=== PATIENT | male | born 1955 | race African-American/Black ===

== ENCOUNTER → 2016-06-20 | Outpatient (CLI) | payer BC ==
[2015-01-22 16:36] VITALS: BP 145/72
[~2016-06-20] MED LIST: ALLO300T PO; CYCL10TA2 PO; GABA-586 PO; GLIM1TAB2 PO; INDA2.5T PO; IOHEXOL 180 MG/ML 10 ML VIAL. ONE; METF850T2 PO; MONT10TA6 PO; RAMI2.5C PO; SITA100T PO; TRAM50TA PO; methylPREDNISolone ACETATE 40 MG/ML VIAL. ONE; methylPREDNISolone ACETATE 80 MG/ML VIAL. ONE
--- NOTE | 2016-06-21 05:12 | PAIN ---
DATE OF SERVICE: 06/20/2016 INITIAL CONSULTATION CHIEF COMPLAINT: Neck and right upper extremity pain. HISTORY OF PRESENT ILLNESS: This is a 60-year-old male who presents with history of pain in the base of the neck and right upper extremity for about 8 months or so now. The patient reports it is increasing with activity using a computer operating a mouse with his right hand. He is right handed. He has numbness and tingling and weakness, especially in the index and middle finger on the right hand, also in the thumb to some extent with pain and weakness and numbness traveling from the base of the neck and shoulder bilaterally, anterior shoulder into the clavicle, posterior into the scapula, on the superior aspect into the anterior aspect of the biceps and forearm and into hand as described. The patient reports it is worse when he tries to sleep and using his computer, is a constant aching pain radiating shooting pain in the arms as noted. The patient reports it awakens him about half the night when he is trying to sleep. The patient reports it does not affect his bowel or bladder control or ability to walk, but his ability to use his computer which is interfering with some of his work duties with comfort, but not with completion of the duties. The patient did have the MRI scan of cervical spine showing postoperative interbody fusion at C5 and C6 with a large asymmetric disk protrusion at C6-C7 greater to the right and midline associated with cord compression, central spinal and foraminal stenosis, greater on the right with a broad-based disk herniation, most probable. The patient reports his disability rating from 0 to 10, 10 being the worst, is a 3 with family and home responsibilities, recreation, social activities and sexual behavior, 2 with self care, 7 with occupation, 8 with life support activities. The patient reports he had been taking [id number] Advil, which helps to a mild extent. He has had some physical therapy several years ago, has done some of those exercises recently on his own, but has had no formal therapy at this point or any other treatments. The patient reports no loss of motor function of right upper extremity, but does fatigue more easily than the left side. PAST MEDICAL HISTORY: Significant for type 2 diabetes, bronchitis, history of hypertension, arthritis, history of kidney stones. PREVIOUS SURGERY: Includes cervical fusion, laparoscopic cholecystectomy, tonsillectomy, foot surgery, and inguinal hernia repair. CURRENT MEDICATIONS: Include Januvia, cyclobenzaprine, tramadol, glimepiride, ramipril, metformin, gabapentin, indapamide, allopurinol, and Singulair. ALLERGIES: The patient has ALLERGY TO SUDAFED. FAMILY HISTORY: Significant for cancer in the patient's father and diabetes in his sister. 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 REVIEW OF SYSTEMS: The patient's review of systems is positive for those items mentioned in history of present illness. All systems reviewed and otherwise negative. It is complete, full and well documented on the patient's chart. PHYSICAL EXAMINATION: VITAL SIGNS: Today, the patient's blood pressure is 140/95, pulse 98, respirations 18, temperature 98.0 degrees Fahrenheit, height 6 feet, weight 320 pounds. GENERAL: The patient is awake, alert, oriented, appropriate, very pleasant demeanor. HEENT: Shows normocephalic, atraumatic. Extraocular movements are intact and symmetrical. Oral cavity shows mucous membranes moist and pink. Dentition is intact. NECK: Shows anterior throat supple without palpable lymphadenopathy noted. Swallow reflex is symmetrical. CHEST: Shows normal on inspection. Breath sounds clear to auscultation bilaterally. HEART: Shows S1 and S2 clear. ABDOMEN: Soft, nontender, nondistended. Abdomen without organomegaly. No rebound or guarding demonstrated. BACK: Shows spine grossly midline. Normal appearing cervical lordotic curvature, thoracic kyphotic curvature, and lumbar lordotic curvature. No previous bruises, lesions, rashes, or scars are noted ____. Posterior cervical musculature shows some moderate tenderness with palpation in the middle and inferior aspect of the cervical paraspinous muscles, more on the right than the left, but without asymmetry, without atrophy, hypertrophy without trigger points. Muscle girth is normal on palpation and symmetrical, without asymmetry. No tenderness over the spinous processes themselves. The patient shows good rotational motion of the cervical spine, both laterally greater than 45 degrees right and left as well as full extension and full forward flexion without exacerbation of pain in either extremity. EXTREMITIES: The patient's upper extremities show deep tendon reflexes 2+ in the biceps and triceps tendons are equal. Motor exam is strong with prescription eyeglass maker strength rated at 5/5 as is biceps and triceps flexion strong and equal. Peripheral pulses are 2+ radial distribution. No peripheral edema is noted. No clubbing, no cyanosis. Upper extremities are warm and dry to touch, equal in color and appearance. Shoulder shrug is strong and intact without loss of strength and resistance bilaterally as is abduction of shoulder to 90 degrees without loss of strength on resistance bilaterally. The patient reports some minor pain in the biceps with abduction of the shoulder to 90 degrees on resistance, but without loss of strength. IMPRESSION: 1. This is a 60-year-old male with about 8-month history of increasing pain in the base of the neck radiating into upper extremity on the right as noted. 2. MRI scan as noted. 3. History of hypertension. 4. Diabetes. PLAN: Options were discussed with the patient including conservative medical management, physical therapy, interventional techniques. He would like to pursue interventional techniques. We discussed a cervical epidural steroid injection using description as well as anatomical models to describe the procedure. Risks were then discussed including, but not limited to bleeding, infection, possibility of epidural hematoma and subsequent neurologic compromise, dural puncture, headaches, spinal cord and/or nerve damage, side effects of steroid medication, exacerbation of current symptoms and poor results regarding pain control. The patient understands and wishes to proceed. The patient will return to clinic in approximately 2 weeks for followup, was counseled on return appointment, activity level and side effects to be aware of. DIAGNOSIS: Cervical radiculopathy with cervical herniated disk and post-cervical laminectomy syndrome. PROCEDURE: Cervical epidural steroid injection with fluoroscopic guidance, a translaminar approach at C6-C7 level with local anesthetic under sterile prep and drape. Medication injected is 120 mg Depo-Medrol plus 5 mL of preservative-free normal saline and 2 mL of Isovue contrast. Condition at discharge is stable. The patient tolerated procedure well, had no complications. AGGIE GARCÍA MD DR: JOSE ANTONIO/klever JOB#: [id number] / [id number] GUILLE Herrera MD
== END | disposition home or self-care (01) ==
LOC: PNCL 08:25
PROVIDERS: ATTEND Anesthesiology
DX: M50.10 Cervical disc disorder with radiculopathy, unspecified cervical region (principal); M96.1 Postlaminectomy syndrome, not elsewhere classified; E11.9 Type 2 diabetes mellitus without complications; I10 Essential (primary) hypertension; M19.90 Unspecified osteoarthritis, unspecified site; J40 Bronchitis, not specified as acute or chronic
CPT/HCPCS: 62321; J1030; J1040

== ENCOUNTER → 2016-07-19 | Outpatient (CLI) | payer BC ==
[2015-01-22 16:36] VITALS: BP 145/72
--- NOTE | 2016-07-20 09:52 | PAIN ---
DATE OF SERVICE: 07/19/2016 DIAGNOSES: Cervical radiculopathy with cervical herniated disk and cervical post-laminectomy syndrome. HISTORY OF PRESENT ILLNESS: The patient is a 60-year-old male who returns for followup status post cervical epidural steroid injection x 2. The patient reports approximately 65% improvement after last injection, which was 07/04/2016. The patient reports he did quite well, still having some pain in the right arm and hand with some numbness and tingling, but much improved. The patient reports there are still some muscle spasms, but these are decreasing as well in the upper extremities, some pain in the right shoulder, base of the neck, rating from a 4 to a 6 on a scale of 10, currently a 4. The patient reports not nearly as intense as it was. He is sleeping much better at night, increasing his daily activities and use of the right upper extremity with much greater ease and comfort. He is very pleased with his progress thus far. The patient reports no new motor or sensory deficits or other complaints. PHYSICAL EXAMINATION: VITAL SIGNS: Shows blood pressure 148/100, pulse 80, respirations 18, temperature 97.8 degrees Fahrenheit, height 6 feet, weight is 325 pounds. GENERAL: The patient is awake, alert, oriented, appropriate, very pleasant demeanor. HEENT: Shows normocephalic, atraumatic. The patient is wearing eye glasses. Extraocular movements are intact and symmetrical. Oral cavity shows mucous membranes moist and pink. Dentition is intact. NECK: Shows anterior throat supple without palpable lymphadenopathy noted. Swallow reflex is symmetrical. Well healed surgical scar is noted on inspection. Posterior cervical musculature shows some [id number] tenderness with inferior aspect of the cervical paraspinous musculature, especially on the right, but without asymmetry, without atrophy or hypertrophy. Muscles are normal in girth with palpation without any asymmetry. No trigger points, no asymmetry, and rotation and motion shows some mild tenderness with right lateral rotation and extension, but not with forward flexion, not with left lateral rotation, which is completed fully past 45 degrees right and left. CHEST: Shows normal on inspection. Breath sounds are clear to auscultation bilaterally. HEART: Shows S1 and S2 clear. No murmurs auscultated. ABDOMEN: Obese, but soft, nontender, nondistended. No palpable organomegaly is noted. No rebound or guarding demonstrated. EXTREMITIES: Upper extremity showed deep tendon reflexes 2+ in the biceps and triceps tendons. Motor exam is strong with fullerette strength rated at 5/5 as is biceps and triceps flexion. Peripheral pulses are 2+ in the radial distribution. No peripheral edema is noted. No clubbing or cyanosis. Shoulder shrug is strong and intact as is abduction of the shoulder to 90 degrees without loss of strength on resistance. PLAN: Options were discussed with the patient. The patient's old chart was reviewed as was his current medication regimen and updated. Current review of systems is updated today as well. We will proceed with the third cervical epidural steroid injection today with fluoroscopic guidance. Risks were again discussed including, but not limited to bleeding, infection, possibility of epidural hematoma, subsequent neurologic compromise, dural punctures, headaches, spinal cord and/or nerve damage, side effects of steroid medication and poor results regarding pain control. The patient understands and wished to proceed. The patient will return to clinic in approximately 2 weeks for followup, was counseled on return appointment, activity level, and side effects to be aware of. DIAGNOSES: Cervical radiculopathy with cervical herniated disk and post-cervical laminectomy syndrome. PROCEDURE: Cervical epidural steroid injection, translaminar approach at the C6-C7 level with fluoroscopic guidance under sterile prep and drape and using local anesthetic. MEDICATION INJECTED: 120 mg Depo-Medrol plus 5 mL of preservative-free normal saline and 2 mL of Isovue for contrast. CONDITION ON DISCHARGE: Stable. The patient tolerated the procedure well, had no complications. AGGIE GARCÍA MD DR: JOSE ANTONIO/klever JOB#: [id number] / [id number]
== END | disposition home or self-care (01) ==
LOC: PNCL 07:46
PROVIDERS: ATTEND Anesthesiology
DX: M50.123 Cervical disc disorder at C6-C7 level with radiculopathy (principal)
CPT/HCPCS: 62321; J1030; J1040

== ENCOUNTER 2017-07-24 14:25 | Inpatient (IN) | payer BC ==
[2017-07-24 15:44] LABS: ADD MAN DIFF? NO
[2017-07-24 15:48] LABS: BASO % 1 % (0-3); EOS # 0.2 x10^3/uL (0.0-0.7); EOS % 2 % (0-3); HEMATOCRIT 38.9 % (39.0-53.0); LYMPH # 1.2 x10^3/uL (1.0-4.8); LYMPH % 17 % (24-48); MEAN CORPUSCULAR HEMOGLOBIN 31 pg (25-35); MEAN CORPUSCULAR HGB CONC 34 g/dL (31-37); MEAN CORPUSCULAR VOLUME 91 fL (79-100); MONO # 0.7 x10^3/uL (0.0-1.1); MONO % 10 % (0-9); NEUT # 4.9 x10^3uL (1.8-7.7); NEUT % 71 % (31-73); PLATELET COUNT 289 x10^3/uL (140-400); RED BLOOD COUNT 4.25 x10^6/uL (4.30-5.70)
[2017-07-24 15:55] LABS: PROTHROMBIN TIME PATIENT 12.8 SEC (11.7-14.0)
[2017-07-24 16:00] LABS: ANION GAP 8 (6-14); BLOOD UREA NITROGEN 9 mg/dL (8-26); BUN/CREATININE RATIO 9 (6-20); CALCIUM 9.2 mg/dL (8.5-10.1); CARBON DIOXIDE 29 mmol/L (21-32); CHLORIDE 106 mmol/L (98-107); GFR 91.9; GLUCOSE 132 mg/dL (70-99); POTASSIUM 3.9 mmol/L (3.5-5.1); SODIUM 143 mmol/L (136-145)
[2017-07-24 16:07] LABS: TROPONINI 0.039 ng/mL (0.000-0.055)
[2017-07-24 16:11] LABS: NT-PRO BNP 2549 pg/mL (0-124)
[2017-07-24 16:13] LABS: ALBUMIN 3.6 g/dL (3.4-5.0); ALK PHOS 86 U/L (46-116); ALT (SGPT) 37 U/L (16-63); AST (SGOT) 27 U/L (15-37); TOTAL BILIRUBIN 0.6 mg/dL (0.2-1.0); TOTAL PROTEIN 7.1 g/dL (6.4-8.2)
[2017-07-24] MEDS: FUROSEMIDE 40 MG/4 ML VIAL. IVP ×2 (17:47)
[2017-07-24] MEDS ORDERED: DEXTROSE 50% 25 GM / 50ML DISP.SYRIN. IV ×2 (20:00)
[2017-07-24] MEDS ORDERED: traMADol 50 MG TABLET PO ×2 (20:15)
[2017-07-24] MEDS: INSULIN DETEMIR 300 UNITS/3 ML INSULN.PEN. SQ ×2 (21:00)
[2017-07-24] MEDS: GLIMEPIRIDE 2 MG TABLET. PO ×2 (21:00)
[2017-07-24] MEDS: CYCLOBENZAPRINE 10 MG TABLET. PO ×2 (21:00)
[2017-07-24 21:03] LABS: POC GLUCOSE 148 mg/dL (70-99)
[2017-07-24] MEDS: MONTELUKAST SODIUM 10 MG TABLET. PO ×2 (21:25)
[2017-07-24] MEDS: ALLOPURINOL 300 MG TABLET. PO ×2 (21:25)
[2017-07-24] MEDS: GABAPENTIN 300 MG CAPSULE. PO ×2 (21:25)
[2017-07-24] MEDS: ACETAMINOPHEN 325 MG TABLET. PO ×2 (21:25)
[2017-07-24 21:49] LABS: TROPONINI 0.027 ng/mL (0.000-0.055)
[2017-07-25 04:48] LABS: ADD MAN DIFF? NO
[2017-07-25 04:58] LABS: BASO % 1 % (0-3); EOS # 0.4 x10^3/uL (0.0-0.7); EOS % 5 % (0-3); HEMATOCRIT 38.7 % (39.0-53.0); HEMOGLOBIN 12.9 g/dL (13.0-17.5); LYMPH # 1.6 x10^3/uL (1.0-4.8); LYMPH % 22 % (24-48); MEAN CORPUSCULAR HEMOGLOBIN 31 pg (25-35); MEAN CORPUSCULAR HGB CONC 33 g/dL (31-37); MEAN CORPUSCULAR VOLUME 91 fL (79-100); MONO # 0.9 x10^3/uL (0.0-1.1); MONO % 13 % (0-9); NEUT # 4.4 x10^3uL (1.8-7.7); NEUT % 60 % (31-73); PLATELET COUNT 278 x10^3/uL (140-400); RED BLOOD COUNT 4.23 x10^6/uL (4.30-5.70); WHITE BLOOD COUNT 7.4 x10^3/uL (4.0-11.0)
[2017-07-25 05:38] LABS: TROPONINI 0.032 ng/mL (0.000-0.055)
[2017-07-25 05:38] LABS: ALBUMIN 3.5 g/dL (3.4-5.0); ALBUMIN/GLOBULIN RATIO 1.2 (1.0-1.7); ALK PHOS 81 U/L (46-116); ALT (SGPT) 32 U/L (16-63); ANION GAP 8 (6-14); AST (SGOT) 28 U/L (15-37); BLOOD UREA NITROGEN 11 mg/dL (8-26); BUN/CREATININE RATIO 10 (6-20); CARBON DIOXIDE 31 mmol/L (21-32); CHLORIDE 105 mmol/L (98-107); CREATININE 1.1 mg/dL (0.7-1.3); GFR 82.3; GLUCOSE 106 mg/dL (70-99); POTASSIUM 3.9 mmol/L (3.5-5.1); SODIUM 144 mmol/L (136-145); TOTAL BILIRUBIN 0.9 mg/dL (0.2-1.0); TOTAL PROTEIN 6.5 g/dL (6.4-8.2)
[2017-07-25] MEDS: INSULIN ASPART 300 UNITS/3 ML INSULN.PEN SQ ×6 (08:00→18:00)
[2017-07-25] MEDS ORDERED: ALBUTEROL SULFATE 2.5 MG/3 ML NEBU. NEB ×2 (08:15)
[2017-07-25 08:49] LABS: CHOLESTEROL 164 mg/dL (0-200); HDLC 43 mg/dL (40-60); LDLC 104 mg/dL (0-100); NON-HDL CHOLESTEROL 121 mg/dL (0-129); TRIGLYCERIDES 87 mg/dL (0-150); VLDLC 17 mg/dL (0-40)
[2017-07-25 08:53] LABS: CHOLESTEROL/HDL RATIO 3.8
[2017-07-25] MEDS: GABAPENTIN 300 MG CAPSULE. PO ×6 (09:00→20:48)
[2017-07-25] MEDS: GLIMEPIRIDE 2 MG TABLET. PO ×4 (09:00→20:48)
[2017-07-25 09:13] LABS: POC GLUCOSE 108 mg/dL (70-99)
[2017-07-25] MEDS: REGADENOSON 0.4 MG/5 ML DISP.SYRIN. IV ×2 (11:15)
[2017-07-25] MEDS ORDERED: REGADENOSON 0.4 MG/5 ML DISP.SYRIN. IV ×2 (11:22)
[2017-07-25] MEDS: LACTOBACILLUS RHAMNOSUS GG 1 CAPSULE. PO ×4 (12:03→20:48)
[2017-07-25] MEDS: LINAGLIPTIN 5 MG TABLET PO ×2 (12:03)
[2017-07-25] MEDS: INDAPAMIDE 2.5 MG TABLET PO ×2 (12:03)
[2017-07-25] MEDS: LISINOPRIL 5 MG TABLET. PO ×2 (12:03)
[2017-07-25] MEDS: IPRATRPIUM/ALBUTEROL 0.5/2.5MG 3 ML NEBU. NEB ×8 (12:20→18:12)
[2017-07-25 12:21] LABS: POC GLUCOSE 113 mg/dL (70-99)
[2017-07-25] MEDS: cefTRIAXone IV Push 1 GM VIAL. IVP ×2 (14:26)
[2017-07-25] MEDS: POTASSIUM CHLORIDE 20 MEQ TABLET.ER. PO ×2 (14:26)
[2017-07-25] MEDS: FUROSEMIDE 40 MG/4 ML VIAL. IVP ×2 (14:26)
[2017-07-25] MEDS: ENOXAPARIN 40 MG/0.4 ML SYRINGE. SQ ×6 (15:00→22:17)
[2017-07-25 17:35] LABS: POC GLUCOSE 163 mg/dL (70-99)
[2017-07-25] MEDS: ACETAMINOPHEN 325 MG TABLET. PO ×2 (19:32)
[2017-07-25] MEDS: CYCLOBENZAPRINE 10 MG TABLET. PO ×2 (20:48)
[2017-07-25] MEDS: MONTELUKAST SODIUM 10 MG TABLET. PO ×2 (20:48)
[2017-07-25] MEDS: ALLOPURINOL 300 MG TABLET. PO ×2 (20:48)
[2017-07-25 21:11] LABS: POC GLUCOSE 223 mg/dL (70-99)
[2017-07-25] MEDS: INSULIN DETEMIR 300 UNITS/3 ML INSULN.PEN. SQ ×2 (22:26)
[2017-07-26 06:28] LABS: ADD MAN DIFF? NO
[2017-07-26 06:53] LABS: BASO % 1 % (0-3); EOS # 0.5 x10^3/uL (0.0-0.7); EOS % 7 % (0-3); HEMATOCRIT 40.4 % (39.0-53.0); HEMOGLOBIN 13.4 g/dL (13.0-17.5); LYMPH # 1.5 x10^3/uL (1.0-4.8); LYMPH % 23 % (24-48); MEAN CORPUSCULAR HEMOGLOBIN 30 pg (25-35); MEAN CORPUSCULAR HGB CONC 33 g/dL (31-37); MEAN CORPUSCULAR VOLUME 91 fL (79-100); MONO # 0.8 x10^3/uL (0.0-1.1); MONO % 12 % (0-9); NEUT # 3.7 x10^3uL (1.8-7.7); NEUT % 57 % (31-73); PLATELET COUNT 282 x10^3/uL (140-400); RED BLOOD COUNT 4.42 x10^6/uL (4.30-5.70); RED CELL DISTRIBUTION WIDTH 15.1 % (11.5-14.5); WHITE BLOOD COUNT 6.5 x10^3/uL (4.0-11.0)
[2017-07-26 07:09] LABS: ANION GAP 7 (6-14); BLOOD UREA NITROGEN 14 mg/dL (8-26); CALCIUM 8.6 mg/dL (8.5-10.1); CARBON DIOXIDE 32 mmol/L (21-32); CHLORIDE 106 mmol/L (98-107); CREATININE 1.1 mg/dL (0.7-1.3); GFR 82.3; GLUCOSE 123 mg/dL (70-99); MAGNESIUM 2.2 mg/dL (1.8-2.4); POTASSIUM 3.4 mmol/L (3.5-5.1); SODIUM 145 mmol/L (136-145)
[2017-07-26] MEDS: IPRATRPIUM/ALBUTEROL 0.5/2.5MG 3 ML NEBU. NEB ×8 (07:53→19:59)
[2017-07-26] MEDS: INSULIN ASPART 300 UNITS/3 ML INSULN.PEN SQ ×6 (08:00→17:38)
[2017-07-26] MEDS: GLIMEPIRIDE 2 MG TABLET. PO ×4 (09:00→21:00)
[2017-07-26] MEDS: ENOXAPARIN 40 MG/0.4 ML SYRINGE. SQ ×6 (09:00→22:02)
[2017-07-26 09:12] LABS: POC GLUCOSE 147 mg/dL (70-99)
[2017-07-26] MEDS ORDERED: FLUTICASONE 50MCG/NASAL SPRAY 16GM BOTTLE. NS ×2 (09:15)
[2017-07-26] MEDS: ASPIRIN ENTERIC COATED 81 MG TABLET.DR. PO ×2 (09:18)
[2017-07-26] MEDS: cefTRIAXone IV Push 1 GM VIAL. IVP ×2 (09:23)
[2017-07-26] MEDS: OMEGA-3 FATTY ACIDS/FISH OIL 1,000 MG CAPSULE. PO ×2 (10:00)
[2017-07-26] MEDS: CHOLECALCIFEROL (VITAMIN D3) 1,000 UNIT TABLET PO ×2 (10:00)
[2017-07-26] MEDS: MULTIVITAMIN with MINERAL TABLET. PO ×2 (10:00)
[2017-07-26 12:43] LABS: POC GLUCOSE 136 mg/dL (70-99)
[2017-07-26] MEDS: GABAPENTIN 300 MG CAPSULE. PO ×6 (14:00→21:51)
[2017-07-26] MEDS: LINAGLIPTIN 5 MG TABLET PO ×2 (16:37)
[2017-07-26] MEDS: POTASSIUM CHLORIDE 20 MEQ TABLET.ER. PO ×4 (16:37→17:37)
[2017-07-26] MEDS: LISINOPRIL 5 MG TABLET. PO ×2 (16:38)
[2017-07-26] MEDS: LACTOBACILLUS RHAMNOSUS GG 1 CAPSULE. PO ×4 (16:39→21:51)
[2017-07-26] MEDS: METOPROLOL SUCC 24HR ER 25 MG TAB.ER.24H. PO ×2 (16:55)
[2017-07-26] MEDS ORDERED: POTASSIUM CHLORIDE 10 MEQ TABLET.ER. PO ×2 (17:00)
[2017-07-26 17:20] LABS: POC GLUCOSE 206 mg/dL (70-99)
[2017-07-26 21:32] LABS: POC GLUCOSE 182 mg/dL (70-99)
[2017-07-26] MEDS: ATORVASTATIN CALCIUM 20 MG TABLET PO ×2 (21:51)
[2017-07-26] MEDS: MONTELUKAST SODIUM 10 MG TABLET. PO ×2 (21:51)
[2017-07-26] MEDS: ALLOPURINOL 300 MG TABLET. PO ×2 (21:52)
[2017-07-26] MEDS: CYCLOBENZAPRINE 10 MG TABLET. PO ×2 (21:52)
[2017-07-26] MEDS: INSULIN DETEMIR 300 UNITS/3 ML INSULN.PEN. SQ ×2 (21:57)
[2017-07-27 04:52] LABS: ADD MAN DIFF? NO
[2017-07-27 05:11] LABS: BASO % 1 % (0-3); EOS # 0.6 x10^3/uL (0.0-0.7); EOS % 9 % (0-3); HEMATOCRIT 41.7 % (39.0-53.0); HEMOGLOBIN 13.7 g/dL (13.0-17.5); LYMPH # 1.6 x10^3/uL (1.0-4.8); LYMPH % 24 % (24-48); MEAN CORPUSCULAR HEMOGLOBIN 30 pg (25-35); MEAN CORPUSCULAR HGB CONC 33 g/dL (31-37); MEAN CORPUSCULAR VOLUME 91 fL (79-100); MONO # 0.8 x10^3/uL (0.0-1.1); MONO % 12 % (0-9); NEUT # 3.7 x10^3uL (1.8-7.7); NEUT % 55 % (31-73); PLATELET COUNT 285 x10^3/uL (140-400); RED BLOOD COUNT 4.58 x10^6/uL (4.30-5.70); RED CELL DISTRIBUTION WIDTH 15.4 % (11.5-14.5); WHITE BLOOD COUNT 6.7 x10^3/uL (4.0-11.0)
[2017-07-27 05:49] LABS: ANION GAP 10 (6-14); BLOOD UREA NITROGEN 15 mg/dL (8-26); CALCIUM 8.8 mg/dL (8.5-10.1); CARBON DIOXIDE 28 mmol/L (21-32); CHLORIDE 104 mmol/L (98-107); CREATININE 1.2 mg/dL (0.7-1.3); GFR 74.5; GLUCOSE 132 mg/dL (70-99); POTASSIUM 3.5 mmol/L (3.5-5.1); SODIUM 142 mmol/L (136-145)
[2017-07-27] MEDS ORDERED: LIDOCAINE 1% Multi-Dose 20 ML VIAL. ×2 (07:44)
[2017-07-27] MEDS ORDERED: IODIXANOL 320 MG/ML 100 ML VIAL. ×4 (07:44→09:52)
[2017-07-27] MEDS: INSULIN ASPART 300 UNITS/3 ML INSULN.PEN SQ ×4 (08:00→12:00)
[2017-07-27] MEDS: IPRATRPIUM/ALBUTEROL 0.5/2.5MG 3 ML NEBU. NEB ×6 (08:50→15:45)
[2017-07-27 08:57] LABS: POC GLUCOSE 142 mg/dL (70-99)
[2017-07-27] MEDS: ENOXAPARIN 40 MG/0.4 ML SYRINGE. SQ ×2 (09:00)
[2017-07-27] MEDS ORDERED: NITROGLYCERIN 200 MCG/2 ML SYRINGE FOR CATH/VASC LAB. ×2 (09:41)
[2017-07-27] MEDS ORDERED: VERAPAMIL 5 MG/2 ML VIAL. ×2 (09:41)
[2017-07-27] MEDS ORDERED: HEPARIN for IV BOLUS 10,000 UNIT/10 ML VIAL. ×2 (09:41)
[2017-07-27] MEDS ORDERED: MIDAZOLAM HCL/PF 2 MG/2 ML VIAL. ×4 (09:58→10:10)
[2017-07-27] MEDS ORDERED: fentaNYL PF VIAL 100 MCG/2 ML VIAL ×2 (09:58)
[2017-07-27] MEDS: HEPARIN for IV BOLUS 10,000 UNIT/10 ML VIAL. IART ×2 (10:15)
[2017-07-27] MEDS: VERAPAMIL 5 MG/2 ML VIAL. IART ×2 (10:15)
[2017-07-27] MEDS: NITROGLYCERIN 200 MCG/2 ML SYRINGE FOR CATH/VASC LAB. IART ×2 (10:15)
[2017-07-27] MEDS: MIDAZOLAM HCL/PF 2 MG/2 ML VIAL. IV ×2 (10:15)
[2017-07-27] MEDS: fentaNYL PF VIAL 100 MCG/2 ML VIAL IV ×2 (10:15)
[2017-07-27] MEDS: LIDOCAINE 2% 20 ML VIAL. IJ ×2 (10:15)
[2017-07-27] MEDS: IODIXANOL 320 MG/ML 100 ML VIAL. IART ×2 (10:15)
[2017-07-27] MEDS: CHOLECALCIFEROL (VITAMIN D3) 1,000 UNIT TABLET PO ×2 (10:59)
[2017-07-27] MEDS: LINAGLIPTIN 5 MG TABLET PO ×2 (10:59)
[2017-07-27] MEDS: POTASSIUM CHLORIDE 20 MEQ TABLET.ER. PO ×6 (11:00→16:23)
[2017-07-27] MEDS: MULTIVITAMIN with MINERAL TABLET. PO ×2 (11:00)
[2017-07-27] MEDS: FUROSEMIDE 40 MG TABLET. PO ×2 (11:00)
[2017-07-27] MEDS: GABAPENTIN 300 MG CAPSULE. PO ×4 (11:00→14:00)
[2017-07-27] MEDS: LISINOPRIL 5 MG TABLET. PO ×2 (11:00)
[2017-07-27] MEDS: GLIMEPIRIDE 2 MG TABLET. PO ×2 (11:01)
[2017-07-27] MEDS: OMEGA-3 FATTY ACIDS/FISH OIL 1,000 MG CAPSULE. PO ×2 (11:07)
[2017-07-27] MEDS: METOPROLOL SUCC 24HR ER 25 MG TAB.ER.24H. PO ×2 (11:08)
[2017-07-27] MEDS: ASPIRIN ENTERIC COATED 81 MG TABLET.DR. PO ×2 (11:08)
[2017-07-27] MEDS: LACTOBACILLUS RHAMNOSUS GG 1 CAPSULE. PO ×2 (11:08)
[2017-07-27] MEDS: cefTRIAXone IV Push 1 GM VIAL. IVP ×2 (11:15)
[2017-07-27 12:42] LABS: POC GLUCOSE 163 mg/dL (70-99)
[2017-07-27 17:52] LABS: POC GLUCOSE 149 mg/dL (70-99)
== END 2017-07-27 18:50 | disposition home or self-care (01) | DRG 286 ==
LOC: ER 14:25 → 2 SOUTH 16:49
PROC: 4A023N7 Measurement of Cardiac Sampling and Pressure, Left Heart, Percutaneous Approach (ICD-10-PCS; principal; 2017-07-27)
PROC: B2111ZZ Fluoroscopy of Multiple Coronary Arteries using Low Osmolar Contrast (ICD-10-PCS; 2017-07-27)
PROC: B2151ZZ Fluoroscopy of Left Heart using Low Osmolar Contrast (ICD-10-PCS; 2017-07-27)
DX: I13.0 Hypertensive heart and chronic kidney disease with heart failure and stage 1 through stage 4 chronic kidney disease, or unspecified chronic kidney disease (principal); I50.23 Acute on chronic systolic (congestive) heart failure; E11.22 Type 2 diabetes mellitus with diabetic chronic kidney disease; E11.40 Type 2 diabetes mellitus with diabetic neuropathy, unspecified; E66.01 Morbid (severe) obesity due to excess calories; I27.20 Pulmonary hypertension, unspecified; J98.11 Atelectasis; Z68.41 Body mass index [BMI] 40.0-44.9, adult; D64.9 Anemia, unspecified; I42.9 Cardiomyopathy, unspecified; E78.00 Pure hypercholesterolemia, unspecified; E78.5 Hyperlipidemia, unspecified; E87.6 Hypokalemia; G47.33 Obstructive sleep apnea (adult) (pediatric); G89.29 Other chronic pain; I16.0 Hypertensive urgency; I25.10 Atherosclerotic heart disease of native coronary artery without angina pectoris; J45.909 Unspecified asthma, uncomplicated; K21.9 Gastro-esophageal reflux disease without esophagitis; K59.00 Constipation, unspecified; M17.10 Unilateral primary osteoarthritis, unspecified knee; N18.2 Chronic kidney disease, stage 2 (mild); Z79.4 Long term (current) use of insulin; Z82.49 Family history of ischemic heart disease and other diseases of the circulatory system; Z87.442 Personal history of urinary calculi; Z83.3 Family history of diabetes mellitus; Z90.49 Acquired absence of other specified parts of digestive tract; Z88.5 Allergy status to narcotic agent
CPT/HCPCS: 36415; 71045; 71250; 78452; 80048; 80053; 80061; 82962; 83735; 83880; 84484; 85025; 85610; 93005; 93017; 93306; 93458; 94640; 94760; 96374; 96375; 96376; 99152; 99153; 99285; 99285-25; A9500; C1769; C1892; J0696; J1644; J1650; J1815; J1940; J2250; J2785; J3010; J3490; J7620

== ENCOUNTER → 2017-08-28 | Outpatient (CLI) | payer BC ==
[~2017-08-28] MED LIST changes: -ALLO300T PO; -CYCL10TA2 PO; -GABA-586 PO; -GLIM1TAB2 PO; -INDA2.5T PO; -IOHEXOL 180 MG/ML 10 ML VIAL. ONE; -METF850T2 PO; -MONT10TA6 PO; +OXYMETAZOLINE 0.05% NASAL SPRAY 30ML BOTTLE. NS; -RAMI2.5C PO; -SITA100T PO; -TRAM50TA PO; -methylPREDNISolone ACETATE 40 MG/ML VIAL. ONE; -methylPREDNISolone ACETATE 80 MG/ML VIAL. ONE
[2017-08-28] MEDS: ZOLPIDEM 5 MG TABLET. PO (21:00)
== END | disposition home or self-care (01) ==
LOC: SLPLAB 18:16
DX: G47.33 Obstructive sleep apnea (adult) (pediatric) (principal)
CPT/HCPCS: 95810

== ENCOUNTER → 2017-10-31 | Outpatient (CLI) | payer BC ==
[2017-10-31] MEDS: ZOLPIDEM 5 MG TABLET. PO (23:34)
== END | disposition home or self-care (01) ==
LOC: RT 18:41
DX: G47.33 Obstructive sleep apnea (adult) (pediatric) (principal); I13.10 Hypertensive heart and chronic kidney disease without heart failure, with stage 1 through stage 4 chronic kidney disease, or unspecified chronic kidney disease; E11.22 Type 2 diabetes mellitus with diabetic chronic kidney disease; I50.9 Heart failure, unspecified; N18.2 Chronic kidney disease, stage 2 (mild)
CPT/HCPCS: 95811

== ENCOUNTER → 2017-11-27 | Outpatient (CLI) | payer BC | END | disposition home or self-care (01) | LOC: ECHO 10:58 | DX: I08.1 Rheumatic disorders of both mitral and tricuspid valves (principal) | CPT/HCPCS: 93306 ==

== ENCOUNTER → 2017-12-31 | Outpatient (CLI) | payer BC | END | disposition home or self-care (01) | LOC: RAD 13:46 | DX: Z48.812 Encounter for surgical aftercare following surgery on the circulatory system (principal); I13.10 Hypertensive heart and chronic kidney disease without heart failure, with stage 1 through stage 4 chronic kidney disease, or unspecified chronic kidney disease; E11.22 Type 2 diabetes mellitus with diabetic chronic kidney disease; N18.2 Chronic kidney disease, stage 2 (mild); E87.6 Hypokalemia; E78.5 Hyperlipidemia, unspecified; E78.00 Pure hypercholesterolemia, unspecified; E66.9 Obesity, unspecified; J45.909 Unspecified asthma, uncomplicated; Z87.442 Personal history of urinary calculi; Z95.810 Presence of automatic (implantable) cardiac defibrillator | CPT/HCPCS: 71046 ==

== ENCOUNTER 2018-01-03 08:14 | Observation (INO) | payer BC ==
[2018-01-03 08:58] LABS: ADD MAN DIFF? NO
[2018-01-03 09:05] LABS: BASO # 0.1 x10^3/uL (0.0-0.2); BASO % 1 % (0-3); EOS # 0.6 x10^3/uL (0.0-0.7); EOS % 9 % (0-3); HEMATOCRIT 39.2 % (39.0-53.0); LYMPH # 1.8 x10^3/uL (1.0-4.8); LYMPH % 28 % (24-48); MEAN CORPUSCULAR HEMOGLOBIN 31 pg (25-35); MEAN CORPUSCULAR HGB CONC 33 g/dL (31-37); MEAN CORPUSCULAR VOLUME 94 fL (79-100); MONO # 0.6 x10^3/uL (0.0-1.1); MONO % 10 % (0-9); NEUT # 3.4 x10^3uL (1.8-7.7); NEUT % 53 % (31-73); PLATELET COUNT 275 x10^3/uL (140-400); RED BLOOD COUNT 4.17 x10^6/uL (4.30-5.70); RED CELL DISTRIBUTION WIDTH 15.3 % (11.5-14.5); WHITE BLOOD COUNT 6.4 x10^3/uL (4.0-11.0)
[2018-01-03 09:15] LABS: ANION GAP 7 (6-14); BLOOD UREA NITROGEN 11 mg/dL (8-26); CARBON DIOXIDE 29 mmol/L (21-32); CHLORIDE 107 mmol/L (98-107); CREATININE 1.2 mg/dL (0.7-1.3); GFR 74.2; GLUCOSE 95 mg/dL (70-99); POTASSIUM 4.3 mmol/L (3.5-5.1); SODIUM 143 mmol/L (136-145)
[2018-01-03] MEDS ORDERED: MIDAZOLAM HCL/PF 2 MG/2 ML VIAL. ×3 (09:18→10:37)
[2018-01-03] MEDS ORDERED: fentaNYL PF VIAL 100 MCG/2 ML VIAL ×2 (09:18→10:46)
[2018-01-03 09:19] LABS: PROTHROMBIN TIME PATIENT 12.2 SEC (11.7-14.0)
[2018-01-03] MEDS ORDERED: LIDOCAINE 2%/EPI 1:100,000 20 ML VIAL. (09:51)
[2018-01-03] MEDS: BACITRACIN 50,000 UNIT in IV NORMAL SALINE 250ML 250 ML IRR (11:13)
[2018-01-03] MEDS: ceFAZolin SODIUM 3 GM in IV DEXTROSE 5% 100ML 100 ML IV ×2 (11:15→17:44)
[2018-01-03] MEDS: LIDOCAINE 2%/EPI 1:100,000 20 ML VIAL. IJ (11:16)
[2018-01-03] MEDS: fentaNYL PF VIAL 100 MCG/2 ML VIAL IV (11:17)
[2018-01-03] MEDS: MIDAZOLAM HCL/PF 2 MG/2 ML VIAL. IV (11:17)
[2018-01-03] MEDS ORDERED: NO ANTICOAGULANT THERAPY. MC (12:45)
[2018-01-03 12:47] LABS: POC GLUCOSE 109 mg/dL (70-99)
[2018-01-03] MEDS: IODIXANOL 320 MG/ML 100 ML VIAL. IART (14:45)
[2018-01-03] MEDS: LIDOCAINE 2% 20 ML VIAL. IJ (14:45)
[2018-01-03] MEDS ORDERED: CONTRAST GIVEN. MC (15:00)
[2018-01-03] MEDS: HYDROcodone/APAP 5/325MG 1 TAB TABLET PO ×2 (16:11→21:15)
[2018-01-03] MEDS ORDERED: traMADol 50 MG TABLET PO (17:15)
[2018-01-03] MEDS: POTASSIUM CHLORIDE 20 MEQ TABLET.ER. PO (17:53)
[2018-01-03] MEDS: CYCLOBENZAPRINE 10 MG TABLET. PO (21:15)
[2018-01-03] MEDS: ALLOPURINOL 300 MG TABLET. PO (21:15)
[2018-01-03] MEDS: SIMVASTATIN 10 MG TABLET PO (21:15)
[2018-01-04] MEDS: HYDROcodone/APAP 5/325MG 1 TAB TABLET PO ×2 (02:50→08:51)
[2018-01-04 07:31] LABS: POC GLUCOSE 139 mg/dL (70-99)
[2018-01-04] MEDS: POTASSIUM CHLORIDE 20 MEQ TABLET.ER. PO (08:43)
[2018-01-04] MEDS: CETIRIZINE HCL 10 MG TABLET. PO (08:43)
[2018-01-04] MEDS: FUROSEMIDE 40 MG TABLET. PO (08:43)
[2018-01-04] MEDS: ASPIRIN ENTERIC COATED 81 MG TABLET.DR. PO (08:44)
[2018-01-04] MEDS: CHOLECALCIFEROL (VITAMIN D3) 1,000 UNIT TABLET PO (08:44)
[2018-01-04] MEDS: METOPROLOL SUCC 24HR ER 25 MG TAB.ER.24H. PO (08:44)
== END 2018-01-04 10:30 | disposition home or self-care (01) ==
LOC: CCL 08:14 → 2 NORTH 09:25
DX: T82.118A Breakdown (mechanical) of other cardiac electronic device, initial encounter (principal); I42.9 Cardiomyopathy, unspecified; E11.22 Type 2 diabetes mellitus with diabetic chronic kidney disease; E78.5 Hyperlipidemia, unspecified; I12.9 Hypertensive chronic kidney disease with stage 1 through stage 4 chronic kidney disease, or unspecified chronic kidney disease; K21.9 Gastro-esophageal reflux disease without esophagitis; N18.2 Chronic kidney disease, stage 2 (mild); Y92.89 Other specified places as the place of occurrence of the external cause; Y99.8 Other external cause status
CPT/HCPCS: 33222; 36415; 71045; 71046; 80048; 82962; 85025; 85610; 93005; 96365; 96375; 99152; 99153; C1895; G0378; G0379; J0690; J1644; J2001; J2250; J3010; J3490; J7050

== ENCOUNTER 2019-02-26 06:52 | Inpatient (IN) | payer BC ==
[~2019-02-26] VITALS: Ht 182.9 cm; Wt 143.3 kg
[~2019-02-26 06:52] MED LIST changes: +ALBU2.5V8 INH; +ALLO300T PO; +ASPI-612 PO; +ATOR20TA58 PO; +CETI10TA22 PO; +CHOL10002 PO; +CHOL10003 PO; +CYCL10TA2 PO; +DOXY100C2 PO; +FISH1CAP PO; +FLUT16SP NS; +FURO40TA4 PO; +GABA300C18 PO; +GLIM1TAB2 PO; +HYDR-2761 PO; +INDA2.5T PO; +INSU100I30 SUBCUT; +METF850T8 PO; +METO-239 PO; +MONT10TA49 PO; -OXYMETAZOLINE 0.05% NASAL SPRAY 30ML BOTTLE. NS; +POTA20TA4 PO; +PRED20TA PO; +RAMI2.5C2 PO; +SIMV10TA3 PO; +SITA100T PO; +TRAM50TA PO
[2019-02-26] MEDS ORDERED: MORPHINE SULFATE 4 MG/ML VIAL. IV ONE (07:15)
[2019-02-26] MEDS ORDERED: ORPHENADRINE CITRATE 60 MG/2 ML VIAL. IV ONE (07:15)
[2019-02-26] MEDS ORDERED: methylPREDNISolone SOD SUCC PF 125 MG/2 ML VIAL. IV ONE (07:15)
--- NOTE | 2019-02-26 07:17 | PHYS DOC ---
Past Medical History Past Medical History: Anemia, Arthritis, Bronchitis, CAD, Diabetes-Type II, High Cholesterol, Hypertension, Kidney Stone, Renal Disease Additional Past Medical Histor: Gout, hypokalemia, neuropathy Past Surgical History: Cholecystectomy, Tonsillectomy, Other Additional Past Surgical Histo: neck surgery, hernia surgery Alcohol Use: None Drug Use: None Adult General Chief Complaint Chief Complaint: BACK PAIN - NO INJURY HPI HPI Patient is a 63 year old male who presents via EMS with complaining of back spasm and pain. Patient states he has had episodes of back pain and spasm for 1 years that gradually getting worse for the last 1 month with increasing ambulation problem and needs to use cane. Patient states he has been using of low back pain for the last 2 nights and this morning was not able to get up and had a fall because of numbness and weakness of bilateral lower extremities. Patient rated his pain 8/10 with activity that resolved with rest. Patient states he has plan to have low back injection today but was not able to make it because of severe pain and unable to use. Patient denies urine and bowel incontinence, abdominal pain, chest pain, fever and chills, urinary symptom. Patient states he had the same episode of pain previously but this time is worse than his usual. Review of Systems Review of Systems Constitutional: Denies fever or chills [] Eyes: Denies change in visual acuity, redness, or eye pain [] HENT: Denies nasal congestion or sore throat [] Respiratory: Denies cough or shortness of breath [] Cardiovascular: No additional information not addressed in HPI [] GI: Denies abdominal pain, nausea, vomiting, bloody stools or diarrhea [] : Denies dysuria or hematuria [] Musculoskeletal: Reports back pain and extremity pain Integument: Denies rash or skin lesions [] Neurologic: Denies headache, focal weakness or sensory changes [] Endocrine: Denies polyuria or polydipsia [] All other systems were reviewed and found to be within normal limits, except as documented in this note. Current Medications Current Medications Current Medications Medications (Trade) Dose Ordered Sig/Tavia Start Time Stop Time Status Last Admin Dose Admin Methylprednisolone Sodium Succinate (SOLU-Medrol 125MG VIAL) 125 mg 1X ONCE 02/26/19 07:15 02/26/19 07:16 DC 02/26/19 07:55 125 MG Morphine Sulfate (Morphine Sulfate) 4 mg 1X ONCE 02/26/19 07:15 02/26/19 07:16 DC 02/26/19 07:55 4 MG Orphenadrine Citrate (Norflex) 60 mg 1X ONCE 02/26/19 07:15 02/26/19 07:16 DC 02/26/19 07:55 60 MG Allergies Allergies Allergies Coded Allergies Type Severity Reaction Last Updated Verified simvastatin Allergy Intermediate upper body weakness 02/26/19 Yes pseudoephedrine Adverse Reaction Intermediate "Gets high" 12/07/17 Yes Physical Exam Physical Exam Constitutional: Well developed, well nourished, mild distress, non-toxic appearance. [] HENT: Normocephalic, atraumatic. Eyes: PERRLA, EOMI, conjunctiva normal, no discharge. [] Neck: Normal range of motion, no tenderness, supple, no stridor. [] Cardiovascular:Heart rate regular rhythm, no murmur [] Lungs & Thorax: Bilateral breath sounds clear to auscultation [] Abdomen: Bowel sounds normal, soft, no tenderness, no masses, no pulsatile masses. [] Skin: Warm, dry, no erythema, no rash. [] Back: No midline tenderness, no CVA tenderness. [] Extremities: No tenderness, no cyanosis, no clubbing, painful range of motion, no edema. [] Neurologic: Alert and oriented X 3, subjective bilateral lower extremity paresthesia Psychologic: Affect normal, judgement normal, mood normal. [] Current Patient Data Vital Signs Vital Signs Date Time Temp Pulse Resp B/P (MAP) Pulse Ox O2 Delivery O2 Flow Rate FiO2 02/26/19 08:25 18 100 Room Air 02/26/19 07:00 97.4 80 142/72 (95) 97.4 Lab Values Laboratory Tests Test 02/26/19 07:45 White Blood Count 7.4 x10^3/uL (4.0-11.0) Red Blood Count 4.83 x10^6/uL (4.30-5.70) Hemoglobin 14.9 g/dL (13.0-17.5) Hematocrit 44.8 % (39.0-53.0) Mean Corpuscular Volume 93 fL (79-100) Mean Corpuscular Hemoglobin 31 pg (25-35) Mean Corpuscular Hemoglobin Concent 33 g/dL (31-37) Red Cell Distribution Width 14.5 % (11.5-14.5) Platelet Count 309 x10^3/uL (140-400) Neutrophils (%) (Auto) 60 % (31-73) Lymphocytes (%) (Auto) 30 % (24-48) Monocytes (%) (Auto) 7 % (0-9) Eosinophils (%) (Auto) 3 % (0-3) Basophils (%) (Auto) 1 % (0-3) Neutrophils # (Auto) 4.5 x10^3/uL (1.8-7.7) Lymphocytes # (Auto) 2.2 x10^3/uL (1.0-4.8) Monocytes # (Auto) 0.5 x10^3/uL (0.0-1.1) Eosinophils # (Auto) 0.2 x10^3/uL (0.0-0.7) Basophils # (Auto) 0.1 x10^3/uL (0.0-0.2) Sodium Level 143 mmol/L (136-145) Potassium Level 4.1 mmol/L (3.5-5.1) Chloride Level 107 mmol/L (98-107) Carbon Dioxide Level 27 mmol/L (21-32) Anion Gap 9 (6-14) Blood Urea Nitrogen 20 mg/dL (8-26) Creatinine 1.2 mg/dL (0.7-1.3) Estimated GFR (Cockcroft-Gault) 74.0 BUN/Creatinine Ratio 17 (6-20) Glucose Level 116 mg/dL (70-99) H Calcium Level 9.6 mg/dL (8.5-10.1) Total Bilirubin 0.5 mg/dL (0.2-1.0) Aspartate Amino Transferase (AST) 12 U/L (15-37) L Alanine Aminotransferase (ALT) 15 U/L (16-63) L Alkaline Phosphatase 92 U/L (46-116) Creatine Kinase 67 U/L (39-308) Total Protein 7.4 g/dL (6.4-8.2) Albumin 3.8 g/dL (3.4-5.0) Albumin/Globulin Ratio 1.1 (1.0-1.7) Laboratory Tests 02/26/19 07:45 Laboratory Tests 02/26/19 07:45 EKG EKG [] Radiology/Procedures Radiology/Procedures [][facility] [address] [place] [address] IMAGING REPORT Signed PATIENT: HERVE JOYAOUNT: [id number] : 1955 LOCATION: ER AGE: 63 SEX: M EXAM STATUS: REG ER ORD. PHYSICIAN: TRACY VICKERS MD REASON: back pain with paresthesia PROCEDURE: CT LUMBAR SPINE WO CONTRAST Study: CT lumbar spine without contrast INDICATION: Back pain with paresthesia. COMPARISON: None available. TECHNIQUE: Axial CT imaging of the lumbar spine performed without the use of intravenous contrast. FINDINGS: No acute fracture or aggressive osseous process. Spinal alignment is maintained in both the coronal and sagittal planes. Only mild disc space height loss at L4-L5. Osseous mineralization is maintained. T11-T12: Disc bulge and facet degeneration with suspected moderate central canal stenosis as well as at least moderate left greater than right neural foraminal stenosis. T12-L1: No significant degenerative change. L1-L2: No significant degenerative change. L2-L3: Facet degeneration, more pronounced on the right, without significant bony encroachment on the central canal or neural foramina. L3-L4: Mild disc bulge. Facet degeneration is suspected mild central canal stenosis. Mild encroachment on the left more so than right neural foramina. L4-L5: Disc bulge, ligamentum flavum hypertrophy and facet degeneration with suspected severe central canal stenosis though not fully evaluated by technique. Bilateral neural foraminal stenosis, at least mild. L5-S1: Mild disc bulge, ligamentum flavum prominence and facet degeneration without severe central canal stenosis. Moderate to potentially severe bilateral neural foraminal stenosis. IMPRESSION: 1. No acute fracture or aggressive osseous process. 2. Multiple levels of degenerative changes which are most notable at L4-L5 where there appears to be severe central canal stenosis. Suspected moderate central canal stenosis also partially evaluated at T11-T12. Full delineation of the degree of stenosis would be afforded with MRI or CT myelography. 3. At least moderate to potentially severe neural foraminal stenosis bilaterally at L5-S1. Additional levels with more mild to moderate encroachment on the neural foramina which would also be better assessed with MRI or CT myelography. Electronically signed by: MICHAEL STARKEY MD (02/26/2019 8:40 AM) [facility] DICTATED and SIGNED BY: MICHAEL STARKEY MD DATE: 02/26/19 0840 Course & Med Decision Making Course & Med Decision Making Pertinent Labs and Imaging studies reviewed. (See chart for details) Evaluation of patient in ER showed 63-year-old male patient with complaining of episodes of low back pain that getting worse today before his appointment for epidural injection today. Patient has subjective paresthesia painful range of motion upper extremity. Patient treated with morphine, Norflex and Solu-Medrol with improvement of his pain. CT showed severe spinal stenosis at L4-L5 without acute finding.Patient requiring admission for further evaluation and treatment. Discussed with Dr. Lopez who is in agreement with admission. Discussed findings and plan with patient and family, who acknowledge understanding and agreement. Dr. Sebastian Mckoy pain management was consulted at 0847 and plan to do epidural injection. Dragon Disclaimer Dragon Disclaimer This electronic medical record was generated, in whole or in part, using a voice recognition dictation system. Departure Departure Impression: Primary Impression: Intractable back pain Additional Impressions: Spinal stenosis at L4-L5 level Paresthesia Morbid obesity with BMI of 40.0-44.9, adult Muscle spasm Disposition: ADMITTED INPATIENT ([id number]) Admitting Physician: Guille Lopez (accepted admission at 0840) Condition: IMPROVED Referrals: GUILLE LOPEZ MD (PCP) Problem Qualifiers TRACY VICKERS MD Feb 26, 2019 07:17
[2019-02-26 08:00] LABS: BASO # 0.1 x10^3/uL (0.0-0.2); BASO % 1 % (0-3); EOS # 0.2 x10^3/uL (0.0-0.7); EOS % 3 % (0-3); HEMATOCRIT 44.8 % (39.0-53.0); HEMOGLOBIN 14.9 g/dL (13.0-17.5); LYMPH # 2.2 x10^3/uL (1.0-4.8); LYMPH % 30 % (24-48); MEAN CORPUSCULAR HEMOGLOBIN 31 pg (25-35); MEAN CORPUSCULAR HGB CONC 33 g/dL (31-37); MEAN CORPUSCULAR VOLUME 93 fL (79-100); MONO # 0.5 x10^3/uL (0.0-1.1); MONO % 7 % (0-9); NEUT # 4.5 x10^3/uL (1.8-7.7); NEUT % 60 % (31-73); PLATELET COUNT 309 x10^3/uL (140-400); RED BLOOD COUNT 4.83 x10^6/uL (4.30-5.70); RED CELL DISTRIBUTION WIDTH 14.5 % (11.5-14.5); WHITE BLOOD COUNT 7.4 x10^3/uL (4.0-11.0)
[2019-02-26 08:06] LABS: CALCIUM 9.6 mg/dL (8.5-10.1); CREATININE 1.2 mg/dL (0.7-1.3); POTASSIUM 4.1 mmol/L (3.5-5.1)
[2019-02-26 08:12] LABS: ALBUMIN 3.8 g/dL (3.4-5.0); ALBUMIN/GLOBULIN RATIO 1.1 (1.0-1.7); TOTAL BILIRUBIN 0.5 mg/dL (0.2-1.0); TOTAL PROTEIN 7.4 g/dL (6.4-8.2)
--- NOTE | 2019-02-26 08:43 | RAD ---
Study: CT lumbar spine without contrast INDICATION: Back pain with paresthesia. COMPARISON: None available. TECHNIQUE: Axial CT imaging of the lumbar spine performed without the use of intravenous contrast. FINDINGS: No acute fracture or aggressive osseous process. Spinal alignment is maintained in both the coronal and sagittal planes. Only mild disc space height loss at L4-L5. Osseous mineralization is maintained. T11-T12: Disc bulge and facet degeneration with suspected moderate central canal stenosis as well as at least moderate left greater than right neural foraminal stenosis. T12-L1: No significant degenerative change. L1-L2: No significant degenerative change. L2-L3: Facet degeneration, more pronounced on the right, without significant bony encroachment on the central canal or neural foramina. L3-L4: Mild disc bulge. Facet degeneration is suspected mild central canal stenosis. Mild encroachment on the left more so than right neural foramina. L4-L5: Disc bulge, ligamentum flavum hypertrophy and facet degeneration with suspected severe central canal stenosis though not fully evaluated by technique. Bilateral neural foraminal stenosis, at least mild. L5-S1: Mild disc bulge, ligamentum flavum prominence and facet degeneration without severe central canal stenosis. Moderate to potentially severe bilateral neural foraminal stenosis. IMPRESSION: 1. No acute fracture or aggressive osseous process. 2. Multiple levels of degenerative changes which are most notable at L4-L5 where there appears to be severe central canal stenosis. Suspected moderate central canal stenosis also partially evaluated at T11-T12. Full delineation of the degree of stenosis would be afforded with MRI or CT myelography. 3. At least moderate to potentially severe neural foraminal stenosis bilaterally at L5-S1. Additional levels with more mild to moderate encroachment on the neural foramina which would also be better assessed with MRI or CT myelography. Electronically signed by: MICHAEL STARKEY MD (02/26/2019 8:40 AM) [facility] [place]
[2019-02-26] MEDS: IV NORMAL SALINE 1000ML BAG 1,000 ML IV SCH ×2 (09:42→18:16)
[2019-02-26] MEDS ORDERED: ACETAMINOPHEN 325 MG TABLET. PO PRN (10:00)
[2019-02-26] MEDS ORDERED: oxyCODONE IR 5 MG TABLET PO PRN (10:00)
[2019-02-26] MEDS ORDERED: ALBUTEROL SULFATE 2.5 MG/3 ML NEBU. NEB PRN (10:00)
--- NOTE | 2019-02-26 10:17 | PDOC ---
Provider Note Provider Note Patient seen. History and Physical dictated. See dictation#[id number] GUILLE ALONZO MD Feb 26, 2019 10:17
[2019-02-26] MEDS: CHOLECALCIFEROL (VITAMIN D3) 1,000 UNIT TABLET PO SCH (10:30)
[2019-02-26] MEDS: LINAGLIPTIN 5 MG TABLET PO SCH (10:30)
[2019-02-26] MEDS: ASPIRIN ENTERIC COATED 81 MG TABLET.DR. PO SCH (10:30)
[2019-02-26] MEDS: GABAPENTIN 300 MG CAPSULE. PO SCH ×3 (10:30→21:14)
[2019-02-26] MEDS: METOPROLOL SUCC 24HR ER 25 MG TAB.ER.24H. PO SCH (10:30)
[2019-02-26] MEDS: FLUTICASONE 50MCG/NASAL SPRAY 16GM BOTTLE. NS SCH (10:30)
[2019-02-26] MEDS: LISINOPRIL 5 MG TABLET. PO SCH (10:30)
[2019-02-26] MEDS: FUROSEMIDE 40 MG TABLET. PO SCH (10:30)
[2019-02-26] MEDS: INSULIN LISPRO 300 UNITS/3 ML VIAL. SQ SCH ×2 (10:30→18:23)
[2019-02-26] MEDS: CETIRIZINE HCL 10 MG TABLET. PO SCH (10:30)
[2019-02-26] MEDS: INSULIN GLARGINE SYRINGE. SQ SCH (10:30)
[2019-02-26] MEDS ORDERED: CHOLECALCIFEROL (VITAMIN D3) 1,000 UNIT TABLET PO SCH (10:30)
--- NOTE | 2019-02-26 10:49 | HP ---
ADMIT DATE: 02/26/2019 HISTORY OF PRESENT ILLNESS: This is a 63-year-old male who has a history of chronic low back pain, has been getting much worse for last 1 month. The patient has not been able to walk and until yesterday, was trying to walk with the crutches, but his pain continued to get worse. He has had a lot of muscle spasms. He has had imaging studies of the low back and was to see Dr. Pawel Mckoy today for pain management and possibly steroid injection. He has been taking pain medications and muscle relaxers without any relief and the last few days, his pain has been excruciating and is not helping even with gabapentin and other medications. His pain became so bad that he could not even walk with the crutches. 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 Spasms are continuous and sometimes he gets a few spasms in a few seconds. He also felt like he had electric current going down his extremities. He could not walk. He was advised to go to the Emergency Room even though he had an appointment with Dr. Mckoy this morning. The patient could not get up, so he tried to crawl out of the bed and was trying to crawl and in the process, he fell and he hurt his left leg where he had laceration. His could not get him up, so Fire Department was called and he was brought to the Emergency Room by ambulance. In the Emergency Room, he remained in severe pain and continued to have lot of spasms. He was given IV morphine and IV hydrocortisone and IV orphenadrine and because of the severe intractable pain with inability for him to get up, the patient was admitted for further evaluation and management. REVIEW OF SYSTEMS: The patient is complaining a lot of muscle spasms, numbness in both lower extremities. He is able to void and has not had any urinary or bowel incontinence. He has some weakness of the legs and severe pain and inability to get up and walk. He denies any chest pains, cold, cough, congestions, nausea, vomiting, or palpitations. Other systems reviewed and are negative. PAST MEDICAL HISTORY: The patient has history of nonischemic cardiomyopathy with systolic heart failure, chronic with ejection fraction of 20-25% on coronary angiogram in 07/2017. Subsequently, he had a dual-chamber AICD placed in 2018 and after about 4 weeks, he needed a revision because of the fracture of the right ventricular lead. He has history of obesity, hypertension, hyperlipidemia, diabetes mellitus type 2 with peripheral neuropathy, constipation, gastroesophageal reflux disease, anemia, osteoarthritis of the knee, gout, chronic sinusitis, history of kidney stones, diabetes mellitus type 2, insulin dependent with chronic kidney disease and neuropathy, eczema. PAST SURGICAL HISTORY: Includes cholecystectomy, tonsillectomy, cardiac catheterization in 07/2017 with normal coronary arteries, but severe congestive heart failure. FAMILY HISTORY: Includes father having liver cancer, coronary artery disease, diabetes, hyperlipidemia, hypertension. SOCIAL HISTORY: The patient is . No history of smoking, alcoholism or drug abuse. MEDICATIONS: Reviewed and reconciled. ALLERGIES: THE PATIENT IS ALLERGIC TO SUDAFED. ADVERSE REACTION TO SIMVASTATIN HAS BEEN LISTED, I WILL HAVE TO VERIFY MY OFFICE NOTES TO SEE IF HE IS ABLE TO TAKE IT. PHYSICAL EXAMINATION: GENERAL: The patient is a middle-aged male who is alert, oriented, in moderate distress. EYES: Pupils reacting to light. Conjunctivae pink. Sclerae white. HENT: Unremarkable. NECK: Supple. JVP normal. No thyromegaly. Trachea midline. LUNGS: Decreased breath sounds at bases, clear. CARDIOVASCULAR: S1, S2 regular. ABDOMEN: Soft, nontender, no guarding, no rigidity. Bowel sounds present. Abdomen is obese. EXTREMITIES: Trace edema. The patient has tenderness and significant decrease in the range of motion of the lumbosacral spine. He is able to push his feet against my hands. He has decreased reflexes in the lower extremities, significant pain with movement of the lower extremities, has decreased sensations in the legs and feet. LABORATORY FINDINGS: CT scan of lumbar spine shows multiple levels of degenerative changes, mostly at L4-L5 where he has severe central canal stenosis and moderate central canal stenosis at T11-T12 and severe neural foraminal stenosis bilaterally at L5-S1. Sodium is 143, potassium 4.1, calcium 9.6, AST 12, ALT 15, albumin 3.8. WBC count 7.4, hemoglobin 14.9. IMPRESSION: 1. Acute lumbar radiculopathy. 2. Intractable low back pain. 3. 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 4. Chronic systolic congestive heart failure, severe. 5. Gout. 6. Morbid obesity. 7. Hypertension. 8. Hyperlipidemia. 9. Gastroesophageal reflux disease. 10. Osteoarthritis of the knees. 11. Chronic sinusitis. 12. History of kidney stones. 13. Eczema. 14. Allergic rhinitis. 15. History of neck surgery. 16. History of dual-chamber AICD placed in 2018 and subsequently had revision of the right ventricular lead because of the fracture. PLAN: Consult Dr. Pawel Mckoy for pain management. I will give him morphine 2 mg IV q.2 hours p.r.n., start him on tizanidine continuous and discontinue cyclobenzaprine. Consult PT, OT. Consult Dr. Rodriguez for rehab evaluation and management. Consult Dr. Medina for neurosurgery evaluation. Check labs including magnesium level and sed rate. Order home medications. Monitor blood sugars, blood pressure. For details, please refer to the orders. The patient has not been able to work for 1 month and his back pain has become intractable. For details, please review the orders. GUILLE ALONZO MD DR: ESTEFANI/klever JOB#: [id number] / [id number]
[2019-02-26 11:00] VITALS: BP 118/65
[2019-02-26] MEDS: POTASSIUM CHLORIDE 20 MEQ TABLET.ER. PO SCH ×2 (12:00→18:15)
[2019-02-26] MEDS ORDERED: METF10007 PO (12:21)
[2019-02-26] MEDS ORDERED: diazePAM 5 MG TABLET PO PRN (14:00)
[2019-02-26] MEDS: MUPIROCIN 2 % TOPICAL CREAM 30GM TUBE. TP SCH ×2 (14:00→21:14)
[2019-02-26] MEDS: tiZANidine 4 MG TABLET. PO SCH ×2 (14:00→21:14)
[2019-02-26] MEDS: oxyCODONE IR 5 MG TABLET PO SCH ×3 (14:03→21:14)
[2019-02-26 14:52] LABS: BILIRUBIN,URINE NEGATIVE (NEG); CLARITY,URINE CLEAR; COLOR,URINE YELLOW; NITRITE,URINE POSITIVE (NEG); PH,URINE 7.5; PROTEIN,URINE NEGATIVE (NEG-TRACE)
[2019-02-26 14:55] LABS: BACTERIA,URINE MANY /HPF (0-FEW); SQUAMOUS EPITHELIAL CELL,UR FEW /LPF; WBC,URINE 20-40 /HPF (0-4)
[2019-02-26 15:00] VITALS: BP 108/58
--- NOTE | 2019-02-26 15:35 | PDOC ---
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
[2019-02-26 19:00] VITALS: BP 116/54
[2019-02-26] MEDS: ALLOPURINOL 300 MG TABLET. PO SCH (21:14)
[2019-02-26] MEDS: MONTELUKAST SODIUM 10 MG TABLET. PO SCH (21:14)
[2019-02-26 23:00] VITALS: BP 143/78
[2019-02-27] VITALS (10 sets, daily range): BP systolic 115–149; BP diastolic 54–85
[2019-02-27] MEDS: oxyCODONE IR 5 MG TABLET PO SCH ×6 (00:29→20:21)
[2019-02-27 05:08] LABS: BASO % 0 % (0-3); EOS % 0 % (0-3); HEMATOCRIT 40.6 % (39.0-53.0); HEMOGLOBIN 13.5 g/dL (13.0-17.5); LYMPH # 1.5 x10^3/uL (1.0-4.8); LYMPH % 14 % (24-48); MEAN CORPUSCULAR HEMOGLOBIN 31 pg (25-35); MEAN CORPUSCULAR HGB CONC 33 g/dL (31-37); MEAN CORPUSCULAR VOLUME 94 fL (79-100); MONO # 0.8 x10^3/uL (0.0-1.1); MONO % 8 % (0-9); NEUT # 8.1 x10^3/uL (1.8-7.7); NEUT % 78 % (31-73); PLATELET COUNT 299 x10^3/uL (140-400); RED BLOOD COUNT 4.33 x10^6/uL (4.30-5.70); RED CELL DISTRIBUTION WIDTH 14.3 % (11.5-14.5); WHITE BLOOD COUNT 10.4 x10^3/uL (4.0-11.0)
[2019-02-27 05:10] LABS: ALBUMIN 3.2 g/dL (3.4-5.0); CALCIUM 8.9 mg/dL (8.5-10.1); CREATININE 1.1 mg/dL (0.7-1.3); GFR 81.8; POTASSIUM 4.4 mmol/L (3.5-5.1); TOTAL BILIRUBIN 0.5 mg/dL (0.2-1.0); TOTAL PROTEIN 6.5 g/dL (6.4-8.2)
--- NOTE | 2019-02-27 05:37 | CONS ---
DATE OF CONSULTATION: 02/26/2019 ATTENDING PHYSICIAN: Dr. Daljit Lopez. REASON FOR CONSULTATION: The patient was seen at the request of Dr. Lopez for rehabilitation evaluation. LOCATION: He is in room #444. 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 He fell down around October, since then he is having increasing pain, but for the last 1 month, he is having difficulty to get up and walk. He had to use the crutch as he fell down a few times. He admits pain radiating to both lower extremities, initial to the right side, right now more so on the left side. The patient denies any trouble with his bowel or bladder control. He feels weak in his lower extremities. The patient apparently has been to physical therapy without much help. He has been taking tramadol and gabapentin without much help. He supposed to be seen by [facility], Dr. Mckoy for epidural steroid injection, but he had difficulty to be transported there. The patient was admitted for further evaluation. He had a CT scan of his lumbar vertebrae done this morning, which revealed multiple levels of degenerative changes, which are most notable at L4-L5 where there appears to be suspected moderate central canal stenosis, also partially evaluated at T11-T12, full delineation of the degree of stenosis is possible with MRI or CT myelogram, at least moderate to potentially severe neural foraminal stenosis bilaterally at L5-S1, attachment levels with mild to moderate encroachment on the neural foramina. The patient with known diabetes mellitus, nonischemic cardiomyopathy with systolic heart failure, chronic with ejection fraction of 20%-25% on angiogram done in 07/2017. Subsequently, he had a dual chamber AICD placed in 2018 and after 4 weeks, it need to be revised because of the fracture of right ventricular lead. PAST MEDICAL/SURGICAL HISTORY: Obesity, hypertension, hyperlipidemia, diabetes mellitus with peripheral neuropathy, constipation, gastroesophageal reflux disease, anemia, osteoarthritis of his knees, gout, chronic sinusitis, history of kidney stones, chronic kidney disease, eczema, status post cholecystectomy and tonsillectomy. FAMILY HISTORY: Father having liver carcinoma, coronary artery disease, diabetes, hyperlipidemia, and hypertension. He is and lives with his , stairs for him to manage. ALLERGIES: HE IS KNOWN ALLERGIC TO SUDAFED, SIMVASTATIN. The patient admits some numbness in his right hand. He was tested for carpal tunnel syndrome and was negative. PHYSICAL EXAMINATION: Today revealed a middle-aged male. He is alert and oriented to time, place, person, and circumstance and cooperative. He moves all 4 extremities voluntarily where he had 4/5 grade muscle strength in his upper extremities and in his lower extremities, his muscle strength being around 3/5 grade to 4/5 grade with relatively increased weakness in the hamstrings, hip abductors, and dorsiflexor muscles of both feet and toes, especially on the left side. Deep tendon reflexes are 1-2+ and symmetrical. He had decreased sensory perception over left L5-S1 dermatome area when compared to right side. He had mild crepitus on range of motion of his knee joints. He had pain free range of motion of both hip joints. He had painful limited movements of his lumbar spine with tenderness to palpation over right lumbar paraspinal muscles extending over to sacroiliac joint area and straight leg raising test is negative bilaterally. He requires help with bed mobility and transfers. He had significant difficulty to advance his feet while up walking with a roller walker. His skin is intact at this time. He is receiving IV fluids. He had negative Tinel sign over right median nerve at the wrist and ulnar nerve at the wrist and elbow and negative Phalen sign at both wrists. ASSESSMENT: 1. A middle-aged male with chronic lower back pain with recent exacerbation with bilateral lower extremity weakness, mainly L5 nerve root supplied muscles with radiological evidence of degenerative disk disease and degenerative joint disease and lumbar spinal stenosis. 2. Obesity. 3. Diabetes mellitus. 4. Degenerative joint disease of both knees 5. Hypertension, hyperlipidemia, gastroesophageal reflux disease, anemia, gouty arthritis, chronic kidney disease, and eczema. RECOMMENDATION: To proceed with MRI scan as his pacemaker is MRI compatible and agree with the plans per physical therapy and neurosurgical advice. To also check to make sure he is emptying his bladder completely. Dr. Lopez, I appreciate asking me to participate in the care of this interesting patient. I will be glad to see him for followup with you on as needed basis. TENNILLE HAYDEN MD DR: ETELVINA/klever JOB#: [id number] / [id number] TORRIE
[2019-02-27] MEDS: IV NORMAL SALINE 1000ML BAG 1,000 ML IV SCH (06:21)
[2019-02-27] MEDS: MORPHINE SULFATE 4 MG/ML VIAL. IV PRN ×2 (06:22→18:29)
[2019-02-27] MEDS ORDERED: HYDROmorphone 2 MG/ML VIAL IV PRN (07:00)
[2019-02-27] MEDS ORDERED: LIDOCAINE 1% PF 2 ML VIAL. ID PRN (07:00)
[2019-02-27] MEDS ORDERED: PROCHLORPERAZINE 10 MG/2 ML VIAL. IV PRN (07:00)
[2019-02-27] MEDS ORDERED: ONDANSETRON PF 4 MG/2 ML VIAL. IV PRN (07:00)
[2019-02-27] MEDS: INSULIN LISPRO 300 UNITS/3 ML VIAL. SQ SCH ×2 (07:30→16:30)
[2019-02-27] MEDS: POTASSIUM CHLORIDE 20 MEQ TABLET.ER. PO SCH ×3 (08:00→16:52)
[2019-02-27] MEDS: ASPIRIN ENTERIC COATED 81 MG TABLET.DR. PO SCH (08:00)
--- NOTE | 2019-02-27 08:01 | PDOC ---
SUBJECTIVE Subjective Back and leg pain OBJECTIVE Objective 63-year-old male complaints of lower back pain going on for about a year without any specific injury. He fell down around October, since he is having increasing pain, but for the last month, he is having difficulty with getting up and walking. He had to use a crutch as he fell down a few times. He reports pain radiating to both lower extremities, initial to the right side, right now on the left side. The patient denies any trouble with his bowel or bladder control. He feels weak in his lower extremities. The patient apparently has been to physical therapy without much relief. He has been taking tramadol and gabapentin without much relief. Vital Signs Vital Signs Date Time Temp Pulse Resp B/P (MAP) Pulse Ox O2 Delivery O2 Flow Rate FiO2 02/27/19 07:32 16 Room Air 02/27/19 06:22 18 Room Air 02/27/19 03:00 98.0 75 18 138/84 (102) 98 Room Air 98.0 02/27/19 01:30 16 Room Air 02/27/19 00:29 18 Room Air 02/27/19 00:14 16 Room Air 02/26/19 23:00 98.0 77 18 143/78 (99) 93 Room Air 98.0 02/26/19 21:15 18 Room Air 02/26/19 19:30 Room Air 02/26/19 19:00 98.2 83 18 116/54 (74) 95 Room Air 98.2 02/26/19 15:10 Room Air 02/26/19 15:00 98.0 78 18 108/58 (75) 96 Room Air 98.0 02/26/19 14:04 Room Air 02/26/19 13:34 Room Air 02/26/19 12:35 96 Room Air 02/26/19 11:00 97.9 76 18 118/65 (82) 93 Room Air 97.9 02/26/19 10:14 76 18 135/68 (90) 97 Room Air 02/26/19 09:44 76 18 129/59 (82) 97 Room Air 02/26/19 09:14 74 18 131/67 (88) 97 Room Air 02/26/19 08:25 18 100 Room Air I & O Intake and Output 02/27/19 07:00 Intake Total 960 ml Output Total 400 ml Balance 560 ml Intake Oral 960 ml Output Urine Total 400 ml # Voids 4 ASSESSMENT/PLAN Assessment/Plan MRI pending If non-surgical candidate, will plan for LESI COMMENT Lab Laboratory Tests Test 02/26/19 11:20 02/26/19 13:15 02/26/19 16:53 02/26/19 21:10 Glucose (Fingerstick) 146 mg/dL (70-99) 194 mg/dL (70-99) 186 mg/dL (70-99) Urine Collection Type Unknown Urine Color Yellow Urine Clarity Clear Urine pH 7.5 Urine Specific [place] 1.020 Urine Protein Negative mg/dL (NEG-TRACE) Urine Glucose (UA) Negative mg/dL (NEG) Urine Ketones (Stick) Negative mg/dL (NEG) Urine Blood Negative (NEG) Urine Nitrite Positive (NEG) Urine Bilirubin Negative (NEG) Urine Urobilinogen Dipstick 1.0 mg/dL (0.2 mg/dL) Urine Leukocyte Esterase Moderate (NEG) Urine RBC 3-5 /HPF (0-2) Urine WBC 20-40 /HPF (0-4) Urine Squamous Epithelial Cells Few /LPF Urine Bacteria Many /HPF (0-FEW) Urine Mucus Marked /LPF Test 02/27/19 04:05 White Blood Count 10.4 x10^3/uL (4.0-11.0) Red Blood Count 4.33 x10^6/uL (4.30-5.70) Hemoglobin 13.5 g/dL (13.0-17.5) Hematocrit 40.6 % (39.0-53.0) Mean Corpuscular Volume 94 fL (79-100) Mean Corpuscular Hemoglobin 31 pg (25-35) Mean Corpuscular Hemoglobin Concent 33 g/dL (31-37) Red Cell Distribution Width 14.3 % (11.5-14.5) Platelet Count 299 x10^3/uL (140-400) Neutrophils (%) (Auto) 78 % (31-73) Lymphocytes (%) (Auto) 14 % (24-48) Monocytes (%) (Auto) 8 % (0-9) Eosinophils (%) (Auto) 0 % (0-3) Basophils (%) (Auto) 0 % (0-3) Neutrophils # (Auto) 8.1 x10^3/uL (1.8-7.7) Lymphocytes # (Auto) 1.5 x10^3/uL (1.0-4.8) Monocytes # (Auto) 0.8 x10^3/uL (0.0-1.1) Eosinophils # (Auto) 0.0 x10^3/uL (0.0-0.7) Basophils # (Auto) 0.0 x10^3/uL (0.0-0.2) Sodium Level 143 mmol/L (136-145) Potassium Level 4.4 mmol/L (3.5-5.1) Chloride Level 108 mmol/L (98-107) Carbon Dioxide Level 24 mmol/L (21-32) Anion Gap 11 (6-14) Blood Urea Nitrogen 20 mg/dL (8-26) Creatinine 1.1 mg/dL (0.7-1.3) Estimated GFR (Cockcroft-Gault) 81.8 BUN/Creatinine Ratio 18 (6-20) Glucose Level 161 mg/dL (70-99) Calcium Level 8.9 mg/dL (8.5-10.1) Magnesium Level 2.0 mg/dL (1.8-2.4) Total Bilirubin 0.5 mg/dL (0.2-1.0) Aspartate Amino Transf (AST/SGOT) 12 U/L (15-37) Alanine Aminotransferase (ALT/SGPT) 16 U/L (16-63) Alkaline Phosphatase 79 U/L (46-116) Total Protein 6.5 g/dL (6.4-8.2) Albumin 3.2 g/dL (3.4-5.0) Albumin/Globulin Ratio 1.0 (1.0-1.7) AGGIE GARCÍA MD Feb 27, 2019 08:01
[2019-02-27] MEDS ORDERED: MIDAZOLAM HCL/PF 2 MG/2 ML VIAL. ONE ×2 (08:22)
[2019-02-27] MEDS ORDERED: PROPOFOL 0 ML IV ONE (08:22)
[2019-02-27] MEDS ORDERED: KETAMINE HCL IN NACL, ISO-OSM 50 MG/5 ML SYRINGE ONE (08:48)
[2019-02-27] MEDS ORDERED: fentaNYL PF VIAL 100 MCG/2 ML VIAL ONE ×2 (08:49→10:42)
[2019-02-27] MEDS: tiZANidine 4 MG TABLET. PO SCH ×3 (09:00→20:20)
[2019-02-27] MEDS: CHOLECALCIFEROL (VITAMIN D3) 1,000 UNIT TABLET PO SCH (09:00)
[2019-02-27] MEDS: LINAGLIPTIN 5 MG TABLET PO SCH (09:00)
[2019-02-27] MEDS: MUPIROCIN 2 % TOPICAL CREAM 30GM TUBE. TP SCH ×3 (09:00→20:21)
[2019-02-27] MEDS: INSULIN GLARGINE SYRINGE. SQ SCH (09:00)
[2019-02-27] MEDS: CETIRIZINE HCL 10 MG TABLET. PO SCH (09:00)
[2019-02-27] MEDS: FLUTICASONE 50MCG/NASAL SPRAY 16GM BOTTLE. NS SCH (09:00)
[2019-02-27] MEDS: LISINOPRIL 5 MG TABLET. PO SCH (09:00)
[2019-02-27] MEDS: FUROSEMIDE 40 MG TABLET. PO SCH (09:00)
[2019-02-27] MEDS: GABAPENTIN 300 MG CAPSULE. PO SCH ×3 (09:00→20:20)
[2019-02-27] MEDS: METOPROLOL SUCC 24HR ER 25 MG TAB.ER.24H. PO SCH (09:00)
--- NOTE | 2019-02-27 09:57 | PDOC ---
IM PROGRESS NOTES- Subjective Subjective Has lower extremity pain with weakness. No complaints of fever. Objective Vitals/I&O Vital Signs Date Time Temp Pulse Resp B/P (MAP) Pulse Ox O2 Delivery O2 Flow Rate FiO2 02/27/19 08:00 Room Air 02/27/19 07:32 16 02/27/19 07:00 98.5 78 142/66 (91) 93 98.5 I & O 02/26/19 02/26/19 02/27/19 15:00 23:00 07:00 Intake Total 510 ml 450 ml Output Total 400 ml Balance 510 ml 50 ml Physical Exam Physical Exam General appearance - alert,ill appearing, and in no distress and oriented to person, place, and time Mental Status - alert, oriented to person, place, and time, affect appropriate to mood Head - normal Chest - clear to auscultation, no wheezes, rales or rhonchi, symmetric air entry Heart - S1 and S2 normal Abdomen - soft, nontender, nondistended, no masses or organomegaly Neurological - alert and oriented Musculoskeletal -lumbosacral spine decreased range of motion. Extremities -trace edema with lower extremity weakness. Skin - warm and dry Labs Laboratory Tests Test 02/26/19 11:20 02/26/19 13:15 02/26/19 16:53 02/26/19 21:10 Glucose (Fingerstick) 146 mg/dL (70-99) H 194 mg/dL (70-99) H 186 mg/dL (70-99) H Urine Collection Type Unknown Urine Color Yellow Urine Clarity Clear Urine pH 7.5 Urine Specific [place] 1.020 Urine Protein Negative mg/dL (NEG-TRACE) Urine Glucose (UA) Negative mg/dL (NEG) Urine Ketones (Stick) Negative mg/dL (NEG) Urine Blood Negative (NEG) Urine Nitrite Positive (NEG) Urine Bilirubin Negative (NEG) Urine Urobilinogen Dipstick 1.0 mg/dL (0.2 mg/dL) Urine Leukocyte Esterase Moderate (NEG) Urine RBC 3-5 /HPF (0-2) Urine WBC 20-40 /HPF (0-4) Urine Squamous Epithelial Cells Few /LPF Urine Bacteria Many /HPF (0-FEW) Urine Mucus Marked /LPF Test 02/27/19 04:05 02/27/19 07:54 White Blood Count 10.4 x10^3/uL (4.0-11.0) Red Blood Count 4.33 x10^6/uL (4.30-5.70) Hemoglobin 13.5 g/dL (13.0-17.5) Hematocrit 40.6 % (39.0-53.0) Mean Corpuscular Volume 94 fL (79-100) Mean Corpuscular Hemoglobin 31 pg (25-35) Mean Corpuscular Hemoglobin Concent 33 g/dL (31-37) Red Cell Distribution Width 14.3 % (11.5-14.5) Platelet Count 299 x10^3/uL (140-400) Neutrophils (%) (Auto) 78 % (31-73) H Lymphocytes (%) (Auto) 14 % (24-48) L Monocytes (%) (Auto) 8 % (0-9) Eosinophils (%) (Auto) 0 % (0-3) Basophils (%) (Auto) 0 % (0-3) Neutrophils # (Auto) 8.1 x10^3/uL (1.8-7.7) H Lymphocytes # (Auto) 1.5 x10^3/uL (1.0-4.8) Monocytes # (Auto) 0.8 x10^3/uL (0.0-1.1) Eosinophils # (Auto) 0.0 x10^3/uL (0.0-0.7) Basophils # (Auto) 0.0 x10^3/uL (0.0-0.2) Erythrocyte Sedimentation Rate 7 (0-15) Sodium Level 143 mmol/L (136-145) Potassium Level 4.4 mmol/L (3.5-5.1) Chloride Level 108 mmol/L (98-107) H Carbon Dioxide Level 24 mmol/L (21-32) Anion Gap 11 (6-14) Blood Urea Nitrogen 20 mg/dL (8-26) Creatinine 1.1 mg/dL (0.7-1.3) Estimated GFR (Cockcroft-Gault) 81.8 BUN/Creatinine Ratio 18 (6-20) Glucose Level 161 mg/dL (70-99) H Calcium Level 8.9 mg/dL (8.5-10.1) Magnesium Level 2.0 mg/dL (1.8-2.4) Total Bilirubin 0.5 mg/dL (0.2-1.0) Aspartate Amino Transferase (AST) 12 U/L (15-37) L Alanine Aminotransferase (ALT) 16 U/L (16-63) Alkaline Phosphatase 79 U/L (46-116) Total Protein 6.5 g/dL (6.4-8.2) Albumin 3.2 g/dL (3.4-5.0) L Albumin/Globulin Ratio 1.0 (1.0-1.7) Glucose (Fingerstick) 136 mg/dL (70-99) H Laboratory Tests 02/27/19 04:05 Laboratory Tests 02/27/19 04:05 Meds Current Medications Medications (Trade) Dose Ordered Sig/Tavia Route PRN Reason Start Time Stop Time Status Last Admin Dose Admin Allopurinol (Zyloprim) 300 mg HS PO 02/26/19 21:00 02/26/19 21:15 Gabapentin (Neurontin) 300 mg TID PO 02/26/19 10:30 02/26/19 21:15 Montelukast Sodium (Singulair) 10 mg HS PO 02/26/19 21:00 02/26/19 21:15 Potassium Chloride (Klor-Con) 20 meq TIDWMEALS PO 02/26/19 12:00 02/26/19 18:23 Insulin Human Lispro (HumaLOG) 0-8 UNITS BIDBFRMEAL SQ 02/26/19 10:30 02/26/19 18:23 Tizanidine HCl (Zanaflex) 4 mg TID PO 02/26/19 10:30 02/26/19 21:15 Mupirocin (Bactroban) 1 raquel TID TP 02/26/19 14:00 02/26/19 21:15 Oxycodone HCl (Roxicodone) 10 mg Q4HRS PO 02/26/19 13:30 02/27/19 00:29 Diazepam (Valium) 5 mg PRN 1X PRN PO 30 MIN PRIOR TO MRI 02/26/19 14:00 02/27/19 13:59 02/26/19 15:41 Assessment Assessment 1. Acute lumbar radiculopathy. 2. Intractable low back pain. 3. 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 4. Chronic systolic congestive heart failure, severe. 5. Gout. 6. Morbid obesity. 7. Hypertension. 8. Hyperlipidemia. 9. Gastroesophageal reflux disease. 10. Osteoarthritis of the knees. 11. Chronic sinusitis. 12. History of kidney stones. 13. Eczema. 14. Allergic rhinitis. 15. History of neck surgery. 16. History of dual-chamber AICD placed in 2018 and subsequently had revision of the right ventricular lead because of the fracture. PLAN: Acute lumbar radiculopathy Consult Dr. Pawel Mckoy for pain management. I will give him morphine 2 mg IV q.2 hours p.r.n., start him on tizanidine continuous and discontinue cyclobenzaprine. Consult PT, OT. Consult Dr. Rodriguez for rehab evaluation and management. Consult Dr. Medina for neurosurgery evaluation. Check labs including magnesium level and sed rate. Order home medications. Monitor blood sugars, blood pressure. For details, please refer to the orders. The patient has not been able to work for 1 month and his back pain has become intractable. MRI of the lumbar and thoracic spine pending. UTI.- Add IV Rocephin. Follow up urine culture. Diabetes- stable The patient was not started on anticoagulation yesterday due to possibility of spinal procedures. Treatment plans discussed with the patient and his . For details, please review the orders. Plan Plan For more details regarding further plans, please refer to the orders. GUILLE ALONZO MD Feb 27, 2019 09:57
[2019-02-27] MEDS: cefTRIAXone IV Push 1 GM VIAL. IVP SCH (10:00)
[2019-02-27] MEDS: fentaNYL PF VIAL 100 MCG/2 ML VIAL IV PRN ×5 (10:46→17:29)
[2019-02-27] MEDS: MORPHINE SULFATE 2 MG/ML VIAL. IV PRN ×4 (10:55→17:40)
--- NOTE | 2019-02-27 10:59 | RAD ---
STUDY: MRI of the thoracic spine without contrast INDICATION: Intractable back pain. COMPARISON: None available. TECHNIQUE: Multiplanar MR imaging of the thoracic spine performed without the use of intravenous contrast. FINDINGS: Severe cord effacement/compression at T10-T11 with associated cord signal elevation at the site of compression as well as likely just above and below. Ventral cord contact at scattered additional levels without definite associated cord signal abnormality throughout the thoracic spine. There may be a small focus of cord signal elevation at the partially evaluated C6-C7 level. Thoracic kyphosis is maintained. No acute fracture. Ovoid focus of T2 signal elevation within the T2 vertebral body, image 7 series 5, appears to contain some fat on the T1 sequence and is most compatible with a hemangioma. No aggressive marrow signal abnormality. Partially visualized operative changes of ACDF at C5-C6. Disc desiccation at scattered levels without advanced disc space height loss throughout the thoracic spine. Suspected left thyroid lobe nodule, image 2 series 10, measuring 1.1 cm and not meeting size criteria for dedicated follow-up. Small hiatal hernia. There appears to trace pleural effusion on the right. The thoracic central canal is narrowed on an intrinsic bases with accentuation of this narrowing due to multifactorial degenerative changes as follows. T1-T2: Disc bulge with contouring of the ventral aspect of the cord, in conjunction with ligamentum flavum hypertrophy, results in moderate central canal stenosis. Facet degeneration with suspected mild neural foraminal stenosis on the left and only a potential minimal neural foraminal stenosis on the right. T2-T3: Ligamentum flavum hypertrophy with mild central canal stenosis. Facet degeneration with mild neural foraminal stenosis on the left. T3-T4: A focus of low T2 signal just posterior to the T3-T4 disc space is only appreciated on the sagittal T2 sequence and is not seen on the STIR sequence. The axial sequences unfortunately gap this location. Given the normal appearance of the STIR sequence, this is felt to be artifactual and potentially related to a flow related artifact. The central canal and neural foramina are patent. T4-T5: Patent central canal and neural foramina. T5-T6: Mild disc bulge without central canal stenosis. No significant neural foraminal encroachment. T6-T7: Disc bulge with a superimposed left paracentral protruding component which contacts and deforms the cord. Despite this finding, the central canal is only mildly narrowed. Mild neural foraminal stenosis on the left. T7-T8: Disc bulge with contact and flattening of the ventral aspect of the cord and result in mild/moderate central canal stenosis. Facet degeneration with severe right neural foraminal stenosis. No significant neural foraminal encroachment on the left. T8-T9: Diffuse disc bulge as well as ligamentum flavum hypertrophy with mild/moderate central canal stenosis. Mild flattening of the ventral aspect of the cord. Facet degeneration with severe right neural foraminal stenosis. No significant neural foraminal stenosis on the left. T9-T10: Disc bulge with a superimposed right paracentral/proximal foraminal protrusion/extrusion, image 8 series 5. Central canal stenosis is mild/moderate. Relatively mild bilateral neural foraminal stenosis, slightly more pronounced on the right. T10-T11: Disc bulge with a superimposed large right paracentral/right foraminal extrusion that extends above more so than below the level of the disc space. The extruded disc measures approximate 7 mm AP and extends in the craniocaudal dimension by approximately 1.7 cm. Resultant severe central canal stenosis with cord effacement/compression at elevated cord signal. In conjunction with facet degeneration, severe right and mild left neural foraminal stenosis. T11-T12: Prominent diffuse disc bulge in conjunction with ligamentum flavum hypertrophy results and contact and flattening of the ventral aspect of the cord and severe central canal stenosis measuring 5 mm in mid sagittal dimension. Facet degeneration with moderate right and mild left neural foraminal stenosis. T12-L1: Better assessed on the same day lumbar spine MRI. Though incompletely evaluated, multifactorial degenerative changes throughout the cervical spine with scattered levels exhibiting disc osteophyte complex formation. At C3-C4, there is contact and flattening of the ventral aspect of the cord with suspected moderate central canal stenosis. More mild central canal stenosis at C6-C7 with mild ventral cord contouring secondary to a disc osteophyte complex. IMPRESSION: 1. Prominent disc bulge at T10-T11 with a superimposed right paracentral/right foraminal extrusion that extends above more so than below the level of the disc space. The extruded disc measures approximately 7 mm AP and extends in the craniocaudal dimension by approximately 1.7 cm. In conjunction with facet degeneration and ligamentum flavum hypertrophy, severe central canal stenosis with marked cord effacement/compression as well as elevated cord signal at the level of compression as well as slightly above and below compatible with edema or myelomalacia. 2. Note is made that the thoracic central canal is narrowed on an intrinsic bases. There is accentuation of this narrowing at multiple levels, in addition to T10-T11, due to a combination of disc bulge/protrusion, ligamentum flavum hypertrophy and facet degeneration. Severe central canal stenosis is present at T11-T12 without cord signal abnormality. Moderate central canal stenosis at T1-T2. Additional levels with mild to moderate narrowing as well as ventral cord flattening/deformity as detailed above. 3. Multilevel neural foraminal encroachment, as outlined above, noted to be severe on the right at T7-T8, T8-T9 and T10-T11. 4. Though incompletely evaluated, moderate appearing central canal stenosis at C3-C4 mainly secondary to disc osteophyte complex. The cervical neural foramina are incompletely evaluated. Additional cervical levels with degenerative changes, most notable at C6-C7 and C7-T1, without severe central canal stenosis. Potential punctate focus of cord signal elevation at C6-C7 though this could also be artifactual. Dedicated MRI of the cervical spine could be performed as deemed necessary. Electronically signed by: MICHAEL STARKEY MD (02/27/2019 10:56 AM) [facility]
--- NOTE | 2019-02-27 11:34 | RAD ---
STUDY: MRI of the lumbar spine without contrast INDICATION: Low back pain with lumbar radiculopathy and bilateral foot drop. COMPARISON: CT lumbar spine 02/26/2019 TECHNIQUE: Multiplanar MR imaging of the lumbar spine performed without intravenous contrast. FINDINGS: The conus medullaris is normal in signal and morphology and terminates at the mid aspect of the L2 vertebral body. Lumbar lordosis is maintained, as is vertebral body height. L2 vertebral body hemangioma. No acute fracture or aggressive marrow signal abnormality. Facet effusion on the right at L4-L5. Disc desiccation mild/moderate disc space height loss at L4-L5. Disc desiccation without significant disc space narrowing at L5-S1. Simple appearing renal cyst on the left, image 6 series 7. Additional cystic focus approaching the renal hilum on the right, image 2 series 7. Findings at the lower thoracic spine to include a large disc extrusion at T10-T11 as well as a disc bulge at T11-T12 with resultant central canal stenosis as described on the same day thoracic spine MRI. T12-L1: Patent central canal and neural foramina. L1-L2: Patent central canal and neural foramina. L2-L3: Facet degeneration. Patent central canal and neural foramina. L3-L4: Mild diffuse disc bulge, mild ligamentum flavum hypertrophy and mild facet degeneration, in addition to a degree of prominence of the dorsal epidural fat, results in moderate central canal stenosis with the canal measuring 7.5 mm in mid sagittal dimension. There is a very small superimposed left foraminal/extraforaminal protruding component though the neural foramina are patent. L4-L5: Diffuse disc bulge with a superimposed right paracentral extrusion that measures 5 mm in AP dimension and extends above the level of the disc space collectively measuring 1.5 cm in craniocaudal dimension. In conjunction with advanced facet degeneration as well as ligamentum flavum hypertrophy, severe central canal stenosis with the thecal sac measuring as little as 3.5 mm transverse by 5 mm AP on image 22 series 7. There is severe central canal stenosis above the level of the L4-L5 disc space due to the extruded disc as well as prominence of the ventral epidural fat, such as seen on image 19 series 8. Only mild bilateral neural foraminal stenosis at this level. L5-S1: Mild disc bulge without central canal stenosis. Facet degeneration with moderate right and mild/moderate left neural foraminal stenosis. IMPRESSION: 1. Note that severe central canal stenosis on a multifactorial basis at T10-T11 more so than T11-T12 is described in detail on the dedicated MRI of the thoracic spine performed on the same day. 2. Diffuse disc bulge at L4-L5 with a superimposed left paracentral extrusion with the extruding component measuring approximately 5 mm AP by 1.5 cm craniocaudal and extending above the level of the disc space. In conjunction with advanced facet degeneration and ligamentum flavum hypertrophy, there is severe central canal stenosis at this level with the thecal sac measuring as little as 3.5 mm transverse by 5 mm AP. Note is also made that there is severe central canal stenosis along the posterior aspect of the L4 vertebral body which is secondary to hypertrophy of ventral epidural fat (image 19 series 8). 3. Disc bulge with a very small left foraminal/extraforaminal protrusion at L3-L4, in addition to facet degeneration and ligamentum flavum hypertrophy, with moderate central canal stenosis. 4. Moderate right and [id number] left neural foraminal stenosis at L5-S1. Mild left more so than right neural foraminal stenosis at L4-L5. Electronically signed by: MICHAEL STARKEY MD (02/27/2019 11:31 AM) [facility]
--- NOTE | 2019-02-27 11:36 | PDOC2 ---
JOSEFINA ROSSI SENIOR FINANCIAL REPORTING ACCOUNTANT 02/27/19 1136: CARDIAC CONSULT DATE OF CONSULT Date of Consult DATE: 02/27/19 TIME: 11:27 REASON FOR CONSULT Reason for Consult: Pre-op cardiac clearance REFERRING PHYSICIAN Referring Physician: Dr. Medina SOURCE Source: Chart review, Patient HISTORY OF PRESENT ILLNESS HISTORY OF PRESENT ILLNESS This is a 63 yo male who presented secondary to increasing back pain that has limited his ability to ambulate. Patient reports pain has been chronic for over a year. Patient fell over the summer and pain has intensified. For the last month, has had difficulty ambulating. Feel recently as legs gave out. Further imaging notable for significant thoracic stenosis and bulging disc. Surgery is planned. Consult obtained for cardiac evaluation pre-operatively. Patient denies any shortness of breath, dizziness, diaphoresis, chest pain, or nausea/vomiting. Patient is presently in pre-op in preparation for surgery. PAST MEDICAL HISTORY Past Medical History Cardiovascular: CHF, HTN, Hyperlipidemia, NICM Pulmonary: Asthma CENTRAL NERVOUS SYSTEM: Peripheral neuropathy GI: GERD Heme/Onc: No pertinent hx Hepatobiliary: No pertinent hx Psych: No pertinent hx Musculoskeletal: Osteoarthritis, DDD Rheumatologic: No pertinent hx Infectious disease: No pertinent hx ENT: No pertinent hx Endocrine: Diabetes Dermatology: No pertinent hx PAST SURGICAL HISTORY Past Surgical History Cholecystectomy, Tonsillectomy, AICD FAMILY HISTORY Family History: Hypertension SOCIAL HISTORY Smoke: No ALCOHOL: none Drugs: None Lives: with Family CURRENT MEDICATIONS CURRENT MEDICATIONS Current Medications Medications (Trade) Dose Ordered Sig/Tavia Route PRN Reason Start Time Stop Time Status Last Admin Dose Admin Allopurinol (Zyloprim) 300 mg HS PO 02/26/19 21:00 02/26/19 21:15 Montelukast Sodium (Singulair) 10 mg HS PO 02/26/19 21:00 02/26/19 21:15 Potassium Chloride (Klor-Con) 20 meq TIDWMEALS PO 02/26/19 12:00 02/26/19 18:23 Mupirocin (Bactroban) 1 raquel TID TP 02/26/19 14:00 02/26/19 21:15 Oxycodone HCl (Roxicodone) 10 mg Q4HRS PO 02/26/19 13:30 02/27/19 00:29 Diazepam (Valium) 5 mg PRN 1X PRN PO 30 MIN PRIOR TO MRI 02/26/19 14:00 02/27/19 13:59 02/26/19 15:41 Fentanyl Citrate (Fentanyl 2ml Vial) 50 mcg PRN Q5MIN PRN IV MODERATE TO SEVERE PAIN 02/27/19 07:00 02/27/19 20:00 02/27/19 10:52 Morphine Sulfate (Morphine Sulfate) 1 mg PRN Q10MIN PRN IV SEVERE PAIN 7-10 02/27/19 07:00 02/27/19 20:00 02/27/19 11:06 ALLERGIES ALLERGIES: Coded Allergies: simvastatin (Verified Allergy, Intermediate, upper body weakness, 02/26/19) pseudoephedrine (Verified Adverse Reaction, Intermediate, "Gets high", 12/07/17) ROS Review of System 14 point ROS conducted with pertinent positives noted above in HPI. PHYSICAL EXAM General: Alert, Oriented X3, Cooperative, No acute distress HEENT: Atraumatic Lungs: Clear to auscultation, Normal air movement Heart: Regular rate, Normal S1, Normal S2 Abdomen: Soft, No tenderness Extremities: No edema, Normal pulses Skin: No breakdown, No significant lesion Neuro: Normal speech, Sensation intact Psych/Mental Status: Mental status NL, Mood NL MUSCULOSKELETAL: Osteoarthritic changes both hands VITALS/I&O VITALS/I&O: Vital Signs Date Time Temp Pulse Resp B/P (MAP) Pulse Ox O2 Delivery O2 Flow Rate FiO2 02/27/19 11:06 16 100 Nasal Cannula 17.0 02/27/19 10:49 74 163/75 02/27/19 10:34 98.4 98.4 I & O 02/26/19 02/26/19 02/27/19 15:00 23:00 07:00 Intake Total 510 ml 450 ml Output Total 400 ml Balance 510 ml 50 ml LABS Lab: Laboratory Tests Test 02/26/19 13:15 02/26/19 16:53 02/26/19 21:10 02/27/19 04:05 Urine Collection Type Unknown Urine Color Yellow Urine Clarity Clear Urine pH 7.5 Urine Specific Roper 1.020 Urine Protein Negative mg/dL (NEG-TRACE) Urine Glucose (UA) Negative mg/dL (NEG) Urine Ketones (Stick) Negative mg/dL (NEG) Urine Blood Negative (NEG) Urine Nitrite Positive (NEG) Urine Bilirubin Negative (NEG) Urine Urobilinogen Dipstick 1.0 mg/dL (0.2 mg/dL) Urine Leukocyte Esterase Moderate (NEG) Urine RBC 3-5 /HPF (0-2) Urine WBC 20-40 /HPF (0-4) Urine Squamous Epithelial Cells Few /LPF Urine Bacteria Many /HPF (0-FEW) Urine Mucus Marked /LPF Glucose (Fingerstick) 194 mg/dL (70-99) H 186 mg/dL (70-99) H White Blood Count 10.4 x10^3/uL (4.0-11.0) Red Blood Count 4.33 x10^6/uL (4.30-5.70) Hemoglobin 13.5 g/dL (13.0-17.5) Hematocrit 40.6 % (39.0-53.0) Mean Corpuscular Volume 94 fL (79-100) Mean Corpuscular Hemoglobin 31 pg (25-35) Mean Corpuscular Hemoglobin Concent 33 g/dL (31-37) Red Cell Distribution Width 14.3 % (11.5-14.5) Platelet Count 299 x10^3/uL (140-400) Neutrophils (%) (Auto) 78 % (31-73) H Lymphocytes (%) (Auto) 14 % (24-48) L Monocytes (%) (Auto) 8 % (0-9) Eosinophils (%) (Auto) 0 % (0-3) Basophils (%) (Auto) 0 % (0-3) Neutrophils # (Auto) 8.1 x10^3/uL (1.8-7.7) H Lymphocytes # (Auto) 1.5 x10^3/uL (1.0-4.8) Monocytes # (Auto) 0.8 x10^3/uL (0.0-1.1) Eosinophils # (Auto) 0.0 x10^3/uL (0.0-0.7) Basophils # (Auto) 0.0 x10^3/uL (0.0-0.2) Erythrocyte Sedimentation Rate 7 (0-15) Sodium Level 143 mmol/L (136-145) Potassium Level 4.4 mmol/L (3.5-5.1) Chloride Level 108 mmol/L (98-107) H Carbon Dioxide Level 24 mmol/L (21-32) Anion Gap 11 (6-14) Blood Urea Nitrogen 20 mg/dL (8-26) Creatinine 1.1 mg/dL (0.7-1.3) Estimated GFR (Cockcroft-Gault) 81.8 BUN/Creatinine Ratio 18 (6-20) Glucose Level 161 mg/dL (70-99) H Calcium Level 8.9 mg/dL (8.5-10.1) Magnesium Level 2.0 mg/dL (1.8-2.4) Total Bilirubin 0.5 mg/dL (0.2-1.0) Aspartate Amino Transferase (AST) 12 U/L (15-37) L Alanine Aminotransferase (ALT) 16 U/L (16-63) Alkaline Phosphatase 79 U/L (46-116) Total Protein 6.5 g/dL (6.4-8.2) Albumin 3.2 g/dL (3.4-5.0) L Albumin/Globulin Ratio 1.0 (1.0-1.7) Test 02/27/19 07:54 02/27/19 10:50 Glucose (Fingerstick) 136 mg/dL (70-99) H 127 mg/dL (70-99) H Laboratory Tests 02/27/19 04:05 Laboratory Tests 02/27/19 04:05 ECHOCARDIOGRAM ECHOCARDIOGRAM <Conclusion> Left ventricle systolic function is low normal. The Ejection Fraction is 50-55%. There is normal LV segmental wall motion. Transmitral Doppler flow pattern is Grade I-abnormal relaxation pattern. There is a pacemaker lead in the right atrium and right ventricle. Doppler and Color-flow revealed trace mitral regurgitation. There is no evidence of significant pericardial effusion. DATE: 10/11/18 1211 HEART CATH HEART CATH Conclusion 1. No significant coronary artery disease 2. Severe left ventricular systolic dysfunction with ejection fraction estimated at 20-25%. Recommendations Optimization of medical therapy for severe nonischemic cardiomyopathy Repeat 2-D echo in 3 months to evaluate the need for AICD implantation for primary prevention of sudden cardiac DATE: 07/27/17 1150 ASSESSMENT/PLAN ASSESSMENT/PLAN 1. Back pain, DDD. Thoracic stenosis and bulging discs. Surgery planned today 2. Chronic diastolic HF; clinically compensated 3. H/o NICM s/p AICD placement ([facility] [facility]). Most recent echo with normalized LV systolic function. Device check with normal function. One episode of 8 sec of NSVT on 02/15/19 4. Hypertension; controlled 5. Hyperlipidemia 6. Diabetes, II 7. UTI; as per PCP Recommendations Continue optimization therapy including ACEi, BB, and Lasix Would be mild risk for non-cardiac surgery. Supportive care Will followup after surgery KYREE WHIPPLE MD 02/27/19 1705: CARDIAC CONSULT ASSESSMENT/PLAN ASSESSMENT/PLAN Pt. seen and examined. Agree with above [employer]OR [employer] DISPOSITION note. Supportive care. No further CV testing needed. JOSEFINA ROSSI APRN Feb 27, 2019 11:36 KYREE WHIPPLE MD Feb 27, 2019 17:05
[2019-02-27] MEDS ORDERED: GLYCOPYRROLATE 1 MG/5 ML VIAL. ONE (11:48)
[2019-02-27] MEDS ORDERED: ETOMIDATE 20 MG/10 ML VIAL. IV ONE (11:49)
[2019-02-27] MEDS ORDERED: DEXAMETHASONE SOD PHOS 20 MG/5 ML VIAL. ONE (11:49)
[2019-02-27] MEDS ORDERED: REMIFENTANIL 2 MG VIAL. IV ONE (11:49)
[2019-02-27] MEDS ORDERED: LIDOCAINE 2% PF 5 ML VIAL. ONE (11:49)
[2019-02-27] MEDS ORDERED: ONDANSETRON PF 4 MG/2 ML VIAL. ONE (11:49)
[2019-02-27] MEDS ORDERED: ROCURONIUM 50 MG/5 ML VIAL. ONE (11:49)
[2019-02-27] MEDS ORDERED: NEOSTIGMINE 10 MG/10 ML VIAL. ONE (11:49)
[2019-02-27] MEDS ORDERED: PROPOFOL 100 ML IV ONE (11:51)
[2019-02-27] MEDS ORDERED: SUCCINYLCHOLINE 200 MG/10 ML VIAL. ONE (11:58)
[2019-02-27] MEDS ORDERED: BUPIVACAINE-EPI 0.5%-1:200000 MPF 30 ML VIAL. INJ ONE (12:00)
[2019-02-27] MEDS ORDERED: BACITRACIN 50,000 UNIT in IV NORMAL SALINE 1000ML BAG 1,000 ML IRR ONE (12:00)
[2019-02-27] MEDS ORDERED: GELATIN SPONGE SIZE 4 SPONGE. ONE (12:10)
[2019-02-27] MEDS ORDERED: THROMBIN TOPICAL 5,000 UNIT VIAL. ONE (12:11)
[2019-02-27] MEDS ORDERED: GELATIN SPONGE SIZE 12-7MM SPONGE. ONE ×2 (12:11)
[2019-02-27] MEDS ORDERED: KETOROLAC 60 MG/2 ML VIAL. ONE (12:15)
[2019-02-27] MEDS ORDERED: ceFAZolin SODIUM 3 GM in IV DEXTROSE 5% 100ML 100 ML IV PRN (12:23)
[2019-02-27] MEDS ORDERED: REMIFENTANIL 1 MG VIAL. IV ONE (14:40)
[2019-02-27] MEDS ORDERED: PROPOFOL 50 ML IV ONE (14:48)
[2019-02-27] MEDS ORDERED: GELATIN SPONGE SIZE 12-7MM SPONGE. TP ONE (15:45)
[2019-02-27] MEDS: IV RINGERS,LACTATED 1000ML 1,000 ML IV SCH ×2 (16:52→16:55)
[2019-02-27 17:24] LABS: CHOLESTEROL/HDL RATIO 3.3
[2019-02-27] MEDS ORDERED: BENZOCAINE/MENTHOL LOZENGE. PO PRN (20:15)
[2019-02-27] MEDS: LACTOBACILLUS RHAMNOSUS GG 1 CAPSULE. PO SCH (20:20)
[2019-02-27] MEDS: ALLOPURINOL 300 MG TABLET. PO SCH (20:20)
[2019-02-27] MEDS: MONTELUKAST SODIUM 10 MG TABLET. PO SCH (20:20)
[2019-02-28] MEDS: oxyCODONE IR 5 MG TABLET PO SCH ×6 (00:23→20:50)
[2019-02-28 03:00] VITALS: BP 118/64
[2019-02-28 05:27] LABS: BASO % 0 % (0-3); EOS % 0 % (0-3); HEMATOCRIT 39.3 % (39.0-53.0); HEMOGLOBIN 13.1 g/dL (13.0-17.5); LYMPH # 1.1 x10^3/uL (1.0-4.8); LYMPH % 11 % (24-48); MEAN CORPUSCULAR HEMOGLOBIN 31 pg (25-35); MEAN CORPUSCULAR HGB CONC 33 g/dL (31-37); MEAN CORPUSCULAR VOLUME 94 fL (79-100); MONO # 0.9 x10^3/uL (0.0-1.1); MONO % 9 % (0-9); NEUT # 8.4 x10^3/uL (1.8-7.7); NEUT % 80 % (31-73); PLATELET COUNT 253 x10^3/uL (140-400); RED BLOOD COUNT 4.19 x10^6/uL (4.30-5.70); RED CELL DISTRIBUTION WIDTH 14.4 % (11.5-14.5); WHITE BLOOD COUNT 10.4 x10^3/uL (4.0-11.0)
[2019-02-28 06:11] LABS: CALCIUM 8.6 mg/dL (8.5-10.1); CREATININE 1.1 mg/dL (0.7-1.3); GFR 81.8; POTASSIUM 4.3 mmol/L (3.5-5.1)
[2019-02-28] MEDS: INSULIN LISPRO 300 UNITS/3 ML VIAL. SQ SCH ×2 (07:30→16:30)
[2019-02-28 07:32] VITALS: BP 117/57
[2019-02-28] MEDS: FLUTICASONE 50MCG/NASAL SPRAY 16GM BOTTLE. NS SCH (09:00)
[2019-02-28] MEDS: CHOLECALCIFEROL (VITAMIN D3) 1,000 UNIT TABLET PO SCH (09:24)
[2019-02-28] MEDS: ASPIRIN ENTERIC COATED 81 MG TABLET.DR. PO SCH (09:24)
[2019-02-28] MEDS: GABAPENTIN 300 MG CAPSULE. PO SCH ×3 (09:24→20:49)
[2019-02-28] MEDS: tiZANidine 4 MG TABLET. PO SCH ×3 (09:24→20:49)
[2019-02-28] MEDS: FUROSEMIDE 40 MG TABLET. PO SCH (09:27)
[2019-02-28] MEDS: CETIRIZINE HCL 10 MG TABLET. PO SCH (09:27)
[2019-02-28] MEDS: LACTOBACILLUS RHAMNOSUS GG 1 CAPSULE. PO SCH ×2 (09:27→20:49)
[2019-02-28] MEDS: METOPROLOL SUCC 24HR ER 25 MG TAB.ER.24H. PO SCH (09:27)
[2019-02-28] MEDS: LISINOPRIL 5 MG TABLET. PO SCH (09:27)
[2019-02-28] MEDS: POTASSIUM CHLORIDE 20 MEQ TABLET.ER. PO SCH ×3 (09:31→16:55)
[2019-02-28] MEDS: LINAGLIPTIN 5 MG TABLET PO SCH (09:31)
[2019-02-28] MEDS: MUPIROCIN 2 % TOPICAL CREAM 30GM TUBE. TP SCH ×3 (09:35→20:54)
[2019-02-28] MEDS: cefTRIAXone IV Push 1 GM VIAL. IVP SCH (09:37)
[2019-02-28] MEDS: INSULIN GLARGINE SYRINGE. SQ SCH (09:49)
--- NOTE | 2019-02-28 09:56 | PDOC ---
IM PROGRESS NOTES- Subjective Subjective Has lower extremity pain with weakness. No complaints of fever. He had surgery yesterday. Objective Vitals/I&O Vital Signs Date Time Temp Pulse Resp B/P (MAP) Pulse Ox O2 Delivery O2 Flow Rate FiO2 02/28/19 09:49 81 117/57 02/28/19 09:49 Room Air 02/28/19 07:32 97.7 18 95 97.7 02/27/19 16:24 10 I & O 02/27/19 02/27/19 02/28/19 14:59 22:59 06:59 Intake Total 1500 ml Output Total 350 ml 725 ml 500 ml Balance -350 ml 775 ml -500 ml Physical Exam Physical Exam General appearance - alert,ill appearing, and in no distress and oriented to person, place, and time Mental Status - alert, oriented to person, place, and time, affect appropriate to mood Head - normal Chest - clear to auscultation, no wheezes, rales or rhonchi, symmetric air entry Heart - S1 and S2 normal Abdomen - soft, nontender, nondistended, no masses or organomegaly Neurological - alert and oriented Musculoskeletal -lumbosacral spine decreased range of motion. Extremities -trace edema with lower extremity weakness. Skin - warm and dry Labs Laboratory Tests Test 02/27/19 10:50 02/27/19 20:14 02/28/19 05:15 02/28/19 07:42 Glucose (Fingerstick) 127 mg/dL (70-99) H 205 mg/dL (70-99) H 143 mg/dL (70-99) H White Blood Count 10.4 x10^3/uL (4.0-11.0) Red Blood Count 4.19 x10^6/uL (4.30-5.70) L Hemoglobin 13.1 g/dL (13.0-17.5) Hematocrit 39.3 % (39.0-53.0) Mean Corpuscular Volume 94 fL (79-100) Mean Corpuscular Hemoglobin 31 pg (25-35) Mean Corpuscular Hemoglobin Concent 33 g/dL (31-37) Red Cell Distribution Width 14.4 % (11.5-14.5) Platelet Count 253 x10^3/uL (140-400) Neutrophils (%) (Auto) 80 % (31-73) H Lymphocytes (%) (Auto) 11 % (24-48) L Monocytes (%) (Auto) 9 % (0-9) Eosinophils (%) (Auto) 0 % (0-3) Basophils (%) (Auto) 0 % (0-3) Neutrophils # (Auto) 8.4 x10^3/uL (1.8-7.7) H Lymphocytes # (Auto) 1.1 x10^3/uL (1.0-4.8) Monocytes # (Auto) 0.9 x10^3/uL (0.0-1.1) Eosinophils # (Auto) 0.0 x10^3/uL (0.0-0.7) Basophils # (Auto) 0.0 x10^3/uL (0.0-0.2) Sodium Level 144 mmol/L (136-145) Potassium Level 4.3 mmol/L (3.5-5.1) Chloride Level 108 mmol/L (98-107) H Carbon Dioxide Level 28 mmol/L (21-32) Anion Gap 8 (6-14) Blood Urea Nitrogen 17 mg/dL (8-26) Creatinine 1.1 mg/dL (0.7-1.3) Estimated GFR (Cockcroft-Gault) 81.8 Glucose Level 127 mg/dL (70-99) H Calcium Level 8.6 mg/dL (8.5-10.1) Laboratory Tests 02/28/19 05:15 Laboratory Tests 02/28/19 05:15 Meds Current Medications Medications (Trade) Dose Ordered Sig/Tavia Route PRN Reason Start Time Stop Time Status Last Admin Dose Admin Ceftriaxone Sodium (Rocephin) 1 gm Q24H IVP 02/27/19 10:00 02/28/19 09:49 Bupivacaine HCl/ Epinephrine Bitart (Sensorcain-Epi 0.5%-1:196643 Mpf) 30 ml 1X ONCE INJ 02/27/19 12:00 02/27/19 12:01 DC 02/27/19 15:53 Bacitracin 22964 unit/Sodium Chloride 1,000 ml @ 1,000 mls/hr 1X ONCE IRR 02/27/19 12:00 02/27/19 12:59 DC 02/27/19 13:36 Thrombin (Thrombin Topical) 5,000 unit STK-MED ONCE .ROUTE 02/27/19 12:11 02/27/19 12:11 DC 02/27/19 13:36 Gelatin (Gelfoam Size 12-7mm) 1 each STK-MED ONCE .ROUTE 02/27/19 12:11 02/27/19 12:12 DC 02/27/19 13:36 Gelatin (Gelfoam Size 12-7mm) 1 each STK-MED ONCE .ROUTE 02/27/19 12:11 02/27/19 12:12 DC 02/27/19 13:36 Ketorolac Tromethamine (Toradol Im) 60 mg STK-MED ONCE .ROUTE 02/27/19 12:15 02/27/19 12:16 DC 02/27/19 13:36 Cefazolin Sodium 3 gm/Dextrose 100 ml @ 200 mls/hr 1X PREOP PRN IV PRIOR TO PROCEDURE 02/27/19 12:23 02/28/19 12:22 02/27/19 14:04 Lactobacillus Rhamnosus (Culturelle) 1 cap BID PO 02/27/19 21:00 02/28/19 09:49 Gelatin (Gelfoam Size 12-7mm) 3 each STK-MED ONCE TP 02/27/19 15:45 02/27/19 15:47 DC 02/27/19 15:47 Throat Lozenges (Cepacol Sore Throat Lozenge) 1 arabella PRN Q2HRS PRN PO SORE THROAT 02/27/19 20:15 02/27/19 20:21 Assessment Assessment 1. Acute lumbar radiculopathy. 2. Intractable low back pain. 3. 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 4. Chronic systolic congestive heart failure, severe. 5. Gout. 6. Morbid obesity. 7. Hypertension. 8. Hyperlipidemia. 9. Gastroesophageal reflux disease. 10. Osteoarthritis of the knees. 11. Chronic sinusitis. 12. History of kidney stones. 13. Eczema. 14. Allergic rhinitis. 15. History of neck surgery. 16. History of dual-chamber AICD placed in 2018 and subsequently had revision of the right ventricular lead because of the fracture. PLAN: Acute lumbar radiculopathy Consult Dr. Pawel Mckoy for pain management. I will give him morphine 2 mg IV q.2 hours p.r.n., start him on tizanidine continuous and discontinue cyclobenzaprine. Consult PT, OT. Consult Dr. Rodriguez for rehab evaluation and management. Consult Dr. Medina for neurosurgery evaluation. Check labs including magnesium level and sed rate. Order home medications. Monitor blood sugars, blood pressure. For details, please refer to the orders. The patient has not been able to work for 1 month and his back pain has become intractable. MRI of the lumbar spine 1. Note that severe central canal stenosis on a multifactorial basis at T10-T11 more so than T11-T12 is described in detail on the dedicated MRI of the thoracic spine performed on the same day. 2. Diffuse disc bulge at L4-L5 with a superimposed left paracentral extrusion with the extruding component measuring approximately 5 mm AP by 1.5 cm craniocaudal and extending above the level of the disc space. In conjunction with advanced facet degeneration and ligamentum flavum hypertrophy, there is severe central canal stenosis at this level with the thecal sac measuring as little as 3.5 mm transverse by 5 mm AP. Note is also made that there is severe central canal stenosis along the posterior aspect of the L4 vertebral body which is secondary to hypertrophy of ventral epidural fat (image 19 series 8). 3. Disc bulge with a very small left foraminal/extraforaminal protrusion at L3-L4, in addition to facet degeneration and ligamentum flavum hypertrophy, with moderate central canal stenosis. 4. Moderate right and [id number] left neural foraminal stenosis at L5-S1. Mild left more so than right neural foraminal stenosis at L4-L5. MRI of thoracic spine 1. Prominent disc bulge at T10-T11 with a superimposed right paracentral/right foraminal extrusion that extends above more so than below the level of the disc space. The extruded disc measures approximately 7 mm AP and extends in the craniocaudal dimension by approximately 1.7 cm. In conjunction with facet degeneration and ligamentum flavum hypertrophy, severe central canal stenosis with marked cord effacement/compression as well as elevated cord signal at the level of compression as well as slightly above and below compatible with edema or myelomalacia. 2. Note is made that the thoracic central canal is narrowed on an intrinsic bases. There is accentuation of this narrowing at multiple levels, in addition to T10-T11, due to a combination of disc bulge/protrusion, ligamentum flavum hypertrophy and facet degeneration. Severe central canal stenosis is present at T11-T12 without cord signal abnormality. Moderate central canal stenosis at T1-T2. Additional levels with mild to moderate narrowing as well as ventral cord flattening/deformity as detailed above. 3. Multilevel neural foraminal encroachment, as outlined above, noted to be severe on the right at T7-T8, T8-T9 and T10-T11. 4. Though incompletely evaluated, moderate appearing central canal stenosis at C3-C4 mainly secondary to disc osteophyte complex. The cervical neural foramina are incompletely evaluated. Additional cervical levels with degenerative changes, most notable at C6-C7 and C7-T1, without severe central canal stenosis. Potential punctate focus of cord signal elevation at C6-C7 though this could also be artifactual. Dedicated MRI of the cervical spine could be performed as deemed necessary. UTI.- Add IV Rocephin. Follow up urine culture. Diabetes- stable The patient was not started on anticoagulation yesterday due to possibility of spinal procedures. Treatment plans discussed with the patient and his . For details, please review the orders. Plan Plan For more details regarding further plans, please refer to the orders. GUILLE ALONZO MD Feb 28, 2019 09:56
[2019-02-28 11:24] VITALS: BP 111/73
--- NOTE | 2019-02-28 12:07 | PDOC ---
PROGRESS NOTES Subjective Subjective POD #1 S/P Transfacet/ transpedicular discectomy T10-11 LE extremity strength and sensation improved, right feels stronger than left up in chair not able to stand worked with PT this morning Objective Objective Vital Signs Date Time Temp Pulse Resp B/P (MAP) Pulse Ox O2 Delivery O2 Flow Rate FiO2 02/28/19 11:24 73 18 111/73 (86) 97 Room Air 02/28/19 07:32 97.7 97.7 02/27/19 16:24 10 Intake and Output 02/28/19 07:00 Intake Total 1500 ml Output Total 1575 ml Balance -75 ml IV Total 1500 ml Output Urine Total 1550 ml Estimated Blood Loss 25 ml Physical Exam General: Alert, Oriented X3, Cooperative MUSCULOSKELETAL: Other (improved, able to move toes and lift feet up off the floor bilaterally) Neuro: Normal speech Skin: Other (dressing dry and intact, flat) Assessment Assessment Problems Medical Problems: (1) Anemia Status: Chronic (2) CKD (chronic kidney disease) Status: Chronic (3) Diabetes mellitus Status: Chronic (4) GERD (gastroesophageal reflux disease) Status: Chronic (5) Gouty arthritis Status: Chronic (6) HLD (hyperlipidemia) Status: Chronic (7) HTN (hypertension) Status: Chronic (8) Intractable back pain Status: Acute (9) Left knee DJD Status: Chronic (10) Morbid obesity with BMI of 40.0-44.9, adult Status: Acute (11) Muscle spasm Status: Acute (12) Paresthesia Status: Acute (13) Right knee DJD Status: Chronic (14) Spinal stenosis at L4-L5 level Status: Acute Plan Plan of Care continue PT will need rehab SCDs ok to resume Lovenox on Friday 03/02 Comment Review of Relevant I have reviewed the following items maurisio (where applicable) has been applied. Labs Laboratory Tests Test 02/26/19 13:15 02/26/19 16:53 02/26/19 21:10 02/27/19 04:05 Urine Collection Type Unknown Urine Color Yellow Urine Clarity Clear Urine pH 7.5 Urine Specific [place] 1.020 Urine Protein Negative mg/dL (NEG-TRACE) Urine Glucose (UA) Negative mg/dL (NEG) Urine Ketones (Stick) Negative mg/dL (NEG) Urine Blood Negative (NEG) Urine Nitrite Positive (NEG) Urine Bilirubin Negative (NEG) Urine Urobilinogen Dipstick 1.0 mg/dL (0.2 mg/dL) Urine Leukocyte Esterase Moderate (NEG) Urine RBC 3-5 /HPF (0-2) Urine WBC 20-40 /HPF (0-4) Urine Squamous Epithelial Cells Few /LPF Urine Bacteria Many /HPF (0-FEW) Urine Mucus Marked /LPF Glucose (Fingerstick) 194 mg/dL (70-99) 186 mg/dL (70-99) White Blood Count 10.4 x10^3/uL (4.0-11.0) Red Blood Count 4.33 x10^6/uL (4.30-5.70) Hemoglobin 13.5 g/dL (13.0-17.5) Hematocrit 40.6 % (39.0-53.0) Mean Corpuscular Volume 94 fL (79-100) Mean Corpuscular Hemoglobin 31 pg (25-35) Mean Corpuscular Hemoglobin Concent 33 g/dL (31-37) Red Cell Distribution Width 14.3 % (11.5-14.5) Platelet Count 299 x10^3/uL (140-400) Neutrophils (%) (Auto) 78 % (31-73) Lymphocytes (%) (Auto) 14 % (24-48) Monocytes (%) (Auto) 8 % (0-9) Eosinophils (%) (Auto) 0 % (0-3) Basophils (%) (Auto) 0 % (0-3) Neutrophils # (Auto) 8.1 x10^3/uL (1.8-7.7) Lymphocytes # (Auto) 1.5 x10^3/uL (1.0-4.8) Monocytes # (Auto) 0.8 x10^3/uL (0.0-1.1) Eosinophils # (Auto) 0.0 x10^3/uL (0.0-0.7) Basophils # (Auto) 0.0 x10^3/uL (0.0-0.2) Erythrocyte Sedimentation Rate 7 (0-15) Sodium Level 143 mmol/L (136-145) Potassium Level 4.4 mmol/L (3.5-5.1) Chloride Level 108 mmol/L (98-107) Carbon Dioxide Level 24 mmol/L (21-32) Anion Gap 11 (6-14) Blood Urea Nitrogen 20 mg/dL (8-26) Creatinine 1.1 mg/dL (0.7-1.3) Estimated GFR (Cockcroft-Gault) 81.8 BUN/Creatinine Ratio 18 (6-20) Glucose Level 161 mg/dL (70-99) Calcium Level 8.9 mg/dL (8.5-10.1) Magnesium Level 2.0 mg/dL (1.8-2.4) Total Bilirubin 0.5 mg/dL (0.2-1.0) Aspartate Amino Transf (AST/SGOT) 12 U/L (15-37) Alanine Aminotransferase (ALT/SGPT) 16 U/L (16-63) Alkaline Phosphatase 79 U/L (46-116) Total Protein 6.5 g/dL (6.4-8.2) Albumin 3.2 g/dL (3.4-5.0) Albumin/Globulin Ratio 1.0 (1.0-1.7) Triglycerides Level 93 mg/dL (0-150) Cholesterol Level 139 mg/dL (0-200) LDL Cholesterol, Calculated 78 mg/dL (0-100) VLDL Cholesterol, Calculated 19 mg/dL (0-40) Non-HDL Cholesterol Calculated 97 mg/dL (0-129) HDL Cholesterol 42 mg/dL (40-60) Cholesterol/HDL Ratio 3.3 Test 02/27/19 07:54 02/27/19 10:50 02/27/19 20:14 02/28/19 05:15 Glucose (Fingerstick) 136 mg/dL (70-99) 127 mg/dL (70-99) 205 mg/dL (70-99) White Blood Count 10.4 x10^3/uL (4.0-11.0) Red Blood Count 4.19 x10^6/uL (4.30-5.70) Hemoglobin 13.1 g/dL (13.0-17.5) Hematocrit 39.3 % (39.0-53.0) Mean Corpuscular Volume 94 fL (79-100) Mean Corpuscular Hemoglobin 31 pg (25-35) Mean Corpuscular Hemoglobin Concent 33 g/dL (31-37) Red Cell Distribution Width 14.4 % (11.5-14.5) Platelet Count 253 x10^3/uL (140-400) Neutrophils (%) (Auto) 80 % (31-73) Lymphocytes (%) (Auto) 11 % (24-48) Monocytes (%) (Auto) 9 % (0-9) Eosinophils (%) (Auto) 0 % (0-3) Basophils (%) (Auto) 0 % (0-3) Neutrophils # (Auto) 8.4 x10^3/uL (1.8-7.7) Lymphocytes # (Auto) 1.1 x10^3/uL (1.0-4.8) Monocytes # (Auto) 0.9 x10^3/uL (0.0-1.1) Eosinophils # (Auto) 0.0 x10^3/uL (0.0-0.7) Basophils # (Auto) 0.0 x10^3/uL (0.0-0.2) Sodium Level 144 mmol/L (136-145) Potassium Level 4.3 mmol/L (3.5-5.1) Chloride Level 108 mmol/L (98-107) Carbon Dioxide Level 28 mmol/L (21-32) Anion Gap 8 (6-14) Blood Urea Nitrogen 17 mg/dL (8-26) Creatinine 1.1 mg/dL (0.7-1.3) Estimated GFR (Cockcroft-Gault) 81.8 Glucose Level 127 mg/dL (70-99) Calcium Level 8.6 mg/dL (8.5-10.1) Test 02/28/19 07:42 02/28/19 11:20 Glucose (Fingerstick) 143 mg/dL (70-99) 172 mg/dL (70-99) Laboratory Tests Test 02/27/19 20:14 02/28/19 05:15 02/28/19 07:42 02/28/19 11:20 Glucose (Fingerstick) 205 mg/dL (70-99) 143 mg/dL (70-99) 172 mg/dL (70-99) White Blood Count 10.4 x10^3/uL (4.0-11.0) Red Blood Count 4.19 x10^6/uL (4.30-5.70) Hemoglobin 13.1 g/dL (13.0-17.5) Hematocrit 39.3 % (39.0-53.0) Mean Corpuscular Volume 94 fL (79-100) Mean Corpuscular Hemoglobin 31 pg (25-35) Mean Corpuscular Hemoglobin Concent 33 g/dL (31-37) Red Cell Distribution Width 14.4 % (11.5-14.5) Platelet Count 253 x10^3/uL (140-400) Neutrophils (%) (Auto) 80 % (31-73) Lymphocytes (%) (Auto) 11 % (24-48) Monocytes (%) (Auto) 9 % (0-9) Eosinophils (%) (Auto) 0 % (0-3) Basophils (%) (Auto) 0 % (0-3) Neutrophils # (Auto) 8.4 x10^3/uL (1.8-7.7) Lymphocytes # (Auto) 1.1 x10^3/uL (1.0-4.8) Monocytes # (Auto) 0.9 x10^3/uL (0.0-1.1) Eosinophils # (Auto) 0.0 x10^3/uL (0.0-0.7) Basophils # (Auto) 0.0 x10^3/uL (0.0-0.2) Sodium Level 144 mmol/L (136-145) Potassium Level 4.3 mmol/L (3.5-5.1) Chloride Level 108 mmol/L (98-107) Carbon Dioxide Level 28 mmol/L (21-32) Anion Gap 8 (6-14) Blood Urea Nitrogen 17 mg/dL (8-26) Creatinine 1.1 mg/dL (0.7-1.3) Estimated GFR (Cockcroft-Gault) 81.8 Glucose Level 127 mg/dL (70-99) Calcium Level 8.6 mg/dL (8.5-10.1) Medications Current Medications Methylprednisolone Sodium Succinate (SOLU-Medrol 125MG VIAL) 125 mg 1X ONCE IV Last administered on 02/26/19at 07:55; Start 02/26/19 at 07:15; Stop 02/26/19 at 07:16; Status DC Morphine Sulfate (Morphine Sulfate) 4 mg 1X ONCE IV Last administered on 02/26/19at 07:55; Start 02/26/19 at 07:15; Stop 02/26/19 at 07:16; Status DC Orphenadrine Citrate (Norflex) 60 mg 1X ONCE IV Last administered on 02/26/19 07:55; Start 02/26/19 at 07:15; Stop 02/26/19 at 07:16; Status DC Sodium Chloride 1,000 ml @ 100 mls/hr Q10H IV Last administered on 02/27/19 06:22; Start 02/26/19 at 09:02; Stop 02/27/19 at 09:01; Status DC Morphine Sulfate (Morphine Sulfate) 4 mg PRN Q2HR PRN IV PAIN Last administered on 02/27/19 18:29; Start 02/26/19 at 09:15 Allopurinol (Zyloprim) 300 mg HS PO Last administered on 02/27/19 20:21; Start 02/26/19 at 21:00 Aspirin (Ecotrin) 81 mg DAILYWBKFT PO Last administered on 02/28/19 09:49; Start 02/26/19 at 10:30 Cetirizine HCl (ZyrTEC) 10 mg DAILY PO Last administered on 02/28/19 09:49; Start 02/26/19 at 10:30 Vitamin D (Vitamin D3) 2,000 unit DAILY PO ; Start 02/26/19 at 10:30; Status UNV Vitamin D (Vitamin D3) 2,000 unit DAILY PO Last administered on 02/28/19 09:49; Start 02/26/19 at 10:30 Fluticasone Propionate (Flonase) 2 spray DAILY NS ; Start 02/26/19 at 10:30 Furosemide (Lasix) 40 mg DAILY PO Last administered on 02/28/19 09:49; Start 02/26/19 at 10:30 Gabapentin (Neurontin) 300 mg TID PO Last administered on 02/28/19 09:49; Start 02/26/19 at 10:30 Metoprolol Succinate (Toprol Xl) 25 mg DAILY PO Last administered on 02/28/19 09:49; Start 02/26/19 at 10:30 Montelukast Sodium (Singulair) 10 mg HS PO Last administered on 02/27/19 20:21; Start 02/26/19 at 21:00 Potassium Chloride (Klor-Con) 20 meq TIDWMEALS PO Last administered on 02/28/19 09:49; Start 02/26/19 at 12:00 Insulin Glargine (Lantus Syringe) 20 unit DAILY SQ Last administered on 02/28/19 09:49; Start 02/26/19 at 10:30 Lisinopril (Prinivil) 5 mg DAILY PO Last administered on 02/28/19 09:49; Start 02/26/19 at 10:30 Linagliptin (Tradjenta) 5 mg DAILY PO Last administered on 02/28/19 09:49; Start 02/26/19 at 10:30 Oxycodone HCl (Roxicodone) 10 mg PRN Q4HRS PRN PO PAIN; Start 02/26/19 at 10:00; Stop 02/26/19 at 13:41; Status DC Acetaminophen (Tylenol) 650 mg PRN Q6HRS PRN PO MILD PAIN / TEMP; Start 02/26/19 at 10:00 Albuterol Sulfate (Ventolin Neb Soln) 2.5 mg PRN Q6HRS PRN NEB SHORTNESS OF BREATH; Start 02/26/19 at 10:00 Insulin Human Lispro (HumaLOG) 0-8 UNITS BIDBFRMEAL SQ Last administered on 02/26/19 18:23; Start 02/26/19 at 10:30 Tizanidine HCl (Zanaflex) 4 mg TID PO Last administered on 02/28/19 09:49; Start 02/26/19 at 10:30 Mupirocin (Bactroban) 1 raquel TID TP Last administered on 02/28/19 09:49; Start 02/26/19 at 14:00 Oxycodone HCl (Roxicodone) 10 mg Q4HRS PO Last administered on 02/28/19 09:49; Start 02/26/19 at 13:30 Diazepam (Valium) 5 mg PRN 1X PRN PO 30 MIN PRIOR TO MRI Last administered on 02/26/19at 15:41; Start 02/26/19 at 14:00; Stop 02/27/19 at 13:59; Status DC Ondansetron HCl (Zofran) 4 mg PRN Q6HRS PRN IV NAUSEA/VOMITING; Start 02/27/19 at 07:00; Stop 02/27/19 at 20:00; Status DC Fentanyl Citrate (Fentanyl 2ml Vial) 25 mcg PRN Q5MIN PRN IV MILD PAIN 1-3 Last administered on 02/27/19at 17:30; Start 02/27/19 at 07:00; Stop 02/27/19 at 20:00; Status DC Fentanyl Citrate (Fentanyl 2ml Vial) 50 mcg PRN Q5MIN PRN IV MODERATE TO SEVERE PAIN Last administered on 02/27/19at 17:09; Start 02/27/19 at 07:00; Stop 02/27/19 at 20:00; Status DC Morphine Sulfate (Morphine Sulfate) 1 mg PRN Q10MIN PRN IV SEVERE PAIN 7-10 Last administered on 02/27/19at 17:40; Start 02/27/19 at 07:00; Stop 02/27/19 at 20:00; Status DC Ringer's Solution 1,000 ml @ 30 mls/hr Q24H IV Last administered on 02/27/19at 16:56; Start 02/27/19 at 07:00; Stop 02/27/19 at 18:59; Status DC Lidocaine HCl (Xylocaine-Mpf 1% 2ml Vial) 2 ml PRN 1X PRN ID PRIOR TO IV START; Start 02/27/19 at 07:00; Stop 02/27/19 at 20:00; Status DC Hydromorphone HCl (Dilaudid) 0.5 mg PRN Q10MIN PRN IV SEV PAIN, Second choice; Start 02/27/19 at 07:00; Stop 02/27/19 at 20:00; Status DC Prochlorperazine Edisylate (Compazine) 5 mg PACU PRN PRN IV NAUSEA, MRX1; Start 02/27/19 at 07:00; Stop 02/27/19 at 20:00; Status DC Ceftriaxone Sodium (Rocephin) 1 gm Q24H IVP Last administered on 02/28/19at 09:49; Start 02/27/19 at 10:00 Midazolam HCl (Versed) 2 mg STK-MED ONCE .ROUTE ; Start 02/27/19 at 08:22; Stop 02/27/19 at 11:31; Status DC Midazolam HCl (Versed) 2 mg STK-MED ONCE .ROUTE ; Start 02/27/19 at 08:22; Stop 02/27/19 at 11:32; Status DC Propofol 0 ml @ As Directed STK-MED ONCE IV ; Start 02/27/19 at 08:22; Stop 02/27/19 at 11:34; Status DC Ketamine HCl (Ketamine) 50 mg STK-MED ONCE .ROUTE ; Start 02/27/19 at 08:48; Stop 02/27/19 at 11:34; Status DC Fentanyl Citrate (Fentanyl 2ml Vial) 100 mcg STK-MED ONCE .ROUTE ; Start 02/27/19 at 08:49; Stop 02/27/19 at 11:34; Status DC Fentanyl Citrate (Fentanyl 2ml Vial) 100 mcg STK-MED ONCE .ROUTE ; Start 02/27/19 at 10:42; Stop 02/27/19 at 11:34; Status DC Bupivacaine HCl/ Epinephrine Bitart (Sensorcain-Epi 0.5%-1:[id number] Mpf) 30 ml 1X ONCE INJ Last administered on 02/27/19at 15:53; Start 02/27/19 at 12:00; Stop 02/27/19 at 12:01; Status DC Bacitracin 51516 unit/Sodium Chloride 1,000 ml @ 1,000 mls/hr 1X ONCE IRR Last administered on 02/27/19at 13:36; Start 02/27/19 at 12:00; Stop 02/27/19 at 12:59; Status DC Glycopyrrolate (Robinul) 1 mg STK-MED ONCE .ROUTE ; Start 02/27/19 at 11:48; Stop 02/27/19 at 11:49; Status DC Neostigmine Methylsulfate (Bloxiverz) 10 mg STK-MED ONCE .ROUTE ; Start 02/27/19 at 11:49; Stop 02/27/19 at 11:49; Status DC Rocuronium [place] (Zemuron) 50 mg STK-MED ONCE .ROUTE ; Start 02/27/19 at 11:49; Stop 02/27/19 at 11:49; Status DC Remifentanil HCl (Ultiva) 2 mg STK-MED ONCE IV ; Start 02/27/19 at 11:49; Stop 02/27/19 at 11:49; Status DC Etomidate (Amidate) 20 mg STK-MED ONCE IV ; Start 02/27/19 at 11:49; Stop 02/27/19 at 11:49; Status DC Ondansetron HCl (Zofran) 4 mg STK-MED ONCE .ROUTE ; Start 02/27/19 at 11:49; S top 02/27/19 at 11:50; Status DC Dexamethasone Sodium Phosphate (Decadron) 20 mg STK-MED ONCE .ROUTE ; Start 02/27/19 at 11:49; Stop 02/27/19 at 11:50; Status DC Lidocaine HCl (Lidocaine Pf 2% Vial) 5 ml STK-MED ONCE .ROUTE ; Start 02/27/19 at 11:49; Stop 02/27/19 at 11:50; Status DC Propofol 100 ml @ As Directed STK-MED ONCE IV ; Start 02/27/19 at 11:51; Stop 02/27/19 at 11:52; Status DC Succinylcholine Chloride (Anectine) 200 mg STK-MED ONCE .ROUTE ; Start 02/27/19 at 11:58; Stop 02/27/19 at 11:59; Status DC Gelatin (Gelfoam Dental Sponge Size 4) 1 each STK-MED ONCE .ROUTE ; Start 02/27/19 at 12:10; Stop 02/27/19 at 12:11; Status DC Thrombin (Thrombin Topical) 5,000 unit STK-MED ONCE .ROUTE Last administered on 02/27/19at 13:36; Start 02/27/19 at 12:11; Stop 02/27/19 at 12:11; Status DC Gelatin (Gelfoam Size 12-7mm) 1 each STK-MED ONCE .ROUTE Last administered on 02/27/19at 13:36; Start 02/27/19 at 12:11; Stop 02/27/19 at 12:12; Status DC Gelatin (Gelfoam Size 12-7mm) 1 each STK-MED ONCE .ROUTE Last administered on 02/27/19at 13:36; Start 02/27/19 at 12:11; Stop 02/27/19 at 12:12; Status DC Ketorolac Tromethamine (Toradol Im) 60 mg STK-MED ONCE .ROUTE Last administered on 02/27/19at 13:36; Start 02/27/19 at 12:15; Stop 02/27/19 at 12:16; Status DC Cefazolin Sodium 3 gm/Dextrose 100 ml @ 200 mls/hr 1X PREOP PRN IV PRIOR TO PROCEDURE Last administered on 02/27/19at 14:04; Start 02/27/19 at 12:23; Stop 02/28/19 at 12:22 Cefazolin Sodium 50 ml @ 100 mls/hr 1X PREOP PRN IV PRE OP DOSE; Start 9 at 06:00; Stop 02/28/19 at 18:00; Status UNV Lactobacillus Rhamnosus (Culturelle) 1 cap BID PO Last administered on 02/28/19a t 09:49; Start 02/27/19 at 21:00 Remifentanil HCl (Ultiva) 1 mg STK-MED ONCE IV ; Start 02/27/19 at 14:40; Stop 02/27/19 at 14:40; Status DC Propofol 50 ml @ As Directed STK-MED ONCE IV ; Start 02/27/19 at 14:48; Stop 02/27/19 at 14:48; Status DC Gelatin (Gelfoam Size 12-7mm) 3 each STK-MED ONCE TP Last administered on 02/27/19at 15:47; Start 02/27/19 at 15:45; Stop 02/27/19 at 15:47; Status DC Throat Lozenges (Cepacol Sore Throat Lozenge) 1 [place]abella PRN Q2HRS PRN PO SORE THROAT Last administered on 02/27/19at 20:21; Start 02/27/19 at 20:15 Active Scripts Active Klor-Con M20 (Potassium Chloride) 20 Meq Tab.er.prt 20 Meq PO TIDWMEALS 30 Days Metoprolol Succinate ( Xl ) (Metoprolol Succinate) 25 Mg Tab.er.24h 25 Mg PO DAILY 30 Days Furosemide 40 Mg Tablet 40 Mg PO DAILY 30 Days Vitamin D (Cholecalciferol (Vitamin D3)) 1,000 Unit Tablet 2,000 Unit PO DAILY 30 Days Aspirin Ec (Aspirin) 81 Mg Tablet.dr 81 Mg PO DAILYWBKFT 30 Days Reported Metformin Hcl 1,000 Mg Tablet 1,000 Mg PO BIDWMEALS Fish Oil 1,200 Mg Fish Oil (Fish Oil/Dha/Epa) 1 Each Capsule 1 Each PO Tresiba Flextouch U-100 (Insulin Degludec) 100 Unit/1 Ml Insuln.pen 20 Units SUBCUT DAILY Ramipril 2.5 Mg Capsule 1 Cap PO DAILY Allopurinol 300 Mg Tablet 1 Tab PO HS Singulair Tablet (Montelukast Sodium) 10 Mg Tablet 1 Tab PO HS Gabapentin (Gabapentin) 300 Mg Capsule 1 Cap PO TID Tramadol Hcl 50 Mg Tablet 1 Tab PO PRN Q6HRS Vitals/I & O Vital Sign - Last 24 Hours 02/27/19 02/27/19 02/27/19 02/27/19 12:15 16:24 16:24 16:55 Temp 98.4 97.5 98.4 97.5 Pulse 74 110 Resp 15 22 5 B/P (MAP) 139/63 173/77 Pulse Ox 95 100 96 O2 Delivery Nasal Cannula Simple Mask Mask O2 Flow Rate 17.0 10 10 02/27/19 02/27/19 02/27/19 02/27/19 17:09 17:13 17:28 17:30 Pulse 104 98 Resp 20 22 22 20 B/P (MAP) 148/75 139/63 Pulse Ox 99 99 99 95 O2 Delivery Room Air Room Air Room Air Room Air 02/27/19 02/27/19 02/27/19 02/27/19 17:30 17:40 17:43 18:00 Temp 97.0 98.3 97.0 98.3 Pulse 100 103 Resp 20 20 20 18 B/P (MAP) 139/62 149/85 (106) Pulse Ox 99 98 99 95 O2 Delivery Room Air Room Air Room Air Room Air 02/27/19 02/27/19 02/27/19 02/27/19 18:15 18:29 18:30 18:45 Pulse 98 92 93 Resp 18 18 18 B/P (MAP) 138/78 (98) 138/74 (95) 136/68 (90) Pulse Ox 94 94 95 O2 Delivery Room Air Room Air Room Air Room Air 02/27/19 02/27/19 02/27/19 02/27/19 18:56 18:56 18:56 19:08 O2 Delivery Room Air Room Air Room Air Room Air 02/27/19 02/27/19 02/27/19 02/27/19 19:15 20:00 20:21 20:45 Pulse 90 85 Resp 18 18 18 B/P (MAP) 131/72 (91) 135/61 (85) Pulse Ox 94 95 O2 Delivery Room Air Mask Room Air Room Air 02/27/19 02/27/19 02/28/19 02/28/19 21:45 23:00 00:23 00:24 Temp 98.1 98.1 Pulse 76 79 Resp 18 18 16 B/P (MAP) 132/54 (80) 115/57 (76) Pulse Ox 90 94 O2 Delivery Room Air Room Air Room Air Room Air 02/28/19 02/28/19 02/28/19 02/28/19 03:00 04:48 05:38 07:06 Temp 97.7 97.7 Pulse 76 Resp 18 16 18 B/P (MAP) 118/64 (82) Pulse Ox 95 O2 Delivery Room Air Room Air Room Air Room Air 02/28/19 02/28/19 02/28/19 02/28/19 07:32 08:00 09:49 09:49 Temp 97.7 97.7 Pulse 81 81 Resp 18 B/P (MAP) 117/57 (77) 117/57 Pulse Ox 95 O2 Delivery Room Air Room Air Room Air 02/28/19 02/28/19 02/28/19 09:49 10:55 11:24 Pulse 81 73 Resp 18 B/P (MAP) 117/57 111/73 (86) Pulse Ox 97 O2 Delivery Room Air Room Air Intake and Output 02/27/19 02/27/19 02/28/19 15:00 23:00 07:00 Intake Total 1500 ml Output Total 350 ml 725 ml 500 ml Balance -350 ml 775 ml -500 ml NIA MENDEZ APRN Feb 28, 2019 12:07
--- NOTE | 2019-02-28 13:48 | PDOC ---
PROGRESS NOTES Subjective Subjective He admits continued low back pain and numbness and weakness in his lower extremities and not passing gases post op. Objective Objective Vital Signs Date Time Temp Pulse Resp B/P (MAP) Pulse Ox O2 Delivery O2 Flow Rate FiO2 02/28/19 13:23 Room Air 02/28/19 11:24 73 18 111/73 (86) 97 02/28/19 07:32 97.7 97.7 02/27/19 16:24 10 Intake and Output 02/28/19 06:59 Intake Total 1500 ml Output Total 1575 ml Balance -75 ml IV Total 1500 ml Output Urine Total 1550 ml Estimated Blood Loss 25 ml Physical Exam Physical Exam He is alert,sitting in bedside chair and does not seem to be in any significant discomfort.He continues with significant weakness of hip flexors and dorsiflexors of left foot and slight weakness of right foot dorsiflexors.He had absent knee and ankle jerks and he had decreased sensory perception over left L3,L4 dermatome.He required maximal assistance with transfers as for physical therapy. Assessment Assessment Problems Medical Problems: (1) Anemia Status: Chronic (2) CKD (chronic kidney disease) Status: Chronic (3) Diabetes mellitus Status: Chronic (4) GERD (gastroesophageal reflux disease) Status: Chronic (5) Gouty arthritis Status: Chronic (6) HLD (hyperlipidemia) Status: Chronic (7) HTN (hypertension) Status: Chronic (8) Intractable back pain Status: Acute (9) Left knee DJD Status: Chronic (10) Morbid obesity with BMI of 40.0-44.9, adult Status: Acute (11) Muscle spasm Status: Acute (12) Paresthesia Status: Acute (13) Right knee DJD Status: Chronic (14) Spinal stenosis at L4-L5 level Status: Acute Plan Plan of Care To continue present rehab efforts as tolerated and hopefully to SNF or to rehab unit depending on his therapy participation in the next few days when medically stable.He probably need left AFO and I hope he can get back some hip flexor muscle strength for him to go home walking. To keep indwelling Mann catheter until he can transfer with once person assistance. He had decompression at T10- T11 level only not at L4-L5 level. Comment Review of Relevant I have reviewed the following items maurisio (where applicable) has been applied. Labs Laboratory Tests Test 02/26/19 16:53 02/26/19 21:10 02/27/19 04:05 02/27/19 07:54 Glucose (Fingerstick) 194 mg/dL (70-99) 186 mg/dL (70-99) 136 mg/dL (70-99) White Blood Count 10.4 x10^3/uL (4.0-11.0) Red Blood Count 4.33 x10^6/uL (4.30-5.70) Hemoglobin 13.5 g/dL (13.0-17.5) Hematocrit 40.6 % (39.0-53.0) Mean Corpuscular Volume 94 fL (79-100) Mean Corpuscular Hemoglobin 31 pg (25-35) Mean Corpuscular Hemoglobin Concent 33 g/dL (31-37) Red Cell Distribution Width 14.3 % (11.5-14.5) Platelet Count 299 x10^3/uL (140-400) Neutrophils (%) (Auto) 78 % (31-73) Lymphocytes (%) (Auto) 14 % (24-48) Monocytes (%) (Auto) 8 % (0-9) Eosinophils (%) (Auto) 0 % (0-3) Basophils (%) (Auto) 0 % (0-3) Neutrophils # (Auto) 8.1 x10^3/uL (1.8-7.7) Lymphocytes # (Auto) 1.5 x10^3/uL (1.0-4.8) Monocytes # (Auto) 0.8 x10^3/uL (0.0-1.1) Eosinophils # (Auto) 0.0 x10^3/uL (0.0-0.7) Basophils # (Auto) 0.0 x10^3/uL (0.0-0.2) Erythrocyte Sedimentation Rate 7 (0-15) Sodium Level 143 mmol/L (136-145) Potassium Level 4.4 mmol/L (3.5-5.1) Chloride Level 108 mmol/L (98-107) Carbon Dioxide Level 24 mmol/L (21-32) Anion Gap 11 (6-14) Blood Urea Nitrogen 20 mg/dL (8-26) Creatinine 1.1 mg/dL (0.7-1.3) Estimated GFR (Cockcroft-Gault) 81.8 BUN/Creatinine Ratio 18 (6-20) Glucose Level 161 mg/dL (70-99) Calcium Level 8.9 mg/dL (8.5-10.1) Magnesium Level 2.0 mg/dL (1.8-2.4) Total Bilirubin 0.5 mg/dL (0.2-1.0) Aspartate Amino Transf (AST/SGOT) 12 U/L (15-37) Alanine Aminotransferase (ALT/SGPT) 16 U/L (16-63) Alkaline Phosphatase 79 U/L (46-116) Total Protein 6.5 g/dL (6.4-8.2) Albumin 3.2 g/dL (3.4-5.0) Albumin/Globulin Ratio 1.0 (1.0-1.7) Triglycerides Level 93 mg/dL (0-150) Cholesterol Level 139 mg/dL (0-200) LDL Cholesterol, Calculated 78 mg/dL (0-100) VLDL Cholesterol, Calculated 19 mg/dL (0-40) Non-HDL Cholesterol Calculated 97 mg/dL (0-129) HDL Cholesterol 42 mg/dL (40-60) Cholesterol/HDL Ratio 3.3 Test 02/27/19 10:50 02/27/19 20:14 02/28/19 05:15 02/28/19 07:42 Glucose (Fingerstick) 127 mg/dL (70-99) 205 mg/dL (70-99) 143 mg/dL (70-99) White Blood Count 10.4 x10^3/uL (4.0-11.0) Red Blood Count 4.19 x10^6/uL (4.30-5.70) Hemoglobin 13.1 g/dL (13.0-17.5) Hematocrit 39.3 % (39.0-53.0) Mean Corpuscular Volume 94 fL (79-100) Mean Corpuscular Hemoglobin 31 pg (25-35) Mean Corpuscular Hemoglobin Concent 33 g/dL (31-37) Red Cell Distribution Width 14.4 % (11.5-14.5) Platelet Count 253 x10^3/uL (140-400) Neutrophils (%) (Auto) 80 % (31-73) Lymphocytes (%) (Auto) 11 % (24-48) Monocytes (%) (Auto) 9 % (0-9) Eosinophils (%) (Auto) 0 % (0-3) Basophils (%) (Auto) 0 % (0-3) Neutrophils # (Auto) 8.4 x10^3/uL (1.8-7.7) Lymphocytes # (Auto) 1.1 x10^3/uL (1.0-4.8) Monocytes # (Auto) 0.9 x10^3/uL (0.0-1.1) Eosinophils # (Auto) 0.0 x10^3/uL (0.0-0.7) Basophils # (Auto) 0.0 x10^3/uL (0.0-0.2) Sodium Level 144 mmol/L (136-145) Potassium Level 4.3 mmol/L (3.5-5.1) Chloride Level 108 mmol/L (98-107) Carbon Dioxide Level 28 mmol/L (21-32) Anion Gap 8 (6-14) Blood Urea Nitrogen 17 mg/dL (8-26) Creatinine 1.1 mg/dL (0.7-1.3) Estimated GFR (Cockcroft-Gault) 81.8 Glucose Level 127 mg/dL (70-99) Calcium Level 8.6 mg/dL (8.5-10.1) Test 02/28/19 11:20 Glucose (Fingerstick) 172 mg/dL (70-99) Laboratory Tests Test 02/27/19 20:14 02/28/19 05:15 02/28/19 07:42 02/28/19 11:20 Glucose (Fingerstick) 205 mg/dL (70-99) 143 mg/dL (70-99) 172 mg/dL (70-99) White Blood Count 10.4 x10^3/uL (4.0-11.0) Red Blood Count 4.19 x10^6/uL (4.30-5.70) Hemoglobin 13.1 g/dL (13.0-17.5) Hematocrit 39.3 % (39.0-53.0) Mean Corpuscular Volume 94 fL (79-100) Mean Corpuscular Hemoglobin 31 pg (25-35) Mean Corpuscular Hemoglobin Concent 33 g/dL (31-37) Red Cell Distribution Width 14.4 % (11.5-14.5) Platelet Count 253 x10^3/uL (140-400) Neutrophils (%) (Auto) 80 % (31-73) Lymphocytes (%) (Auto) 11 % (24-48) Monocytes (%) (Auto) 9 % (0-9) Eosinophils (%) (Auto) 0 % (0-3) Basophils (%) (Auto) 0 % (0-3) Neutrophils # (Auto) 8.4 x10^3/uL (1.8-7.7) Lymphocytes # (Auto) 1.1 x10^3/uL (1.0-4.8) Monocytes # (Auto) 0.9 x10^3/uL (0.0-1.1) Eosinophils # (Auto) 0.0 x10^3/uL (0.0-0.7) Basophils # (Auto) 0.0 x10^3/uL (0.0-0.2) Sodium Level 144 mmol/L (136-145) Potassium Level 4.3 mmol/L (3.5-5.1) Chloride Level 108 mmol/L (98-107) Carbon Dioxide Level 28 mmol/L (21-32) Anion Gap 8 (6-14) Blood Urea Nitrogen 17 mg/dL (8-26) Creatinine 1.1 mg/dL (0.7-1.3) Estimated GFR (Cockcroft-Gault) 81.8 Glucose Level 127 mg/dL (70-99) Calcium Level 8.6 mg/dL (8.5-10.1) Medications Current Medications Methylprednisolone Sodium Succinate (SOLU-Medrol 125MG VIAL) 125 mg 1X ONCE IV Last administered on 02/26/19at 07:55; Start 02/26/19 at 07:15; Stop 02/26/19 at 07:16; Status DC Morphine Sulfate (Morphine Sulfate) 4 mg 1X ONCE IV Last administered on 02/26/19 07:55; Start 02/26/19 at 07:15; Stop 02/26/19 at 07:16; Status DC Orphenadrine Citrate (Norflex) 60 mg 1X ONCE IV Last administered on 02/26/19 07:55; Start 02/26/19 at 07:15; Stop 02/26/19 at 07:16; Status DC Sodium Chloride 1,000 ml @ 100 mls/hr Q10H IV Last administered on 02/27/19 06:22; Start 02/26/19 at 09:02; Stop 02/27/19 at 09:01; Status DC Morphine Sulfate (Morphine Sulfate) 4 mg PRN Q2HR PRN IV PAIN Last administered on 02/27/19 18:29; Start 02/26/19 at 09:15 Allopurinol (Zyloprim) 300 mg HS PO Last administered on 02/27/19 20:21; Start 02/26/19 at 21:00 Aspirin (Ecotrin) 81 mg DAILYWBKFT PO Last administered on 02/28/19 09:49; Start 02/26/19 at 10:30 Cetirizine HCl (ZyrTEC) 10 mg DAILY PO Last administered on 02/28/19 09:49; Start 02/26/19 at 10:30 Vitamin D (Vitamin D3) 2,000 unit DAILY PO ; Start 02/26/19 at 10:30; Status UNV Vitamin D (Vitamin D3) 2,000 unit DAILY PO Last administered on 02/28/19 09:49; Start 02/26/19 at 10:30 Fluticasone Propionate (Flonase) 2 spray DAILY NS ; Start 02/26/19 at 10:30 Furosemide (Lasix) 40 mg DAILY PO Last administered on 02/28/19 09:49; Start 02/26/19 at 10:30 Gabapentin (Neurontin) 300 mg TID PO Last administered on 02/28/19 09:49; Start 02/26/19 at 10:30 Metoprolol Succinate (Toprol Xl) 25 mg DAILY PO Last administered on 02/28/19 09:49; Start 02/26/19 at 10:30 Montelukast Sodium (Singulair) 10 mg HS PO Last administered on 02/27/19 20:21; Start 02/26/19 at 21:00 Potassium Chloride (Klor-Con) 20 meq TIDWMEALS PO Last administered on 02/28/19 12:10; Start 02/26/19 at 12:00 Insulin Glargine (Lantus Syringe) 20 unit DAILY SQ Last administered on 02/28/19 09:49; Start 02/26/19 at 10:30 Lisinopril (Prinivil) 5 mg DAILY PO Last administered on 02/28/19 09:49; Start 02/26/19 at 10:30 Linagliptin (Tradjenta) 5 mg DAILY PO Last administered on 02/28/19 09:49; Start 02/26/19 at 10:30 Oxycodone HCl (Roxicodone) 10 mg PRN Q4HRS PRN PO PAIN; Start 02/26/19 at 10:00; Stop 02/26/19 at 13:41; Status DC Acetaminophen (Tylenol) 650 mg PRN Q6HRS PRN PO MILD PAIN / TEMP; Start 02/26/19 at 10:00 Albuterol Sulfate (Ventolin Neb Soln) 2.5 mg PRN Q6HRS PRN NEB SHORTNESS OF BREATH; Start 02/26/19 at 10:00 Insulin Human Lispro (HumaLOG) 0-8 UNITS BIDBFRMEAL SQ Last administered on 02/26/19at 18:23; Start 02/26/19 at 10:30 Tizanidine HCl (Zanaflex) 4 mg TID PO Last administered on 02/28/19 09:49; Start 02/26/19 at 10:30 Mupirocin (Bactroban) 1 raquel TID TP Last administered on 02/28/19 09:49; Start 02/26/19 at 14:00 Oxycodone HCl (Roxicodone) 10 mg Q4HRS PO Last administered on 02/28/19at 12:10; Start 02/26/19 at 13:30 Diazepam (Valium) 5 mg PRN 1X PRN PO 30 MIN PRIOR TO MRI Last administered on 02/26/19at 15:41; Start 02/26/19 at 14:00; Stop 02/27/19 at 13:59; Status DC Ondansetron HCl (Zofran) 4 mg PRN Q6HRS PRN IV NAUSEA/VOMITING; Start 02/27/19 at 07:00; Stop 02/27/19 at 20:00; Status DC Fentanyl Citrate (Fentanyl 2ml Vial) 25 mcg PRN Q5MIN PRN IV MILD PAIN 1-3 Last administered on 02/27/19at 17:30; Start 02/27/19 at 07:00; Stop 02/27/19 at 20:00; Status DC Fentanyl Citrate (Fentanyl 2ml Vial) 50 mcg PRN Q5MIN PRN IV MODERATE TO SEVERE PAIN Last administered on 02/27/19at 17:09; Start 02/27/19 at 07:00; Stop 02/27/19 at 20:00; Status DC Morphine Sulfate (Morphine Sulfate) 1 mg PRN Q10MIN PRN IV SEVERE PAIN 7-10 Last administered on 02/27/19at 17:40; Start 02/27/19 at 07:00; Stop 02/27/19 at 20:00; Status DC Ringer's Solution 1,000 ml @ 30 mls/hr Q24H IV Last administered on 02/27/19at 16:56; Start 02/27/19 at 07:00; Stop 02/27/19 at 18:59; Status DC Lidocaine HCl (Xylocaine-Mpf 1% 2ml Vial) 2 ml PRN 1X PRN ID PRIOR TO IV START; Start 02/27/19 at 07:00; Stop 02/27/19 at 20:00; Status DC Hydromorphone HCl (Dilaudid) 0.5 mg PRN Q10MIN PRN IV SEV PAIN, Second choice; Start 02/27/19 at 07:00; Stop 02/27/19 at 20:00; Status DC Prochlorperazine Edisylate (Compazine) 5 mg PACU PRN PRN IV NAUSEA, MRX1; Start 02/27/19 at 07:00; Stop 02/27/19 at 20:00; Status DC Ceftriaxone Sodium (Rocephin) 1 gm Q24H IVP Last administered on 02/28/19at 09:49; Start 02/27/19 at 10:00 Midazolam HCl (Versed) 2 mg STK-MED ONCE .ROUTE ; Start 02/27/19 at 08:22; Stop 02/27/19 at 11:31; Status DC Midazolam HCl (Versed) 2 mg STK-MED ONCE .ROUTE ; Start 02/27/19 at 08:22; Stop 02/27/19 at 11:32; Status DC Propofol 0 ml @ As Directed STK-MED ONCE IV ; Start 02/27/19 at 08:22; Stop 02/27/19 at 11:34; Status DC Ketamine HCl (Ketamine) 50 mg STK-MED ONCE .ROUTE ; Start 02/27/19 at 08:48; Stop 02/27/19 at 11:34; Status DC Fentanyl Citrate (Fentanyl 2ml Vial) 100 mcg STK-MED ONCE .ROUTE ; Start 02/27/19 at 08:49; Stop 02/27/19 at 11:34; Status DC Fentanyl Citrate (Fentanyl 2ml Vial) 100 mcg STK-MED ONCE .ROUTE ; Start 02/27/19 at 10:42; Stop 02/27/19 at 11:34; Status DC Bupivacaine HCl/ Epinephrine Bitart (Sensorcain-Epi 0.5%-1:160418 Mpf) 30 ml 1X ONCE INJ Last administered on 02/27/19at 15:53; Start 02/27/19 at 12:00; Stop 02/27/19 at 12:01; Status DC Bacitracin 40933 unit/Sodium Chloride 1,000 ml @ 1,000 mls/hr 1X ONCE IRR Last administered on 02/27/19at 13:36; Start 02/27/19 at 12:00; Stop 02/27/19 at 12:59; Status DC Glycopyrrolate (Robinul) 1 mg STK-MED ONCE .ROUTE ; Start 02/27/19 at 11:48; Stop 02/27/19 at 11:49; Status DC Neostigmine Methylsulfate (Bloxiverz) 10 mg STK-MED ONCE .ROUTE ; Start 02/27/19 at 11:49; Stop 02/27/19 at 11:49; Status DC Rocuronium [place] (Zemuron) 50 mg STK-MED ONCE .ROUTE ; Start 02/27/19 at 11:49; Stop 02/27/19 at 11:49; Status DC Remifentanil HCl (Ultiva) 2 mg STK-MED ONCE IV ; Start 02/27/19 at 11:49; Stop 02/27/19 at 11:49; Status DC Etomidate (Amidate) 20 mg STK-MED ONCE IV ; Start 02/27/19 at 11:49; Stop 02/27/19 at 11:49; Status DC Ondansetron HCl (Zofran) 4 mg STK-MED ONCE .ROUTE ; Start 02/27/19 at 11:49; Stop 02/27/19 at 11:50; Status DC Dexamethasone Sodium Phosphate (Decadron) 20 mg STK-MED ONCE .ROUTE ; Start 02/27/19 at 11:49; Stop 02/27/19 at 11:50; Status DC Lidocaine HCl (Lidocaine Pf 2% Vial) 5 ml STK-MED ONCE .ROUTE ; Start 02/27/19 at 11:49; Stop 02/27/19 at 11:50; Status DC Propofol 100 ml @ As Directed STK-MED ONCE IV ; Start 02/27/19 at 11:51; Stop 02/27/19 at 11:52; Status DC Succinylcholine Chloride (Anectine) 200 mg STK-MED ONCE .ROUTE ; Start 02/27/19 at 11:58; Stop 02/27/19 at 11:59; Status DC Gelatin (Gelfoam Dental Sponge Size 4) 1 each STK-MED ONCE .ROUTE ; Start 02/27/19 at 12:10; Stop 02/27/19 at 12:11; Status DC Thrombin (Thrombin Topical) 5,000 unit STK-MED ONCE .ROUTE Last administered on 02/27/19at 13:36; Start 02/27/19 at 12:11; Stop 02/27/19 at 12:11; Status DC Gelatin (Gelfoam Size 12-7mm) 1 each STK-MED ONCE .ROUTE Last administered on 02/27/19at 13:36; Start 02/27/19 at 12:11; Stop 02/27/19 at 12:12; Status DC Gelatin (Gelfoam Size 12-7mm) 1 each STK-MED ONCE .ROUTE Last administered on 02/27/19at 13:36; Start 02/27/19 at 12:11; Stop 02/27/19 at 12:12; Status DC Ketorolac Tromethamine (Toradol Im) 60 mg STK-MED ONCE .ROUTE Last administered on 02/27/19at 13:36; Start 02/27/19 at 12:15; Stop 02/27/19 at 12:16; Status DC Cefazolin Sodium 3 gm/Dextrose 100 ml @ 200 mls/hr 1X PREOP PRN IV PRIOR TO PROCEDURE Last administered on 02/27/19at 14:04; Start 02/27/19 at 12:23; Stop 02/28/19 at 12:22; Status DC Cefazolin Sodium 50 ml @ 100 mls/hr 1X PREOP PRN IV PRE OP DOSE; Start 02/28/19 at 06:00; Stop 02/28/19 at 18:00; Status UNV Lactobacillus Rhamnosus (Culturelle) 1 cap BID PO Last administered on 02/28/19at 09:49; Start 02/27/19 at 21:00 Remifentanil HCl (Ultiva) 1 mg STK-MED ONCE IV ; Start 02/27/19 at 14:40; Stop 02/27/19 at 14:40; Status DC Propofol 50 ml @ As Directed STK-MED ONCE IV ; Start 02/27/19 at 14:48; Stop 02/27/19 at 14:48; Status DC Gelatin (Gelfoam Size 12-7mm) 3 each STK-MED ONCE TP Last administered on 02/27/19at 15:47; Start 02/27/19 at 15:45; Stop 02/27/19 at 15:47; Status DC Throat Lozenges (Cepacol Sore Throat Lozenge) 1 arabella PRN Q2HRS PRN PO SORE THROAT Last administered on 02/27/19at 20:21; Start 02/27/19 at 20:15 Active Scripts Active Klor-Con M20 (Potassium Chloride) 20 Meq Tab.er.prt 20 Meq PO TIDWMEALS 30 Days Metoprolol Succinate ( Xl ) (Metoprolol Succinate) 25 Mg Tab.er.24h 25 Mg PO DAILY 30 Days Furosemide 40 Mg Tablet 40 Mg PO DAILY 30 Days Vitamin D (Cholecalciferol (Vitamin D3)) 1,000 Unit Tablet 2,000 Unit PO DAILY 30 Days Aspirin Ec (Aspirin) 81 Mg Tablet.dr 81 Mg PO DAILYWBKFT 30 Days Reported Metformin Hcl 1,000 Mg Tablet 1,000 Mg PO BIDWMEALS Fish Oil 1,200 Mg Fish Oil (Fish Oil/Dha/Epa) 1 Each Capsule 1 Each PO Tresiba Flextouch U-100 (Insulin Degludec) 100 Unit/1 Ml Insuln.pen 20 Units SUBCUT DAILY Ramipril 2.5 Mg Capsule 1 Cap PO DAILY Allopurinol 300 Mg Tablet 1 Tab PO HS Singulair Tablet (Montelukast Sodium) 10 Mg Tablet 1 Tab PO HS Gabapentin (Gabapentin) 300 Mg Capsule 1 Cap PO TID Tramadol Hcl 50 Mg Tablet 1 Tab PO PRN Q6HRS Vitals/I & O Vital Sign - Last 24 Hours 02/27/19 02/27/19 02/27/19 02/27/19 16:24 16:24 16:55 17:09 Temp 97.5 97.5 Pulse 110 Resp 22 5 20 B/P (MAP) 173/77 Pulse Ox 100 96 99 O2 Delivery Simple Mask Mask Room Air O2 Flow Rate 10 10 02/27/19 02/27/19 02/27/19 02/27/19 17:13 17:28 17:30 17:30 Pulse 104 98 Resp 22 22 20 20 B/P (MAP) 148/75 139/63 Pulse Ox 99 99 95 99 O2 Delivery Room Air Room Air Room Air Room Air 02/27/19 02/27/19 02/27/19 02/27/19 17:40 17:43 18:00 18:15 Temp 97.0 98.3 97.0 98.3 Pulse 100 103 98 Resp 20 20 18 18 B/P (MAP) 139/62 149/85 (106) 138/78 (98) Pulse Ox 98 99 95 94 O2 Delivery Room Air Room Air Room Air Room Air 02/27/19 02/27/19 02/27/19 02/27/19 18:29 18:30 18:45 18:56 Pulse 92 93 Resp 18 18 B/P (MAP) 138/74 (95) 136/68 (90) Pulse Ox 94 95 O2 Delivery Room Air Room Air Room Air Room Air 02/27/19 02/27/19 02/27/19 02/27/19 18:56 18:56 19:08 19:15 Pulse 90 Resp 18 B/P (MAP) 131/72 (91) Pulse Ox 94 O2 Delivery Room Air Room Air Room Air Room Air 02/27/19 02/27/19 02/27/19 02/27/19 20:00 20:21 20:45 21:45 Pulse 85 76 Resp 18 18 18 B/P (MAP) 135/61 (85) 132/54 (80) Pulse Ox 95 90 O2 Delivery Mask Room Air Room Air Room Air 02/27/19 02/28/19 02/28/19 02/28/19 23:00 00:23 00:24 03:00 Temp 98.1 97.7 98.1 97.7 Pulse 79 76 Resp 18 16 18 B/P (MAP) 115/57 (76) 118/64 (82) Pulse Ox 94 95 O2 Delivery Room Air Room Air Room Air Room Air 02/28/19 02/28/19 02/28/19 02/28/19 04:48 05:38 07:06 07:32 Temp 97.7 97.7 Pulse 81 Resp 16 18 18 B/P (MAP) 117/57 (77) Pulse Ox 95 O2 Delivery Room Air Room Air Room Air Room Air 02/28/19 02/28/19 02/28/19 02/28/19 08:00 09:49 09:49 09:49 Pulse 81 81 B/P (MAP) 117/57 117/57 O2 Delivery Room Air Room Air 02/28/19 02/28/19 02/28/19 02/28/19 10:55 11:24 12:10 13:23 Pulse 73 Resp 18 B/P (MAP) 111/73 (86) Pulse Ox 97 O2 Delivery Room Air Room Air Room Air Room Air Intake and Output 02/27/19 02/27/19 02/28/19 14:59 22:59 06:59 Intake Total 1500 ml Output Total 350 ml 725 ml 500 ml Balance -350 ml 775 ml -500 ml TENNILLE HAYDEN MD Feb 28, 2019 13:48
[2019-02-28] MEDS: MORPHINE SULFATE 4 MG/ML VIAL. IV PRN (14:21)
[2019-02-28 15:24] VITALS: BP 107/44
[2019-02-28 19:00] VITALS: BP 93/40
--- NOTE | 2019-02-28 19:14 | OP ---
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 OPERATION PERFORMED: Right T10-T11 transfacet/transpedicular approach with removal of herniated thoracic disc and decompression of the spinal cord. The operation was done with multimodality monitoring including SSEP, motor-evoked potentials and we also used fluoroscopy, microscopic dissection. SURGEON: Carl Dove M.D. DIRECTOR AMBULATORY: NICOLASA Austin, assisted with the surgery. She assisted with the exposure, the removal of the disc as well as the closure. OPERATIVE INDICATIONS: The patient is a pleasant 63-year-old man who developed problems with progressive weakness in his lower extremities and was found on thoracic MRI scan done late this morning to have a thoracic disc herniation at T10-T11 with significant spinal cord compression. An attempt was made to perform this study yesterday. The rep was present to manage the patient's AICD. However, the patient was having too much pain to tolerate the MRI scan. An Anesthesia at that time was unavailable because of case load and we were able to reschedule this MRI for 10:30 the following morning. The rep was present. The MRI scan was done without difficulty and I was in the operating room on a simple lumbar case, and I was able to review these films, and I actually had them clouded over to and communicated with Dr. Bates, the Chief Neurosurgery at , about this man and his spinal cord compression. Dr. Bates agreed with me that the best approach would be from a posterior transpedicular approach and taking down the facet, which would allow access to the lateral canal and removal of the disc. I discussed all this with the patient and his who wished for me to go ahead. DESCRIPTION OF PROCEDURE: Following general endotracheal anesthesia, the patient was positioned prone on the Jeferson table. The thoracic region was prepped and draped in standard fashion. MARIE hose and AV impulse boots were applied for DVT prophylaxis. Microscope was draped. Fluoroscopy was draped and brought into field. Monitoring was established. Ancef was given prior to the operation. Using fluoroscopic guidance, a midline incision was made. I dissected down through skin and subcutaneous tissue, reflected the paraspinal muscles to the right and placed self-retaining retractors. I brought in the microscope and using the high speed air drill, I burred down the pedicle of T11 and then drilled superiorly and exposed and drilled the facet at T10-T11 on the right. I then drilled the lateral side of the canal in this location and then, I was early on able to visualize a large disc herniation, which filled the foramen. The exiting root had been pushed superiorly. I exposed the very lateral edge of the dura which was lifted up and then, I incised the disc and the foramen and began to perform a discectomy with pituitary rongeurs and micropituitary. I teased back multiple disc fragments from superiorly beneath the root down and then began to tease back and remove disc fragments from within the canal. As I worked superiorly and inferiorly, I was able to remove multiple, multiple disc fragments and obtained an excellent decompression. I did drill down into the body of T11 and to a lesser extent of T10, and as I worked, I was able to remove disk material. The spinal cord became far less compressed, although we never were able to obtain excellent motor-evoked potentials. That being said, somatosensory evoked potentials were maintained throughout the procedure. I did explore carefully beneath the dura superiorly and inferiorly. I assured myself that all the fragments that could be removed had been removed and the area was very well decompressed. I irrigated copiously with antibiotic solution, removed the retractors, obtained hemostasis in the muscle, closed the wound in layers with absorbable suture. The skin was closed with skin torin. The operation went very well and the patient taken to recovery room in excellent condition. I was quite pleased with the surgery. CARL DOVE MD DR: NIYAH/klever JOB#: [id number] / [id number] TORRIE
[2019-02-28] MEDS: ALLOPURINOL 300 MG TABLET. PO SCH (20:49)
[2019-02-28] MEDS: MONTELUKAST SODIUM 10 MG TABLET. PO SCH (20:49)
[2019-02-28 22:52] VITALS: BP 93/45
[2019-03-01] MEDS: oxyCODONE IR 5 MG TABLET PO SCH ×7 (00:26→23:53)
[2019-03-01 03:00] VITALS: BP 122/60
[2019-03-01 05:35] LABS: BASO % 0 % (0-3); EOS # 0.5 x10^3/uL (0.0-0.7); EOS % 4 % (0-3); HEMATOCRIT 38.2 % (39.0-53.0); HEMOGLOBIN 12.5 g/dL (13.0-17.5); LYMPH # 1.8 x10^3/uL (1.0-4.8); LYMPH % 16 % (24-48); MEAN CORPUSCULAR HEMOGLOBIN 31 pg (25-35); MEAN CORPUSCULAR HGB CONC 33 g/dL (31-37); MEAN CORPUSCULAR VOLUME 94 fL (79-100); MONO # 1.2 x10^3/uL (0.0-1.1); MONO % 10 % (0-9); NEUT # 8.1 x10^3/uL (1.8-7.7); NEUT % 70 % (31-73); PLATELET COUNT 187 x10^3/uL (140-400); RED BLOOD COUNT 4.07 x10^6/uL (4.30-5.70); RED CELL DISTRIBUTION WIDTH 14.2 % (11.5-14.5); WHITE BLOOD COUNT 11.5 x10^3/uL (4.0-11.0)
[2019-03-01 05:56] LABS: CALCIUM 8.8 mg/dL (8.5-10.1); CREATININE 1.4 mg/dL (0.7-1.3); GFR 61.9; POTASSIUM 4.5 mmol/L (3.5-5.1)
--- NOTE | 2019-03-01 06:31 | CONS ---
DATE OF CONSULTATION: 02/26/2019 REASON FOR CONSULTATION: Back pain. HISTORY OF PRESENT ILLNESS: I was asked to see the patient relating to problems with back pain for which he was admitted. He reports that beginning about 1-1/2 years ago, he noted when he would stand and walk or become physically active, he would develop pain in his calf either on the right side or the left side and this problem gradually became more and more significant. He said he became more limited in his ability to stand and walk. He then; however, noted about 2 months ago that when he would walk, he was beginning to develop problems with unsteadiness and an abnormal gait. He said his gait was becoming wider, his legs well in general weak, and he noted the numbness more diffusely in both of his lower extremities, especially the anterior thighs. That problem progressed until he said that he had difficulty with ambulation and walking and was then admitted to the hospital for further evaluation and treatment. PAST MEDICAL HISTORY: Includes history of a nonischemic cardiomyopathy with an ejection fraction of 20%-25%. He has a dual chamber AICD placed. He has also history of obesity, hypertension, hyperlipidemia, diabetes mellitus, peripheral neuropathy, gastroesophageal reflux, anemia, and gout. PAST SURGICAL HISTORY: Includes cholecystectomy, tonsillectomy, and cervical disk surgery. PERSONAL HISTORY: He is . No history of smoking, with limited alcohol intake. ALLERGIES: THE PATIENT IS ALLERGIC TO SUDAFED AND ALLERGIC ADVERSE REACTION TO SIMVASTATIN HAD BEEN LISTED. REVIEW OF SYSTEMS: A 12-point was performed and other than outlined above was negative. PHYSICAL EXAMINATION: GENERAL: He was pleasant, in bed, cooperative, alert, and conversant. NEUROLOGICAL: Normal. Pupils were reactive. Cranial nerves were intact. On motor testing of the upper extremities, his strength was 5/5. There was no sensory issue, with trace reflexes in his lower extremities; however. Hip flexors were 2/5 on the left, 3/5 on the right. He was able to plantar and dorsiflex both of his feet. He was able to extend his legs firmly with quadriceps of 3/5. On sensory testing, there was decrease in light touch involving both of his lower extremities diffusely, which was significant in the anterior thighs. He was areflexic in his lower extremities. I reviewed a CT scan of the lumbar spine and it appears that he has a disk problem at the lower lumbar spine with evidence of stenosis. There was also suggestion of some narrowness in the lower thoracic upper lumbar region, perhaps at T11-T12. The CT scan does not explain the very profound problems he is having with his lower extremities. I made arrangements for him to have an MRI scan tonight with the rep coming in to manage the AICD to allow this to occur. Hopefully, with the treatment, we can determine what the etiology of his lower extremity symptoms are and a treatment plan can be developed. I discussed all of this with the patient and his . EDUIN DOVE MD DR: NIYAH/klever JOB#: [id number] / [id number]
[2019-03-01 07:00] VITALS: BP 139/70
[2019-03-01] MEDS: INSULIN LISPRO 300 UNITS/3 ML VIAL. SQ SCH ×2 (07:30→17:26)
[2019-03-01] MEDS: FLUTICASONE 50MCG/NASAL SPRAY 16GM BOTTLE. NS SCH (09:00)
[2019-03-01] MEDS ORDERED: BISACODYL 5 MG TABLET.DR. PO PRN (10:45)
[2019-03-01] MEDS ORDERED: SENNOSIDES/DOCUSATE 8.6/50MG TABLET. PO PRN (10:45)
[2019-03-01] MEDS ORDERED: MAGNESIUM HYDROXIDE 2,400 MG/30 ML ORAL.SUSP. PO PRN (10:45)
[2019-03-01] MEDS ORDERED: BISACODYL 10 MG SUPP.RECT. PR PRN (10:45)
--- NOTE | 2019-03-01 10:49 | PDOC ---
PROGRESS NOTES Subjective Subjective No new complaints. Objective Objective Vital Signs Date Time Temp Pulse Resp B/P (MAP) Pulse Ox O2 Delivery O2 Flow Rate FiO2 03/01/19 08:10 18 Room Air 03/01/19 07:00 98.0 102 139/70 (93) 95 98.0 02/28/19 22:52 17.0 Intake and Output 03/01/19 06:59 Intake Total 390 ml Output Total 1150 ml Balance -760 ml Intake Oral 390 ml Output Urine Total 1150 ml Physical Exam Physical Exam He continues with low back pain with movement and lower extremity weakness ,mainly left foot dorsiflexors,and to some extent hip flexors and right foot dorsiflexors. He is passing gases but no bowel movement yet. He is working with physical and occupational therapy. Assessment Assessment Problems Medical Problems: (1) Anemia Status: Chronic (2) CKD (chronic kidney disease) Status: Chronic (3) Diabetes mellitus Status: Chronic (4) GERD (gastroesophageal reflux disease) Status: Chronic (5) Gouty arthritis Status: Chronic (6) HLD (hyperlipidemia) Status: Chronic (7) HTN (hypertension) Status: Chronic (8) Intractable back pain Status: Acute (9) Left knee DJD Status: Chronic (10) Morbid obesity with BMI of 40.0-44.9, adult Status: Acute (11) Muscle spasm Status: Acute (12) Paresthesia Status: Acute (13) Right knee DJD Status: Chronic (14) Spinal stenosis at L4-L5 level Status: Acute Plan Plan of Care To continue present rehab efforts and to rehab unit or SNF when medically stable. Comment Review of Relevant I have reviewed the following items maurisio (where applicable) has been applied. Labs Laboratory Tests Test 02/27/19 10:50 02/27/19 17:03 02/27/19 20:14 02/28/19 05:15 Glucose (Fingerstick) 127 mg/dL (70-99) 204 mg/dL (70-99) 205 mg/dL (70-99) White Blood Count 10.4 x10^3/uL (4.0-11.0) Red Blood Count 4.19 x10^6/uL (4.30-5.70) Hemoglobin 13.1 g/dL (13.0-17.5) Hematocrit 39.3 % (39.0-53.0) Mean Corpuscular Volume 94 fL (79-100) Mean Corpuscular Hemoglobin 31 pg (25-35) Mean Corpuscular Hemoglobin Concent 33 g/dL (31-37) Red Cell Distribution Width 14.4 % (11.5-14.5) Platelet Count 253 x10^3/uL (140-400) Neutrophils (%) (Auto) 80 % (31-73) Lymphocytes (%) (Auto) 11 % (24-48) Monocytes (%) (Auto) 9 % (0-9) Eosinophils (%) (Auto) 0 % (0-3) Basophils (%) (Auto) 0 % (0-3) Neutrophils # (Auto) 8.4 x10^3/uL (1.8-7.7) Lymphocytes # (Auto) 1.1 x10^3/uL (1.0-4.8) Monocytes # (Auto) 0.9 x10^3/uL (0.0-1.1) Eosinophils # (Auto) 0.0 x10^3/uL (0.0-0.7) Basophils # (Auto) 0.0 x10^3/uL (0.0-0.2) Sodium Level 144 mmol/L (136-145) Potassium Level 4.3 mmol/L (3.5-5.1) Chloride Level 108 mmol/L (98-107) Carbon Dioxide Level 28 mmol/L (21-32) Anion Gap 8 (6-14) Blood Urea Nitrogen 17 mg/dL (8-26) Creatinine 1.1 mg/dL (0.7-1.3) Estimated GFR (Cockcroft-Gault) 81.8 Glucose Level 127 mg/dL (70-99) Calcium Level 8.6 mg/dL (8.5-10.1) Test 02/28/19 07:42 02/28/19 11:20 02/28/19 16:38 02/28/19 20:21 Glucose (Fingerstick) 143 mg/dL (70-99) 172 mg/dL (70-99) 164 mg/dL (70-99) 182 mg/dL (70-99) Test 03/01/19 05:10 03/01/19 08:04 White Blood Count 11.5 x10^3/uL (4.0-11.0) Red Blood Count 4.07 x10^6/uL (4.30-5.70) Hemoglobin 12.5 g/dL (13.0-17.5) Hematocrit 38.2 % (39.0-53.0) Mean Corpuscular Volume 94 fL (79-100) Mean Corpuscular Hemoglobin 31 pg (25-35) Mean Corpuscular Hemoglobin Concent 33 g/dL (31-37) Red Cell Distribution Width 14.2 % (11.5-14.5) Platelet Count 187 x10^3/uL (140-400) Neutrophils (%) (Auto) 70 % (31-73) Lymphocytes (%) (Auto) 16 % (24-48) Monocytes (%) (Auto) 10 % (0-9) Eosinophils (%) (Auto) 4 % (0-3) Basophils (%) (Auto) 0 % (0-3) Neutrophils # (Auto) 8.1 x10^3/uL (1.8-7.7) Lymphocytes # (Auto) 1.8 x10^3/uL (1.0-4.8) Monocytes # (Auto) 1.2 x10^3/uL (0.0-1.1) Eosinophils # (Auto) 0.5 x10^3/uL (0.0-0.7) Basophils # (Auto) 0.0 x10^3/uL (0.0-0.2) Sodium Level 141 mmol/L (136-145) Potassium Level 4.5 mmol/L (3.5-5.1) Chloride Level 107 mmol/L (98-107) Carbon Dioxide Level 28 mmol/L (21-32) Anion Gap 6 (6-14) Blood Urea Nitrogen 22 mg/dL (8-26) Creatinine 1.4 mg/dL (0.7-1.3) Estimated GFR (Cockcroft-Gault) 61.9 Glucose Level 133 mg/dL (70-99) Calcium Level 8.8 mg/dL (8.5-10.1) Glucose (Fingerstick) 127 mg/dL (70-99) Laboratory Tests Test 02/28/19 11:20 02/28/19 16:38 02/28/19 20:21 03/01/19 05:10 Glucose (Fingerstick) 172 mg/dL (70-99) 164 mg/dL (70-99) 182 mg/dL (70-99) White Blood Count 11.5 x10^3/uL (4.0-11.0) Red Blood Count 4.07 x10^6/uL (4.30-5.70) Hemoglobin 12.5 g/dL (13.0-17.5) Hematocrit 38.2 % (39.0-53.0) Mean Corpuscular Volume 94 fL (79-100) Mean Corpuscular Hemoglobin 31 pg (25-35) Mean Corpuscular Hemoglobin Concent 33 g/dL (31-37) Red Cell Distribution Width 14.2 % (11.5-14.5) Platelet Count 187 x10^3/uL (140-400) Neutrophils (%) (Auto) 70 % (31-73) Lymphocytes (%) (Auto) 16 % (24-48) Monocytes (%) (Auto) 10 % (0-9) Eosinophils (%) (Auto) 4 % (0-3) Basophils (%) (Auto) 0 % (0-3) Neutrophils # (Auto) 8.1 x10^3/uL (1.8-7.7) Lymphocytes # (Auto) 1.8 x10^3/uL (1.0-4.8) Monocytes # (Auto) 1.2 x10^3/uL (0.0-1.1) Eosinophils # (Auto) 0.5 x10^3/uL (0.0-0.7) Basophils # (Auto) 0.0 x10^3/uL (0.0-0.2) Sodium Level 141 mmol/L (136-145) Potassium Level 4.5 mmol/L (3.5-5.1) Chloride Level 107 mmol/L (98-107) Carbon Dioxide Level 28 mmol/L (21-32) Anion Gap 6 (6-14) Blood Urea Nitrogen 22 mg/dL (8-26) Creatinine 1.4 mg/dL (0.7-1.3) Estimated GFR (Cockcroft-Gault) 61.9 Glucose Level 133 mg/dL (70-99) Calcium Level 8.8 mg/dL (8.5-10.1) Test 03/01/19 08:04 Glucose (Fingerstick) 127 mg/dL (70-99) Microbiology 02/26/19 Urine Culture - Preliminary, Resulted 02/26/19 Urine Culture Result 1 (DIXIE) - Preliminary, Resulted Medications Current Medications Methylprednisolone Sodium Succinate (SOLU-Medrol 125MG VIAL) 125 mg 1X ONCE IV Last administered on 02/26/19 07:55; Start 02/26/19 at 07:15; Stop 02/26/19 at 07:16; Status DC Morphine Sulfate (Morphine Sulfate) 4 mg 1X ONCE IV Last administered on 02/26/19at 07:55; Start 02/26/19 at 07:15; Stop 02/26/19 at 07:16; Status DC Orphenadrine Citrate (Norflex) 60 mg 1X ONCE IV Last administered on 02/26/19 07:55; Start 02/26/19 at 07:15; Stop 02/26/19 at 07:16; Status DC Sodium Chloride 1,000 ml @ 100 mls/hr Q10H IV Last administered on 02/27/19 06:22; Start 02/26/19 at 09:02; Stop 02/27/19 at 09:01; Status DC Morphine Sulfate (Morphine Sulfate) 4 mg PRN Q2HR PRN IV PAIN Last administered on 02/28/19at 14:21; Start 02/26/19 at 09:15 Allopurinol (Zyloprim) 300 mg HS PO Last administered on 02/28/19at 20:54; Start 02/26/19 at 21:00 Aspirin (Ecotrin) 81 mg DAILYWBKFT PO Last administered on 02/28/19 09:49; Start 02/26/19 at 10:30 Cetirizine HCl (ZyrTEC) 10 mg DAILY PO Last administered on 02/28/19at 09:49; Start 02/26/19 at 10:30 Vitamin D (Vitamin D3) 2,000 unit DAILY PO ; Start 02/26/19 at 10:30; Status UNV Vitamin D (Vitamin D3) 2,000 unit DAILY PO Last administered on 02/28/19at 09:49; Start 02/26/19 at 10:30 Fluticasone Propionate (Flonase) 2 spray DAILY NS ; Start 02/26/19 at 10:30 Furosemide (Lasix) 40 mg DAILY PO Last administered on 9/20/19at 09:49; Start 02/26/19 at 10:30 Gabapentin (Neurontin) 300 mg TID PO Last administered on 02/28/19 20:54; Start 02/26/19 at 10:30 Metoprolol Succinate (Toprol Xl) 25 mg DAILY PO Last administered on 02/28/19 09:49; Start 02/26/19 at 10:30 Montelukast Sodium (Singulair) 10 mg HS PO Last administered on 02/28/19 20:54; Start 02/26/19 at 21:00 Potassium Chloride (Klor-Con) 20 meq TIDWMEALS PO Last administered on 02/28/19 16:58; Start 02/26/19 at 12:00 Insulin Glargine (Lantus Syringe) 20 unit DAILY SQ Last administered on 02/28/19 09:49; Start 02/26/19 at 10:30 Lisinopril (Prinivil) 5 mg DAILY PO Last administered on 02/28/19 09:49; Start 02/26/19 at 10:30 Linagliptin (Tradjenta) 5 mg DAILY PO Last administered on 02/28/19 09:49; St art 02/26/19 at 10:30 Oxycodone HCl (Roxicodone) 10 mg PRN Q4HRS PRN PO PAIN; Start 02/26/19 at 10:00; Stop 02/26/19 at 13:41; Status DC Acetaminophen (Tylenol) 650 mg PRN Q6HRS PRN PO MILD PAIN / TEMP; Start 02/26/19 at 10:00 Albuterol Sulfate (Ventolin Neb Soln) 2.5 mg PRN Q6HRS PRN NEB SHORTNESS OF BREATH; Start 02/26/19 at 10:00 Insulin Human Lispro (HumaLOG) 0-8 UNITS BIDBFRMEAL SQ Last administered on 02/26/19 18:23; Start 02/26/19 at 10:30 Tizanidine HCl (Zanaflex) 4 mg TID PO Last administered on 02/28/19 20:54; Start 02/26/19 at 10:30 Mupirocin (Bactroban) 1 raquel TID TP Last administered on 02/28/19 20:54; Start 02/26/19 at 14:00 Oxycodone HCl (Roxicodone) 10 mg Q4HRS PO Last administered on 03/01/19at 08:10; Start 02/26/19 at 13:30 Diazepam (Valium) 5 mg PRN 1X PRN PO 30 MIN PRIOR TO MRI Last administered on 02/26/19at 15:41; Start 02/26/19 at 14:00; Stop 02/27/19 at 13:59; Status DC Ondansetron HCl (Zofran) 4 mg PRN Q6HRS PRN IV NAUSEA/VOMITING; Start 02/27/19 at 07:00; Stop 02/27/19 at 20:00; Status DC Fentanyl Citrate (Fentanyl 2ml Vial) 25 mcg PRN Q5MIN PRN IV MILD PAIN 1-3 Last administered on 02/27/19 17:30; Start 02/27/19 at 07:00; Stop 02/27/19 at 20:00; Status DC Fentanyl Citrate (Fentanyl 2ml Vial) 50 mcg PRN Q5MIN PRN IV MODERATE TO SEVERE PAIN Last administered on 02/27/19at 17:09; Start 02/27/19 at 07:00; Stop 02/27/19 at 20:00; Status DC Morphine Sulfate (Morphine Sulfate) 1 mg PRN Q10MIN PRN IV SEVERE PAIN 7-10 Last administered on 02/27/19at 17:40; Start 02/27/19 at 07:00; Stop 02/27/19 at 20:00; Status DC Ringer's Solution 1,000 ml @ 30 mls/hr Q24H IV Last administered on 02/27/19at 16:56; Start 02/27/19 at 07:00; Stop 02/27/19 at 18:59; Status DC Lidocaine HCl (Xylocaine-Mpf 1% 2ml Vial) 2 ml PRN 1X PRN ID PRIOR TO IV START; Start 02/27/19 at 07:00; Stop 02/27/19 at 20:00; Status DC Hydromorphone HCl (Dilaudid) 0.5 mg PRN Q10MIN PRN IV SEV PAIN, Second choice; Start 02/27/19 at 07:00; Stop 02/27/19 at 20:00; Status DC Prochlorperazine Edisylate (Compazine) 5 mg PACU PRN PRN IV NAUSEA, MRX1; Start 02/27/19 at 07:00; Stop 02/27/19 at 20:00; Status DC Ceftriaxone Sodium (Rocephin) 1 gm Q24H IVP Last administered on 02/28/19at 09:49; Start 02/27/19 at 10:00 Midazolam HCl (Versed) 2 mg STK-MED ONCE .ROUTE ; Start 02/27/19 at 08:22; Stop 02/27/19 at 11:31; Status DC Midazolam HCl (Versed) 2 mg STK-MED ONCE .ROUTE ; Start 02/27/19 at 08:22; Stop 02/27/19 at 11:32; Status DC Propofol 0 ml @ As Directed STK-MED ONCE IV ; Start 02/27/19 at 08:22; Stop 02/27/19 at 11:34; Status DC Ketamine HCl (Ketamine) 50 mg STK-MED ONCE .ROUTE ; Start 02/27/19 at 08:48; Stop 02/27/19 at 11:34; Status DC Fentanyl Citrate (Fentanyl 2ml Vial) 100 mcg STK-MED ONCE .ROUTE ; Start 02/27/19 at 08:49; Stop 02/27/19 at 11:34; Status DC Fentanyl Citrate (Fentanyl 2ml Vial) 100 mcg STK-MED ONCE .ROUTE ; Start 02/27/19 at 10:42; Stop 02/27/19 at 11:34; Status DC Bupivacaine HCl/ Epinephrine Bitart (Sensorcain-Epi 0.5%-1:984256 Mpf) 30 ml 1X ONCE INJ Last administered on 02/27/19at 15:53; Start 02/27/19 at 12:00; Stop 02/27/19 at 12:01; Status DC Bacitracin 81318 unit/Sodium Chloride 1,000 ml @ 1,000 mls/hr 1X ONCE IRR Last administered on 02/27/19at 13:36; Start 02/27/19 at 12:00; Stop 02/27/19 at 12:59; Status DC Glycopyrrolate (Robinul) 1 mg STK-MED ONCE .ROUTE ; Start 02/27/19 at 11:48; Stop 02/27/19 at 11:49; Status DC Neostigmine Methylsulfate (Bloxiverz) 10 mg STK-MED ONCE .ROUTE ; Start 02/27/19 at 11:49; Stop 02/27/19 at 11:49; Status DC Rocuronium [place] (Zemuron) 50 mg STK-MED ONCE .ROUTE ; Start 02/27/19 at 11:49; Stop 02/27/19 at 11:49; Status DC Remifentanil HCl (Ultiva) 2 mg STK-MED ONCE IV ; Start 02/27/19 at 11:49; Stop 02/27/19 at 11:49; Status DC Etomidate (Amidate) 20 mg STK-MED ONCE IV ; Start 02/27/19 at 11:49; Stop at 11:49; Status DC Ondansetron HCl (Zofran) 4 mg STK-MED ONCE .ROUTE ; Start 02/27/19 at 11:49; Stop 02/27/19 at 11:50; Status DC Dexamethasone Sodium Phosphate (Decadron) 20 mg STK-MED ONCE .ROUTE ; Start 02/27/19 at 11:49; Stop 02/27/19 at 11:50; Status DC Lidocaine HCl (Lidocaine Pf 2% Vial) 5 ml STK-MED ONCE .ROUTE ; Start 02/27/19 at 11:49; Stop 02/27/19 at 11:50; Status DC Propofol 100 ml @ As Directed STK-MED ONCE IV ; Start 02/27/19 at 11:51; Stop 02/27/19 at 11:52; Status DC Succinylcholine Chloride (Anectine) 200 mg STK-MED ONCE .ROUTE ; Start 02/27/19 at 11:58; Stop 02/27/19 at 11:59; Status DC Gelatin (Gelfoam Dental Sponge Size 4) 1 each STK-MED ONCE .ROUTE ; Start 02/27/19 at 12:10; Stop 02/27/19 at 12:11; Status DC Thrombin (Thrombin Topical) 5,000 unit STK-MED ONCE .ROUTE Last administered on 02/27/19at 13:36; Start 02/27/19 at 12:11; Stop 02/27/19 at 12:11; Status DC Gelatin (Gelfoam Size 12-7mm) 1 each STK-MED ONCE .ROUTE Last administered on 02/27/19at 13:36; Start 02/27/19 at 12:11; Stop 02/27/19 at 12:12; Status DC Gelatin (Gelfoam Size 12-7mm) 1 each STK-MED ONCE .ROUTE Last administered on 02/27/19at 13:36; Start 02/27/19 at 12:11; Stop 02/27/19 at 12:12; Status DC Ketorolac Tromethamine (Toradol Im) 60 mg STK-MED ONCE .ROUTE Last administered on 02/27/19at 13:36; Start 02/27/19 at 12:15; Stop 02/27/19 at 12:16; Status DC Cefazolin Sodium 3 gm/Dextrose 100 ml @ 200 mls/hr 1X PREOP PRN IV PRIOR TO PROCEDURE Last administered on 02/27/19at 14:04; Start 02/27/19 at 12:23; Stop 02/28/19 at 12:22; Status DC Cefazolin Sodium 50 ml @ 100 mls/hr 1X PREOP PRN IV PRE OP DOSE; Start 02/28/19 at 06:00; Stop 02/28/19 at 18:00; Status UNV Lactobacillus Rhamnosus (Culturelle) 1 cap BID PO Last administered on 02/28/19at 20:54; Start 02/27/19 at 21:00 Remifentanil HCl (Ultiva) 1 mg STK-MED ONCE IV ; Start 02/27/19 at 14:40; Stop 02/27/19 at 14:40; Status DC Propofol 50 ml @ As Directed STK-MED ONCE IV ; Start 02/27/19 at 14:48; Stop 02/27/19 at 14:48; Status DC Gelatin (Gelfoam Size 12-7mm) 3 each STK-MED ONCE TP Last administered on 02/27/19at 15:47; Start 02/27/19 at 15:45; Stop 02/27/19 at 15:47; Status DC Throat Lozenges (Cepacol Sore Throat Lozenge) 1 arabella PRN Q2HRS PRN PO SORE THROAT Last administered on 02/27/19at 20:21; Start 02/27/19 at 20:15 Active Scripts Active Klor-Con M20 (Potassium Chloride) 20 Meq Tab.er.prt 20 Meq PO TIDWMEALS 30 Days Metoprolol Succinate ( Xl ) (Metoprolol Succinate) 25 Mg Tab.er.24h 25 Mg PO DAILY 30 Days Furosemide 40 Mg Tablet 40 Mg PO DAILY 30 Days Vitamin D (Cholecalciferol (Vitamin D3)) 1,000 Unit Tablet 2,000 Unit PO DAILY 30 Days Aspirin Ec (Aspirin) 81 Mg Tablet.dr 81 Mg PO DAILYWBKFT 30 Days Reported Metformin Hcl 1,000 Mg Tablet 1,000 Mg PO BIDWMEALS Fish Oil 1,200 Mg Fish Oil (Fish Oil/Dha/Epa) 1 Each Capsule 1 Each PO Tresiba Flextouch U-100 (Insulin Degludec) 100 Unit/1 Ml Insuln.pen 20 Units SUBCUT DAILY Ramipril 2.5 Mg Capsule 1 Cap PO DAILY Allopurinol 300 Mg Tablet 1 Tab PO HS Singulair Tablet (Montelukast Sodium) 10 Mg Tablet 1 Tab PO HS Gabapentin (Gabapentin) 300 Mg Capsule 1 Cap PO TID Tramadol Hcl 50 Mg Tablet 1 Tab PO PRN Q6HRS Vitals/I & O Vital Sign - Last 24 Hours 02/28/19 02/28/19 02/28/19 02/28/19 10:55 11:24 12:10 13:23 Pulse 73 Resp 18 B/P (MAP) 111/73 (86) Pulse Ox 97 O2 Delivery Room Air Room Air Room Air Room Air 02/28/19 02/28/19 02/28/19 02/28/19 14:21 15:24 16:38 16:58 Temp 98.0 98.0 Pulse 91 Resp 18 B/P (MAP) 107/44 (65) Pulse Ox 95 O2 Delivery Room Air Room Air Room Air Room Air 02/28/19 02/28/19 02/28/19 02/28/19 19:00 19:08 20:00 20:54 Temp 98.1 98.1 Pulse 88 Resp 18 20 B/P (MAP) 93/40 (57) Pulse Ox 98 O2 Delivery Room Air Room Air Room Air Room Air O2 Flow Rate 17.0 02/28/19 02/28/19 03/01/19 03/01/19 21:55 22:52 00:26 02:46 Temp 98.1 98.1 Pulse 84 Resp 20 18 18 19 B/P (MAP) 93/45 (61) Pulse Ox 98 O2 Delivery Room Air Room Air Room Air Room Air O2 Flow Rate 17.0 03/01/19 03/01/19 03/01/19 03:00 07:00 08:10 Temp 98.3 98.0 98.3 98.0 Pulse 96 102 Resp 18 18 18 B/P (MAP) 122/60 (80) 139/70 (93) Pulse Ox 94 95 O2 Delivery Room Air Room Air Room Air Intake and Output 02/28/19 02/28/19 03/01/19 14:59 22:59 06:59 Intake Total 390 ml 0 ml Output Total 400 ml 750 ml Balance 390 ml -400 ml -750 ml TENNILLE HAYDEN MD Mar 01, 2019 10:49
[2019-03-01] MEDS: MUPIROCIN 2 % TOPICAL CREAM 30GM TUBE. TP SCH ×3 (10:50→20:14)
[2019-03-01] MEDS: cefTRIAXone IV Push 1 GM VIAL. IVP SCH (10:51)
[2019-03-01] MEDS: CHOLECALCIFEROL (VITAMIN D3) 1,000 UNIT TABLET PO SCH (10:52)
[2019-03-01] MEDS: LACTOBACILLUS RHAMNOSUS GG 1 CAPSULE. PO SCH ×2 (10:53→20:15)
[2019-03-01] MEDS: POTASSIUM CHLORIDE 20 MEQ TABLET.ER. PO SCH ×3 (10:53→16:01)
[2019-03-01] MEDS: tiZANidine 4 MG TABLET. PO SCH ×2 (10:53→13:34)
[2019-03-01] MEDS: ASPIRIN ENTERIC COATED 81 MG TABLET.DR. PO SCH (10:53)
[2019-03-01] MEDS: GABAPENTIN 300 MG CAPSULE. PO SCH ×3 (10:53→20:15)
[2019-03-01] MEDS: LINAGLIPTIN 5 MG TABLET PO SCH (10:54)
[2019-03-01] MEDS: FUROSEMIDE 40 MG TABLET. PO SCH (10:54)
[2019-03-01] MEDS: LISINOPRIL 5 MG TABLET. PO SCH (10:55)
[2019-03-01] MEDS: CETIRIZINE HCL 10 MG TABLET. PO SCH (10:55)
[2019-03-01] MEDS: METOPROLOL SUCC 24HR ER 25 MG TAB.ER.24H. PO SCH (10:55)
[2019-03-01 11:00] VITALS: BP 77/38
[2019-03-01] MEDS: INSULIN GLARGINE SYRINGE. SQ SCH (11:14)
--- NOTE | 2019-03-01 11:16 | PDOC ---
PROGRESS NOTES Subjective Subjective back pain improving Objective Objective Vital Signs Date Time Temp Pulse Resp B/P (MAP) Pulse Ox O2 Delivery O2 Flow Rate FiO2 03/01/19 10:57 16 Room Air 03/01/19 10:57 91 133/78 03/01/19 07:00 98.0 95 98.0 02/28/19 22:52 17.0 Intake and Output 03/01/19 06:59 Intake Total 390 ml Output Total 1150 ml Balance -760 ml Intake Oral 390 ml Output Urine Total 1150 ml Physical Exam Abdomen: Soft, No tenderness Heart: Regular rate, Normal S1, Normal S2 Extremities: No edema, Normal pulses General: Alert, Oriented X3, Cooperative HEENT: Atraumatic Lungs: Clear to auscultation, Normal air movement MUSCULOSKELETAL: Other (improved, able to move toes and lift feet up off the floor bilaterally) Neuro: Normal speech Psych/Mental Status: Mental status NL, Mood NL Skin: Other (dressing dry and intact, flat) Diagnosis Problem List Problems Medical Problems: (1) Anemia Status: Chronic (2) CKD (chronic kidney disease) Status: Chronic (3) Diabetes mellitus Status: Chronic (4) GERD (gastroesophageal reflux disease) Status: Chronic (5) Gouty arthritis Status: Chronic (6) HLD (hyperlipidemia) Status: Chronic (7) HTN (hypertension) Status: Chronic (8) Intractable back pain Status: Acute (9) Left knee DJD Status: Chronic (10) Morbid obesity with BMI of 40.0-44.9, adult Status: Acute (11) Muscle spasm Status: Acute (12) Paresthesia Status: Acute (13) Right knee DJD Status: Chronic (14) Spinal stenosis at L4-L5 level Status: Acute Assessment Assessment *E Coli UTI 1. Acute lumbar radiculopathy. 2. Intractable low back pain. 3. 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 4. Chronic systolic congestive heart failure, severe. 5. Gout. 6. Morbid obesity. 7. Hypertension. 8. Hyperlipidemia. 9. Gastroesophageal reflux disease. 10. Osteoarthritis of the knees. 11. Chronic sinusitis. 12. History of kidney stones. 13. Eczema. 14. Allergic rhinitis. 15. History of neck surgery. 16. History of dual-chamber AICD placed in 2018 and subsequently had revision of the right ventricular lead because of the fracture. PLAN: 02/27/19:OPERATION PERFORMED: Right T10-T11 transfacet/transpedicular approach with removal of herniated thoracic disk and decompression of the spinal cord. The operation was done with multimodality monitoring including SSEP, motor-evoked potentials and we also used fluoroscopy, microscopic dissection. IV Rocephin for uti. pt/ot. pain control. For details, please review the orders. Plan Plan of Care Problems Medical Problems: (1) Anemia Status: Chronic (2) CKD (chronic kidney disease) Status: Chronic (3) Diabetes mellitus Status: Chronic (4) GERD (gastroesophageal reflux disease) Status: Chronic (5) Gouty arthritis Status: Chronic (6) HLD (hyperlipidemia) Status: Chronic (7) HTN (hypertension) Status: Chronic (8) Intractable back pain Status: Acute (9) Left knee DJD Status: Chronic (10) Morbid obesity with BMI of 40.0-44.9, adult Status: Acute (11) Muscle spasm Status: Acute (12) Paresthesia Status: Acute (13) Right knee DJD Status: Chronic (14) Spinal stenosis at L4-L5 level Status: Acute Comment Review of Relevant I have reviewed the following items maurisio (where applicable) has been applied. Labs Laboratory Tests Test 02/28/19 11:20 02/28/19 16:38 02/28/19 20:21 03/01/19 05:10 Glucose (Fingerstick) 172 mg/dL (70-99) 164 mg/dL (70-99) 182 mg/dL (70-99) White Blood Count 11.5 x10^3/uL (4.0-11.0) Red Blood Count 4.07 x10^6/uL (4.30-5.70) Hemoglobin 12.5 g/dL (13.0-17.5) Hematocrit 38.2 % (39.0-53.0) Mean Corpuscular Volume 94 fL (79-100) Mean Corpuscular Hemoglobin 31 pg (25-35) Mean Corpuscular Hemoglobin Concent 33 g/dL (31-37) Red Cell Distribution Width 14.2 % (11.5-14.5) Platelet Count 187 x10^3/uL (140-400) Neutrophils (%) (Auto) 70 % (31-73) Lymphocytes (%) (Auto) 16 % (24-48) Monocytes (%) (Auto) 10 % (0-9) Eosinophils (%) (Auto) 4 % (0-3) Basophils (%) (Auto) 0 % (0-3) Neutrophils # (Auto) 8.1 x10^3/uL (1.8-7.7) Lymphocytes # (Auto) 1.8 x10^3/uL (1.0-4.8) Monocytes # (Auto) 1.2 x10^3/uL (0.0-1.1) Eosinophils # (Auto) 0.5 x10^3/uL (0.0-0.7) Basophils # (Auto) 0.0 x10^3/uL (0.0-0.2) Sodium Level 141 mmol/L (136-145) Potassium Level 4.5 mmol/L (3.5-5.1) Chloride Level 107 mmol/L (98-107) Carbon Dioxide Level 28 mmol/L (21-32) Anion Gap 6 (6-14) Blood Urea Nitrogen 22 mg/dL (8-26) Creatinine 1.4 mg/dL (0.7-1.3) Estimated GFR (Cockcroft-Gault) 61.9 Glucose Level 133 mg/dL (70-99) Calcium Level 8.8 mg/dL (8.5-10.1) Test 03/01/19 08:04 Glucose (Fingerstick) 127 mg/dL (70-99) Microbiology 02/26/19 Urine Culture - Preliminary, Resulted 02/26/19 Urine Culture Result 1 (DIXIE) - Preliminary, Resulted Medications Current Medications Bisacodyl (Dulcolax Supp) 10 mg PRN DAILY PRN CO CONSTIPATION; Start 03/01/19 at 10:45 Bisacodyl (Dulcolax Tab) 10 mg PRN DAILY PRN PO CONSTIPATION, 3RD CHOICE; Start 03/01/19 at 10:45 Magnesium Hydroxide (Milk Of Magnesia) 2,400 mg PRN DAILY PRN PO CONSTIPATION; Start 03/01/19 at 10:45 Senna/Docusate Sodium (Senna Plus) 1 tab PRN BID PRN PO CONSTIPATION, 2ND CHOICE; Start 03/01/19 at 10:45 Vitals/I & O Vital Sign - Last 24 Hours 02/28/19 02/28/19 02/28/19 02/28/19 11:24 12:10 13:23 14:21 Pulse 73 Resp 18 B/P (MAP) 111/73 (86) Pulse Ox 97 O2 Delivery Room Air Room Air Room Air Room Air 02/28/19 02/28/19 02/28/19 02/28/19 15:24 16:38 16:58 19:00 Temp 98.0 98.1 98.0 98.1 Pulse 91 88 Resp 18 18 B/P (MAP) 107/44 (65) 93/40 (57) Pulse Ox 95 98 O2 Delivery Room Air Room Air Room Air Room Air O2 Flow Rate 17.0 02/28/19 02/28/19 02/28/19 02/28/19 19:08 20:00 20:54 21:55 Resp 20 20 O2 Delivery Room Air Room Air Room Air Room Air 02/28/19 03/01/19 03/01/19 03/01/19 22:52 00:26 02:46 03:00 Temp 98.1 98.3 98.1 98.3 Pulse 84 96 Resp 18 18 19 18 B/P (MAP) 93/45 (61) 122/60 (80) Pulse Ox 98 94 O2 Delivery Room Air Room Air Room Air Room Air O2 Flow Rate 17.0 03/01/19 03/01/19 03/01/19 03/01/19 07:00 08:10 10:55 10:57 Temp 98.0 98.0 Pulse 102 91 91 Resp 18 18 B/P (MAP) 139/70 (93) 133/78 133/78 Pulse Ox 95 O2 Delivery Room Air Room Air 03/01/19 10:57 Resp 16 O2 Delivery Room Air Intake and Output 02/28/19 02/28/19 03/01/19 14:59 22:59 06:59 Intake Total 390 ml 0 ml Output Total 400 ml 750 ml Balance 390 ml -400 ml -750 ml JD AGUAYO MD Mar 01, 2019 11:16
[2019-03-01 15:00] VITALS: BP 117/51
--- NOTE | 2019-03-01 16:45 | PDOC ---
PROGRESS NOTES Subjective Subjective patient seen a t 1215 POD#2 S/P discectomy T10-11 feels that legs are slightly stronger than yesterday, right stronger than left back/ incisional pain controlled with medication slept well Objective Objective Vital Signs Date Time Temp Pulse Resp B/P (MAP) Pulse Ox O2 Delivery O2 Flow Rate FiO2 03/01/19 16:01 16 Room Air 03/01/19 15:00 98.2 91 117/51 (73) 93 98.2 02/28/19 22:52 17.0 Intake and Output 03/01/19 07:00 Intake Total 390 ml Output Total 1150 ml Balance -760 ml Intake Oral 390 ml Output Urine Total 1150 ml Physical Exam General: Alert, Oriented X3, Cooperative, No acute distress Neuro: Normal speech, Other (continued weakness in LE, right stronger than left, sensation improving) Skin: Other (dressing C,D,I, flat) Assessment Assessment Problems Medical Problems: (1) Anemia Status: Chronic (2) CKD (chronic kidney disease) Status: Chronic (3) Diabetes mellitus Status: Chronic (4) GERD (gastroesophageal reflux disease) Status: Chronic (5) Gouty arthritis Status: Chronic (6) HLD (hyperlipidemia) Status: Chronic (7) HTN (hypertension) Status: Chronic (8) Intractable back pain Status: Acute (9) Left knee DJD Status: Chronic (10) Morbid obesity with BMI of 40.0-44.9, adult Status: Acute (11) Muscle spasm Status: Acute (12) Paresthesia Status: Acute (13) Right knee DJD Status: Chronic (14) Spinal stenosis at L4-L5 level Status: Acute Plan Plan of Care continue PT SCDs restart lovenox tomorrow will need rehab Comment Review of Relevant I have reviewed the following items maurisio (where applicable) has been applied. Labs Laboratory Tests Test 02/27/19 17:03 02/27/19 20:14 02/28/19 05:15 02/28/19 07:42 Glucose (Fingerstick) 204 mg/dL (70-99) 205 mg/dL (70-99) 143 mg/dL (70-99) White Blood Count 10.4 x10^3/uL (4.0-11.0) Red Blood Count 4.19 x10^6/uL (4.30-5.70) Hemoglobin 13.1 g/dL (13.0-17.5) Hematocrit 39.3 % (39.0-53.0) Mean Corpuscular Volume 94 fL (79-100) Mean Corpuscular Hemoglobin 31 pg (25-35) Mean Corpuscular Hemoglobin Concent 33 g/dL (31-37) Red Cell Distribution Width 14.4 % (11.5-14.5) Platelet Count 253 x10^3/uL (140-400) Neutrophils (%) (Auto) 80 % (31-73) Lymphocytes (%) (Auto) 11 % (24-48) Monocytes (%) (Auto) 9 % (0-9) Eosinophils (%) (Auto) 0 % (0-3) Basophils (%) (Auto) 0 % (0-3) Neutrophils # (Auto) 8.4 x10^3/uL (1.8-7.7) Lymphocytes # (Auto) 1.1 x10^3/uL (1.0-4.8) Monocytes # (Auto) 0.9 x10^3/uL (0.0-1.1) Eosinophils # (Auto) 0.0 x10^3/uL (0.0-0.7) Basophils # (Auto) 0.0 x10^3/uL (0.0-0.2) Sodium Level 144 mmol/L (136-145) Potassium Level 4.3 mmol/L (3.5-5.1) Chloride Level 108 mmol/L (98-107) Carbon Dioxide Level 28 mmol/L (21-32) Anion Gap 8 (6-14) Blood Urea Nitrogen 17 mg/dL (8-26) Creatinine 1.1 mg/dL (0.7-1.3) Estimated GFR (Cockcroft-Gault) 81.8 Glucose Level 127 mg/dL (70-99) Calcium Level 8.6 mg/dL (8.5-10.1) Test 02/28/19 11:20 02/28/19 16:38 02/28/19 20:21 03/01/19 05:10 Glucose (Fingerstick) 172 mg/dL (70-99) 164 mg/dL (70-99) 182 mg/dL (70-99) White Blood Count 11.5 x10^3/uL (4.0-11.0) Red Blood Count 4.07 x10^6/uL (4.30-5.70) Hemoglobin 12.5 g/dL (13.0-17.5) Hematocrit 38.2 % (39.0-53.0) Mean Corpuscular Volume 94 fL (79-100) Mean Corpuscular Hemoglobin 31 pg (25-35) Mean Corpuscular Hemoglobin Concent 33 g/dL (31-37) Red Cell Distribution Width 14.2 % (11.5-14.5) Platelet Count 187 x10^3/uL (140-400) Neutrophils (%) (Auto) 70 % (31-73) Lymphocytes (%) (Auto) 16 % (24-48) Monocytes (%) (Auto) 10 % (0-9) Eosinophils (%) (Auto) 4 % (0-3) Basophils (%) (Auto) 0 % (0-3) Neutrophils # (Auto) 8.1 x10^3/uL (1.8-7.7) Lymphocytes # (Auto) 1.8 x10^3/uL (1.0-4.8) Monocytes # (Auto) 1.2 x10^3/uL (0.0-1.1) Eosinophils # (Auto) 0.5 x10^3/uL (0.0-0.7) Basophils # (Auto) 0.0 x10^3/uL (0.0-0.2) Sodium Level 141 mmol/L (136-145) Potassium Level 4.5 mmol/L (3.5-5.1) Chloride Level 107 mmol/L (98-107) Carbon Dioxide Level 28 mmol/L (21-32) Anion Gap 6 (6-14) Blood Urea Nitrogen 22 mg/dL (8-26) Creatinine 1.4 mg/dL (0.7-1.3) Estimated GFR (Cockcroft-Gault) 61.9 Glucose Level 133 mg/dL (70-99) Calcium Level 8.8 mg/dL (8.5-10.1) Test 03/01/19 08:04 03/01/19 11:43 03/01/19 15:06 Glucose (Fingerstick) 127 mg/dL (70-99) 184 mg/dL (70-99) 179 mg/dL (70-99) Laboratory Tests Test 02/28/19 20:21 03/01/19 05:10 03/01/19 08:04 03/01/19 11:43 Glucose (Fingerstick) 182 mg/dL (70-99) 127 mg/dL (70-99) 184 mg/dL (70-99) White Blood Count 11.5 x10^3/uL (4.0-11.0) Red Blood Count 4.07 x10^6/uL (4.30-5.70) Hemoglobin 12.5 g/dL (13.0-17.5) Hematocrit 38.2 % (39.0-53.0) Mean Corpuscular Volume 94 fL (79-100) Mean Corpuscular Hemoglobin 31 pg (25-35) Mean Corpuscular Hemoglobin Concent 33 g/dL (31-37) Red Cell Distribution Width 14.2 % (11.5-14.5) Platelet Count 187 x10^3/uL (140-400) Neutrophils (%) (Auto) 70 % (31-73) Lymphocytes (%) (Auto) 16 % (24-48) Monocytes (%) (Auto) 10 % (0-9) Eosinophils (%) (Auto) 4 % (0-3) Basophils (%) (Auto) 0 % (0-3) Neutrophils # (Auto) 8.1 x10^3/uL (1.8-7.7) Lymphocytes # (Auto) 1.8 x10^3/uL (1.0-4.8) Monocytes # (Auto) 1.2 x10^3/uL (0.0-1.1) Eosinophils # (Auto) 0.5 x10^3/uL (0.0-0.7) Basophils # (Auto) 0.0 x10^3/uL (0.0-0.2) Sodium Level 141 mmol/L (136-145) Potassium Level 4.5 mmol/L (3.5-5.1) Chloride Level 107 mmol/L (98-107) Carbon Dioxide Level 28 mmol/L (21-32) Anion Gap 6 (6-14) Blood Urea Nitrogen 22 mg/dL (8-26) Creatinine 1.4 mg/dL (0.7-1.3) Estimated GFR (Cockcroft-Gault) 61.9 Glucose Level 133 mg/dL (70-99) Calcium Level 8.8 mg/dL (8.5-10.1) Test 03/01/19 15:06 Glucose (Fingerstick) 179 mg/dL (70-99) Microbiology 02/26/19 Urine Culture - Preliminary, Resulted 02/26/19 Urine Culture Result 1 (DIXIE) - Preliminary, Resulted Medications Current Medications Methylprednisolone Sodium Succinate (SOLU-Medrol 125MG VIAL) 125 mg 1X ONCE IV Last administered on 02/26/19at 07:55; Start 02/26/19 at 07:15; Stop 02/26/19 at 07:16; Status DC Morphine Sulfate (Morphine Sulfate) 4 mg 1X ONCE IV Last administered on 02/26/19at 07:55; Start 02/26/19 at 07:15; Stop 02/26/19 at 07:16; Status DC Orphenadrine Citrate (Norflex) 60 mg 1X ONCE IV Last administered on 02/26/19at 07:55; Start 02/26/19 at 07:15; Stop 02/26/19 at 07:16; Status DC Sodium Chloride 1,000 ml @ 100 mls/hr Q10H IV Last administered on 02/27/19at 06:22; Start 02/26/19 at 09:02; Stop 02/27/19 at 09:01; Status DC Morphine Sulfate (Morphine Sulfate) 4 mg PRN Q2HR PRN IV PAIN Last administered on 02/28/19at 14:21; Start 02/26/19 at 09:15 Allopurinol (Zyloprim) 300 mg HS PO Last administered on 02/28/19at 20:54; Start 02/26/19 at 21:00 Aspirin (Ecotrin) 81 mg DAILYWBKFT PO Last administered on 03/01/19at 10:55; Start 02/26/19 at 10:30 Cetirizine HCl (ZyrTEC) 10 mg DAILY PO Last administered on 03/01/19at 10:55; Start 02/26/19 at 10:30 Vitamin D (Vitamin D3) 2,000 unit DAILY PO ; Start 02/26/19 at 10:30; Status UNV Vitamin D (Vitamin D3) 2,000 unit DAILY PO Last administered on 03/01/19at 10:55; Start 02/26/19 at 10:30 Fluticasone Propionate (Flonase) 2 spray DAILY NS ; Start 02/26/19 at 10:30 Furosemide (Lasix) 40 mg DAILY PO Last administered on 03/01/19 10:55; Start 02/26/19 at 10:30 Gabapentin (Neurontin) 300 mg TID PO Last administered on 03/01/19 16:01; Start 02/26/19 at 10:30 Metoprolol Succinate (Toprol Xl) 25 mg DAILY PO Last administered on 03/01/19 10:55; Start 02/26/19 at 10:30 Montelukast Sodium (Singulair) 10 mg HS PO Last administered on 02/28/19 20:54; Start 02/26/19 at 21:00 Potassium Chloride (Klor-Con) 20 meq TIDWMEALS PO Last administered on 03/01/19 16:01; Start 02/26/19 at 12:00 Insulin Glargine (Lantus Syringe) 20 unit DAILY SQ Last administered on 03/01/19 11:15; Start 02/26/19 at 10:30 Lisinopril (Prinivil) 5 mg DAILY PO Last administered on 03/01/19 10:57; Start 02/26/19 at 10:30 Linagliptin (Tradjenta) 5 mg DAILY PO Last administered on 03/01/19 10:55; Start 02/26/19 at 10:30 Oxycodone HCl (Roxicodone) 10 mg PRN Q4HRS PRN PO PAIN; Start 02/26/19 at 10:00; Stop 02/26/19 at 13:41; Status DC Acetaminophen (Tylenol) 650 mg PRN Q6HRS PRN PO MILD PAIN / TEMP; Start 02/26/19 at 10:00 Albuterol Sulfate (Ventolin Neb Soln) 2.5 mg PRN Q6HRS PRN NEB SHORTNESS OF BREATH; Start 02/26/19 at 10:00 Insulin Human Lispro (HumaLOG) 0-8 UNITS BIDBFRMEAL SQ Last administered on 02/26/19at 18:23; Start 02/26/19 at 10:30 Tizanidine HCl (Zanaflex) 4 mg TID PO Last administered on 03/01/19at 10:55; Start 02/26/19 at 10:30 Mupirocin (Bactroban) 1 raquel TID TP Last administered on 03/01/19at 10:55; Start 02/26/19 at 14:00 Oxycodone HCl (Roxicodone) 10 mg Q4HRS PO Last administered on 03/01/19 16:01; Start 02/26/19 at 13:30 Diazepam (Valium) 5 mg PRN 1X PRN PO 30 MIN PRIOR TO MRI Last administered on 02/26/19at 15:41; Start 02/26/19 at 14:00; Stop 02/27/19 at 13:59; Status DC Ondansetron HCl (Zofran) 4 mg PRN Q6HRS PRN IV NAUSEA/VOMITING; Start 02/27/19 at 07:00; Stop 02/27/19 at 20:00; Status DC Fentanyl Citrate (Fentanyl 2ml Vial) 25 mcg PRN Q5MIN PRN IV MILD PAIN 1-3 Last administered on 02/27/19at 17:30; Start 02/27/19 at 07:00; Stop 02/27/19 at 20:00; Status DC Fentanyl Citrate (Fentanyl 2ml Vial) 50 mcg PRN Q5MIN PRN IV MODERATE TO SEVERE PAIN Last administered on 02/27/19at 17:09; Start 02/27/19 at 07:00; Stop 02/27/19 at 20:00; Status DC Morphine Sulfate (Morphine Sulfate) 1 mg PRN Q10MIN PRN IV SEVERE PAIN 7-10 Last administered on 02/27/19at 17:40; Start 02/27/19 at 07:00; Stop 02/27/19 at 20:00; Status DC Ringer's Solution 1,000 ml @ 30 mls/hr Q24H IV Last administered on 02/27/19at 16:56; Start 02/27/19 at 07:00; Stop 02/27/19 at 18:59; Status DC Lidocaine HCl (Xylocaine-Mpf 1% 2ml Vial) 2 ml PRN 1X PRN ID PRIOR TO IV START; Start 02/27/19 at 07:00; Stop 02/27/19 at 20:00; Status DC Hydromorphone HCl (Dilaudid) 0.5 mg PRN Q10MIN PRN IV SEV PAIN, Second choice; Start 02/27/19 at 07:00; Stop 02/27/19 at 20:00; Status DC Prochlorperazine Edisylate (Compazine) 5 mg PACU PRN PRN IV NAUSEA, MRX1; Start 02/27/19 at 07:00; Stop 02/27/19 at 20:00; Status DC Ceftriaxone Sodium (Rocephin) 1 gm Q24H IVP Last administered on 03/01/19at 10:55; Start 02/27/19 at 10:00 Midazolam HCl (Versed) 2 mg STK-MED ONCE .ROUTE ; Start 02/27/19 at 08:22; Stop 02/27/19 at 11:31; Status DC Midazolam HCl (Versed) 2 mg STK-MED ONCE .ROUTE ; Start 02/27/19 at 08:22; Stop 02/27/19 at 11:32; Status DC Propofol 0 ml @ As Directed STK-MED ONCE IV ; Start 02/27/19 at 08:22; Stop 02/27/19 at 11:34; Status DC Ketamine HCl (Ketamine) 50 mg STK-MED ONCE .ROUTE ; Start 02/27/19 at 08:48; Stop 02/27/19 at 11:34; Status DC Fentanyl Citrate (Fentanyl 2ml Vial) 100 mcg STK-MED ONCE .ROUTE ; Start 02/27/19 at 08:49; Stop 02/27/19 at 11:34; Status DC Fentanyl Citrate (Fentanyl 2ml Vial) 100 mcg STK-MED ONCE .ROUTE ; Start 02/27/19 at 10:42; Stop 02/27/19 at 11:34; Status DC Bupivacaine HCl/ Epinephrine Bitart (Sensorcain-Epi 0.5%-1:[id number] Mpf) 30 ml 1X ONCE INJ Last administered on 02/27/19at 15:53; Start 02/27/19 at 12:00; Stop 02/27/19 at 12:01; Status DC Bacitracin 78770 unit/Sodium Chloride 1,000 ml @ 1,000 mls/hr 1X ONCE IRR Last administered on 02/27/19at 13:36; Start 02/27/19 at 12:00; Stop 02/27/19 at 12:59; Status DC Glycopyrrolate (Robinul) 1 mg STK-MED ONCE .ROUTE ; Start 02/27/19 at 11:48; Stop 02/27/19 at 11:49; Status DC Neostigmine Methylsulfate (Bloxiverz) 10 mg STK-MED ONCE .ROUTE ; Start 02/27/19 at 11:49; Stop 02/27/19 at 11:49; Status DC Rocuronium [place] (Zemuron) 50 mg STK-MED ONCE .ROUTE ; Start 02/27/19 at 11:49; Stop 02/27/19 at 11:49; Status DC Remifentanil HCl (Ultiva) 2 mg STK-MED ONCE IV ; Start 02/27/19 at 11:49; Stop 02/27/19 at 11:49; Status DC Etomidate (Amidate) 20 mg STK-MED ONCE IV ; Start 02/27/19 at 11:49; Stop 02/27/19 at 11:49; Status DC Ondansetron HCl (Zofran) 4 mg STK-MED ONCE .ROUTE ; Start 02/27/19 at 11:49; Stop 02/27/19 at 11:50; Status DC Dexamethasone Sodium Phosphate (Decadron) 20 mg STK-MED ONCE .ROUTE ; Start 02/27/19 at 11:49; Stop 02/27/19 at 11:50; Status DC Lidocaine HCl (Lidocaine Pf 2% Vial) 5 ml STK-MED ONCE .ROUTE ; Start 02/27/19 at 11:49; Stop 02/27/19 at 11:50; Status DC Propofol 100 ml @ As Directed STK-MED ONCE IV ; Start 02/27/19 at 11:51; Stop 02/27/19 at 11:52; Status DC Succinylcholine Chloride (Anectine) 200 mg STK-MED ONCE .ROUTE ; Start 02/27/19 at 11:58; Stop 02/27/19 at 11:59; Status DC Gelatin (Gelfoam Dental Sponge Size 4) 1 each STK-MED ONCE .ROUTE ; Start 02/27/19 at 12:10; Stop 02/27/19 at 12:11; Status DC Thrombin (Thrombin Topical) 5,000 unit STK-MED ONCE .ROUTE Last administered on 02/27/19at 13:36; Start 02/27/19 at 12:11; Stop 02/27/19 at 12:11; Status DC Gelatin (Gelfoam Size 12-7mm) 1 each STK-MED ONCE .ROUTE Last administered on 02/27/19 13:36; Start 02/27/19 at 12:11; Stop 02/27/19 at 12:12; Status DC Gelatin (Gelfoam Size 12-7mm) 1 each STK-MED ONCE .ROUTE Last administered on 02/27/19 13:36; Start 02/27/19 at 12:11; Stop 02/27/19 at 12:12; Status DC Ketorolac Tromethamine (Toradol Im) 60 mg STK-MED ONCE .ROUTE Last administered on 02/27/19 13:36; Start 02/27/19 at 12:15; Stop 02/27/19 at 12:16; Status DC Cefazolin Sodium 3 gm/Dextrose 100 ml @ 200 mls/hr 1X PREOP PRN IV PRIOR TO PROCEDURE Last administered on 02/27/19 14:04; Start 02/27/19 at 12:23; Stop 02/28/19 at 12:22; Status DC Cefazolin Sodium 50 ml @ 100 mls/hr 1X PREOP PRN IV PRE OP DOSE; Start 02/28/19 at 06:00; Stop 02/28/19 at 18:00; Status UNV Lactobacillus Rhamnosus (Culturelle) 1 cap BID PO Last administered on 03/01/19at 10:55; Start 02/27/19 at 21:00 Remifentanil HCl (Ultiva) 1 mg STK-MED ONCE IV ; Start 02/27/19 at 14:40; Stop 02/27/19 at 14:40; Status DC Propofol 50 ml @ As Directed STK-MED ONCE IV ; Start 02/27/19 at 14:48; Stop 02/27/19 at 14:48; Status DC Gelatin (Gelfoam Size 12-7mm) 3 each STK-MED ONCE TP Last administered on 02/27/19at 15:47; Start 02/27/19 at 15:45; Stop 02/27/19 at 15:47; Status DC Throat Lozenges (Cepacol Sore Throat Lozenge) 1 arabella PRN Q2HRS PRN PO SORE THROAT Last administered on 02/27/19at 20:21; Start 02/27/19 at 20:15 Magnesium Hydroxide (Milk Of Magnesia) 2,400 mg PRN DAILY PRN PO CONSTIPATION; Start 03/01/19 at 10:45 Bisacodyl (Dulcolax Tab) 10 mg PRN DAILY PRN PO CONSTIPATION, 3RD CHOICE; Start 03/01/19 at 10:45 Bisacodyl (Dulcolax Supp) 10 mg PRN DAILY PRN IN CONSTIPATION; Start 03/01/19 at 10:45 Senna/Docusate Sodium (Senna Plus) 1 tab PRN BID PRN PO CONSTIPATION, 2ND CHOICE; Start 03/01/19 at 10:45 Alprazolam (Xanax) 0.5 mg PRN TID PRN PO ANXIETY / AGITATION; Start 03/01/19 at 11:30 Active Scripts Active Klor-Con M20 (Potassium Chloride) 20 Meq Tab.er.prt 20 Meq PO TIDWMEALS 30 Days Metoprolol Succinate ( Xl ) (Metoprolol Succinate) 25 Mg Tab.er.24h 25 Mg PO DAILY 30 Days Furosemide 40 Mg Tablet 40 Mg PO DAILY 30 Days Vitamin D (Cholecalciferol (Vitamin D3)) 1,000 Unit Tablet 2,000 Unit PO DAILY 30 Days Aspirin Ec (Aspirin) 81 Mg Tablet.dr 81 Mg PO DAILYWBKFT 30 Days Reported Metformin Hcl 1,000 Mg Tablet 1,000 Mg PO BIDWMEALS Fish Oil 1,200 Mg Fish Oil (Fish Oil/Dha/Epa) 1 Each Capsule 1 Each PO Tresiba Flextouch U-100 (Insulin Degludec) 100 Unit/1 Ml Insuln.pen 20 Units SUBCUT DAILY Ramipril 2.5 Mg Capsule 1 Cap PO DAILY Allopurinol 300 Mg Tablet 1 Tab PO HS Singulair Tablet (Montelukast Sodium) 10 Mg Tablet 1 Tab PO HS Gabapentin (Gabapentin) 300 Mg Capsule 1 Cap PO TID Tramadol Hcl 50 Mg Tablet 1 Tab PO PRN Q6HRS Vitals/I & O Vital Sign - Last 24 Hours 02/28/19 02/28/19 02/28/19 02/28/19 16:58 19:00 19:08 20:00 Temp 98.1 98.1 Pulse 88 Resp 18 B/P (MAP) 93/40 (57) Pulse Ox 98 O2 Delivery Room Air Room Air Room Air Room Air O2 Flow Rate 17.0 02/28/19 02/28/19 02/28/19 03/01/19 20:54 21:55 22:52 00:26 Temp 98.1 98.1 Pulse 84 Resp 20 20 18 18 B/P (MAP) 93/45 (61) Pulse Ox 98 O2 Delivery Room Air Room Air Room Air Room Air O2 Flow Rate 17.0 03/01/19 03/01/19 03/01/19 03/01/19 02:46 03:00 07:00 08:10 Temp 98.3 98.0 98.3 98.0 Pulse 96 102 Resp 19 18 18 18 B/P (MAP) 122/60 (80) 139/70 (93) Pulse Ox 94 95 O2 Delivery Room Air Room Air Room Air Room Air 03/01/19 03/01/19 03/01/19 03/01/19 10:55 10:57 10:57 11:00 Temp 98.1 98.1 Pulse 91 91 92 Resp 16 18 B/P (MAP) 133/78 133/78 77/38 (51) Pulse Ox 90 O2 Delivery Room Air Room Air 03/01/19 03/01/19 03/01/19 03/01/19 11:15 11:22 12:31 15:00 Temp 98.2 98.2 Pulse 91 Resp 18 14 18 B/P (MAP) 117/51 (73) Pulse Ox 96 93 O2 Delivery Room Air Room Air Room Air Room Air 03/01/19 16:01 Resp 16 O2 Delivery Room Air Intake and Output 02/28/19 02/28/19 03/01/19 15:00 23:00 07:00 Intake Total 390 ml 0 ml Output Total 400 ml 750 ml Balance 390 ml -400 ml -750 ml NIA MENDEZ [employer] Mar 01, 2019 16:45
[2019-03-01 19:00] VITALS: BP 98/77
[2019-03-01] MEDS: MONTELUKAST SODIUM 10 MG TABLET. PO SCH (20:14)
[2019-03-01] MEDS: ALLOPURINOL 300 MG TABLET. PO SCH (20:14)
[2019-03-01 23:06] VITALS: BP 122/53
[2019-03-02 03:07] VITALS: BP 126/62
[2019-03-02] MEDS: oxyCODONE IR 5 MG TABLET PO SCH ×5 (04:02→22:43)
[2019-03-02 07:00] VITALS: BP 148/80
[2019-03-02] MEDS: INSULIN LISPRO 300 UNITS/3 ML VIAL. SQ SCH ×2 (07:30→16:30)
[2019-03-02] MEDS: POTASSIUM CHLORIDE 20 MEQ TABLET.ER. PO SCH ×3 (08:00→17:00)
[2019-03-02] MEDS: ALPRAZolam 0.5 MG TABLET PO PRN ×2 (08:56→22:43)
[2019-03-02] MEDS: LACTOBACILLUS RHAMNOSUS GG 1 CAPSULE. PO SCH ×2 (09:00→20:56)
[2019-03-02] MEDS: LISINOPRIL 5 MG TABLET. PO SCH (09:00)
[2019-03-02] MEDS: ASPIRIN ENTERIC COATED 81 MG TABLET.DR. PO SCH (09:00)
[2019-03-02] MEDS: FLUTICASONE 50MCG/NASAL SPRAY 16GM BOTTLE. NS SCH (09:00)
[2019-03-02] MEDS: LINAGLIPTIN 5 MG TABLET PO SCH (09:00)
[2019-03-02] MEDS: GABAPENTIN 300 MG CAPSULE. PO SCH ×3 (09:01→20:56)
[2019-03-02] MEDS: FUROSEMIDE 40 MG TABLET. PO SCH (09:01)
[2019-03-02] MEDS: METOPROLOL SUCC 24HR ER 25 MG TAB.ER.24H. PO SCH (09:01)
[2019-03-02] MEDS: CETIRIZINE HCL 10 MG TABLET. PO SCH (09:01)
[2019-03-02] MEDS: CHOLECALCIFEROL (VITAMIN D3) 1,000 UNIT TABLET PO SCH (09:02)
[2019-03-02] MEDS: MUPIROCIN 2 % TOPICAL CREAM 30GM TUBE. TP SCH ×2 (09:03→14:03)
[2019-03-02] MEDS: INSULIN GLARGINE SYRINGE. SQ SCH (09:10)
[2019-03-02 11:00] VITALS: BP 113/61
--- NOTE | 2019-03-02 12:02 | PDOC ---
PROGRESS NOTES Subjective Subjective constipated and he concurs with 2 doses of lactulose later today. not eating well. Objective Objective Vital Signs Date Time Temp Pulse Resp B/P (MAP) Pulse Ox O2 Delivery O2 Flow Rate FiO2 03/02/19 10:47 Room Air 03/02/19 09:12 99 148/80 03/02/19 07:00 97.8 16 94 97.8 02/28/19 22:52 17.0 Intake and Output 03/02/19 07:00 Intake Total 760 ml Output Total 2400 ml Balance -1640 ml Intake Oral 760 ml Output Urine Total 2400 ml Physical Exam Abdomen: Soft, Other (obese) Heart: Regular rate, Normal S1, Normal S2 Extremities: No edema General: Alert HEENT: Atraumatic Lungs: Clear to auscultation Neuro: Normal speech Psych/Mental Status: Mental status NL, Other (legs weak) Skin: No rashes Assessment Assessment Problems right sided T10-11 removal of herniated disc with decompression thoracic spinal stenosis with myelopathy constipation 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 chronic kidney disease stage 2 hypertension hyperlipidemia morbid obesity Medical Problems: (1) Anemia Status: Chronic (2) CKD (chronic kidney disease) Status: Chronic (3) Diabetes mellitus Status: Chronic (4) GERD (gastroesophageal reflux disease) Status: Chronic (5) Gouty arthritis Status: Chronic (6) HLD (hyperlipidemia) Status: Chronic (7) HTN (hypertension) Status: Chronic (8) Intractable back pain Status: Acute (9) Left knee DJD Status: Chronic (10) Morbid obesity with BMI of 40.0-44.9, adult Status: Acute (11) Muscle spasm Status: Acute (12) Paresthesia Status: Acute (13) Right knee DJD Status: Chronic (14) Spinal stenosis at L4-L5 level Status: Acute Plan Plan of Care PT and OT lactulose today continue present management Comment Review of Relevant I have reviewed the following items maurisio (where applicable) has been applied. Labs Laboratory Tests Test 02/28/19 16:38 02/28/19 20:21 03/01/19 05:10 03/01/19 08:04 Glucose (Fingerstick) 164 mg/dL (70-99) 182 mg/dL (70-99) 127 mg/dL (70-99) White Blood Count 11.5 x10^3/uL (4.0-11.0) Red Blood Count 4.07 x10^6/uL (4.30-5.70) Hemoglobin 12.5 g/dL (13.0-17.5) Hematocrit 38.2 % (39.0-53.0) Mean Corpuscular Volume 94 fL (79-100) Mean Corpuscular Hemoglobin 31 pg (25-35) Mean Corpuscular Hemoglobin Concent 33 g/dL (31-37) Red Cell Distribution Width 14.2 % (11.5-14.5) Platelet Count 187 x10^3/uL (140-400) Neutrophils (%) (Auto) 70 % (31-73) Lymphocytes (%) (Auto) 16 % (24-48) Monocytes (%) (Auto) 10 % (0-9) Eosinophils (%) (Auto) 4 % (0-3) Basophils (%) (Auto) 0 % (0-3) Neutrophils # (Auto) 8.1 x10^3/uL (1.8-7.7) Lymphocytes # (Auto) 1.8 x10^3/uL (1.0-4.8) Monocytes # (Auto) 1.2 x10^3/uL (0.0-1.1) Eosinophils # (Auto) 0.5 x10^3/uL (0.0-0.7) Basophils # (Auto) 0.0 x10^3/uL (0.0-0.2) Sodium Level 141 mmol/L (136-145) Potassium Level 4.5 mmol/L (3.5-5.1) Chloride Level 107 mmol/L (98-107) Carbon Dioxide Level 28 mmol/L (21-32) Anion Gap 6 (6-14) Blood Urea Nitrogen 22 mg/dL (8-26) Creatinine 1.4 mg/dL (0.7-1.3) Estimated GFR (Cockcroft-Gault) 61.9 Glucose Level 133 mg/dL (70-99) Calcium Level 8.8 mg/dL (8.5-10.1) Test 03/01/19 11:43 03/01/19 15:06 03/01/19 20:29 03/02/19 07:57 Glucose (Fingerstick) 184 mg/dL (70-99) 179 mg/dL (70-99) 154 mg/dL (70-99) 124 mg/dL (70-99) Laboratory Tests Test 03/01/19 15:06 03/01/19 20:29 03/02/19 07:57 Glucose (Fingerstick) 179 mg/dL (70-99) 154 mg/dL (70-99) 124 mg/dL (70-99) Microbiology 02/26/19 Urine Culture - Final, Complete 02/26/19 Urine Culture Result 1 (DIXIE) - Final, Complete 02/26/19 Antimicrobic Susceptibility - Final, Complete Medications Current Medications Methylprednisolone Sodium Succinate (SOLU-Medrol 125MG VIAL) 125 mg 1X ONCE IV Last administered on 02/26/19 07:55; Start 02/26/19 at 07:15; Stop 02/26/19 at 07:16; Status DC Morphine Sulfate (Morphine Sulfate) 4 mg 1X ONCE IV Last administered on 02/26/19 07:55; Start 02/26/19 at 07:15; Stop 02/26/19 at 07:16; Status DC Orphenadrine Citrate (Norflex) 60 mg 1X ONCE IV Last administered on 02/26/19at 07:55; Start 02/26/19 at 07:15; Stop 02/26/19 at 07:16; Status DC Sodium Chloride 1,000 ml @ 100 mls/hr Q10H IV Last administered on 02/27/19 06:22; Start 02/26/19 at 09:02; Stop 02/27/19 at 09:01; Status DC Morphine Sulfate (Morphine Sulfate) 4 mg PRN Q2HR PRN IV PAIN Last administered on 02/28/19at 14:21; Start 02/26/19 at 09:15 Allopurinol (Zyloprim) 300 mg HS PO Last administered on 03/01/19at 20:15; Start 02/26/19 at 21:00 Aspirin (Ecotrin) 81 mg DAILYWBKFT PO Last administered on 03/02/19 09:12; Start 02/26/19 at 10:30 Cetirizine HCl (ZyrTEC) 10 mg DAILY PO Last administered on 03/02/19 09:12; Start 02/26/19 at 10:30 Vitamin D (Vitamin D3) 2,000 unit DAILY PO ; Start 02/26/19 at 10:30; Status UNV Vitamin D (Vitamin D3) 2,000 unit DAILY PO Last administered on 03/02/19 09:12; Start 02/26/19 at 10:30 Fluticasone Propionate (Flonase) 2 spray DAILY NS ; Start 02/26/19 at 10:30 Furosemide (Lasix) 40 mg DAILY PO Last administered on 03/02/19 09:12; Start 02/26/19 at 10:30 Gabapentin (Neurontin) 300 mg TID PO Last administered on 03/02/19 09:12; Start 02/26/19 at 10:30 Metoprolol Succinate (Toprol Xl) 25 mg DAILY PO Last administered on 03/02/19 09:12; Start 02/26/19 at 10:30 Montelukast Sodium (Singulair) 10 mg HS PO Last administered on 03/01/19 20:15; Start 02/26/19 at 21:00 Potassium Chloride (Klor-Con) 20 meq TIDWMEALS PO Last administered on 03/02/19 09:12; Start 02/26/19 at 12:00 Insulin Glargine (Lantus Syringe) 20 unit DAILY SQ Last administered on 03/02/19 09:12; Start 02/26/19 at 10:30 Lisinopril (Prinivil) 5 mg DAILY PO Last administered on 03/02/19 09:12; Start 02/26/19 at 10:30 Linagliptin (Tradjenta) 5 mg DAILY PO Last administered on 03/02/19 09:12; Start 02/26/19 at 10:30 Oxycodone HCl (Roxicodone) 10 mg PRN Q4HRS PRN PO PAIN; Start 02/26/19 at 10:00; Stop 02/26/19 at 13:41; Status DC Acetaminophen (Tylenol) 650 mg PRN Q6HRS PRN PO MILD PAIN / TEMP; Start 02/26/19 at 10:00 Albuterol Sulfate (Ventolin Neb Soln) 2.5 mg PRN Q6HRS PRN NEB SHORTNESS OF BREATH; Start 02/26/19 at 10:00 Insulin Human Lispro (HumaLOG) 0-8 UNITS BIDBFRMEAL SQ Last administered on 03/01/19at 17:26; Start 02/26/19 at 10:30 Tizanidine HCl (Zanaflex) 4 mg TID PO Last administered on 03/01/19at 10:55; Start 02/26/19 at 10:30; Stop 03/01/19 at 18:10; Status DC Mupirocin (Bactroban) 1 raquel TID TP Last administered on 03/02/19 09:12; Start 02/26/19 at 14:00 Oxycodone HCl (Roxicodone) 10 mg Q4HRS PO Last administered on 03/02/19 08:57; Start 02/26/19 at 13:30 Diazepam (Valium) 5 mg PRN 1X PRN PO 30 MIN PRIOR TO MRI Last administered on 02/26/19at 15:41; Start 02/26/19 at 14:00; Stop 02/27/19 at 13:59; Status DC Ondansetron HCl (Zofran) 4 mg PRN Q6HRS PRN IV NAUSEA/VOMITING; Start 02/27/19 at 07:00; Stop 02/27/19 at 20:00; Status DC Fentanyl Citrate (Fentanyl 2ml Vial) 25 mcg PRN Q5MIN PRN IV MILD PAIN 1-3 Last administered on 02/27/19at 17:30; Start 02/27/19 at 07:00; Stop 02/27/19 at 20:00; Status DC Fentanyl Citrate (Fentanyl 2ml Vial) 50 mcg PRN Q5MIN PRN IV MODERATE TO SEVERE PAIN Last administered on 02/27/19at 17:09; Start 02/27/19 at 07:00; Stop 02/27/19 at 20:00; Status DC Morphine Sulfate (Morphine Sulfate) 1 mg PRN Q10MIN PRN IV SEVERE PAIN 7-10 Last administered on 02/27/19at 17:40; Start 02/27/19 at 07:00; Stop 02/27/19 at 20:00; Status DC Ringer's Solution 1,000 ml @ 30 mls/hr Q24H IV Last administered on 02/27/19at 16:56; Start 02/27/19 at 07:00; Stop 02/27/19 at 18:59; Status DC Lidocaine HCl (Xylocaine-Mpf 1% 2ml Vial) 2 ml PRN 1X PRN ID PRIOR TO IV START; Start 02/27/19 at 07:00; Stop 02/27/19 at 20:00; Status DC Hydromorphone HCl (Dilaudid) 0.5 mg PRN Q10MIN PRN IV SEV PAIN, Second choice; Start 02/27/19 at 07:00; Stop 02/27/19 at 20:00; Status DC Prochlorperazine Edisylate (Compazine) 5 mg PACU PRN PRN IV NAUSEA, MRX1; Start 02/27/19 at 07:00; Stop 02/27/19 at 20:00; Status DC Ceftriaxone Sodium (Rocephin) 1 gm Q24H IVP Last administered on 03/01/19at 10:55; Start 02/27/19 at 10:00 Midazolam HCl (Versed) 2 mg STK-MED ONCE .ROUTE ; Start 02/27/19 at 08:22; Stop 02/27/19 at 11:31; Status DC Midazolam HCl (Versed) 2 mg STK-MED ONCE .ROUTE ; Start 02/27/19 at 08:22; Stop 02/27/19 at 11:32; Status DC Propofol 0 ml @ As Directed STK-MED ONCE IV ; Start 02/27/19 at 08:22; Stop 02/27/19 at 11:34; Status DC Ketamine HCl (Ketamine) 50 mg STK-MED ONCE .ROUTE ; Start 02/27/19 at 08:48; Stop 02/27/19 at 11:34; Status DC Fentanyl Citrate (Fentanyl 2ml Vial) 100 mcg STK-MED ONCE .ROUTE ; Start 02/27/19 at 08:49; Stop 02/27/19 at 11:34; Status DC Fentanyl Citrate (Fentanyl 2ml Vial) 100 mcg STK-MED ONCE .ROUTE ; Start 02/27/19 at 10:42; Stop 02/27/19 at 11:34; Status DC Bupivacaine HCl/ Epinephrine Bitart (Sensorcain-Epi 0.5%-1:[id number] Mpf) 30 ml 1X ONCE INJ Last administered on 02/27/19at 15:53; Start 02/27/19 at 12:00; Stop 02/27/19 at 12:01; Status DC Bacitracin 52288 unit/Sodium Chloride 1,000 ml @ 1,000 mls/hr 1X ONCE IRR Last administered on 02/27/19at 13:36; Start 02/27/19 at 12:00; Stop 02/27/19 at 12:59; Status DC Glycopyrrolate (Robinul) 1 mg STK-MED ONCE .ROUTE ; Start 02/27/19 at 11:48; Stop 02/27/19 at 11:49; Status DC Neostigmine Methylsulfate (Bloxiverz) 10 mg STK-MED ONCE .ROUTE ; Start 02/27/19 at 11:49; Stop 02/27/19 at 11:49; Status DC Rocuronium [place] (Zemuron) 50 mg STK-MED ONCE .ROUTE ; Start 02/27/19 at 11:49; Stop 02/27/19 at 11:49; Status DC Remifentanil HCl (Ultiva) 2 mg STK-MED ONCE IV ; Start 02/27/19 at 11:49; Stop 02/27/19 at 11:49; Status DC Etomidate (Amidate) 20 mg STK-MED ONCE IV ; Start 02/27/19 at 11:49; Stop 02/27/19 at 11:49; Status DC Ondansetron HCl (Zofran) 4 mg STK-MED ONCE .ROUTE ; Start 02/27/19 at 11:49; Stop 02/27/19 at 11:50; Status DC Dexamethasone Sodium Phosphate (Decadron) 20 mg STK-MED ONCE .ROUTE ; Start 02/27/19 at 11:49; Stop 02/27/19 at 11:50; Status DC Lidocaine HCl (Lidocaine Pf 2% Vial) 5 ml STK-MED ONCE .ROUTE ; Start 02/27/19 at 11:49; Stop 02/27/19 at 11:50; Status DC Propofol 100 ml @ As Directed STK-MED ONCE IV ; Start 02/27/19 at 11:51; Stop 02/27/19 at 11:52; Status DC Succinylcholine Chloride (Anectine) 200 mg STK-MED ONCE .ROUTE ; Start 02/27/19 at 11:58; Stop 02/27/19 at 11:59; Status DC Gelatin (Gelfoam Dental Sponge Size 4) 1 each STK-MED ONCE .ROUTE ; Start 02/27/19 at 12:10; Stop 02/27/19 at 12:11; Status DC Thrombin (Thrombin Topical) 5,000 unit STK-MED ONCE .ROUTE Last administered on 02/27/19 13:36; Start 02/27/19 at 12:11; Stop 02/27/19 at 12:11; Status DC Gelatin (Gelfoam Size 12-7mm) 1 each STK-MED ONCE .ROUTE Last administered on 02/27/19 13:36; Start 02/27/19 at 12:11; Stop 02/27/19 at 12:12; Status DC Gelatin (Gelfoam Size 12-7mm) 1 each STK-MED ONCE .ROUTE Last administered on 02/27/19 13:36; Start 02/27/19 at 12:11; Stop 02/27/19 at 12:12; Status DC Ketorolac Tromethamine (Toradol Im) 60 mg STK-MED ONCE .ROUTE Last administered on 02/27/19 13:36; Start 02/27/19 at 12:15; Stop 02/27/19 at 12:16; Status DC Cefazolin Sodium 3 gm/Dextrose 100 ml @ 200 mls/hr 1X PREOP PRN IV PRIOR TO PROCEDURE Last administered on 02/27/19at 14:04; Start 02/27/19 at 12:23; Stop 02/28/19 at 12:22; Status DC Cefazolin Sodium 50 ml @ 100 mls/hr 1X PREOP PRN IV PRE OP DOSE; Start 02/28/19 at 06:00; Stop 02/28/19 at 18:00; Status UNV Lactobacillus Rhamnosus (Culturelle) 1 cap BID PO Last administered on 03/02/19at 09:12; Start 02/27/19 at 21:00 Remifentanil HCl (Ultiva) 1 mg STK-MED ONCE IV ; Start 02/27/19 at 14:40; Stop 02/27/19 at 14:40; Status DC Propofol 50 ml @ As Directed STK-MED ONCE IV ; Start 02/27/19 at 14:48; Stop 02/27/19 at 14:48; Status DC Gelatin (Gelfoam Size 12-7mm) 3 each STK-MED ONCE TP Last administered on 02/27/19at 15:47; Start 02/27/19 at 15:45; Stop 02/27/19 at 15:47; Status DC Throat Lozenges (Cepacol Sore Throat Lozenge) 1 arabella PRN Q2HRS PRN PO SORE THROAT Last administered on 02/27/19at 20:21; Start 02/27/19 at 20:15 Magnesium Hydroxide (Milk Of Magnesia) 2,400 mg PRN DAILY PRN PO CONSTIPATION Last administered on 03/02/19at 09:12; Start 03/01/19 at 10:45 Bisacodyl (Dulcolax Tab) 10 mg PRN DAILY PRN PO CONSTIPATION, 3RD CHOICE; Start 03/01/19 at 10:45 Bisacodyl (Dulcolax Supp) 10 mg PRN DAILY PRN RI CONSTIPATION; Start 03/01/19 at 10:45 Senna/Docusate Sodium (Senna Plus) 1 tab PRN BID PRN PO CONSTIPATION, 2ND CHOICE Last administered on 03/02/19at 09:12; Start 03/01/19 at 10:45 Alprazolam (Xanax) 0.5 mg PRN TID PRN PO ANXIETY / AGITATION Last administered on 03/02/19at 08:57; Start 03/01/19 at 11:30 Active Scripts Active Klor-Con M20 (Potassium Chloride) 20 Meq Tab.er.prt 20 Meq PO TIDWMEALS 30 Days Metoprolol Succinate ( Xl ) (Metoprolol Succinate) 25 Mg Tab.er.24h 25 Mg PO DAILY 30 Days Furosemide 40 Mg Tablet 40 Mg PO DAILY 30 Days Vitamin D (Cholecalciferol (Vitamin D3)) 1,000 Unit Tablet 2,000 Unit PO DAILY 30 Days Aspirin Ec (Aspirin) 81 Mg Tablet.dr 81 Mg PO DAILYWBKFT 30 Days Reported Metformin Hcl 1,000 Mg Tablet 1,000 Mg PO BIDWMEALS Fish Oil 1,200 Mg Fish Oil (Fish Oil/Dha/Epa) 1 Each Capsule 1 Each PO Tresiba Flextouch U-100 (Insulin Degludec) 100 Unit/1 Ml Insuln.pen 20 Units SUBCUT DAILY Ramipril 2.5 Mg Capsule 1 Cap PO DAILY Allopurinol 300 Mg Tablet 1 Tab PO HS Singulair Tablet (Montelukast Sodium) 10 Mg Tablet 1 Tab PO HS Gabapentin (Gabapentin) 300 Mg Capsule 1 Cap PO TID Tramadol Hcl 50 Mg Tablet 1 Tab PO PRN Q6HRS Vitals/I & O Vital Sign - Last 24 Hours 03/01/19 03/01/19 03/01/19 03/01/19 12:31 15:00 16:01 17:26 Temp 98.2 98.2 Pulse 91 Resp 14 18 16 20 B/P (MAP) 117/51 (73) Pulse Ox 93 O2 Delivery Room Air Room Air Room Air Room Air 03/01/19 03/01/19 03/01/19 03/01/19 19:00 19:20 20:15 21:22 Temp 98.2 98.2 Pulse 92 Resp 18 17 16 B/P (MAP) 98/77 (84) Pulse Ox 95 93 93 O2 Delivery Room Air Room Air Room Air Room Air 03/01/19 03/01/19 03/02/19 03/02/19 23:06 23:53 00:42 03:07 Temp 98.9 98.8 98.9 98.8 Pulse 89 93 Resp 18 16 18 19 B/P (MAP) 122/53 (76) 126/62 (83) Pulse Ox 90 90 90 92 O2 Delivery Room Air Room Air Room Air 03/02/19 03/02/19 03/02/19 03/02/19 04:02 05:16 07:00 08:15 Temp 97.8 97.8 Pulse 99 Resp 17 17 16 B/P (MAP) 148/80 (102) Pulse Ox 92 92 94 O2 Delivery Room Air Room Air Room Air Room Air 03/02/19 03/02/19 03/02/19 03/02/19 08:57 09:12 09:12 10:47 Pulse 99 99 B/P (MAP) 148/80 148/80 O2 Delivery Room Air Room Air Intake and Output 03/01/19 03/01/19 03/02/19 15:00 23:00 07:00 Intake Total 300 ml 460 ml Output Total 700 ml 400 ml 1300 ml Balance -700 ml -100 ml -840 ml PREET SIERRA MD Mar 02, 2019 12:01
[2019-03-02] MEDS: cefTRIAXone IV Push 1 GM VIAL. IVP SCH ×2 (12:04→12:10)
--- NOTE | 2019-03-02 12:42 | PDOC ---
PROGRESS NOTES Subjective Subjective feels continued improvement in LE symptoms Objective Objective Vital Signs Date Time Temp Pulse Resp B/P (MAP) Pulse Ox O2 Delivery O2 Flow Rate FiO2 03/02/19 12:04 Room Air 03/02/19 09:12 99 148/80 03/02/19 07:00 97.8 16 94 97.8 02/28/19 22:52 17.0 Intake and Output 03/02/19 07:00 Intake Total 760 ml Output Total 2400 ml Balance -1640 ml Intake Oral 760 ml Output Urine Total 2400 ml Physical Exam General: Alert, Oriented X3, Cooperative Neuro: Normal speech, Other (right LE dorsi and plantar flexion 5/5, left plantar 3/5 and dorsi is 1/5) Skin: Other (dressing dry and intact) Assessment Assessment Problems Medical Problems: (1) Anemia Status: Chronic (2) CKD (chronic kidney disease) Status: Chronic (3) Diabetes mellitus Status: Chronic (4) GERD (gastroesophageal reflux disease) Status: Chronic (5) Gouty arthritis Status: Chronic (6) HLD (hyperlipidemia) Status: Chronic (7) HTN (hypertension) Status: Chronic (8) Intractable back pain Status: Acute (9) Left knee DJD Status: Chronic (10) Morbid obesity with BMI of 40.0-44.9, adult Status: Acute (11) Muscle spasm Status: Acute (12) Paresthesia Status: Acute (13) Right knee DJD Status: Chronic (14) Spinal stenosis at L4-L5 level Status: Acute Plan Plan of Care restart lovenox continue PT Will need rehab Comment Review of Relevant I have reviewed the following items maurisio (where applicable) has been applied. Labs Laboratory Tests Test 02/28/19 16:38 02/28/19 20:21 03/01/19 05:10 03/01/19 08:04 Glucose (Fingerstick) 164 mg/dL (70-99) 182 mg/dL (70-99) 127 mg/dL (70-99) White Blood Count 11.5 x10^3/uL (4.0-11.0) Red Blood Count 4.07 x10^6/uL (4.30-5.70) Hemoglobin 12.5 g/dL (13.0-17.5) Hematocrit 38.2 % (39.0-53.0) Mean Corpuscular Volume 94 fL (79-100) Mean Corpuscular Hemoglobin 31 pg (25-35) Mean Corpuscular Hemoglobin Concent 33 g/dL (31-37) Red Cell Distribution Width 14.2 % (11.5-14.5) Platelet Count 187 x10^3/uL (140-400) Neutrophils (%) (Auto) 70 % (31-73) Lymphocytes (%) (Auto) 16 % (24-48) Monocytes (%) (Auto) 10 % (0-9) Eosinophils (%) (Auto) 4 % (0-3) Basophils (%) (Auto) 0 % (0-3) Neutrophils # (Auto) 8.1 x10^3/uL (1.8-7.7) Lymphocytes # (Auto) 1.8 x10^3/uL (1.0-4.8) Monocytes # (Auto) 1.2 x10^3/uL (0.0-1.1) Eosinophils # (Auto) 0.5 x10^3/uL (0.0-0.7) Basophils # (Auto) 0.0 x10^3/uL (0.0-0.2) Sodium Level 141 mmol/L (136-145) Potassium Level 4.5 mmol/L (3.5-5.1) Chloride Level 107 mmol/L (98-107) Carbon Dioxide Level 28 mmol/L (21-32) Anion Gap 6 (6-14) Blood Urea Nitrogen 22 mg/dL (8-26) Creatinine 1.4 mg/dL (0.7-1.3) Estimated GFR (Cockcroft-Gault) 61.9 Glucose Level 133 mg/dL (70-99) Calcium Level 8.8 mg/dL (8.5-10.1) Test 03/01/19 11:43 03/01/19 15:06 03/01/19 20:29 03/02/19 07:57 Glucose (Fingerstick) 184 mg/dL (70-99) 179 mg/dL (70-99) 154 mg/dL (70-99) 124 mg/dL (70-99) Test 03/02/19 10:55 Glucose (Fingerstick) 162 mg/dL (70-99) Laboratory Tests Test 03/01/19 15:06 03/01/19 20:29 03/02/19 07:57 03/02/19 10:55 Glucose (Fingerstick) 179 mg/dL (70-99) 154 mg/dL (70-99) 124 mg/dL (70-99) 162 mg/dL (70-99) Microbiology 02/26/19 Urine Culture - Final, Complete 02/26/19 Urine Culture Result 1 (DIXIE) - Final, Complete 02/26/19 Antimicrobic Susceptibility - Final, Complete Medications Current Medications Methylprednisolone Sodium Succinate (SOLU-Medrol 125MG VIAL) 125 mg 1X ONCE IV Last administered on 02/26/19 07:55; Start 02/26/19 at 07:15; Stop 02/26/19 at 07:16; Status DC Morphine Sulfate (Morphine Sulfate) 4 mg 1X ONCE IV Last administered on 02/26/19at 07:55; Start 02/26/19 at 07:15; Stop 02/26/19 at 07:16; Status DC Orphenadrine Citrate (Norflex) 60 mg 1X ONCE IV Last administered on 02/26/19at 07:55; Start 02/26/19 at 07:15; Stop 02/26/19 at 07:16; Status DC Sodium Chloride 1,000 ml @ 100 mls/hr Q10H IV Last administered on 02/27/19 06:22; Start 02/26/19 at 09:02; Stop 02/27/19 at 09:01; Status DC Morphine Sulfate (Morphine Sulfate) 4 mg PRN Q2HR PRN IV PAIN Last administered on 02/28/19at 14:21; Start 02/26/19 at 09:15 Allopurinol (Zyloprim) 300 mg HS PO Last administered on 03/01/19at 20:15; Start 02/26/19 at 21:00 Aspirin (Ecotrin) 81 mg DAILYWBKFT PO Last administered on 03/02/19 09:12; Start 02/26/19 at 10:30 Cetirizine HCl (ZyrTEC) 10 mg DAILY PO Last administered on 03/02/19 09:12; Start 02/26/19 at 10:30 Vitamin D (Vitamin D3) 2,000 unit DAILY PO ; Start 02/26/19 at 10:30; Status UNV Vitamin D (Vitamin D3) 2,000 unit DAILY PO Last administered on 03/02/19 09:12; Start 02/26/19 at 10:30 Fluticasone Propionate (Flonase) 2 spray DAILY NS ; Start 02/26/19 at 10:30 Furosemide (Lasix) 40 mg DAILY PO Last administered on 03/02/19 09:12; Start 02/26/19 at 10:30 Gabapentin (Neurontin) 300 mg TID PO Last administered on 03/02/19 09:12; Start 02/26/19 at 10:30 Metoprolol Succinate (Toprol Xl) 25 mg DAILY PO Last administered on 03/02/19 09:12; Start 02/26/19 at 10:30 Montelukast Sodium (Singulair) 10 mg HS PO Last administered on 03/01/19 20:15; Start 02/26/19 at 21:00 Potassium Chloride (Klor-Con) 20 meq TIDWMEALS PO Last administered on 03/02/19 12:04; Start 02/26/19 at 12:00 Insulin Glargine (Lantus Syringe) 20 unit DAILY SQ Last administered on 03/02/19 09:12; Start 02/26/19 at 10:30 Lisinopril (Prinivil) 5 mg DAILY PO Last administered on 03/02/19 09:12; Start 02/26/19 at 10:30 Linagliptin (Tradjenta) 5 mg DAILY PO Last administered on 03/02/19 09:12; Start 02/26/19 at 10:30 Oxycodone HCl (Roxicodone) 10 mg PRN Q4HRS PRN PO PAIN; Start 02/26/19 at 10:00; Stop 02/26/19 at 13:41; Status DC Acetaminophen (Tylenol) 650 mg PRN Q6HRS PRN PO MILD PAIN / TEMP; Start 02/26/19 at 10:00 Albuterol Sulfate (Ventolin Neb Soln) 2.5 mg PRN Q6HRS PRN NEB SHORTNESS OF BREATH; Start 02/26/19 at 10:00 Insulin Human Lispro (HumaLOG) 0-8 UNITS BIDBFRMEAL SQ Last administered on 03/01/19 17:26; Start 02/26/19 at 10:30 Tizanidine HCl (Zanaflex) 4 mg TID PO Last administered on 03/01/19 10:55; S tart 02/26/19 at 10:30; Stop 03/01/19 at 18:10; Status DC Mupirocin (Bactroban) 1 raquel TID TP Last administered on 03/02/19 09:12; Start 02/26/19 at 14:00 Oxycodone HCl (Roxicodone) 10 mg Q4HRS PO Last administered on 03/02/19 08:57; Start 02/26/19 at 13:30 Diazepam (Valium) 5 mg PRN 1X PRN PO 30 MIN PRIOR TO MRI Last administered on 02/26/19 15:41; Start 02/26/19 at 14:00; Stop 02/27/19 at 13:59; Status DC Ondansetron HCl (Zofran) 4 mg PRN Q6HRS PRN IV NAUSEA/VOMITING; Start 02/27/19 at 07:00; Stop 02/27/19 at 20:00; Status DC Fentanyl Citrate (Fentanyl 2ml Vial) 25 mcg PRN Q5MIN PRN IV MILD PAIN 1-3 Last administered on 02/27/19 17:30; Start 02/27/19 at 07:00; Stop 02/27/19 at 20:00; Status DC Fentanyl Citrate (Fentanyl 2ml Vial) 50 mcg PRN Q5MIN PRN IV MODERATE TO SEVERE PAIN Last administered on 02/27/19 17:09; Start 02/27/19 at 07:00; Stop 02/27/19 at 20:00; Status DC Morphine Sulfate (Morphine Sulfate) 1 mg PRN Q10MIN PRN IV SEVERE PAIN 7-10 Last administered on 02/27/19 17:40; Start 02/27/19 at 07:00; Stop 02/27/19 at 20:00; Status DC Ringer's Solution 1,000 ml @ 30 mls/hr Q24H IV Last administered on 02/27/19 16:56; Start 02/27/19 at 07:00; Stop 02/27/19 at 18:59; Status DC Lidocaine HCl (Xylocaine-Mpf 1% 2ml Vial) 2 ml PRN 1X PRN ID PRIOR TO IV START; Start 02/27/19 at 07:00; Stop 02/27/19 at 20:00; Status DC Hydromorphone HCl (Dilaudid) 0.5 mg PRN Q10MIN PRN IV SEV PAIN, Second choice; Start 02/27/19 at 07:00; Stop 02/27/19 at 20:00; Status DC Prochlorperazine Edisylate (Compazine) 5 mg PACU PRN PRN IV NAUSEA, MRX1; Start 02/27/19 at 07:00; Stop 02/27/19 at 20:00; Status DC Ceftriaxone Sodium (Rocephin) 1 gm Q24H IVP Last administered on 03/02/19at 12:04; Start 02/27/19 at 10:00 Midazolam HCl (Versed) 2 mg STK-MED ONCE .ROUTE ; Start 02/27/19 at 08:22; Stop 02/27/19 at 11:31; Status DC Midazolam HCl (Versed) 2 mg STK-MED ONCE .ROUTE ; Start 02/27/19 at 08:22; Stop 02/27/19 at 11:32; Status DC Propofol 0 ml @ As Directed STK-MED ONCE IV ; Start 02/27/19 at 08:22; Stop 02/27/19 at 11:34; Status DC Ketamine HCl (Ketamine) 50 mg STK-MED ONCE .ROUTE ; Start 02/27/19 at 08:48; Stop 02/27/19 at 11:34; Status DC Fentanyl Citrate (Fentanyl 2ml Vial) 100 mcg STK-MED ONCE .ROUTE ; Start 02/27/19 at 08:49; Stop 02/27/19 at 11:34; Status DC Fentanyl Citrate (Fentanyl 2ml Vial) 100 mcg STK-MED ONCE .ROUTE ; Start 02/27/19 at 10:42; Stop 02/27/19 at 11:34; Status DC Bupivacaine HCl/ Epinephrine Bitart (Sensorcain-Epi 0.5%-1:012189 Mpf) 30 ml 1X ONCE INJ Last administered on 02/27/19at 15:53; Start 02/27/19 at 12:00; Stop 02/27/19 at 12:01; Status DC Bacitracin 37092 unit/Sodium Chloride 1,000 ml @ 1,000 mls/hr 1X ONCE IRR Last administered on 02/27/19at 13:36; Start 02/27/19 at 12:00; Stop 02/27/19 at 12:59; Status DC Glycopyrrolate (Robinul) 1 mg STK-MED ONCE .ROUTE ; Start 02/27/19 at 11:48; Stop 02/27/19 at 11:49; Status DC Neostigmine Methylsulfate (Bloxiverz) 10 mg STK-MED ONCE .ROUTE ; Start 02/27/19 at 11:49; Stop 02/27/19 at 11:49; Status DC Rocuronium [place] (Zemuron) 50 mg STK-MED ONCE .ROUTE ; Start 02/27/19 at 11:49; Stop 02/27/19 at 11:49; Status DC Remifentanil HCl (Ultiva) 2 mg STK-MED ONCE IV ; Start 02/27/19 at 11:49; Stop 02/27/19 at 11:49; Status DC Etomidate (Amidate) 20 mg STK-MED ONCE IV ; Start 02/27/19 at 11:49; Stop 02/27/19 at 11:49; Status DC Ondansetron HCl (Zofran) 4 mg STK-MED ONCE .ROUTE ; Start 02/27/19 at 11:49; Stop 02/27/19 at 11:50; Status DC Dexamethasone Sodium Phosphate (Decadron) 20 mg STK-MED ONCE .ROUTE ; Start 02/27/19 at 11:49; Stop 02/27/19 at 11:50; Status DC Lidocaine HCl (Lidocaine Pf 2% Vial) 5 ml STK-MED ONCE .ROUTE ; Start 02/27/19 at 11:49; Stop 02/27/19 at 11:50; Status DC Propofol 100 ml @ As Directed STK-MED ONCE IV ; Start 02/27/19 at 11:51; Stop 02/27/19 at 11:52; Status DC Succinylcholine Chloride (Anectine) 200 mg STK-MED ONCE .ROUTE ; Start 02/27/19 at 11:58; Stop 02/27/19 at 11:59; Status DC Gelatin (Gelfoam Dental Sponge Size 4) 1 each STK-MED ONCE .ROUTE ; Start 02/27/19 at 12:10; Stop 02/27/19 at 12:11; Status DC Thrombin (Thrombin Topical) 5,000 unit STK-MED ONCE .ROUTE Last administered on 02/27/19 13:36; Start 02/27/19 at 12:11; Stop 02/27/19 at 12:11; Status DC Gelatin (Gelfoam Size 12-7mm) 1 each STK-MED ONCE .ROUTE Last administered on 02/27/19 13:36; Start 02/27/19 at 12:11; Stop 02/27/19 at 12:12; Status DC Gelatin (Gelfoam Size 12-7mm) 1 each STK-MED ONCE .ROUTE Last administered on 02/27/19 13:36; Start 02/27/19 at 12:11; Stop 02/27/19 at 12:12; Status DC Ketorolac Tromethamine (Toradol Im) 60 mg STK-MED ONCE .ROUTE Last administered on 02/27/19 13:36; Start 02/27/19 at 12:15; Stop 02/27/19 at 12:16; Status DC Cefazolin Sodium 3 gm/Dextrose 100 ml @ 200 mls/hr 1X PREOP PRN IV PRIOR TO PROCEDURE Last administered on 02/27/19 14:04; Start 02/27/19 at 12:23; Stop 02/28/19 at 12:22; Status DC Cefazolin Sodium 50 ml @ 100 mls/hr 1X PREOP PRN IV PRE OP DOSE; Start at 06:00; Stop 02/28/19 at 18:00; Status UNV Lactobacillus Rhamnosus (Culturelle) 1 cap BID PO Last administered on 03/02at 09:12; Start 02/27/19 at 21:00 Remifentanil HCl (Ultiva) 1 mg STK-MED ONCE IV ; Start 02/27/19 at 14:40; Stop 02/27/19 at 14:40; Status DC Propofol 50 ml @ As Directed STK-MED ONCE IV ; Start 02/27/19 at 14:48; Stop 02/27/19 at 14:48; Status DC Gelatin (Gelfoam Size 12-7mm) 3 each STK-MED ONCE TP Last administered on 02/27/19at 15:47; Start 02/27/19 at 15:45; Stop 02/27/19 at 15:47; Status DC Throat Lozenges (Cepacol Sore Throat Lozenge) 1 arabella PRN Q2HRS PRN PO SORE THROAT Last administered on 02/27/19at 20:21; Start 02/27/19 at 20:15 Magnesium Hydroxide (Milk Of Magnesia) 2,400 mg PRN DAILY PRN PO CONSTIPATION Last administered on 03/02/19at 09:12; Start 03/01/19 at 10:45 Bisacodyl (Dulcolax Tab) 10 mg PRN DAILY PRN PO CONSTIPATION, 3RD CHOICE; S tart 03/01/19 at 10:45 Bisacodyl (Dulcolax Supp) 10 mg PRN DAILY PRN [place] CONSTIPATION; Start 03/01/19 at 10:45 Senna/Docusate Sodium (Senna Plus) 1 tab PRN BID PRN PO CONSTIPATION, 2ND CHOICE Last administered on 03/02/19at 09:12; Start 03/01/19 at 10:45 Alprazolam (Xanax) 0.5 mg PRN TID PRN PO ANXIETY / AGITATION Last administered on 03/02/19at 08:57; Start 03/01/19 at 11:30 Lactulose (Lactulose) 20 gm PRN Q2HRS PRN PO IF NO BM BY 1600; Start 03/02/19 at 16:00; Stop 03/02/19 at 20:00 Active Scripts Active Klor-Con M20 (Potassium Chloride) 20 Meq Tab.er.prt 20 Meq PO TIDWMEALS 30 Days Metoprolol Succinate ( Xl ) (Metoprolol Succinate) 25 Mg Tab.er.24h 25 Mg PO DAILY 30 Days Furosemide 40 Mg Tablet 40 Mg PO DAILY 30 Days Vitamin D (Cholecalciferol (Vitamin D3)) 1,000 Unit Tablet 2,000 Unit PO DAILY 30 Days Aspirin Ec (Aspirin) 81 Mg Tablet.dr 81 Mg PO DAILYWBKFT 30 Days Reported Metformin Hcl 1,000 Mg Tablet 1,000 Mg PO BIDWMEALS Fish Oil 1,200 Mg Fish Oil (Fish Oil/Dha/Epa) 1 Each Capsule 1 Each PO Tresiba Flextouch U-100 (Insulin Degludec) 100 Unit/1 Ml Insuln.pen 20 Units SUBCUT DAILY Ramipril 2.5 Mg Capsule 1 Cap PO DAILY Allopurinol 300 Mg Tablet 1 Tab PO HS Singulair Tablet (Montelukast Sodium) 10 Mg Tablet 1 Tab PO HS Gabapentin (Gabapentin) 300 Mg Capsule 1 Cap PO TID Tramadol Hcl 50 Mg Tablet 1 Tab PO PRN Q6HRS Vitals/I & O Vital Sign - Last 24 Hours 03/01/19 03/01/19 03/01/19 03/01/19 15:00 16:01 17:26 19:00 Temp 98.2 98.2 98.2 98.2 Pulse 91 92 Resp 18 16 20 18 B/P (MAP) 117/51 (73) 98/77 (84) Pulse Ox 93 95 O2 Delivery Room Air Room Air Room Air Room Air 03/01/19 03/01/19 03/01/19 03/01/19 19:20 20:15 21:22 23:06 Temp 98.9 98.9 Pulse 89 Resp 17 16 18 B/P (MAP) 122/53 (76) Pulse Ox 93 93 90 O2 Delivery Room Air Room Air Room Air 03/01/19 03/02/19 03/02/19 03/02/19 23:53 00:42 03:07 04:02 Temp 98.8 98.8 Pulse 93 Resp 16 18 19 17 B/P (MAP) 126/62 (83) Pulse Ox 90 90 92 92 O2 Delivery Room Air Room Air Room Air Room Air 03/02/19 03/02/19 03/02/19 03/02/19 05:16 07:00 08:15 08:57 Temp 97.8 97.8 Pulse 99 Resp 17 16 B/P (MAP) 148/80 (102) Pulse Ox 92 94 O2 Delivery Room Air Room Air Room Air Room Air 03/02/19 03/02/19 03/02/19 03/02/19 09:12 09:12 10:47 12:04 Pulse 99 99 B/P (MAP) 148/80 148/80 O2 Delivery Room Air Room Air Intake and Output 03/01/19 03/01/19 03/02/19 15:00 23:00 07:00 Intake Total 300 ml 460 ml Output Total 700 ml 400 ml 1300 ml Balance -700 ml -100 ml -840 ml EDUIN DOVE MD Mar 02, 2019 12:42
[2019-03-02] MEDS: ENOXAPARIN 40 MG/0.4 ML SYRINGE. SQ SCH (14:03)
[2019-03-02 15:00] VITALS: BP 146/71
[2019-03-02] MEDS ORDERED: LACTULOSE 20 GM/30 ML SOLUTION. PO PRN ×2 (16:00→20:30)
[2019-03-02 19:30] VITALS: BP 98/54
[2019-03-02] MEDS: ALLOPURINOL 300 MG TABLET. PO SCH (20:56)
[2019-03-02] MEDS: MONTELUKAST SODIUM 10 MG TABLET. PO SCH (20:56)
[2019-03-02 23:22] VITALS: BP 113/60
[2019-03-03 03:30] VITALS: BP 133/66
[2019-03-03] MEDS: oxyCODONE IR 5 MG TABLET PO SCH ×6 (04:00→20:37)
[2019-03-03 07:00] VITALS: BP 150/78
[2019-03-03] MEDS: INSULIN LISPRO 300 UNITS/3 ML VIAL. SQ SCH ×2 (07:30→17:01)
[2019-03-03] MEDS: GABAPENTIN 300 MG CAPSULE. PO SCH ×3 (09:07→20:37)
[2019-03-03] MEDS: POTASSIUM CHLORIDE 20 MEQ TABLET.ER. PO SCH ×3 (09:07→16:56)
[2019-03-03] MEDS: LISINOPRIL 5 MG TABLET. PO SCH (09:07)
[2019-03-03] MEDS: CHOLECALCIFEROL (VITAMIN D3) 1,000 UNIT TABLET PO SCH (09:08)
[2019-03-03] MEDS: ASPIRIN ENTERIC COATED 81 MG TABLET.DR. PO SCH (09:08)
[2019-03-03] MEDS: METOPROLOL SUCC 24HR ER 25 MG TAB.ER.24H. PO SCH (09:08)
[2019-03-03] MEDS: LINAGLIPTIN 5 MG TABLET PO SCH (09:08)
[2019-03-03] MEDS: CETIRIZINE HCL 10 MG TABLET. PO SCH (09:08)
[2019-03-03] MEDS: LACTOBACILLUS RHAMNOSUS GG 1 CAPSULE. PO SCH ×2 (09:08→20:37)
[2019-03-03] MEDS: FLUTICASONE 50MCG/NASAL SPRAY 16GM BOTTLE. NS SCH (09:09)
[2019-03-03] MEDS: FUROSEMIDE 40 MG TABLET. PO SCH (09:09)
[2019-03-03] MEDS: cefTRIAXone IV Push 1 GM VIAL. IVP SCH (09:09)
[2019-03-03] MEDS: INSULIN GLARGINE SYRINGE. SQ SCH (09:16)
--- NOTE | 2019-03-03 09:50 | PDOC ---
PROGRESS NOTES Subjective Subjective He admits continued low back pain and last night had radiating pain with associated muscle spasms in his lower extremities. No bowel movement yet. Objective Objective Vital Signs Date Time Temp Pulse Resp B/P (MAP) Pulse Ox O2 Delivery O2 Flow Rate FiO2 03/03/19 09:16 81 150/78 03/03/19 09:16 98 Room Air 17.0 03/03/19 07:00 97.7 18 97.7 Intake and Output 03/03/19 06:59 Intake Total 500 ml Output Total 3050 ml Balance -2550 ml Intake Oral 500 ml Output Urine Total 3050 ml Physical Exam Physical Exam He is sitting in bedside chair and in significant discomfort,less discomfort sitting with abdominal binder on. He continues with significant weakness of left hip flxors and no active left foot dorsiflexion and even more weakness in her right foot dorsiflexors when compared to 03/01/2019.He requires maximal assistance to trying to come to a standing position with roller walker. Assessment Assessment Problems Medical Problems: (1) Anemia Status: Chronic (2) CKD (chronic kidney disease) Status: Chronic (3) Diabetes mellitus Status: Chronic (4) GERD (gastroesophageal reflux disease) Status: Chronic (5) Gouty arthritis Status: Chronic (6) HLD (hyperlipidemia) Status: Chronic (7) HTN (hypertension) Status: Chronic (8) Intractable back pain Status: Acute (9) Left knee DJD Status: Chronic (10) Morbid obesity with BMI of 40.0-44.9, adult Status: Acute (11) Muscle spasm Status: Acute (12) Paresthesia Status: Acute (13) Right knee DJD Status: Chronic (14) Spinal stenosis at L4-L5 level Status: Acute Plan Plan of Care To consider repeat mri scan of lumbar vertebrae or trial of steroids to help reduce edema,which might be responsible to his increased weakness. To work on his constipation. He is not medically stable to go to rehab or SNF yet. Comment Review of Relevant I have reviewed the following items maurisio (where applicable) has been applied. Labs Laboratory Tests Test 03/01/19 11:43 03/01/19 15:06 03/01/19 20:29 03/02/19 07:57 Glucose (Fingerstick) 184 mg/dL (70-99) 179 mg/dL (70-99) 154 mg/dL (70-99) 124 mg/dL (70-99) Test 03/02/19 10:55 03/02/19 16:59 03/03/19 00:02 Glucose (Fingerstick) 162 mg/dL (70-99) 143 mg/dL (70-99) 167 mg/dL (70-99) Laboratory Tests Test 03/02/19 10:55 03/02/19 16:59 03/03/19 00:02 Glucose (Fingerstick) 162 mg/dL (70-99) 143 mg/dL (70-99) 167 mg/dL (70-99) Microbiology 02/26/19 Urine Culture - Final, Complete 02/26/19 Urine Culture Result 1 (DIXIE) - Final, Complete 02/26/19 Antimicrobic Susceptibility - Final, Complete Medications Current Medications Methylprednisolone Sodium Succinate (SOLU-Medrol 125MG VIAL) 125 mg 1X ONCE IV Last administered on 02/26/19 07:55; Start 02/26/19 at 07:15; Stop 02/26/19 at 07:16; Status DC Morphine Sulfate (Morphine Sulfate) 4 mg 1X ONCE IV Last administered on 02/26/19 07:55; Start 02/26/19 at 07:15; Stop 02/26/19 at 07:16; Status DC Orphenadrine Citrate (Norflex) 60 mg 1X ONCE IV Last administered on 02/26/19 07:55; Start 02/26/19 at 07:15; Stop 02/26/19 at 07:16; Status DC Sodium Chloride 1,000 ml @ 100 mls/hr Q10H IV Last administered on 02/27/19 06:22; Start 02/26/19 at 09:02; Stop 02/27/19 at 09:01; Status DC Morphine Sulfate (Morphine Sulfate) 4 mg PRN Q2HR PRN IV PAIN Last administered on 02/28/19at 14:21; Start 02/26/19 at 09:15 Allopurinol (Zyloprim) 300 mg HS PO Last administered on 03/02/19at 20:56; Start 02/26/19 at 21:00 Aspirin (Ecotrin) 81 mg DAILYWBKFT PO Last administered on 03/03/19at 09:16; Start 02/26/19 at 10:30 Cetirizine HCl (ZyrTEC) 10 mg DAILY PO Last administered on 03/03/19 09:16; Start 02/26/19 at 10:30 Vitamin D (Vitamin D3) 2,000 unit DAILY PO ; Start 02/26/19 at 10:30; Status UNV Vitamin D (Vitamin D3) 2,000 unit DAILY PO Last administered on 03/03/19 09:16; Start 02/26/19 at 10:30 Fluticasone Propionate (Flonase) 2 spray DAILY NS Last administered on 03/03/19 09:16; Start 02/26/19 at 10:30 Furosemide (Lasix) 40 mg DAILY PO Last administered on 03/03/19 09:16; Start 02/26/19 at 10:30 Gabapentin (Neurontin) 300 mg TID PO Last administered on 03/03/19 09:16; Start 02/26/19 at 10:30 Metoprolol Succinate (Toprol Xl) 25 mg DAILY PO Last administered on 03/03/19 09:16; Start 02/26/19 at 10:30 Montelukast Sodium (Singulair) 10 mg HS PO Last administered on 03/02/19at 20:56; Start 02/26/19 at 21:00 Potassium Chloride (Klor-Con) 20 meq TIDWMEALS PO Last administered on 03/03/19 09:16; Start 02/26/19 at 12:00 Insulin Glargine (Lantus Syringe) 20 unit DAILY SQ Last administered on 03/03/19 09:16; Start 02/26/19 at 10:30 Lisinopril (Prinivil) 5 mg DAILY PO Last administered on 03/03/19 09:16; Start 02/26/19 at 10:30 Linagliptin (Tradjenta) 5 mg DAILY PO Last administered on 03/03/19 09:16; Start 02/26/19 at 10:30 Oxycodone HCl (Roxicodone) 10 mg PRN Q4HRS PRN PO PAIN; Start 02/26/19 at 10:00; Stop 02/26/19 at 13:41; Status DC Acetaminophen (Tylenol) 650 mg PRN Q6HRS PRN PO MILD PAIN / TEMP; Start 02/26/19 at 10:00 Albuterol Sulfate (Ventolin Neb Soln) 2.5 mg PRN Q6HRS PRN NEB SHORTNESS OF BREATH; Start 02/26/19 at 10:00 Insulin Human Lispro (HumaLOG) 0-8 UNITS BIDBFRMEAL SQ Last administered on 03/01/19at 17:26; Start 02/26/19 at 10:30 Tizanidine HCl (Zanaflex) 4 mg TID PO Last administered on 03/01/19at 10:55; Start 02/26/19 at 10:30; Stop 03/01/19 at 18:10; Status DC Mupirocin (Bactroban) 1 raquel TID TP Last administered on 03/02/19 14:03; Start 02/26/19 at 14:00; Stop 03/02/19 at 15:36; Status DC Oxycodone HCl (Roxicodone) 10 mg Q4HRS PO Last administered on 03/03/19 09:16; Start 02/26/19 at 13:30 Diazepam (Valium) 5 mg PRN 1X PRN PO 30 MIN PRIOR TO MRI Last administered on 02/26/19at 15:41; Start 02/26/19 at 14:00; Stop 02/27/19 at 13:59; Status DC Ondansetron HCl (Zofran) 4 mg PRN Q6HRS PRN IV NAUSEA/VOMITING; Start 02/27/19 at 07:00; Stop 02/27/19 at 20:00; Status DC Fentanyl Citrate (Fentanyl 2ml Vial) 25 mcg PRN Q5MIN PRN IV MILD PAIN 1-3 Last administered on 02/27/19at 17:30; Start 02/27/19 at 07:00; Stop 02/27/19 at 20:00; Status DC Fentanyl Citrate (Fentanyl 2ml Vial) 50 mcg PRN Q5MIN PRN IV MODERATE TO SEVERE PAIN Last administered on 02/27/19at 17:09; Start 02/27/19 at 07:00; Stop 02/27/19 at 20:00; Status DC Morphine Sulfate (Morphine Sulfate) 1 mg PRN Q10MIN PRN IV SEVERE PAIN 7-10 Last administered on 02/27/19at 17:40; Start 02/27/19 at 07:00; Stop 02/27/19 at 20:00; Status DC Ringer's Solution 1,000 ml @ 30 mls/hr Q24H IV Last administered on 02/27/19at 16:56; Start 02/27/19 at 07:00; Stop 02/27/19 at 18:59; Status DC Lidocaine HCl (Xylocaine-Mpf 1% 2ml Vial) 2 ml PRN 1X PRN ID PRIOR TO IV START; Start 02/27/19 at 07:00; Stop 02/27/19 at 20:00; Status DC Hydromorphone HCl (Dilaudid) 0.5 mg PRN Q10MIN PRN IV SEV PAIN, Second choice; Start 02/27/19 at 07:00; Stop 02/27/19 at 20:00; Status DC Prochlorperazine Edisylate (Compazine) 5 mg PACU PRN PRN IV NAUSEA, MRX1; Sta rt 02/27/19 at 07:00; Stop 02/27/19 at 20:00; Status DC Ceftriaxone Sodium (Rocephin) 1 gm Q24H IVP Last administered on 03/03/19at 09:16; Start 02/27/19 at 10:00 Midazolam HCl (Versed) 2 mg STK-MED ONCE .ROUTE ; Start 02/27/19 at 08:22; Stop 02/27/19 at 11:31; Status DC Midazolam HCl (Versed) 2 mg STK-MED ONCE .ROUTE ; Start 02/27/19 at 08:22; Stop 02/27/19 at 11:32; Status DC Propofol 0 ml @ As Directed STK-MED ONCE IV ; Start 02/27/19 at 08:22; Stop 02/27/19 at 11:34; Status DC Ketamine HCl (Ketamine) 50 mg STK-MED ONCE .ROUTE ; Start 02/27/19 at 08:48; Stop 02/27/19 at 11:34; Status DC Fentanyl Citrate (Fentanyl 2ml Vial) 100 mcg STK-MED ONCE .ROUTE ; Start 02/27/19 at 08:49; Stop 02/27/19 at 11:34; Status DC Fentanyl Citrate (Fentanyl 2ml Vial) 100 mcg STK-MED ONCE .ROUTE ; Start 02/27/19 at 10:42; Stop 02/27/19 at 11:34; Status DC Bupivacaine HCl/ Epinephrine Bitart (Sensorcain-Epi 0.5%-1:[id number] Mpf) 30 ml 1X ONCE INJ Last administered on 02/27/19at 15:53; Start 02/27/19 at 12:00; Stop 02/27/19 at 12:01; Status DC Bacitracin 40671 unit/Sodium Chloride 1,000 ml @ 1,000 mls/hr 1X ONCE IRR Last administered on 02/27/19at 13:36; Start 02/27/19 at 12:00; Stop 02/27/19 at 12:59; Status DC Glycopyrrolate (Robinul) 1 mg STK-MED ONCE .ROUTE ; Start 02/27/19 at 11:48; Stop 02/27/19 at 11:49; Status DC Neostigmine Methylsulfate (Bloxiverz) 10 mg STK-MED ONCE .ROUTE ; Start 02/27/19 at 11:49; Stop 02/27/19 at 11:49; Status DC Rocuronium Franklin (Zemuron) 50 mg STK-MED ONCE .ROUTE ; Start 02/27/19 at 11:4 9; Stop 02/27/19 at 11:49; Status DC Remifentanil HCl (Ultiva) 2 mg STK-MED ONCE IV ; Start 02/27/19 at 11:49; Stop 02/27/19 at 11:49; Status DC Etomidate (Amidate) 20 mg STK-MED ONCE IV ; Start 02/27/19 at 11:49; Stop 02/27/19 at 11:49; Status DC Ondansetron HCl (Zofran) 4 mg STK-MED ONCE .ROUTE ; Start 02/27/19 at 11:49; Stop 02/27/19 at 11:50; Status DC Dexamethasone Sodium Phosphate (Decadron) 20 mg STK-MED ONCE .ROUTE ; Start 02/27/19 at 11:49; Stop 02/27/19 at 11:50; Status DC Lidocaine HCl (Lidocaine Pf 2% Vial) 5 ml STK-MED ONCE .ROUTE ; Start 02/27/19 at 11:49; Stop 02/27/19 at 11:50; Status DC Propofol 100 ml @ As Directed STK-MED ONCE IV ; Start 02/27/19 at 11:51; Stop 02/27/19 at 11:52; Status DC Succinylcholine Chloride (Anectine) 200 mg STK-MED ONCE .ROUTE ; Start 02/27/19 at 11:58; Stop 02/27/19 at 11:59; Status DC Gelatin (Gelfoam Dental Sponge Size 4) 1 each STK-MED ONCE .ROUTE ; Start 02/27/19 at 12:10; Stop 02/27/19 at 12:11; Status DC Thrombin (Thrombin Topical) 5,000 unit STK-MED ONCE .ROUTE Last administered on 02/27/19at 13:36; Start 02/27/19 at 12:11; Stop 02/27/19 at 12:11; Status DC Gelatin (Gelfoam Size 12-7mm) 1 each STK-MED ONCE .ROUTE Last administered on 02/27/19at 13:36; Start 02/27/19 at 12:11; Stop 02/27/19 at 12:12; Status DC Gelatin (Gelfoam Size 12-7mm) 1 each STK-MED ONCE .ROUTE Last administered on 02/27/19at 13:36; Start 02/27/19 at 12:11; Stop 02/27/19 at 12:12; Status DC Ketorolac Tromethamine (Toradol Im) 60 mg STK-MED ONCE .ROUTE Last administered on 02/27/19at 13:36; Start 02/27/19 at 12:15; Stop 02/27/19 at 12:16; Status DC Cefazolin Sodium 3 gm/Dextrose 100 ml @ 200 mls/hr 1X PREOP PRN IV PRIOR TO PROCEDURE Last administered on 02/27/19at 14:04; Start 02/27/19 at 12:23; Stop 02/28/19 at 12:22; Status DC Cefazolin Sodium 50 ml @ 100 mls/hr 1X PREOP PRN IV PRE OP DOSE; Start 02/28/19 at 06:00; Stop 02/28/19 at 18:00; Status UNV Lactobacillus Rhamnosus (Culturelle) 1 cap BID PO Last administered on 03/03/19at 09:16; Start 02/27/19 at 21:00 Remifentanil HCl (Ultiva) 1 mg STK-MED ONCE IV ; Start 02/27/19 at 14:40; Stop 02/27/19 at 14:40; Status DC Propofol 50 ml @ As Directed STK-MED ONCE IV ; Start 02/27/19 at 14:48; Stop 02/27/19 at 14:48; Status DC Gelatin (Gelfoam Size 12-7mm) 3 each STK-MED ONCE TP Last administered on 02/27/19at 15:47; Start 02/27/19 at 15:45; Stop 02/27/19 at 15:47; Status DC Throat Lozenges (Cepacol Sore Throat Lozenge) 1 arabella PRN Q2HRS PRN PO SORE THROAT Last administered on 02/27/19at 20:21; Start 02/27/19 at 20:15 Magnesium Hydroxide (Milk Of Magnesia) 2,400 mg PRN DAILY PRN PO CONSTIPATION Last administered on 03/02/19at 09:12; Start 03/01/19 at 10:45 Bisacodyl (Dulcolax Tab) 10 mg PRN DAILY PRN PO CONSTIPATION, 3RD CHOICE; Start 03/01/19 at 10:45 Bisacodyl (Dulcolax Supp) 10 mg PRN DAILY PRN MS CONSTIPATION; Start 03/01/19 at 10:45 Senna/Docusate Sodium (Senna Plus) 1 tab PRN BID PRN PO CONSTIPATION, 2ND CHOICE Last administered on 03/02/19at 09:12; Start 03/01/19 at 10:45 Alprazolam (Xanax) 0.5 mg PRN TID PRN PO ANXIETY / AGITATION Last administered on 03/02/19at 22:43; Start 03/01/19 at 11:30 Lactulose (Lactulose) 20 gm PRN Q2HRS PRN PO IF NO BM BY 1600 Last administered on 03/02/19at 18:10; Start 03/02/19 at 16:00; Stop 03/02/19 at 20:00; Status DC Enoxaparin Sodium (Lovenox 40mg Syringe) 40 mg Q24H SQ Last administered on 03/02/19at 14:03; Start 03/02/19 at 13:00 Lactulose (Lactulose) 20 gm PRN Q2HRS PRN PO IF NO BM BY 1600 Last administered on 03/02/19at 20:56; Start 03/02/19 at 20:30; Stop 03/02/19 at 20:56; Status DC Active Scripts Active Klor-Con M20 (Potassium Chloride) 20 Meq Tab.er.prt 20 Meq PO TIDWMEALS 30 Days Metoprolol Succinate ( Xl ) (Metoprolol Succinate) 25 Mg Tab.er.24h 25 Mg PO DAILY 30 Days Furosemide 40 Mg Tablet 40 Mg PO DAILY 30 Days Vitamin D (Cholecalciferol (Vitamin D3)) 1,000 Unit Tablet 2,000 Unit PO DAILY 30 Days Aspirin Ec (Aspirin) 81 Mg Tablet.dr 81 Mg PO DAILYWBKFT 30 Days Reported Metformin Hcl 1,000 Mg Tablet 1,000 Mg PO BIDWMEALS Fish Oil 1,200 Mg Fish Oil (Fish Oil/Dha/Epa) 1 Each Capsule 1 Each PO Tresiba Flextouch U-100 (Insulin Degludec) 100 Unit/1 Ml Insuln.pen 20 Units SUBCUT DAILY Ramipril 2.5 Mg Capsule 1 Cap PO DAILY Allopurinol 300 Mg Tablet 1 Tab PO HS Singulair Tablet (Montelukast Sodium) 10 Mg Tablet 1 Tab PO HS Gabapentin (Gabapentin) 300 Mg Capsule 1 Cap PO TID Tramadol Hcl 50 Mg Tablet 1 Tab PO PRN Q6HRS Vitals/I & O Vital Sign - Last 24 Hours 03/02/19 03/02/19 03/02/19 03/02/19 10:47 11:00 12:04 15:00 Temp 97.9 98.1 97.9 98.1 Pulse 97 95 Resp 16 18 B/P (MAP) 113/61 (78) 146/71 (96) Pulse Ox 93 92 O2 Delivery Room Air Room Air Room Air Room Air 03/02/19 03/02/19 03/02/19 03/03/19 19:30 20:00 23:22 03:30 Temp 98.5 98.6 98.2 98.5 98.6 98.2 Pulse 93 84 87 Resp 20 24 20 B/P (MAP) 98/54 (69) 113/60 (77) 133/66 (88) Pulse Ox 92 93 95 O2 Delivery Room Air Room Air Room Air Room Air 03/03/19 03/03/19 03/03/19 03/03/19 07:00 09:16 09:16 09:16 Temp 97.7 97.7 Pulse 81 81 81 Resp 18 B/P (MAP) 150/78 (102) 150/78 150/78 Pulse Ox 98 98 O2 Delivery Room Air Room Air O2 Flow Rate 17.0 Intake and Output 03/02/19 03/02/19 03/03/19 14:59 22:59 06:59 Intake Total 200 ml 300 ml Output Total 1700 ml 850 ml 500 ml Balance -1700 ml -650 ml -200 ml TENNILLE HAYDEN MD Mar 03, 2019 09:50
--- NOTE | 2019-03-03 10:36 | PDOC ---
IM PROGRESS NOTES- Subjective Subjective Complaints of left lower extremity weakness. He also has numbness. Yesterday he was feeling better than today. Objective Vitals/I&O Vital Signs Date Time Temp Pulse Resp B/P (MAP) Pulse Ox O2 Delivery O2 Flow Rate FiO2 03/03/19 09:16 81 150/78 03/03/19 09:16 98 Room Air 17.0 03/03/19 07:00 97.7 18 97.7 I & O 03/02/19 03/02/19 03/03/19 15:00 23:00 07:00 Intake Total 200 ml 300 ml Output Total 1700 ml 850 ml 500 ml Balance -1700 ml -650 ml -200 ml Physical Exam Physical Exam General appearance - alert,ill appearing, and in mild distress and oriented to person, place, and time Mental Status - alert, oriented to person, place, and time, affect appropriate to mood Head - normal Chest - clear to auscultation, no wheezes, rales or rhonchi, symmetric air entry Heart - S1 and S2 normal Abdomen - soft, nontender, nondistended, no masses or organomegaly Neurological - alert and oriented Musculoskeletal -lumbosacral spine decreased range of motion. Extremities -trace edema with left lower extremity weakness. Skin - warm and dry Labs Laboratory Tests Test 03/02/19 10:55 03/02/19 16:59 03/03/19 00:02 Glucose (Fingerstick) 162 mg/dL (70-99) H 143 mg/dL (70-99) H 167 mg/dL (70-99) H Meds Current Medications Medications (Trade) Dose Ordered Sig/Tavia Route PRN Reason Start Time Stop Time Status Last Admin Dose Admin Lactulose (Lactulose) 20 gm PRN Q2HRS PRN PO IF NO BM BY 1600 03/02/19 16:00 03/02/19 20:00 DC 03/02/19 18:10 Enoxaparin Sodium (Lovenox 40mg Syringe) 40 mg Q24H SQ 03/02/19 13:00 03/02/19 14:03 Lactulose (Lactulose) 20 gm PRN Q2HRS PRN PO IF NO BM BY 1600 03/02/19 20:30 03/02/19 20:56 DC 03/02/19 20:56 Assessment Assessment *E Coli UTI 1. Acute lumbar radiculopathy. 2. Intractable low back pain. 3. 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 4. Chronic systolic congestive heart failure, severe. 5. Gout. 6. Morbid obesity. 7. Hypertension. 8. Hyperlipidemia. 9. Gastroesophageal reflux disease. 10. Osteoarthritis of the knees. 11. Chronic sinusitis. 12. History of kidney stones. 13. Eczema. 14. Allergic rhinitis. 15. History of neck surgery. 16. History of dual-chamber AICD placed in 2018 and subsequently had revision of the right ventricular lead because of the fracture. PLAN: 02/27/19:OPERATION PERFORMED: Right T10-T11 transfacet/transpedicular approach with removal of herniated thoracic disk and decompression of the spinal cord. The operation was done with multimodality monitoring including SSEP, motor-evoked potentials and we also used fluoroscopy, microscopic dissection. IV Rocephin for uti. Urine culture shows Escherichia coli sensitive to Rocephin. pt/ot. pain control. Constipation- see orders. Diabetes mellitus type 2 with neuropathy controlled Recheck labs in a.m. Condition treatment extensively discussed with the patient and his . Depending on his condition he may have to go to either senior care unit or [facility] Plan Plan For more details regarding further plans, please refer to the orders. GUILLE ALONZO MD Mar 03, 2019 10:36
[2019-03-03 11:00] VITALS: BP 120/68
[2019-03-03] MEDS: SENNOSIDES/DOCUSATE 8.6/50MG TABLET. PO SCH (12:21)
[2019-03-03] MEDS: ENOXAPARIN 40 MG/0.4 ML SYRINGE. SQ SCH (12:23)
[2019-03-03 15:00] VITALS: BP 139/59
--- NOTE | 2019-03-03 15:42 | PDOC ---
PROGRESS NOTES Subjective Subjective POD #4 sitting on side of bed feels stronger stood for several minutes today with PT Objective Objective Vital Signs Date Time Temp Pulse Resp B/P (MAP) Pulse Ox O2 Delivery O2 Flow Rate FiO2 03/03/19 12:23 92 Room Air 17.0 03/03/19 11:00 97.8 93 18 120/68 (85) 97.8 Intake and Output 03/03/19 07:00 Intake Total 500 ml Output Total 3050 ml Balance -2550 ml Intake Oral 500 ml Output Urine Total 3050 ml Physical Exam Neuro: Other (right LE strength distally is 5/5) Skin: Other (dressing C,D,I, flat) Assessment Assessment Problems Medical Problems: (1) Anemia Status: Chronic (2) CKD (chronic kidney disease) Status: Chronic (3) Diabetes mellitus Status: Chronic (4) GERD (gastroesophageal reflux disease) Status: Chronic (5) Gouty arthritis Status: Chronic (6) HLD (hyperlipidemia) Status: Chronic (7) HTN (hypertension) Status: Chronic (8) Intractable back pain Status: Acute (9) Left knee DJD Status: Chronic (10) Morbid obesity with BMI of 40.0-44.9, adult Status: Acute (11) Muscle spasm Status: Acute (12) Paresthesia Status: Acute (13) Right knee DJD Status: Chronic (14) Spinal stenosis at L4-L5 level Status: Acute Plan Plan of Care I am pleased with his progress The morning of surgery he was virtually paraplegia He does have stenosis and disc at L4-5 but by history I feel predates his thoracic disc herniation and can be dealt with in the future. [facility] and and with PT Comment Review of Relevant I have reviewed the following items maurisio (where applicable) has been applied. Labs Laboratory Tests Test 03/01/19 20:29 03/02/19 07:57 03/02/19 10:55 03/02/19 16:59 Glucose (Fingerstick) 154 mg/dL (70-99) 124 mg/dL (70-99) 162 mg/dL (70-99) 143 mg/dL (70-99) Test 03/03/19 00:02 03/03/19 07:59 03/03/19 11:42 Glucose (Fingerstick) 167 mg/dL (70-99) 145 mg/dL (70-99) 174 mg/dL (70-99) Laboratory Tests Test 03/02/19 16:59 03/03/19 00:02 03/03/19 07:59 03/03/19 11:42 Glucose (Fingerstick) 143 mg/dL (70-99) 167 mg/dL (70-99) 145 mg/dL (70-99) 174 mg/dL (70-99) Microbiology 02/26/19 Urine Culture - Final, Complete 02/26/19 Urine Culture Result 1 (DIXIE) - Final, Complete 02/26/19 Antimicrobic Susceptibility - Final, Complete Medications Current Medications Methylprednisolone Sodium Succinate (SOLU-Medrol 125MG VIAL) 125 mg 1X ONCE IV Last administered on 02/26/19 07:55; Start 02/26/19 at 07:15; Stop 02/26/19 at 07:16; Status DC Morphine Sulfate (Morphine Sulfate) 4 mg 1X ONCE IV Last administered on 02/26/19at 07:55; Start 02/26/19 at 07:15; Stop 02/26/19 at 07:16; Status DC Orphenadrine Citrate (Norflex) 60 mg 1X ONCE IV Last administered on 02/26/19at 07:55; Start 02/26/19 at 07:15; Stop 02/26/19 at 07:16; Status DC Sodium Chloride 1,000 ml @ 100 mls/hr Q10H IV Last administered on 02/27/19 06:22; Start 02/26/19 at 09:02; Stop 02/27/19 at 09:01; Status DC Morphine Sulfate (Morphine Sulfate) 4 mg PRN Q2HR PRN IV PAIN Last administered on 02/28/19at 14:21; Start 02/26/19 at 09:15 Allopurinol (Zyloprim) 300 mg HS PO Last administered on 03/02/19at 20:56; Start 02/26/19 at 21:00 Aspirin (Ecotrin) 81 mg DAILYWBKFT PO Last administered on 03/03/19at 09:16; Start 02/26/19 at 10:30 Cetirizine HCl (ZyrTEC) 10 mg DAILY PO Last administered on 03/03/19at 09:16; Start 02/26/19 at 10:30 Vitamin D (Vitamin D3) 2,000 unit DAILY PO ; Start 02/26/19 at 10:30; Status UNV Vitamin D (Vitamin D3) 2,000 unit DAILY PO Last administered on 03/03/19 09:16; Start 02/26/19 at 10:30 Fluticasone Propionate (Flonase) 2 spray DAILY NS Last administered on 03/03/19 09:16; Start 02/26/19 at 10:30 Furosemide (Lasix) 40 mg DAILY PO Last administered on 03/03/19 09:16; Start 02/26/19 at 10:30 Gabapentin (Neurontin) 300 mg TID PO Last administered on 03/03/19 09:16; Start 02/26/19 at 10:30 Metoprolol Succinate (Toprol Xl) 25 mg DAILY PO Last administered on 03/03/19 09:16; Start 02/26/19 at 10:30 Montelukast Sodium (Singulair) 10 mg HS PO Last administered on 03/02/19 20:56; Start 02/26/19 at 21:00 Potassium Chloride (Klor-Con) 20 meq TIDWMEALS PO Last administered on 03/03/19 12:23; Start 02/26/19 at 12:00 Insulin Glargine (Lantus Syringe) 20 unit DAILY SQ Last administered on 03/03/19 09:16; Start 02/26/19 at 10:30 Lisinopril (Prinivil) 5 mg DAILY PO Last administered on 03/03/19 09:16; Start 02/26/19 at 10:30 Linagliptin (Tradjenta) 5 mg DAILY PO Last administered on 03/03/19 09:16; Start 02/26/19 at 10:30 Oxycodone HCl (Roxicodone) 10 mg PRN Q4HRS PRN PO PAIN; Start 02/26/19 at 10:00; Stop 02/26/19 at 13:41; Status DC Acetaminophen (Tylenol) 650 mg PRN Q6HRS PRN PO MILD PAIN / TEMP; Start 02/26/19 at 10:00 Albuterol Sulfate (Ventolin Neb Soln) 2.5 mg PRN Q6HRS PRN NEB SHORTNESS OF BREATH; Start 02/26/19 at 10:00 Insulin Human Lispro (HumaLOG) 0-8 UNITS BIDBFRMEAL SQ Last administered on 03/01/19 17:26; Start 02/26/19 at 10:30 Tizanidine HCl (Zanaflex) 4 mg TID PO Last administered on 03/01/19 10:55; Start 02/26/19 at 10:30; Stop 03/01/19 at 18:10; Status DC Mupirocin (Bactroban) 1 raquel TID TP Last administered on 03/02/19 14:03; Start 02/26/19 at 14:00; Stop 03/02/19 at 15:36; Status DC Oxycodone HCl (Roxicodone) 10 mg Q4HRS PO Last administered on 03/03/19 12:23; Start 02/26/19 at 13:30 Diazepam (Valium) 5 mg PRN 1X PRN PO 30 MIN PRIOR TO MRI Last administered on 02/26/19 15:41; Start 02/26/19 at 14:00; Stop 02/27/19 at 13:59; Status DC Ondansetron HCl (Zofran) 4 mg PRN Q6HRS PRN IV NAUSEA/VOMITING; Start 02/27/19 at 07:00; Stop 02/27/19 at 20:00; Status DC Fentanyl Citrate (Fentanyl 2ml Vial) 25 mcg PRN Q5MIN PRN IV MILD PAIN 1-3 Last administered on 02/27/19 17:30; Start 02/27/19 at 07:00; Stop 02/27/19 at 20: 00; Status DC Fentanyl Citrate (Fentanyl 2ml Vial) 50 mcg PRN Q5MIN PRN IV MODERATE TO SEVERE PAIN Last administered on 02/27/19 17:09; Start 02/27/19 at 07:00; Stop 02/27/19 at 20:00; Status DC Morphine Sulfate (Morphine Sulfate) 1 mg PRN Q10MIN PRN IV SEVERE PAIN 7-10 Last administered on 02/27/19at 17:40; Start 02/27/19 at 07:00; Stop 02/27/19 at 20:00; Status DC Ringer's Solution 1,000 ml @ 30 mls/hr Q24H IV Last administered on 02/27/19at 16:56; Start 02/27/19 at 07:00; Stop 02/27/19 at 18:59; Status DC Lidocaine HCl (Xylocaine-Mpf 1% 2ml Vial) 2 ml PRN 1X PRN ID PRIOR TO IV START; Start 02/27/19 at 07:00; Stop 02/27/19 at 20:00; Status DC Hydromorphone HCl (Dilaudid) 0.5 mg PRN Q10MIN PRN IV SEV PAIN, Second choice; Start 02/27/19 at 07:00; Stop 02/27/19 at 20:00; Status DC Prochlorperazine Edisylate (Compazine) 5 mg PACU PRN PRN IV NAUSEA, MRX1; Start 02/27/19 at 07:00; Stop 02/27/19 at 20:00; Status DC Ceftriaxone Sodium (Rocephin) 1 gm Q24H IVP Last administered on 03/03/19at 09:16; Start 02/27/19 at 10:00; Stop 03/03/19 at 14:34; Status DC Midazolam HCl (Versed) 2 mg STK-MED ONCE .ROUTE ; Start 02/27/19 at 08:22; Stop 02/27/19 at 11:31; Status DC Midazolam HCl (Versed) 2 mg STK-MED ONCE .ROUTE ; Start 02/27/19 at 08:22; Stop 02/27/19 at 11:32; Status DC Propofol 0 ml @ As Directed STK-MED ONCE IV ; Start 02/27/19 at 08:22; Stop 02/27/19 at 11:34; Status DC Ketamine HCl (Ketamine) 50 mg STK-MED ONCE .ROUTE ; Start 02/27/19 at 08:48; Stop 02/27/19 at 11:34; Status DC Fentanyl Citrate (Fentanyl 2ml Vial) 100 mcg STK-MED ONCE .ROUTE ; Start 02/27/19 at 08:49; Stop 02/27/19 at 11:34; Status DC Fentanyl Citrate (Fentanyl 2ml Vial) 100 mcg STK-MED ONCE .ROUTE ; Start 02/27/19 at 10:42; Stop 02/27/19 at 11:34; Status DC Bupivacaine HCl/ Epinephrine Bitart (Sensorcain-Epi 0.5%-1:352815 Mpf) 30 ml 1X ONCE INJ Last administered on 02/27/19at 15:53; Start 02/27/19 at 12:00; Stop 02/27/19 at 12:01; Status DC Bacitracin 92537 unit/Sodium Chloride 1,000 ml @ 1,000 mls/hr 1X ONCE IRR Last administered on 02/27/19at 13:36; Start 02/27/19 at 12:00; Stop 02/27/19 at 12:59; Status DC Glycopyrrolate (Robinul) 1 mg STK-MED ONCE .ROUTE ; Start 02/27/19 at 11:48; Stop 02/27/19 at 11:49; Status DC Neostigmine Methylsulfate (Bloxiverz) 10 mg STK-MED ONCE .ROUTE ; Start 02/27/19 at 11:49; Stop 02/27/19 at 11:49; Status DC Rocuronium [place] (Zemuron) 50 mg STK-MED ONCE .ROUTE ; Start 02/27/19 at 11:49; Stop 02/27/19 at 11:49; Status DC Remifentanil HCl (Ultiva) 2 mg STK-MED ONCE IV ; Start 02/27/19 at 11:49; Stop 02/27/19 at 11:49; Status DC Etomidate (Amidate) 20 mg STK-MED ONCE IV ; Start 02/27/19 at 11:49; Stop 02/27/19 at 11:49; Status DC Ondansetron HCl (Zofran) 4 mg STK-MED ONCE .ROUTE ; Start 02/27/19 at 11:49; Stop 02/27/19 at 11:50; Status DC Dexamethasone Sodium Phosphate (Decadron) 20 mg STK-MED ONCE .ROUTE ; Start 02/27/19 at 11:49; Stop 02/27/19 at 11:50; Status DC Lidocaine HCl (Lidocaine Pf 2% Vial) 5 ml STK-MED ONCE .ROUTE ; Start 02/27/19 at 11:49; Stop 02/27/19 at 11:50; Status DC Propofol 100 ml @ As Directed STK-MED ONCE IV ; Start 02/27/19 at 11:51; Stop 02/27/19 at 11:52; Status DC Succinylcholine Chloride (Anectine) 200 mg STK-MED ONCE .ROUTE ; Start 02/27/19 at 11:58; Stop 02/27/19 at 11:59; Status DC Gelatin (Gelfoam Dental Sponge Size 4) 1 each STK-MED ONCE .ROUTE ; Start 02/27/19 at 12:10; Stop 02/27/19 at 12:11; Status DC Thrombin (Thrombin Topical) 5,000 unit STK-MED ONCE .ROUTE Last administered on 02/27/19 13:36; Start 02/27/19 at 12:11; Stop 02/27/19 at 12:11; Status DC Gelatin (Gelfoam Size 12-7mm) 1 each STK-MED ONCE .ROUTE Last administered on 02/27/19at 13:36; Start 02/27/19 at 12:11; Stop 02/27/19 at 12:12; Status DC Gelatin (Gelfoam Size 12-7mm) 1 each STK-MED ONCE .ROUTE Last administered on 02/27/19at 13:36; Start 02/27/19 at 12:11; Stop 02/27/19 at 12:12; Status DC Ketorolac Tromethamine (Toradol Im) 60 mg STK-MED ONCE .ROUTE Last administered on 02/27/19at 13:36; Start 02/27/19 at 12:15; Stop 02/27/19 at 12:16; Status DC Cefazolin Sodium 3 gm/Dextrose 100 ml @ 200 mls/hr 1X PREOP PRN IV PRIOR TO PROCEDURE Last administered on 02/27/19at 14:04; Start 02/27/19 at 12:23; Stop 02/28/19 at 12:22; Status DC Cefazolin Sodium 50 ml @ 100 mls/hr 1X PREOP PRN IV PRE OP DOSE; Start 02/28/19 at 06:00; Stop 02/28/19 at 18:00; Status UNV Lactobacillus Rhamnosus (Culturelle) 1 cap BID PO Last administered on 03/03/19at 09:16; Start 02/27/19 at 21:00 Remifentanil HCl (Ultiva) 1 mg STK-MED ONCE IV ; Start 02/27/19 at 14:40; Stop 02/27/19 at 14:40; Status DC Propofol 50 ml @ As Directed STK-MED ONCE IV ; Start 02/27/19 at 14:48; Stop 02/27/19 at 14:48; Status DC Gelatin (Gelfoam Size 12-7mm) 3 each STK-MED ONCE TP Last administered on 02/27/19at 15:47; Start 02/27/19 at 15:45; Stop 02/27/19 at 15:47; Status DC Throat Lozenges (Cepacol Sore Throat Lozenge) 1 arabella PRN Q2HRS PRN PO SORE THROAT Last administered on 02/27/19at 20:21; Start 02/27/19 at 20:15 Magnesium Hydroxide (Milk Of Magnesia) 2,400 mg PRN DAILY PRN PO CONSTIPATION Last administered on 03/02/19at 09:12; Start 03/01/19 at 10:45 Bisacodyl (Dulcolax Tab) 10 mg PRN DAILY PRN PO CONSTIPATION, 3RD CHOICE; Start 03/01/19 at 10:45 Bisacodyl (Dulcolax Supp) 10 mg PRN DAILY PRN DE CONSTIPATION; Start 03/01/19 at 10:45 Senna/Docusate Sodium (Senna Plus) 1 tab PRN BID PRN PO CONSTIPATION, 2ND CHOICE Last administered on 03/02/19at 09:12; Start 03/01/19 at 10:45; Stop 03/03/19 at 10:38; Status DC Alprazolam (Xanax) 0.5 mg PRN TID PRN PO ANXIETY / AGITATION Last administered on 03/02/19at 22:43; Start 03/01/19 at 11:30 Lactulose (Lactulose) 20 gm PRN Q2HRS PRN PO IF NO BM BY 1600 Last administered on 03/02/19at 18:10; Start 03/02/19 at 16:00; Stop 03/02/19 at 20:00; Status DC Enoxaparin Sodium (Lovenox 40mg Syringe) 40 mg Q24H SQ Last administered on 03/03/19at 12:23; Start 03/02/19 at 13:00 Lactulose (Lactulose) 20 gm PRN Q2HRS PRN PO IF NO BM BY 1600 Last administered on 03/02/19at 20:56; Start 03/02/19 at 20:30; Stop 03/02/19 at 20:56; Status DC Senna/Docusate Sodium (Senna Plus) 2 tab DAILY PO Last administered on 03/03/19at 12:23; Start 03/03/19 at 11:00 Cefdinir (Omnicef) 300 mg BID PO ; Start 03/03/19 at 21:00 Active Scripts Active Klor-Con M20 (Potassium Chloride) 20 Meq Tab.er.prt 20 Meq PO TIDWMEALS 30 Days Metoprolol Succinate ( Xl ) (Metoprolol Succinate) 25 Mg Tab.er.24h 25 Mg PO DAILY 30 Days Furosemide 40 Mg Tablet 40 Mg PO DAILY 30 Days Vitamin D (Cholecalciferol (Vitamin D3)) 1,000 Unit Tablet 2,000 Unit PO DAILY 30 Days Aspirin Ec (Aspirin) 81 Mg Tablet.dr 81 Mg PO DAILYWBKFT 30 Days Reported Metformin Hcl 1,000 Mg Tablet 1,000 Mg PO BIDWMEALS Fish Oil 1,200 Mg Fish Oil (Fish Oil/Dha/Epa) 1 Each Capsule 1 Each PO Tresiba Flextouch U-100 (Insulin Degludec) 100 Unit/1 Ml Insuln.pen 20 Units SUBCUT DAILY Ramipril 2.5 Mg Capsule 1 Cap PO DAILY Allopurinol 300 Mg Tablet 1 Tab PO HS Singulair Tablet (Montelukast Sodium) 10 Mg Tablet 1 Tab PO HS Gabapentin (Gabapentin) 300 Mg Capsule 1 Cap PO TID Tramadol Hcl 50 Mg Tablet 1 Tab PO PRN Q6HRS Vitals/I & O Vital Sign - Last 24 Hours 03/02/19 03/02/19 03/02/19 03/03/19 19:30 20:00 23:22 03:30 Temp 98.5 98.6 98.2 98.5 98.6 98.2 Pulse 93 84 87 Resp 20 24 20 B/P (MAP) 98/54 (69) 113/60 (77) 133/66 (88) Pulse Ox 92 93 95 O2 Delivery Room Air Room Air Room Air Room Air 03/03/19 03/03/19 03/03/19 03/03/19 07:00 08:00 09:16 09:16 Temp 97.7 97.7 Pulse 81 81 Resp 18 B/P (MAP) 150/78 (102) 150/78 Pulse Ox 98 98 O2 Delivery Room Air Room Air Room Air O2 Flow Rate 17.0 03/03/19 03/03/19 03/03/19 03/03/19 09:16 10:34 11:00 12:23 Temp 97.8 97.8 Pulse 81 93 Resp 18 B/P (MAP) 150/78 120/68 (85) Pulse Ox 98 92 92 O2 Delivery Room Air Room Air Room Air O2 Flow Rate 17.0 17.0 Intake and Output 03/02/19 03/02/19 03/03/19 15:00 23:00 07:00 Intake Total 200 ml 300 ml Output Total 1700 ml 850 ml 500 ml Balance -1700 ml -650 ml -200 ml EDUIN DOVE MD Mar 03, 2019 15:42
--- NOTE | 2019-03-03 17:07 | PATHOLOGY ---
[facility] Accession Number: [id number] . 01 Material submitted: . vertebral column - THORACIC DECOMPRESSION AND DISC . 01 Clinical history: . Thoracic stenosis . 02 Diagnosis: Segments of fibrocartilaginous tissue and bone, thoracic decompression and disc: - Degenerative changes of fibrocartilaginous tissue. . (JPM:mml; 03/03/2019) M 03/03/2019 0945 Local . 02 Comment: There is no evidence of an acute inflammatory process or malignancy. . (JPM:mml; 03/03/2019) . 02 Electronically signed: . Pillo Pittman MD, Pathologist NPI- [id number] . 01 Gross description: . Received in formalin labeled "Mark Perdue Jr, thoracic decompression and disc," are several pieces of glistening, fibrous tissue measuring 3.0 x 1.1 x 1.2 cm in aggregate dimensions, containing small fragments of possible bone. The tissue is submitted representatively in cassette A1, following decalcification. (TSD; 02/28/2019) TOB/TOB 03/03/2019 0942 Local . 02 Pathologist provided ICD-10: M48.04 . 02 CPT . 160450, [id number] Specimen Comment: A courtesy copy of this report has been sent to Specimen Comment: [phone], , . Specimen Comment: Report sent to ,DR ALONZO / DR VICKERS Performed at: 01 [facility] [address], [place], [place] [id number] MD Jerrod Min MD Phone: [phone] Performed at: 02 [facility] [place] [address] [place], [place] [id number] MD Pillo Pittman MD Phone: [phone]
[2019-03-03 19:23] VITALS: BP 106/60
[2019-03-03] MEDS: ALLOPURINOL 300 MG TABLET. PO SCH (20:37)
[2019-03-03] MEDS: MONTELUKAST SODIUM 10 MG TABLET. PO SCH (20:37)
[2019-03-03] MEDS: CEFDINIR 300 MG CAPSULE PO SCH (20:37)
[2019-03-03 23:46] VITALS: BP 105/58
[2019-03-04 03:29] VITALS: BP 139/49
[2019-03-04] MEDS: oxyCODONE IR 5 MG TABLET PO SCH ×4 (05:14→12:15)
[2019-03-04 06:01] LABS: BASO # 0.1 x10^3/uL (0.0-0.2); BASO % 1 % (0-3); EOS # 0.5 x10^3/uL (0.0-0.7); EOS % 7 % (0-3); HEMATOCRIT 38.2 % (39.0-53.0); HEMOGLOBIN 12.7 g/dL (13.0-17.5); LYMPH # 1.4 x10^3/uL (1.0-4.8); LYMPH % 18 % (24-48); MEAN CORPUSCULAR HEMOGLOBIN 31 pg (25-35); MEAN CORPUSCULAR HGB CONC 33 g/dL (31-37); MEAN CORPUSCULAR VOLUME 94 fL (79-100); MONO # 0.9 x10^3/uL (0.0-1.1); MONO % 11 % (0-9); NEUT # 5.2 x10^3/uL (1.8-7.7); NEUT % 64 % (31-73); PLATELET COUNT 196 x10^3/uL (140-400); RED BLOOD COUNT 4.05 x10^6/uL (4.30-5.70); RED CELL DISTRIBUTION WIDTH 14.4 % (11.5-14.5); WHITE BLOOD COUNT 8.1 x10^3/uL (4.0-11.0)
[2019-03-04 06:32] LABS: CREATININE 1.3 mg/dL (0.7-1.3); GFR 67.5; POTASSIUM 4.6 mmol/L (3.5-5.1)
[2019-03-04 07:00] VITALS: BP 132/83
[2019-03-04] MEDS: INSULIN LISPRO 300 UNITS/3 ML VIAL. SQ SCH ×2 (07:30→17:09)
[2019-03-04] MEDS: LINAGLIPTIN 5 MG TABLET PO SCH (08:53)
[2019-03-04] MEDS: LISINOPRIL 5 MG TABLET. PO SCH (08:53)
[2019-03-04] MEDS: POTASSIUM CHLORIDE 20 MEQ TABLET.ER. PO SCH ×3 (08:54→17:00)
[2019-03-04] MEDS: GABAPENTIN 300 MG CAPSULE. PO SCH ×3 (08:54→22:26)
[2019-03-04] MEDS: CHOLECALCIFEROL (VITAMIN D3) 1,000 UNIT TABLET PO SCH (08:54)
[2019-03-04] MEDS: CETIRIZINE HCL 10 MG TABLET. PO SCH (08:54)
[2019-03-04] MEDS: FLUTICASONE 50MCG/NASAL SPRAY 16GM BOTTLE. NS SCH (08:54)
[2019-03-04] MEDS: ASPIRIN ENTERIC COATED 81 MG TABLET.DR. PO SCH (08:54)
[2019-03-04] MEDS: SENNOSIDES/DOCUSATE 8.6/50MG TABLET. PO SCH (08:54)
[2019-03-04] MEDS: LACTOBACILLUS RHAMNOSUS GG 1 CAPSULE. PO SCH ×2 (08:54→22:25)
[2019-03-04] MEDS: CEFDINIR 300 MG CAPSULE PO SCH ×2 (08:54→22:25)
[2019-03-04] MEDS: METOPROLOL SUCC 24HR ER 25 MG TAB.ER.24H. PO SCH (08:54)
[2019-03-04] MEDS: FUROSEMIDE 40 MG TABLET. PO SCH (08:54)
[2019-03-04] MEDS: INSULIN GLARGINE SYRINGE. SQ SCH (09:00)
--- NOTE | 2019-03-04 09:14 | PDOC ---
IM PROGRESS NOTES- Subjective Subjective Complaints of left lower extremity weakness. He also has numbness in both lower extremities.. Feeling depressed. Objective Vitals/I&O Vital Signs Date Time Temp Pulse Resp B/P (MAP) Pulse Ox O2 Delivery O2 Flow Rate FiO2 03/04/19 08:55 96 132/83 03/04/19 08:55 Room Air 03/04/19 07:00 98.2 18 97 98.2 03/03/19 17:01 17.0 I & O 03/03/19 03/03/19 03/04/19 15:00 23:00 07:00 Intake Total 420 ml 395 ml 400 ml Output Total 1300 ml 2150 ml 600 ml Balance -880 ml -1755 ml -200 ml Physical Exam Physical Exam General appearance - alert,ill appearing, and in mild distress and oriented to person, place, and time Mental Status - alert, oriented to person, place, and time, affect appropriate to mood Head - normal Chest - clear to auscultation, no wheezes, rales or rhonchi, symmetric air entry Heart - S1 and S2 normal Abdomen - soft, nontender, nondistended, no masses or organomegaly Neurological - alert and oriented,depressed Musculoskeletal -lumbosacral spine decreased range of motion. Extremities -moving legs and feet better than yesterday. Still has some weakness. Skin - warm and dry Labs Laboratory Tests Test 03/03/19 11:42 03/03/19 16:22 03/03/19 20:40 03/04/19 05:50 Glucose (Fingerstick) 174 mg/dL (70-99) H 180 mg/dL (70-99) H 200 mg/dL (70-99) H White Blood Count 8.1 x10^3/uL (4.0-11.0) Red Blood Count 4.05 x10^6/uL (4.30-5.70) L Hemoglobin 12.7 g/dL (13.0-17.5) L Hematocrit 38.2 % (39.0-53.0) L Mean Corpuscular Volume 94 fL (79-100) Mean Corpuscular Hemoglobin 31 pg (25-35) Mean Corpuscular Hemoglobin Concent 33 g/dL (31-37) Red Cell Distribution Width 14.4 % (11.5-14.5) Platelet Count 196 x10^3/uL (140-400) Neutrophils (%) (Auto) 64 % (31-73) Lymphocytes (%) (Auto) 18 % (24-48) L Monocytes (%) (Auto) 11 % (0-9) H Eosinophils (%) (Auto) 7 % (0-3) H Basophils (%) (Auto) 1 % (0-3) Neutrophils # (Auto) 5.2 x10^3/uL (1.8-7.7) Lymphocytes # (Auto) 1.4 x10^3/uL (1.0-4.8) Monocytes # (Auto) 0.9 x10^3/uL (0.0-1.1) Eosinophils # (Auto) 0.5 x10^3/uL (0.0-0.7) Basophils # (Auto) 0.1 x10^3/uL (0.0-0.2) Sodium Level 140 mmol/L (136-145) Potassium Level 4.6 mmol/L (3.5-5.1) Chloride Level 105 mmol/L (98-107) Carbon Dioxide Level 29 mmol/L (21-32) Anion Gap 6 (6-14) Blood Urea Nitrogen 16 mg/dL (8-26) Creatinine 1.3 mg/dL (0.7-1.3) Estimated GFR (Cockcroft-Gault) 67.5 Glucose Level 165 mg/dL (70-99) H Calcium Level 9.0 mg/dL (8.5-10.1) Test 03/04/19 07:59 Glucose (Fingerstick) 144 mg/dL (70-99) H Laboratory Tests 03/04/19 05:50 Laboratory Tests 03/04/19 05:50 Meds Current Medications Medications (Trade) Dose Ordered Sig/Tavia Route PRN Reason Start Time Stop Time Status Last Admin Dose Admin Senna/Docusate Sodium (Senna Plus) 2 tab DAILY PO 03/03/19 11:00 03/04/19 08:55 Cefdinir (Omnicef) 300 mg BID PO 03/03/19 21:00 03/04/19 08:55 Assessment Assessment *E Coli UTI 1. Acute lumbar radiculopathy. 2. Intractable low back pain. 3. 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 4. Chronic systolic congestive heart failure, severe. 5. Gout. 6. Morbid obesity. 7. Hypertension. 8. Hyperlipidemia. 9. Gastroesophageal reflux disease. 10. Osteoarthritis of the knees. 11. Chronic sinusitis. 12. History of kidney stones. 13. Eczema. 14. Allergic rhinitis. 15. History of neck surgery. 16. History of dual-chamber AICD placed in 2018 and subsequently had revision of the right ventricular lead because of the fracture. PLAN: 02/27/19:OPERATION PERFORMED: Right T10-T11 transfacet/transpedicular approach with removal of herniated thoracic disk and decompression of the spinal cord. The operation was done with multimodality monitoring including SSEP, motor-evoked potentials and we also used fluoroscopy, microscopic dissection. Lower extremity weakness is somewhat better. Still has lot of numbness and weakness. Depression- start Cymbalta. IV Rocephin for uti. Urine culture shows Escherichia coli sensitive to Rocephin. pt/ot. pain control. Constipation- see orders. Diabetes mellitus type 2 with neuropathy controlled Recheck labs in a.m. Depending on his condition he may have to go to either longterm unit or [facility] when ready. Plan Plan For more details regarding further plans, please refer to the orders. GUILLE ALONZO MD Mar 04, 2019 09:14
[2019-03-04] MEDS ORDERED: DULO30CA2 PO (09:49)
[2019-03-04] MEDS ORDERED: INSU100I11 SQ (09:49)
[2019-03-04] MEDS ORDERED: ENOX40DI3 SQ (09:49)
[2019-03-04] MEDS ORDERED: ACET325T9 PO (09:49)
[2019-03-04] MEDS ORDERED: OXYC5TAB4 PO (09:49)
[2019-03-04] MEDS ORDERED: LINA5TAB PO (09:49)
[2019-03-04] MEDS ORDERED: CETI10TA16 PO (09:49)
[2019-03-04] MEDS ORDERED: LACT1CAP19 PO (09:49)
[2019-03-04] MEDS ORDERED: FLUT16SP NS (09:49)
[2019-03-04] MEDS ORDERED: BISA10SU4 PR (09:49)
[2019-03-04] MEDS ORDERED: BISA5TAB4 PO (09:49)
[2019-03-04] MEDS ORDERED: CEFD300C PO (09:49)
[2019-03-04] MEDS: DULoxetine HCL 30 MG CAPSULE.DR PO SCH (10:40)
[2019-03-04 11:00] VITALS: BP 127/78
[2019-03-04] MEDS: ENOXAPARIN 40 MG/0.4 ML SYRINGE. SQ SCH (12:17)
--- NOTE | 2019-03-04 12:56 | PDOC ---
PROGRESS NOTES Subjective Subjective No new complaints. He remains constipated. Objective Objective Vital Signs Date Time Temp Pulse Resp B/P (MAP) Pulse Ox O2 Delivery O2 Flow Rate FiO2 03/04/19 12:17 Room Air 03/04/19 11:00 97.9 96 18 127/78 (94) 95 97.9 03/03/19 17:01 17.0 Intake and Output 03/04/19 07:00 Intake Total 1215 ml Output Total 4050 ml Balance -2835 ml Intake Oral 1215 ml Output Urine Total 4050 ml Physical Exam Physical Exam He is alert,sitting in bedside chair and he continues with painfully limited lumbar spine ROM and diffuse tenderness to palpation over lumbar area. He continues with relative weakness of left hip flexors and left foot dorsiflexors,where he had 1/5 grade muscle strength this AM and 5/5 grade muscle strength in right foot dorsiflexor muscles,improvement when compared to yesterday morning. He continues to require maximal assistance for mobility and self care. 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 He may be better off going to a senior care care unit where he can paotentially can continue rehab follow up at his own pace. Comment Review of Relevant I have reviewed the following items maurisio (where applicable) has been applied. Labs Laboratory Tests Test 03/02/19 16:59 03/03/19 00:02 03/03/19 07:59 03/03/19 11:42 Glucose (Fingerstick) 143 mg/dL (70-99) 167 mg/dL (70-99) 145 mg/dL (70-99) 174 mg/dL (70-99) Test 03/03/19 16:22 03/03/19 20:40 03/04/19 05:50 03/04/19 07:59 Glucose (Fingerstick) 180 mg/dL (70-99) 200 mg/dL (70-99) 144 mg/dL (70-99) White Blood Count 8.1 x10^3/uL (4.0-11.0) Red Blood Count 4.05 x10^6/uL (4.30-5.70) Hemoglobin 12.7 g/dL (13.0-17.5) Hematocrit 38.2 % (39.0-53.0) Mean Corpuscular Volume 94 fL (79-100) Mean Corpuscular Hemoglobin 31 pg (25-35) Mean Corpuscular Hemoglobin Concent 33 g/dL (31-37) Red Cell Distribution Width 14.4 % (11.5-14.5) Platelet Count 196 x10^3/uL (140-400) Neutrophils (%) (Auto) 64 % (31-73) Lymphocytes (%) (Auto) 18 % (24-48) Monocytes (%) (Auto) 11 % (0-9) Eosinophils (%) (Auto) 7 % (0-3) Basophils (%) (Auto) 1 % (0-3) Neutrophils # (Auto) 5.2 x10^3/uL (1.8-7.7) Lymphocytes # (Auto) 1.4 x10^3/uL (1.0-4.8) Monocytes # (Auto) 0.9 x10^3/uL (0.0-1.1) Eosinophils # (Auto) 0.5 x10^3/uL (0.0-0.7) Basophils # (Auto) 0.1 x10^3/uL (0.0-0.2) Sodium Level 140 mmol/L (136-145) Potassium Level 4.6 mmol/L (3.5-5.1) Chloride Level 105 mmol/L (98-107) Carbon Dioxide Level 29 mmol/L (21-32) Anion Gap 6 (6-14) Blood Urea Nitrogen 16 mg/dL (8-26) Creatinine 1.3 mg/dL (0.7-1.3) Estimated GFR (Cockcroft-Gault) 67.5 Glucose Level 165 mg/dL (70-99) Calcium Level 9.0 mg/dL (8.5-10.1) Test 03/04/19 11:29 Glucose (Fingerstick) 192 mg/dL (70-99) Laboratory Tests Test 03/03/19 16:22 03/03/19 20:40 03/04/19 05:50 03/04/19 07:59 Glucose (Fingerstick) 180 mg/dL (70-99) 200 mg/dL (70-99) 144 mg/dL (70-99) White Blood Count 8.1 x10^3/uL (4.0-11.0) Red Blood Count 4.05 x10^6/uL (4.30-5.70) Hemoglobin 12.7 g/dL (13.0-17.5) Hematocrit 38.2 % (39.0-53.0) Mean Corpuscular Volume 94 fL (79-100) Mean Corpuscular Hemoglobin 31 pg (25-35) Mean Corpuscular Hemoglobin Concent 33 g/dL (31-37) Red Cell Distribution Width 14.4 % (11.5-14.5) Platelet Count 196 x10^3/uL (140-400) Neutrophils (%) (Auto) 64 % (31-73) Lymphocytes (%) (Auto) 18 % (24-48) Monocytes (%) (Auto) 11 % (0-9) Eosinophils (%) (Auto) 7 % (0-3) Basophils (%) (Auto) 1 % (0-3) Neutrophils # (Auto) 5.2 x10^3/uL (1.8-7.7) Lymphocytes # (Auto) 1.4 x10^3/uL (1.0-4.8) Monocytes # (Auto) 0.9 x10^3/uL (0.0-1.1) Eosinophils # (Auto) 0.5 x10^3/uL (0.0-0.7) Basophils # (Auto) 0.1 x10^3/uL (0.0-0.2) Sodium Level 140 mmol/L (136-145) Potassium Level 4.6 mmol/L (3.5-5.1) Chloride Level 105 mmol/L (98-107) Carbon Dioxide Level 29 mmol/L (21-32) Anion Gap 6 (6-14) Blood Urea Nitrogen 16 mg/dL (8-26) Creatinine 1.3 mg/dL (0.7-1.3) Estimated GFR (Cockcroft-Gault) 67.5 Glucose Level 165 mg/dL (70-99) Calcium Level 9.0 mg/dL (8.5-10.1) Test 03/04/19 11:29 Glucose (Fingerstick) 192 mg/dL (70-99) Microbiology 02/26/19 Urine Culture - Final, Complete 02/26/19 Urine Culture Result 1 (DIXIE) - Final, Complete 02/26/19 Antimicrobic Susceptibility - Final, Complete Medications Current Medications Methylprednisolone Sodium Succinate (SOLU-Medrol 125MG VIAL) 125 mg 1X ONCE IV Last administered on 02/26/19 07:55; Start 02/26/19 at 07:15; Stop 02/26/19 at 07:16; Status DC Morphine Sulfate (Morphine Sulfate) 4 mg 1X ONCE IV Last administered on 02/26/19at 07:55; Start 02/26/19 at 07:15; Stop 02/26/19 at 07:16; Status DC Orphenadrine Citrate (Norflex) 60 mg 1X ONCE IV Last administered on 02/26/19at 07:55; Start 02/26/19 at 07:15; Stop 02/26/19 at 07:16; Status DC Sodium Chloride 1,000 ml @ 100 mls/hr Q10H IV Last administered on 02/27/19at 06:22; Start 02/26/19 at 09:02; Stop 02/27/19 at 09:01; Status DC Morphine Sulfate (Morphine Sulfate) 4 mg PRN Q2HR PRN IV PAIN Last administered on 02/28/19at 14:21; Start 02/26/19 at 09:15 Allopurinol (Zyloprim) 300 mg HS PO Last administered on 03/03/19at 20:38; Start 02/26/19 at 21:00 Aspirin (Ecotrin) 81 mg DAILYWBKFT PO Last administered on 03/04/19 08:55; Start 02/26/19 at 10:30 Cetirizine HCl (ZyrTEC) 10 mg DAILY PO Last administered on 03/04/19 08:55; Start 02/26/19 at 10:30 Vitamin D (Vitamin D3) 2,000 unit DAILY PO ; Start 02/26/19 at 10:30; Status UNV Vitamin D (Vitamin D3) 2,000 unit DAILY PO Last administered on 03/04/19 08:55; Start 02/26/19 at 10:30 Fluticasone Propionate (Flonase) 2 spray DAILY NS Last administered on 03/03/19 09:16; Start 02/26/19 at 10:30 Furosemide (Lasix) 40 mg DAILY PO Last administered on 03/04/19 08:55; Start 02/26/19 at 10:30 Gabapentin (Neurontin) 300 mg TID PO Last administered on 03/04/19 08:55; Start 02/26/19 at 10:30 Metoprolol Succinate (Toprol Xl) 25 mg DAILY PO Last administered on 03/04/19 08:55; Start 02/26/19 at 10:30 Montelukast Sodium (Singulair) 10 mg HS PO Last administered on 03/03/19 20:38; Start 02/26/19 at 21:00 Potassium Chloride (Klor-Con) 20 meq TIDWMEALS PO Last administered on 03/04/19 12:17; Start 02/26/19 at 12:00 Insulin Glargine (Lantus Syringe) 20 unit DAILY SQ Last administered on 03/03/19 09:16; Start 02/26/19 at 10:30; Stop 03/04/19 at 08:31; Status DC Lisinopril (Prinivil) 5 mg DAILY PO Last administered on 03/04/19 08:55; Start 02/26/19 at 10:30 Linagliptin (Tradjenta) 5 mg DAILY PO Last administered on 03/04/19 08:55; Start 02/26/19 at 10:30 Oxycodone HCl (Roxicodone) 10 mg PRN Q4HRS PRN PO PAIN; Start 02/26/19 at 10:00; Stop 02/26/19 at 13:41; Status DC Acetaminophen (Tylenol) 650 mg PRN Q6HRS PRN PO MILD PAIN / TEMP; Start 02/26/19 at 10:00 Albuterol Sulfate (Ventolin Neb Soln) 2.5 mg PRN Q6HRS PRN NEB SHORTNESS OF BREATH; Start 02/26/19 at 10:00 Insulin Human Lispro (HumaLOG) 0-8 UNITS BIDBFRMEAL SQ Last administered on 03/03/19at 17:01; Start 02/26/19 at 10:30 Tizanidine HCl (Zanaflex) 4 mg TID PO Last administered on 03/01/19at 10:55; Start 02/26/19 at 10:30; Stop 03/01/19 at 18:10; Status DC Mupirocin (Bactroban) 1 raquel TID TP Last administered on 03/02/19 14:03; Start 02/26/19 at 14:00; Stop 03/02/19 at 15:36; Status DC Oxycodone HCl (Roxicodone) 10 mg Q4HRS PO Last administered on 03/04/19at 12:17; Start 02/26/19 at 13:30 Diazepam (Valium) 5 mg PRN 1X PRN PO 30 MIN PRIOR TO MRI Last administered on 02/26/19at 15:41; Start 02/26/19 at 14:00; Stop 02/27/19 at 13:59; Status DC Ondansetron HCl (Zofran) 4 mg PRN Q6HRS PRN IV NAUSEA/VOMITING; Start 02/27/19 at 07:00; Stop 02/27/19 at 20:00; Status DC Fentanyl Citrate (Fentanyl 2ml Vial) 25 mcg PRN Q5MIN PRN IV MILD PAIN 1-3 Last administered on 02/27/19at 17:30; Start 02/27/19 at 07:00; Stop 02/27/19 at 20:00; Status DC Fentanyl Citrate (Fentanyl 2ml Vial) 50 mcg PRN Q5MIN PRN IV MODERATE TO SEVERE PAIN Last administered on 02/27/19at 17:09; Start 02/27/19 at 07:00; Stop 02/27/19 at 20:00; Status DC Morphine Sulfate (Morphine Sulfate) 1 mg PRN Q10MIN PRN IV SEVERE PAIN 7-10 Last administered on 02/27/19at 17:40; Start 02/27/19 at 07:00; Stop 02/27/19 at 20:00; Status DC Ringer's Solution 1,000 ml @ 30 mls/hr Q24H IV Last administered on 02/27/19at 16:56; Start 02/27/19 at 07:00; Stop 02/27/19 at 18:59; Status DC Lidocaine HCl (Xylocaine-Mpf 1% 2ml Vial) 2 ml PRN 1X PRN ID PRIOR TO IV START; Start 02/27/19 at 07:00; Stop 02/27/19 at 20:00; Status DC Hydromorphone HCl (Dilaudid) 0.5 mg PRN Q10MIN PRN IV SEV PAIN, Second choice; Start 02/27/19 at 07:00; Stop 02/27/19 at 20:00; Status DC Prochlorperazine Edisylate (Compazine) 5 mg PACU PRN PRN IV NAUSEA, MRX1; Start 02/27/19 at 07:00; Stop 02/27/19 at 20:00; Status DC Ceftriaxone Sodium (Rocephin) 1 gm Q24H IVP Last administered on 03/03/19at 09:16; Start 02/27/19 at 10:00; Stop 03/03/19 at 14:34; Status DC Midazolam HCl (Versed) 2 mg STK-MED ONCE .ROUTE ; Start 02/27/19 at 08:22; Stop 02/27/19 at 11:31; Status DC Midazolam HCl (Versed) 2 mg STK-MED ONCE .ROUTE ; Start 02/27/19 at 08:22; Stop 02/27/19 at 11:32; Status DC Propofol 0 ml @ As Directed STK-MED ONCE IV ; Start 02/27/19 at 08:22; Stop 02/27/19 at 11:34; Status DC Ketamine HCl (Ketamine) 50 mg STK-MED ONCE .ROUTE ; Start 02/27/19 at 08:48; Stop 02/27/19 at 11:34; Status DC Fentanyl Citrate (Fentanyl 2ml Vial) 100 mcg STK-MED ONCE .ROUTE ; Start 02/27/19 at 08:49; Stop 02/27/19 at 11:34; Status DC Fentanyl Citrate (Fentanyl 2ml Vial) 100 mcg STK-MED ONCE .ROUTE ; Start 02/27/19 at 10:42; Stop 02/27/19 at 11:34; Status DC Bupivacaine HCl/ Epinephrine Bitart (Sensorcain-Epi 0.5%-1:[id number] Mpf) 30 ml 1X ONCE INJ Last administered on 02/27/19at 15:53; Start 02/27/19 at 12:00; Stop 02/27/19 at 12:01; Status DC Bacitracin 43782 unit/Sodium Chloride 1,000 ml @ 1,000 mls/hr 1X ONCE IRR Last administered on 02/27/19at 13:36; Start 02/27/19 at 12:00; Stop 02/27/19 at 12:59; Status DC Glycopyrrolate (Robinul) 1 mg STK-MED ONCE .ROUTE ; Start 02/27/19 at 11:48; Stop 02/27/19 at 11:49; Status DC Neostigmine Methylsulfate (Bloxiverz) 10 mg STK-MED ONCE .ROUTE ; Start 02/27/19 at 11:49; Stop 02/27/19 at 11:49; Status DC Rocuronium [place] (Zemuron) 50 mg STK-MED ONCE .ROUTE ; Start 02/27/19 at 11:49; Stop 02/27/19 at 11:49; Status DC Remifentanil HCl (Ultiva) 2 mg STK-MED ONCE IV ; Start 02/27/19 at 11:49; Stop 02/27/19 at 11:49; Status DC Etomidate (Amidate) 20 mg STK-MED ONCE IV ; Start 02/27/19 at 11:49; Stop 02/27/19 at 11:49; Status DC Ondansetron HCl (Zofran) 4 mg STK-MED ONCE .ROUTE ; Start 02/27/19 at 11:49; Stop 02/27/19 at 11:50; Status DC Dexamethasone Sodium Phosphate (Decadron) 20 mg STK-MED ONCE .ROUTE ; Start 02/27/19 at 11:49; Stop 02/27/19 at 11:50; Status DC Lidocaine HCl (Lidocaine Pf 2% Vial) 5 ml STK-MED ONCE .ROUTE ; Start 02/27/19 at 11:49; Stop 02/27/19 at 11:50; Status DC Propofol 100 ml @ As Directed STK-MED ONCE IV ; Start 02/27/19 at 11:51; Stop 02/27/19 at 11:52; Status DC Succinylcholine Chloride (Anectine) 200 mg STK-MED ONCE .ROUTE ; Start 02/27/19 at 11:58; Stop 02/27/19 at 11:59; Status DC Gelatin ([place] Dental Sponge Size 4) 1 each STK-MED ONCE .ROUTE ; Start 02/27/19 at 12:10; Stop 02/27/19 at 12:11; Status DC Thrombin (Thrombin Topical) 5,000 unit STK-MED ONCE .ROUTE Last administered on 02/27/19at 13:36; Start 02/27/19 at 12:11; Stop 02/27/19 at 12:11; Status DC Gelatin (Gelfoam Size 12-7mm) 1 each STK-MED ONCE .ROUTE Last administered on 02/27/19at 13:36; Start 02/27/19 at 12:11; Stop 02/27/19 at 12:12; Status DC Gelatin (Gelfoam Size 12-7mm) 1 each STK-MED ONCE .ROUTE Last administered on 02/27/19at 13:36; Start 02/27/19 at 12:11; Stop 02/27/19 at 12:12; Status DC Ketorolac Tromethamine (Toradol Im) 60 mg STK-MED ONCE .ROUTE Last administered on 02/27/19at 13:36; Start 02/27/19 at 12:15; Stop 02/27/19 at 12:16; Status DC Cefazolin Sodium 3 gm/Dextrose 100 ml @ 200 mls/hr 1X PREOP PRN IV PRIOR TO PROCEDURE Last administered on 02/27/19at 14:04; Start 02/27/19 at 12:23; Stop 02/28/19 at 12:22; Status DC Cefazolin Sodium 50 ml @ 100 mls/hr 1X PREOP PRN IV PRE OP DOSE; Start 02/28/19 at 06:00; Stop 02/28/19 at 18:00; Status UNV Lactobacillus Rhamnosus (Culturelle) 1 cap BID PO Last administered on 03/04/19at 08:55; Start 02/27/19 at 21:00 Remifentanil HCl (Ultiva) 1 mg STK-MED ONCE IV ; Start 02/27/19 at 14:40; Stop 02/27/19 at 14:40; Status DC Propofol 50 ml @ As Directed STK-MED ONCE IV ; Start 02/27/19 at 14:48; Stop 02/27/19 at 14:48; Status DC Gelatin (Gelfoam Size 12-7mm) 3 each STK-MED ONCE TP Last administered on 02/27/19at 15:47; Start 02/27/19 at 15:45; Stop 02/27/19 at 15:47; Status DC Throat Lozenges (Cepacol Sore Throat Lozenge) 1 arabella PRN Q2HRS PRN PO SORE THR OAT Last administered on 02/27/19 20:21; Start 02/27/19 at 20:15 Magnesium Hydroxide (Milk Of Magnesia) 2,400 mg PRN DAILY PRN PO CONSTIPATION Last administered on 03/02/19at 09:12; Start 03/01/19 at 10:45 Bisacodyl (Dulcolax Tab) 10 mg PRN DAILY PRN PO CONSTIPATION, 3RD CHOICE; Start 03/01/19 at 10:45 Bisacodyl (Dulcolax Supp) 10 mg PRN DAILY PRN NE CONSTIPATION; Start 03/01/19 at 10:45 Senna/Docusate Sodium (Senna Plus) 1 tab PRN BID PRN PO CONSTIPATION, 2ND CHOICE Last administered on 03/02/19 09:12; Start 03/01/19 at 10:45; Stop 03/03/19 at 10:38; Status DC Alprazolam (Xanax) 0.5 mg PRN TID PRN PO ANXIETY / AGITATION Last administered on 03/02/19at 22:43; Start 03/01/19 at 11:30 Lactulose (Lactulose) 20 gm PRN Q2HRS PRN PO IF NO BM BY 1600 Last administered on 03/02/19at 18:10; Start 03/02/19 at 16:00; Stop 03/02/19 at 20:00; Status DC Enoxaparin Sodium (Lovenox 40mg Syringe) 40 mg Q24H SQ Last administered on 03/04/19at 12:17; Start 03/02/19 at 13:00 Lactulose (Lactulose) 20 gm PRN Q2HRS PRN PO IF NO BM BY 1600 Last administered on 03/02/19at 20:56; Start 03/02/19 at 20:30; Stop 03/02/19 at 20:56; Status DC Senna/Docusate Sodium (Senna Plus) 2 tab DAILY PO Last administered on 03/04/19 08:55; Start 03/03/19 at 11:00 Cefdinir (Omnicef) 300 mg BID PO Last administered on 03/04/19 08:55; Start 03/03/19 at 21:00 Insulin Glargine (Lantus Syringe) 22 unit DAILY SQ Last administered on 03/04/19 09:15; Start 03/04/19 at 09:00 Duloxetine HCl (Cymbalta) 30 mg DAILY PO Last administered on 03/04/19 10:41; Start 03/04/19 at 09:15 Active Scripts Active Tradjenta (Linagliptin) 5 Mg Tablet 5 Mg PO DAILY 30 Days Humalog (Insulin Lispro) 100 Unit/1 Ml Insuln.pen 0-8 Units SQ BIDBFRMEAL Culturelle (Lactobacillus Rhamnosus Gg) 1 Each Cap.sprink 1 Cap PO BID 30 Days Bisacodyl 5 Mg Tablet.dr 10 Mg PO PRN DAILY PRN 30 Days Bisacodyl 10 Mg Supp.rect 10 Mg NE PRN DAILY PRN 30 Days Fluticasone Propionate Nasal [place] (Fluticasone Propionate) 16 Gm [place].susp 2 [place] NS DAILY 30 Days Cymbalta (Duloxetine Hcl) 30 Mg Capsule.dr 30 Mg PO DAILY 30 Days Tylenol (Acetaminophen) 325 Mg Tablet 650 Mg PO PRN Q6HRS PRN 14 Days Oxycodone Hcl Immed.release (Oxycodone Hcl) 5 Mg Tablet 10 Mg PO Q4HRS 14 Days Enoxaparin Sodium 40 Mg/0.4 Ml Disp.syrin 40 Mg SQ Q24H 14 Days Cefdinir 300 Mg Capsule 300 Mg PO BID 7 Days Cetirizine Hcl 10 Mg Tablet 10 Mg PO DAILY 30 Days Klor-Con M20 (Potassium Chloride) 20 Meq Tab.er.prt 20 Meq PO TIDWMEALS 30 Days Metoprolol Succinate ( Xl ) (Metoprolol Succinate) 25 Mg Tab.er.24h 25 Mg PO DAILY 30 Days Furosemide 40 Mg Tablet 40 Mg PO DAILY 30 Days Vitamin D (Cholecalciferol (Vitamin D3)) 1,000 Unit Tablet 2,000 Unit PO DAILY 30 Days Aspirin Ec (Aspirin) 81 Mg Tablet.dr 81 Mg PO DAILYWBKFT 30 Days Reported Metformin Hcl 1,000 Mg Tablet 1,000 Mg PO BIDWMEALS Fish Oil 1,200 Mg Fish Oil (Fish Oil/Dha/Epa) 1 Each Capsule 1 Each PO Tresiba Flextouch U-100 (Insulin Degludec) 100 Unit/1 Ml Insuln.pen 20 Units SUBCUT DAILY Ramipril 2.5 Mg Capsule 1 Cap PO DAILY Allopurinol 300 Mg Tablet 1 Tab PO HS Singulair Tablet (Montelukast Sodium) 10 Mg Tablet 1 Tab PO HS Gabapentin (Gabapentin) 300 Mg Capsule 1 Cap PO TID Vitals/I & O Vital Sign - Last 24 Hours 03/03/19 03/03/19 03/03/19 03/03/19 15:00 15:38 17:01 19:23 Temp 98.0 97.7 98.0 97.7 Pulse 102 96 Resp 18 18 B/P (MAP) 139/59 (85) 106/60 (75) Pulse Ox 100 92 92 95 O2 Delivery Room Air Room Air Room Air Room Air O2 Flow Rate 17.0 17.0 03/03/19 03/03/19 03/03/19 03/03/19 19:35 20:00 20:38 23:46 Temp 98.8 98.8 Pulse 88 Resp 18 B/P (MAP) 105/58 (74) Pulse Ox 94 O2 Delivery Room Air Room Air Room Air Room Air 03/04/19 03/04/19 03/04/19 03/04/19 03:29 05:16 07:00 08:15 Temp 98.3 98.2 98.3 98.2 Pulse 91 96 Resp 18 18 B/P (MAP) 139/49 (79) 132/83 (99) Pulse Ox 92 97 O2 Delivery Room Air Room Air Room Air Room Air 03/04/19 03/04/19 03/04/19 03/04/19 08:55 08:55 08:55 10:41 Pulse 96 96 B/P (MAP) 132/83 132/83 O2 Delivery Room Air Room Air 03/04/19 03/04/19 11:00 12:17 Temp 97.9 97.9 Pulse 96 Resp 18 B/P (MAP) 127/78 (94) Pulse Ox 95 O2 Delivery Room Air Room Air Intake and Output 03/03/19 03/03/19 03/04/19 15:00 23:00 07:00 Intake Total 420 ml 395 ml 400 ml Output Total 1300 ml 2150 ml 600 ml Balance -880 ml -1755 ml -200 ml TENNILLE HAYDEN MD Mar 04, 2019 12:56
--- NOTE | 2019-03-04 14:27 | PDOC ---
PROGRESS NOTES Subjective Subjective patient seen at 1300 up in chair some back pain/ controlled with medication felt stronger with PT today was able to stand and transfer to floor without lift Objective Objective Vital Signs Date Time Temp Pulse Resp B/P (MAP) Pulse Ox O2 Delivery O2 Flow Rate FiO2 03/04/19 12:17 Room Air 03/04/19 11:00 97.9 96 18 127/78 (94) 95 97.9 03/03/19 17:01 17.0 Intake and Output 03/04/19 06:59 Intake Total 1215 ml Output Total 4050 ml Balance -2835 ml Intake Oral 1215 ml Output Urine Total 4050 ml Physical Exam General: Alert, Oriented X3, Cooperative Neuro: Normal speech, Other (right leg continues to be stronger than left) Assessment Assessment Problems Medical Problems: (1) Anemia Status: Chronic (2) CKD (chronic kidney disease) Status: Chronic (3) Diabetes mellitus Status: Chronic (4) Diabetes mellitus with neuropathy Status: Chronic (5) GERD (gastroesophageal reflux disease) Status: Chronic (6) Gouty arthritis Status: Chronic (7) HLD (hyperlipidemia) Status: Chronic (8) HTN (hypertension) Status: Chronic (9) Intractable back pain Status: Acute (10) Left knee DJD Status: Chronic (11) Morbid obesity with BMI of 40.0-44.9, adult Status: Acute (12) Muscle spasm Status: Acute (13) Paresthesia Status: Acute (14) Right knee DJD Status: Chronic (15) Spinal stenosis at L4-L5 level Status: Acute Plan Plan of Care ok to transfer to rehab from NS standpoint will follow as OP Comment Review of Relevant I have reviewed the following items maurisio (where applicable) has been applied. Labs Laboratory Tests Test 03/02/19 16:59 03/03/19 00:02 03/03/19 07:59 03/03/19 11:42 Glucose (Fingerstick) 143 mg/dL (70-99) 167 mg/dL (70-99) 145 mg/dL (70-99) 174 mg/dL (70-99) Test 03/03/19 16:22 03/03/19 20:40 03/04/19 05:50 03/04/19 07:59 Glucose (Fingerstick) 180 mg/dL (70-99) 200 mg/dL (70-99) 144 mg/dL (70-99) White Blood Count 8.1 x10^3/uL (4.0-11.0) Red Blood Count 4.05 x10^6/uL (4.30-5.70) Hemoglobin 12.7 g/dL (13.0-17.5) Hematocrit 38.2 % (39.0-53.0) Mean Corpuscular Volume 94 fL (79-100) Mean Corpuscular Hemoglobin 31 pg (25-35) Mean Corpuscular Hemoglobin Concent 33 g/dL (31-37) Red Cell Distribution Width 14.4 % (11.5-14.5) Platelet Count 196 x10^3/uL (140-400) Neutrophils (%) (Auto) 64 % (31-73) Lymphocytes (%) (Auto) 18 % (24-48) Monocytes (%) (Auto) 11 % (0-9) Eosinophils (%) (Auto) 7 % (0-3) Basophils (%) (Auto) 1 % (0-3) Neutrophils # (Auto) 5.2 x10^3/uL (1.8-7.7) Lymphocytes # (Auto) 1.4 x10^3/uL (1.0-4.8) Monocytes # (Auto) 0.9 x10^3/uL (0.0-1.1) Eosinophils # (Auto) 0.5 x10^3/uL (0.0-0.7) Basophils # (Auto) 0.1 x10^3/uL (0.0-0.2) Sodium Level 140 mmol/L (136-145) Potassium Level 4.6 mmol/L (3.5-5.1) Chloride Level 105 mmol/L (98-107) Carbon Dioxide Level 29 mmol/L (21-32) Anion Gap 6 (6-14) Blood Urea Nitrogen 16 mg/dL (8-26) Creatinine 1.3 mg/dL (0.7-1.3) Estimated GFR (Cockcroft-Gault) 67.5 Glucose Level 165 mg/dL (70-99) Calcium Level 9.0 mg/dL (8.5-10.1) Test 03/04/19 11:29 Glucose (Fingerstick) 192 mg/dL (70-99) Laboratory Tests Test 03/03/19 16:22 03/03/19 20:40 03/04/19 05:50 03/04/19 07:59 Glucose (Fingerstick) 180 mg/dL (70-99) 200 mg/dL (70-99) 144 mg/dL (70-99) White Blood Count 8.1 x10^3/uL (4.0-11.0) Red Blood Count 4.05 x10^6/uL (4.30-5.70) Hemoglobin 12.7 g/dL (13.0-17.5) Hematocrit 38.2 % (39.0-53.0) Mean Corpuscular Volume 94 fL (79-100) Mean Corpuscular Hemoglobin 31 pg (25-35) Mean Corpuscular Hemoglobin Concent 33 g/dL (31-37) Red Cell Distribution Width 14.4 % (11.5-14.5) Platelet Count 196 x10^3/uL (140-400) Neutrophils (%) (Auto) 64 % (31-73) Lymphocytes (%) (Auto) 18 % (24-48) Monocytes (%) (Auto) 11 % (0-9) Eosinophils (%) (Auto) 7 % (0-3) Basophils (%) (Auto) 1 % (0-3) Neutrophils # (Auto) 5.2 x10^3/uL (1.8-7.7) Lymphocytes # (Auto) 1.4 x10^3/uL (1.0-4.8) Monocytes # (Auto) 0.9 x10^3/uL (0.0-1.1) Eosinophils # (Auto) 0.5 x10^3/uL (0.0-0.7) Basophils # (Auto) 0.1 x10^3/uL (0.0-0.2) Sodium Level 140 mmol/L (136-145) Potassium Level 4.6 mmol/L (3.5-5.1) Chloride Level 105 mmol/L (98-107) Carbon Dioxide Level 29 mmol/L (21-32) Anion Gap 6 (6-14) Blood Urea Nitrogen 16 mg/dL (8-26) Creatinine 1.3 mg/dL (0.7-1.3) Estimated GFR (Cockcroft-Gault) 67.5 Glucose Level 165 mg/dL (70-99) Calcium Level 9.0 mg/dL (8.5-10.1) Test 03/04/19 11:29 Glucose (Fingerstick) 192 mg/dL (70-99) Microbiology 02/26/19 Urine Culture - Final, Complete 02/26/19 Urine Culture Result 1 (DIXIE) - Final, Complete 02/26/19 Antimicrobic Susceptibility - Final, Complete Medications Current Medications Methylprednisolone Sodium Succinate (SOLU-Medrol 125MG VIAL) 125 mg 1X ONCE IV Last administered on 02/26/19 07:55; Start 02/26/19 at 07:15; Stop 02/26/19 at 07:16; Status DC Morphine Sulfate (Morphine Sulfate) 4 mg 1X ONCE IV Last administered on 02/26/19at 07:55; Start 02/26/19 at 07:15; Stop 02/26/19 at 07:16; Status DC Orphenadrine Citrate (Norflex) 60 mg 1X ONCE IV Last administered on 02/26/19 07:55; Start 02/26/19 at 07:15; Stop 02/26/19 at 07:16; Status DC Sodium Chloride 1,000 ml @ 100 mls/hr Q10H IV Last administered on 02/27/19 06:22; Start 02/26/19 at 09:02; Stop 02/27/19 at 09:01; Status DC Morphine Sulfate (Morphine Sulfate) 4 mg PRN Q2HR PRN IV PAIN Last administered on 02/28/19 14:21; Start 02/26/19 at 09:15 Allopurinol (Zyloprim) 300 mg HS PO Last administered on 03/03/19at 20:38; Start 02/26/19 at 21:00 Aspirin (Ecotrin) 81 mg DAILYWBKFT PO Last administered on 03/04/19 08:55; Start 02/26/19 at 10:30 Cetirizine HCl (ZyrTEC) 10 mg DAILY PO Last administered on 03/04/19 08:55; Start 02/26/19 at 10:30 Vitamin D (Vitamin D3) 2,000 unit DAILY PO ; Start 02/26/19 at 10:30; Status UNV Vitamin D (Vitamin D3) 2,000 unit DAILY PO Last administered on 03/04/19at 08:55; Start 02/26/19 at 10:30 Fluticasone Propionate (Flonase) 2 spray DAILY NS Last administered on 03/03/19 09:16; Start 02/26/19 at 10:30 Furosemide (Lasix) 40 mg DAILY PO Last administered on 03/04/19 08:55; Start 02/26/19 at 10:30 Gabapentin (Neurontin) 300 mg TID PO Last administered on 03/04/19 08:55; Start 02/26/19 at 10:30 Metoprolol Succinate (Toprol Xl) 25 mg DAILY PO Last administered on 03/04/19 08:55; Start 02/26/19 at 10:30 Montelukast Sodium (Singulair) 10 mg HS PO Last administered on 03/03/19 20:38; Start 02/26/19 at 21:00 Potassium Chloride (Klor-Con) 20 meq TIDWMEALS PO Last administered on 03/04/19 12:17; Start 02/26/19 at 12:00 Insulin Glargine (Lantus Syringe) 20 unit DAILY SQ Last administered on 03/03/19 09:16; Start 02/26/19 at 10:30; Stop 03/04/19 at 08:31; Status DC Lisinopril (Prinivil) 5 mg DAILY PO Last administered on 03/04/19 08:55; Start 02/26/19 at 10:30 Linagliptin (Tradjenta) 5 mg DAILY PO Last administered on 03/04/19 08:55; Start 02/26/19 at 10:30 Oxycodone HCl (Roxicodone) 10 mg PRN Q4HRS PRN PO PAIN; Start 02/26/19 at 10:00; Stop 02/26/19 at 13:41; Status DC Acetaminophen (Tylenol) 650 mg PRN Q6HRS PRN PO MILD PAIN / TEMP; Start 02/26/19 at 10:00 Albuterol Sulfate (Ventolin Neb Soln) 2.5 mg PRN Q6HRS PRN NEB SHORTNESS OF BREATH; Start 02/26/19 at 10:00 Insulin Human Lispro (HumaLOG) 0-8 UNITS BIDBFRMEAL SQ Last administered on 03/03/19at 17:01; Start 02/26/19 at 10:30 Tizanidine HCl (Zanaflex) 4 mg TID PO Last administered on 03/01/19 10:55; Start 02/26/19 at 10:30; Stop 03/01/19 at 18:10; Status DC Mupirocin (Bactroban) 1 raquel TID TP Last administered on 03/02/19 14:03; Start 02/26/19 at 14:00; Stop 03/02/19 at 15:36; Status DC Oxycodone HCl (Roxicodone) 10 mg Q4HRS PO Last administered on 03/04/19at 12:17; Start 02/26/19 at 13:30 Diazepam (Valium) 5 mg PRN 1X PRN PO 30 MIN PRIOR TO MRI Last administered on 02/26/19at 15:41; Start 02/26/19 at 14:00; Stop 02/27/19 at 13:59; Status DC Ondansetron HCl (Zofran) 4 mg PRN Q6HRS PRN IV NAUSEA/VOMITING; Start 02/27/19 at 07:00; Stop 02/27/19 at 20:00; Status DC Fentanyl Citrate (Fentanyl 2ml Vial) 25 mcg PRN Q5MIN PRN IV MILD PAIN 1-3 Last administered on 02/27/19 17:30; Start 02/27/19 at 07:00; Stop 02/27/19 at 20:00; Status DC Fentanyl Citrate (Fentanyl 2ml Vial) 50 mcg PRN Q5MIN PRN IV MODERATE TO SEVERE PAIN Last administered on 02/27/19at 17:09; Start 02/27/19 at 07:00; Stop 02/27/19 at 20:00; Status DC Morphine Sulfate (Morphine Sulfate) 1 mg PRN Q10MIN PRN IV SEVERE PAIN 7-10 Last administered on 02/27/19at 17:40; Start 02/27/19 at 07:00; Stop 02/27/19 at 20:00; Status DC Ringer's Solution 1,000 ml @ 30 mls/hr Q24H IV Last administered on 02/27/19 16:56; Start 02/27/19 at 07:00; Stop 02/27/19 at 18:59; Status DC Lidocaine HCl (Xylocaine-Mpf 1% 2ml Vial) 2 ml PRN 1X PRN ID PRIOR TO IV START; Start 02/27/19 at 07:00; Stop 02/27/19 at 20:00; Status DC Hydromorphone HCl (Dilaudid) 0.5 mg PRN Q10MIN PRN IV SEV PAIN, Second choice; Start 02/27/19 at 07:00; Stop 02/27/19 at 20:00; Status DC Prochlorperazine Edisylate (Compazine) 5 mg PACU PRN PRN IV NAUSEA, MRX1; Start 02/27/19 at 07:00; Stop 02/27/19 at 20:00; Status DC Ceftriaxone Sodium (Rocephin) 1 gm Q24H IVP Last administered on 03/03/19at 09:16; Start 02/27/19 at 10:00; Stop 03/03/19 at 14:34; Status DC Midazolam HCl (Versed) 2 mg STK-MED ONCE .ROUTE ; Start 02/27/19 at 08:22; Stop 02/27/19 at 11:31; Status DC Midazolam HCl (Versed) 2 mg STK-MED ONCE .ROUTE ; Start 02/27/19 at 08:22; Stop 02/27/19 at 11:32; Status DC Propofol 0 ml @ As Directed STK-MED ONCE IV ; Start 02/27/19 at 08:22; Stop 02/27/19 at 11:34; Status DC Ketamine HCl (Ketamine) 50 mg STK-MED ONCE .ROUTE ; Start 02/27/19 at 08:48; Stop 02/27/19 at 11:34; Status DC Fentanyl Citrate (Fentanyl 2ml Vial) 100 mcg STK-MED ONCE .ROUTE ; Start 02/27/19 at 08:49; Stop 02/27/19 at 11:34; Status DC Fentanyl Citrate (Fentanyl 2ml Vial) 100 mcg STK-MED ONCE .ROUTE ; Start 02/27/19 at 10:42; Stop 02/27/19 at 11:34; Status DC Bupivacaine HCl/ Epinephrine Bitart (Sensorcain-Epi 0.5%-1:125929 Mpf) 30 ml 1X ONCE INJ Last administered on 02/27/19at 15:53; Start 02/27/19 at 12:00; Stop 02/27/19 at 12:01; Status DC Bacitracin 60748 unit/Sodium Chloride 1,000 ml @ 1,000 mls/hr 1X ONCE IRR Last administered on 02/27/19at 13:36; Start 02/27/19 at 12:00; Stop 02/27/19 at 12:59; Status DC Glycopyrrolate (Robinul) 1 mg STK-MED ONCE .ROUTE ; Start 02/27/19 at 11:48; Stop 02/27/19 at 11:49; Status DC Neostigmine Methylsulfate (Bloxiverz) 10 mg STK-MED ONCE .ROUTE ; Start 02/27/19 at 11:49; Stop 02/27/19 at 11:49; Status DC Rocuronium [place] (Zemuron) 50 mg STK-MED ONCE .ROUTE ; Start 02/27/19 at 11:49; Stop 02/27/19 at 11:49; Status DC Remifentanil HCl (Ultiva) 2 mg STK-MED ONCE IV ; Start 02/27/19 at 11:49; Stop 02/27/19 at 11:49; Status DC Etomidate (Amidate) 20 mg STK-MED ONCE IV ; Start 02/27/19 at 11:49; Stop at 11:49; Status DC Ondansetron HCl (Zofran) 4 mg STK-MED ONCE .ROUTE ; Start 02/27/19 at 11:49; Stop 02/27/19 at 11:50; Status DC Dexamethasone Sodium Phosphate (Decadron) 20 mg STK-MED ONCE .ROUTE ; Start 02/27/19 at 11:49; Stop 02/27/19 at 11:50; Status DC Lidocaine HCl (Lidocaine Pf 2% Vial) 5 ml STK-MED ONCE .ROUTE ; Start 02/27/19 at 11:49; Stop 02/27/19 at 11:50; Status DC Propofol 100 ml @ As Directed STK-MED ONCE IV ; Start 02/27/19 at 11:51; Stop 02/27/19 at 11:52; Status DC Succinylcholine Chloride (Anectine) 200 mg STK-MED ONCE .ROUTE ; Start 02/27/19 at 11:58; Stop 02/27/19 at 11:59; Status DC Gelatin ([place] Dental Sponge Size 4) 1 each STK-MED ONCE .ROUTE ; Start 02/27/19 at 12:10; Stop 02/27/19 at 12:11; Status DC Thrombin (Thrombin Topical) 5,000 unit STK-MED ONCE .ROUTE Last administered on 02/27/19at 13:36; Start 02/27/19 at 12:11; Stop 02/27/19 at 12:11; Status DC Gelatin ([place] Size 12-7mm) 1 each STK-MED ONCE .ROUTE Last administered on 02/27/19at 13:36; Start 02/27/19 at 12:11; Stop 02/27/19 at 12:12; Status DC Gelatin ([place] Size 12-7mm) 1 each STK-MED ONCE .ROUTE Last administered on 02/27/19 13:36; Start 02/27/19 at 12:11; Stop 02/27/19 at 12:12; Status DC Ketorolac Tromethamine (Toradol Im) 60 mg STK-MED ONCE .ROUTE Last administered on 02/27/19 13:36; Start 02/27/19 at 12:15; Stop 02/27/19 at 12:16; Status DC Cefazolin Sodium 3 gm/Dextrose 100 ml @ 200 mls/hr 1X PREOP PRN IV PRIOR TO PROCEDURE Last administered on 02/27/19at 14:04; Start 02/27/19 at 12:23; Stop 02/28/19 at 12:22; Status DC Cefazolin Sodium 50 ml @ 100 mls/hr 1X PREOP PRN IV PRE OP DOSE; Start 02/28/19 at 06:00; Stop 02/28/19 at 18:00; Status UNV Lactobacillus Rhamnosus (Culturelle) 1 cap BID PO Last administered on 03/04/19at 08:55; Start 02/27/19 at 21:00 Remifentanil HCl (Ultiva) 1 mg STK-MED ONCE IV ; Start 02/27/19 at 14:40; Stop 02/27/19 at 14:40; Status DC Propofol 50 ml @ As Directed STK-MED ONCE IV ; Start 02/27/19 at 14:48; Stop 02/27/19 at 14:48; Status DC Gelatin ([place]am Size 12-7mm) 3 each STK-MED ONCE TP Last administered on 02/27/19at 15:47; Start 02/27/19 at 15:45; Stop 02/27/19 at 15:47; Status DC Throat Lozenges (Cepacol Sore Throat Lozenge) 1 [place]abella PRN Q2HRS PRN PO SORE THROAT Last administered on 02/27/19at 20:21; Start 02/27/19 at 20:15 Magnesium Hydroxide (Milk Of Magnesia) 2,400 mg PRN DAILY PRN PO CONSTIPATION Last administered on 03/02/19at 09:12; Start 03/01/19 at 10:45 Bisacodyl (Dulcolax Tab) 10 mg PRN DAILY PRN PO CONSTIPATION, 3RD CHOICE; Start 03/01/19 at 10:45 Bisacodyl (Dulcolax Supp) 10 mg PRN DAILY PRN [place] CONSTIPATION; Start 03/01/19 at 10:45 Senna/Docusate Sodium (Senna Plus) 1 tab PRN BID PRN PO CONSTIPATION, 2ND CHOICE Last administered on 03/02/19at 09:12; Start 03/01/19 at 10:45; Stop 03/03/19 at 10:38; Status DC Alprazolam (Xanax) 0.5 mg PRN TID PRN PO ANXIETY / AGITATION Last administered on 03/02/19at 22:43; Start 03/01/19 at 11:30 Lactulose (Lactulose) 20 gm PRN Q2HRS PRN PO IF NO BM BY 1600 Last administered on 03/02/19 18:10; Start 03/02/19 at 16:00; Stop 03/02/19 at 20:00; Status DC Enoxaparin Sodium (Lovenox 40mg Syringe) 40 mg Q24H SQ Last administered on at 12:17; Start 03/02/19 at 13:00 Lactulose (Lactulose) 20 gm PRN Q2HRS PRN PO IF NO BM BY 1600 Last administered on 03/02/19at 20:56; Start 03/02/19 at 20:30; Stop 03/02/19 at 20:56; Status DC Senna/Docusate Sodium (Senna Plus) 2 tab DAILY PO Last administered on 03/04/19 08:55; Start 03/03/19 at 11:00 Cefdinir (Omnicef) 300 mg BID PO Last administered on 03/04/19at 08:55; Start 03/03/19 at 21:00 Insulin Glargine (Lantus Syringe) 22 unit DAILY SQ Last administered on 03/04/19at 09:15; Start 03/04/19 at 09:00 Duloxetine HCl (Cymbalta) 30 mg DAILY PO Last administered on 03/04/19at 10:41; Start 03/04/19 at 09:15 Active Scripts Active Tradjenta (Linagliptin) 5 Mg Tablet 5 Mg PO DAILY 30 Days Humalog (Insulin Lispro) 100 Unit/1 Ml Insuln.pen 0-8 Units SQ BIDBFRMEAL Culturelle (Lactobacillus Rhamnosus Gg) 1 Each Cap.sprink 1 Cap PO BID 30 Days Bisacodyl 5 Mg Tablet.dr 10 Mg PO PRN DAILY PRN 30 Days Bisacodyl 10 Mg Supp.rect 10 Mg [place] PRN DAILY PRN 30 Days Fluticasone Propionate Nasal [place] (Fluticasone Propionate) 16 Gm [place].susp 2 [place] NS DAILY 30 Days Cymbalta (Duloxetine Hcl) 30 Mg Capsule.dr 30 Mg PO DAILY 30 Days Tylenol (Acetaminophen) 325 Mg Tablet 650 Mg PO PRN Q6HRS PRN 14 Days Oxycodone Hcl Immed.release (Oxycodone Hcl) 5 Mg Tablet 10 Mg PO Q4HRS 14 Days Enoxaparin Sodium 40 Mg/0.4 Ml Disp.syrin 40 Mg SQ Q24H 14 Days Cefdinir 300 Mg Capsule 300 Mg PO BID 7 Days Cetirizine Hcl 10 Mg Tablet 10 Mg PO DAILY 30 Days Klor-Con M20 (Potassium Chloride) 20 Meq Tab.er.prt 20 Meq PO TIDWMEALS 30 Days Metoprolol Succinate ( Xl ) (Metoprolol Succinate) 25 Mg Tab.er.24h 25 Mg PO DAILY 30 Days Furosemide 40 Mg Tablet 40 Mg PO DAILY 30 Days Vitamin D (Cholecalciferol (Vitamin D3)) 1,000 Unit Tablet 2,000 Unit PO DAILY 30 Days Aspirin Ec (Aspirin) 81 Mg Tablet.dr 81 Mg PO DAILYWBKFT 30 Days Reported Metformin Hcl 1,000 Mg Tablet 1,000 Mg PO BIDWMEALS Fish Oil 1,200 Mg Fish Oil (Fish Oil/Dha/Epa) 1 Each Capsule 1 Each PO Tresiba Flextouch U-100 (Insulin Degludec) 100 Unit/1 Ml Insuln.pen 20 Units SUBCUT DAILY Ramipril 2.5 Mg Capsule 1 Cap PO DAILY Allopurinol 300 Mg Tablet 1 Tab PO HS Singulair Tablet (Montelukast Sodium) 10 Mg Tablet 1 Tab PO HS Gabapentin (Gabapentin) 300 Mg Capsule 1 Cap PO TID Vitals/I & O Vital Sign - Last 24 Hours 03/03/19 03/03/19 03/03/19 03/03/19 15:00 15:38 17:01 19:23 Temp 98.0 97.7 98.0 97.7 Pulse 102 96 Resp 18 18 B/P (MAP) 139/59 (85) 106/60 (75) Pulse Ox 100 92 92 95 O2 Delivery Room Air Room Air Room Air Room Air O2 Flow Rate 17.0 17.0 03/03/19 03/03/19 03/03/19 03/03/19 19:35 20:00 20:38 23:46 Temp 98.8 98.8 Pulse 88 Resp 18 B/P (MAP) 105/58 (74) Pulse Ox 94 O2 Delivery Room Air Room Air Room Air Room Air 03/04/19 03/04/19 03/04/19 03/04/19 03:29 05:16 07:00 08:15 Temp 98.3 98.2 98.3 98.2 Pulse 91 96 Resp 18 18 B/P (MAP) 139/49 (79) 132/83 (99) Pulse Ox 92 97 O2 Delivery Room Air Room Air Room Air Room Air 03/04/19 03/04/19 03/04/19 03/04/19 08:55 08:55 08:55 10:41 Pulse 96 96 B/P (MAP) 132/83 132/83 O2 Delivery Room Air Room Air 03/04/19 03/04/19 11:00 12:17 Temp 97.9 97.9 Pulse 96 Resp 18 B/P (MAP) 127/78 (94) Pulse Ox 95 O2 Delivery Room Air Room Air Intake and Output 03/03/19 03/03/19 03/04/19 14:59 22:59 06:59 Intake Total 420 ml 395 ml 400 ml Output Total 1300 ml 2150 ml 600 ml Balance -880 ml -1755 ml -200 ml NIA MENDEZ [employer] Mar 04, 2019 14:27
[2019-03-04 15:00] VITALS: BP 108/64
[2019-03-04 19:00] VITALS: BP 124/48
[2019-03-04] MEDS: ALLOPURINOL 300 MG TABLET. PO SCH (22:25)
[2019-03-04] MEDS: MONTELUKAST SODIUM 10 MG TABLET. PO SCH (22:26)
[2019-03-04] MEDS: oxyCODONE IR 5 MG TABLET PO PRN (22:27)
[2019-03-04 23:00] VITALS: BP 125/61
[2019-03-05] MEDS ORDERED: CYCLOBENZAPRINE 10 MG TABLET. PO PRN (02:45)
[2019-03-05 03:00] VITALS: BP 124/74
[2019-03-05] MEDS: oxyCODONE IR 5 MG TABLET PO PRN ×2 (04:15→08:40)
[2019-03-05 04:57] LABS: BASO % 0 % (0-3); EOS # 0.3 x10^3/uL (0.0-0.7); EOS % 4 % (0-3); HEMATOCRIT 37.7 % (39.0-53.0); HEMOGLOBIN 12.5 g/dL (13.0-17.5); LYMPH # 1.1 x10^3/uL (1.0-4.8); LYMPH % 14 % (24-48); MEAN CORPUSCULAR HEMOGLOBIN 31 pg (25-35); MEAN CORPUSCULAR HGB CONC 33 g/dL (31-37); MEAN CORPUSCULAR VOLUME 95 fL (79-100); MONO # 0.9 x10^3/uL (0.0-1.1); MONO % 11 % (0-9); NEUT # 5.5 x10^3/uL (1.8-7.7); NEUT % 70 % (31-73); PLATELET COUNT 203 x10^3/uL (140-400); RED BLOOD COUNT 3.99 x10^6/uL (4.30-5.70); RED CELL DISTRIBUTION WIDTH 13.9 % (11.5-14.5); WHITE BLOOD COUNT 7.8 x10^3/uL (4.0-11.0)
[2019-03-05 05:15] LABS: CALCIUM 8.8 mg/dL (8.5-10.1); CREATININE 0.9 mg/dL (0.7-1.3); GFR 103.1; POTASSIUM 4.4 mmol/L (3.5-5.1)
[2019-03-05 07:15] VITALS: BP 130/58
[2019-03-05] MEDS: FLUTICASONE 50MCG/NASAL SPRAY 16GM BOTTLE. NS SCH (08:37)
[2019-03-05] MEDS: FUROSEMIDE 40 MG TABLET. PO SCH (08:39)
[2019-03-05] MEDS: GABAPENTIN 300 MG CAPSULE. PO SCH (08:39)
[2019-03-05] MEDS: CHOLECALCIFEROL (VITAMIN D3) 1,000 UNIT TABLET PO SCH (08:39)
[2019-03-05] MEDS: CEFDINIR 300 MG CAPSULE PO SCH (08:39)
[2019-03-05] MEDS: CETIRIZINE HCL 10 MG TABLET. PO SCH (08:39)
[2019-03-05] MEDS: LINAGLIPTIN 5 MG TABLET PO SCH (08:39)
[2019-03-05] MEDS: ASPIRIN ENTERIC COATED 81 MG TABLET.DR. PO SCH (08:39)
[2019-03-05] MEDS: SENNOSIDES/DOCUSATE 8.6/50MG TABLET. PO SCH (08:39)
[2019-03-05] MEDS: LACTOBACILLUS RHAMNOSUS GG 1 CAPSULE. PO SCH (08:39)
[2019-03-05] MEDS: POTASSIUM CHLORIDE 20 MEQ TABLET.ER. PO SCH (08:40)
[2019-03-05] MEDS: DULoxetine HCL 30 MG CAPSULE.DR PO SCH (08:40)
[2019-03-05] MEDS: METOPROLOL SUCC 24HR ER 25 MG TAB.ER.24H. PO SCH (08:41)
[2019-03-05] MEDS: LISINOPRIL 5 MG TABLET. PO SCH (08:41)
[2019-03-05] MEDS: INSULIN GLARGINE SYRINGE. SQ SCH (08:50)
[2019-03-05] MEDS: INSULIN LISPRO 300 UNITS/3 ML VIAL. SQ SCH (08:50)
[2019-03-05] MEDS ORDERED: BISACODYL 5 MG TABLET.DR. PO PRN (09:45)
--- NOTE | 2019-03-05 09:49 | PDOC ---
PROGRESS NOTES Subjective Subjective He feels better. Objective Objective Vital Signs Date Time Temp Pulse Resp B/P (MAP) Pulse Ox O2 Delivery O2 Flow Rate FiO2 03/05/19 08:51 85 130/58 03/05/19 08:51 Room Air 03/05/19 07:53 18 03/05/19 07:15 98.4 95 98.4 03/03/19 17:01 17.0 Intake and Output 03/05/19 07:00 Output Total 2425 ml Balance -2425 ml Output Urine Total 2425 ml Physical Exam Physical Exam He is alert,supine in bed and he had significant improvement in his lower extremity muscle strength,including left hip flexors and left foot dorsiflexors,where he had 4/5 grade muscle strength today. Assessment Assessment Problems Medical Problems: (1) Anemia Status: Chronic (2) CKD (chronic kidney disease) Status: Chronic (3) Diabetes mellitus Status: Chronic (4) Diabetes mellitus with neuropathy Status: Chronic (5) GERD (gastroesophageal reflux disease) Status: Chronic (6) Gouty arthritis Status: Chronic (7) HLD (hyperlipidemia) Status: Chronic (8) HTN (hypertension) Status: Chronic (9) Intractable back pain Status: Acute (10) Left knee DJD Status: Chronic (11) Morbid obesity with BMI of 40.0-44.9, adult Status: Acute (12) Muscle spasm Status: Acute (13) Paresthesia Status: Acute (14) Right knee DJD Status: Chronic (15) Spinal stenosis at L4-L5 level Status: Acute Plan Plan [facility] Care To [facility] today for continued care. To work on his constipation. Comment Review of Relevant I have reviewed the following items maurisio (where applicable) has been applied. Labs Laboratory Tests Test 03/03/19 11:42 03/03/19 16:22 03/03/19 20:40 03/04/19 05:50 Glucose (Fingerstick) 174 mg/dL (70-99) 180 mg/dL (70-99) 200 mg/dL (70-99) White Blood Count 8.1 x10^3/uL (4.0-11.0) Red Blood Count 4.05 x10^6/uL (4.30-5.70) Hemoglobin 12.7 g/dL (13.0-17.5) Hematocrit 38.2 % (39.0-53.0) Mean Corpuscular Volume 94 fL (79-100) Mean Corpuscular Hemoglobin 31 pg (25-35) Mean Corpuscular Hemoglobin Concent 33 g/dL (31-37) Red Cell Distribution Width 14.4 % (11.5-14.5) Platelet Count 196 x10^3/uL (140-400) Neutrophils (%) (Auto) 64 % (31-73) Lymphocytes (%) (Auto) 18 % (24-48) Monocytes (%) (Auto) 11 % (0-9) Eosinophils (%) (Auto) 7 % (0-3) Basophils (%) (Auto) 1 % (0-3) Neutrophils # (Auto) 5.2 x10^3/uL (1.8-7.7) Lymphocytes # (Auto) 1.4 x10^3/uL (1.0-4.8) Monocytes # (Auto) 0.9 x10^3/uL (0.0-1.1) Eosinophils # (Auto) 0.5 x10^3/uL (0.0-0.7) Basophils # (Auto) 0.1 x10^3/uL (0.0-0.2) Sodium Level 140 mmol/L (136-145) Potassium Level 4.6 mmol/L (3.5-5.1) Chloride Level 105 mmol/L (98-107) Carbon Dioxide Level 29 mmol/L (21-32) Anion Gap 6 (6-14) Blood Urea Nitrogen 16 mg/dL (8-26) Creatinine 1.3 mg/dL (0.7-1.3) Estimated GFR (Cockcroft-Gault) 67.5 Glucose Level 165 mg/dL (70-99) Calcium Level 9.0 mg/dL (8.5-10.1) Test 03/04/19 07:59 03/04/19 11:29 03/04/19 16:59 03/04/19 20:44 Glucose (Fingerstick) 144 mg/dL (70-99) 192 mg/dL (70-99) 207 mg/dL (70-99) 197 mg/dL (70-99) Test 03/05/19 03:55 03/05/19 07:36 White Blood Count 7.8 x10^3/uL (4.0-11.0) Red Blood Count 3.99 x10^6/uL (4.30-5.70) Hemoglobin 12.5 g/dL (13.0-17.5) Hematocrit 37.7 % (39.0-53.0) Mean Corpuscular Volume 95 fL (79-100) Mean Corpuscular Hemoglobin 31 pg (25-35) Mean Corpuscular Hemoglobin Concent 33 g/dL (31-37) Red Cell Distribution Width 13.9 % (11.5-14.5) Platelet Count 203 x10^3/uL (140-400) Neutrophils (%) (Auto) 70 % (31-73) Lymphocytes (%) (Auto) 14 % (24-48) Monocytes (%) (Auto) 11 % (0-9) Eosinophils (%) (Auto) 4 % (0-3) Basophils (%) (Auto) 0 % (0-3) Neutrophils # (Auto) 5.5 x10^3/uL (1.8-7.7) Lymphocytes # (Auto) 1.1 x10^3/uL (1.0-4.8) Monocytes # (Auto) 0.9 x10^3/uL (0.0-1.1) Eosinophils # (Auto) 0.3 x10^3/uL (0.0-0.7) Basophils # (Auto) 0.0 x10^3/uL (0.0-0.2) Sodium Level 138 mmol/L (136-145) Potassium Level 4.4 mmol/L (3.5-5.1) Chloride Level 103 mmol/L (98-107) Carbon Dioxide Level 25 mmol/L (21-32) Anion Gap 10 (6-14) Blood Urea Nitrogen 15 mg/dL (8-26) Creatinine 0.9 mg/dL (0.7-1.3) Estimated GFR (Cockcroft-Gault) 103.1 Glucose Level 154 mg/dL (70-99) Calcium Level 8.8 mg/dL (8.5-10.1) Glucose (Fingerstick) 155 mg/dL (70-99) Laboratory Tests Test 03/04/19 11:29 03/04/19 16:59 03/04/19 20:44 03/05/19 03:55 Glucose (Fingerstick) 192 mg/dL (70-99) 207 mg/dL (70-99) 197 mg/dL (70-99) White Blood Count 7.8 x10^3/uL (4.0-11.0) Red Blood Count 3.99 x10^6/uL (4.30-5.70) Hemoglobin 12.5 g/dL (13.0-17.5) Hematocrit 37.7 % (39.0-53.0) Mean Corpuscular Volume 95 fL (79-100) Mean Corpuscular Hemoglobin 31 pg (25-35) Mean Corpuscular Hemoglobin Concent 33 g/dL (31-37) Red Cell Distribution Width 13.9 % (11.5-14.5) Platelet Count 203 x10^3/uL (140-400) Neutrophils (%) (Auto) 70 % (31-73) Lymphocytes (%) (Auto) 14 % (24-48) Monocytes (%) (Auto) 11 % (0-9) Eosinophils (%) (Auto) 4 % (0-3) Basophils (%) (Auto) 0 % (0-3) Neutrophils # (Auto) 5.5 x10^3/uL (1.8-7.7) Lymphocytes # (Auto) 1.1 x10^3/uL (1.0-4.8) Monocytes # (Auto) 0.9 x10^3/uL (0.0-1.1) Eosinophils # (Auto) 0.3 x10^3/uL (0.0-0.7) Basophils # (Auto) 0.0 x10^3/uL (0.0-0.2) Sodium Level 138 mmol/L (136-145) Potassium Level 4.4 mmol/L (3.5-5.1) Chloride Level 103 mmol/L (98-107) Carbon Dioxide Level 25 mmol/L (21-32) Anion Gap 10 (6-14) Blood Urea Nitrogen 15 mg/dL (8-26) Creatinine 0.9 mg/dL (0.7-1.3) Estimated GFR (Cockcroft-Gault) 103.1 Glucose Level 154 mg/dL (70-99) Calcium Level 8.8 mg/dL (8.5-10.1) Test 03/05/19 07:36 Glucose (Fingerstick) 155 mg/dL (70-99) Microbiology 02/26/19 Urine Culture - Final, Complete 02/26/19 Urine Culture Result 1 (DIXIE) - Final, Complete 02/26/19 Antimicrobic Susceptibility - Final, Complete Medications Current Medications Methylprednisolone Sodium Succinate (SOLU-Medrol 125MG VIAL) 125 mg 1X ONCE IV Last administered on 02/26/19 07:55; Start 02/26/19 at 07:15; Stop 02/26/19 at 07:16; Status DC Morphine Sulfate (Morphine Sulfate) 4 mg 1X ONCE IV Last administered on at 07:55; Start 02/26/19 at 07:15; Stop 02/26/19 at 07:16; Status DC Orphenadrine Citrate (Norflex) 60 mg 1X ONCE IV Last administered on 02/26/19 07:55; Start 02/26/19 at 07:15; Stop 02/26/19 at 07:16; Status DC Sodium Chloride 1,000 ml @ 100 mls/hr Q10H IV Last administered on 02/27/19 06:22; Start 02/26/19 at 09:02; Stop 02/27/19 at 09:01; Status DC Morphine Sulfate (Morphine Sulfate) 4 mg PRN Q2HR PRN IV PAIN Last administered on 02/28/19 14:21; Start 02/26/19 at 09:15 Allopurinol (Zyloprim) 300 mg HS PO Last administered on 03/04/19 22:27; Start 02/26/19 at 21:00 Aspirin (Ecotrin) 81 mg DAILYWBKFT PO Last administered on 03/05/19 08:51; Start 02/26/19 at 10:30 Cetirizine HCl (ZyrTEC) 10 mg DAILY PO Last administered on 03/05/19 08:51; Start 02/26/19 at 10:30 Vitamin D (Vitamin D3) 2,000 unit DAILY PO ; Start 02/26/19 at 10:30; Status UNV Vitamin D (Vitamin D3) 2,000 unit DAILY PO Last administered on 03/05/19 08:51; Start 02/26/19 at 10:30 Fluticasone Propionate (Flonase) 2 spray DAILY NS Last administered on 03/03/19 09:16; Start 02/26/19 at 10:30 Furosemide (Lasix) 40 mg DAILY PO Last administered on 03/05/19 08:51; Start 02/26/19 at 10:30 Gabapentin (Neurontin) 300 mg TID PO Last administered on 03/05/19 08:51; Start 02/26/19 at 10:30 Metoprolol Succinate (Toprol Xl) 25 mg DAILY PO Last administered on 03/05/19 08:51; Start 02/26/19 at 10:30 Montelukast Sodium (Singulair) 10 mg HS PO Last administered on 03/04/19 22:27; Start 02/26/19 at 21:00 Potassium Chloride (Klor-Con) 20 meq TIDWMEALS PO Last administered on 03/05/19 08:51; Start 02/26/19 at 12:00 Insulin Glargine (Lantus Syringe) 20 unit DAILY SQ Last administered on 03/03/19 09:16; Start 02/26/19 at 10:30; Stop 03/04/19 at 08:31; Status DC Lisinopril (Prinivil) 5 mg DAILY PO Last administered on 03/05/19 08:51; Start 02/26/19 at 10:30 Linagliptin (Tradjenta) 5 mg DAILY PO Last administered on 03/05/19 08:51; Start 02/26/19 at 10:30 Oxycodone HCl (Roxicodone) 10 mg PRN Q4HRS PRN PO PAIN; Start 02/26/19 at 10:00; Stop 02/26/19 at 13:41; Status DC Acetaminophen (Tylenol) 650 mg PRN Q6HRS PRN PO MILD PAIN / TEMP; Start 02/26/19 at 10:00 Albuterol Sulfate (Ventolin Neb Soln) 2.5 mg PRN Q6HRS PRN NEB SHORTNESS OF BREATH; Start 02/26/19 at 10:00 Insulin Human Lispro (HumaLOG) 0-8 UNITS BIDBFRMEAL SQ Last administered on 03/05/19 08:51; Start 02/26/19 at 10:30 Tizanidine HCl (Zanaflex) 4 mg TID PO Last administered on 03/01/19at 10:55; Start 02/26/19 at 10:30; Stop 03/01/19 at 18:10; Status DC Mupirocin (Bactroban) 1 raquel TID TP Last administered on 03/02/19at 14:03; Start 02/26/19 at 14:00; Stop 03/02/19 at 15:36; Status DC Oxycodone HCl (Roxicodone) 10 mg Q4HRS PO Last administered on 03/04/19at 12:17; Start 02/26/19 at 13:30; Stop 03/04/19 at 14:41; Status DC Diazepam (Valium) 5 mg PRN 1X PRN PO 30 MIN PRIOR TO MRI Last administered on 02/26/19at 15:41; Start 02/26/19 at 14:00; Stop 02/27/19 at 13:59; Status DC Ondansetron HCl (Zofran) 4 mg PRN Q6HRS PRN IV NAUSEA/VOMITING; Start 02/27/19 at 07:00; Stop 02/27/19 at 20:00; Status DC Fentanyl Citrate (Fentanyl 2ml Vial) 25 mcg PRN Q5MIN PRN IV MILD PAIN 1-3 Last administered on 02/27/19at 17:30; Start 02/27/19 at 07:00; Stop 02/27/19 at 20:00; Status DC Fentanyl Citrate (Fentanyl 2ml Vial) 50 mcg PRN Q5MIN PRN IV MODERATE TO SEVERE PAIN Last administered on 02/27/19at 17:09; Start 02/27/19 at 07:00; Stop 02/27/19 at 20:00; Status DC Morphine Sulfate (Morphine Sulfate) 1 mg PRN Q10MIN PRN IV SEVERE PAIN 7-10 Last administered on 02/27/19at 17:40; Start 02/27/19 at 07:00; Stop 02/27/19 at 20:00; Status DC Ringer's Solution 1,000 ml @ 30 mls/hr Q24H IV Last administered on 02/27/19at 16:56; Start 02/27/19 at 07:00; Stop 02/27/19 at 18:59; Status DC Lidocaine HCl (Xylocaine-Mpf 1% 2ml Vial) 2 ml PRN 1X PRN ID PRIOR TO IV START; Start 02/27/19 at 07:00; Stop 02/27/19 at 20:00; Status DC Hydromorphone HCl (Dilaudid) 0.5 mg PRN Q10MIN PRN IV SEV PAIN, Second choice; Start 02/27/19 at 07:00; Stop 02/27/19 at 20:00; Status DC Prochlorperazine Edisylate (Compazine) 5 mg PACU PRN PRN IV NAUSEA, MRX1; Start 02/27/19 at 07:00; Stop 02/27/19 at 20:00; Status DC Ceftriaxone Sodium (Rocephin) 1 gm Q24H IVP Last administered on 03/03/19at 09:16; Start 02/27/19 at 10:00; Stop 03/03/19 at 14:34; Status DC Midazolam HCl (Versed) 2 mg STK-MED ONCE .ROUTE ; Start 02/27/19 at 08:22; Stop 02/27/19 at 11:31; Status DC Midazolam HCl (Versed) 2 mg STK-MED ONCE .ROUTE ; Start 02/27/19 at 08:22; Stop 02/27/19 at 11:32; Status DC Propofol 0 ml @ As Directed STK-MED ONCE IV ; Start 02/27/19 at 08:22; Stop 02/27/19 at 11:34; Status DC Ketamine HCl (Ketamine) 50 mg STK-MED ONCE .ROUTE ; Start 02/27/19 at 08:48; Stop 02/27/19 at 11:34; Status DC Fentanyl Citrate (Fentanyl 2ml Vial) 100 mcg STK-MED ONCE .ROUTE ; Start 02/27/19 at 08:49; Stop 02/27/19 at 11:34; Status DC Fentanyl Citrate (Fentanyl 2ml Vial) 100 mcg STK-MED ONCE .ROUTE ; Start 02/27/19 at 10:42; Stop 02/27/19 at 11:34; Status DC Bupivacaine HCl/ Epinephrine Bitart (Sensorcain-Epi 0.5%-1:[id number] Mpf) 30 ml 1X ONCE INJ Last administered on 02/27/19at 15:53; Start 02/27/19 at 12:00; Stop 02/27/19 at 12:01; Status DC Bacitracin 49508 unit/Sodium Chloride 1,000 ml @ 1,000 mls/hr 1X ONCE IRR Last administered on 02/27/19at 13:36; Start 02/27/19 at 12:00; Stop 02/27/19 at 12:59; Status DC Glycopyrrolate (Robinul) 1 mg STK-MED ONCE .ROUTE ; Start 02/27/19 at 11:48; Stop 02/27/19 at 11:49; Status DC Neostigmine Methylsulfate (Bloxiverz) 10 mg STK-MED ONCE .ROUTE ; Start 02/27/19 at 11:49; Stop 02/27/19 at 11:49; Status DC Rocuronium [place] (Zemuron) 50 mg STK-MED ONCE .ROUTE ; Start 02/27/19 at 11:49; Stop 02/27/19 at 11:49; Status DC Remifentanil HCl (Ultiva) 2 mg STK-MED ONCE IV ; Start 02/27/19 at 11:49; Stop 02/27/19 at 11:49; Status DC Etomidate (Amidate) 20 mg STK-MED ONCE IV ; Start 02/27/19 at 11:49; Stop 02/27/19 at 11:49; Status DC Ondansetron HCl (Zofran) 4 mg STK-MED ONCE .ROUTE ; Start 02/27/19 at 11:49; Stop 02/27/19 at 11:50; Status DC Dexamethasone Sodium Phosphate (Decadron) 20 mg STK-MED ONCE .ROUTE ; Start 02/27/19 at 11:49; Stop 02/27/19 at 11:50; Status DC Lidocaine HCl (Lidocaine Pf 2% Vial) 5 ml STK-MED ONCE .ROUTE ; Start 02/27/19 at 11:49; Stop 02/27/19 at 11:50; Status DC Propofol 100 ml @ As Directed STK-MED ONCE IV ; Start 02/27/19 at 11:51; Stop 02/27/19 at 11:52; Status DC Succinylcholine Chloride (Anectine) 200 mg STK-MED ONCE .ROUTE ; Start 02/27/19 at 11:58; Stop 02/27/19 at 11:59; Status DC Gelatin (Gelf[place] Dental Sponge Size 4) 1 each STK-MED ONCE .ROUTE ; Start 02/27/19 at 12:10; Stop 02/27/19 at 12:11; Status DC Thrombin (Thrombin Topical) 5,000 unit STK-MED ONCE .ROUTE Last administered on 02/27/19 13:36; Start 02/27/19 at 12:11; Stop 02/27/19 at 12:11; Status DC Gelatin (Gelfoam Size 12-7mm) 1 each STK-MED ONCE .ROUTE Last administered on 02/27/19 13:36; Start 02/27/19 at 12:11; Stop 02/27/19 at 12:12; Status DC Gelatin (Gelfoam Size 12-7mm) 1 each STK-MED ONCE .ROUTE Last administered on 02/27/19 13:36; Start 02/27/19 at 12:11; Stop 02/27/19 at 12:12; Status DC Ketorolac Tromethamine (Toradol Im) 60 mg STK-MED ONCE .ROUTE Last administered on 02/27/19 13:36; Start 02/27/19 at 12:15; Stop 02/27/19 at 12:16; Status DC Cefazolin Sodium 3 gm/Dextrose 100 ml @ 200 mls/hr 1X PREOP PRN IV PRIOR TO PROCEDURE Last administered on 02/27/19 14:04; Start 02/27/19 at 12:23; Stop 02/28/19 at 12:22; Status DC Cefazolin Sodium 50 ml @ 100 mls/hr 1X PREOP PRN IV PRE OP DOSE; Start 02/28/19 at 06:00; Stop 02/28/19 at 18:00; Status UNV Lactobacillus Rhamnosus (Culturelle) 1 cap BID PO Last administered on 03/05/19at 08:51; Start 02/27/19 at 21:00 Remifentanil HCl (Ultiva) 1 mg STK-MED ONCE IV ; Start 02/27/19 at 14:40; Stop 02/27/19 at 14:40; Status DC Propofol 50 ml @ As Directed STK-MED ONCE IV ; Start 02/27/19 at 14:48; Stop 02/27/19 at 14:48; Status DC Gelatin (Gelfoam Size 12-7mm) 3 each STK-MED ONCE TP Last administered on 02/27/19at 15:47; Start 02/27/19 at 15:45; Stop 02/27/19 at 15:47; Status DC Throat Lozenges (Cepacol Sore Throat Lozenge) 1 [place] PRN Q2HRS PRN PO SORE THROAT Last administered on 02/27/19at 20:21; Start 02/27/19 at 20:15 Magnesium Hydroxide (Milk Of Magnesia) 2,400 mg PRN DAILY PRN PO CONSTIPATION Last administered on 03/02/19 09:12; Start 03/01/19 at 10:45 Bisacodyl (Dulcolax Tab) 10 mg PRN DAILY PRN PO CONSTIPATION, 3RD CHOICE; Start 03/01/19 at 10:45 Bisacodyl (Dulcolax Supp) [address] CONSTIPATION; Start 03/01/19 at 10:45 Senna/Docusate Sodium (Senna Plus) 1 tab PRN BID PRN PO CONSTIPATION, 2ND CHOICE Last administered on 03/02/19 09:12; Start 03/01/19 at 10:45; Stop 03/03/19 at 10:38; Status DC Alprazolam (Xanax) 0.5 mg PRN TID PRN PO ANXIETY / AGITATION Last administered on 03/02/19at 22:43; Start 03/01/19 at 11:30 Lactulose (Lactulose) 20 gm PRN Q2HRS PRN PO IF NO BM BY 1600 Last administered on 03/02/19 18:10; Start 03/02/19 at 16:00; Stop 03/02/19 at 20:00; Status DC Enoxaparin Sodium (Lovenox 40mg Syringe) 40 mg Q24H SQ Last administered on 03/04/19at 12:17; Start 03/02/19 at 13:00 Lactulose (Lactulose) 20 gm PRN Q2HRS PRN PO IF NO BM BY 1600 Last administered on 03/02/19 20:56; Start 03/02/19 at 20:30; Stop 03/02/19 at 20:56; Status DC Senna/Docusate Sodium (Senna Plus) 2 tab DAILY PO Last administered on 03/05/19 08:51; Start 03/03/19 at 11:00 Cefdinir (Omnicef) 300 mg BID PO Last administered on 03/05/19 08:51; Start 03/03/19 at 21:00 Insulin Glargine (Lantus Syringe) 22 unit DAILY SQ Last administered on 03/05/19at 08:51; Start 03/04/19 at 09:00 Duloxetine HCl (Cymbalta) 30 mg DAILY PO Last administered on 03/05/19at 08:51; Start 03/04/19 at 09:15 Oxycodone HCl (Roxicodone) 10 mg PRN Q4HRS PRN PO pain Last administered on 03/05/19at 08:51; Start 03/04/19 at 14:45 Cyclobenzaprine HCl (Flexeril) 10 mg PRN TID PRN PO MUSCLE SPASMS Last administered on 03/05/19at 02:43; Start 03/05/19 at 02:45 Bisacodyl (Dulcolax Tab) 10 mg PRN DAILY PRN PO CONSTIPATION; Start 03/05/19 at 09:45; Status UNV Active Scripts Active Tradjenta (Linagliptin) 5 Mg Tablet 5 Mg PO DAILY 30 Days Humalog (Insulin Lispro) 100 Unit/1 Ml Insuln.pen 0-8 Units SQ BIDBFRMEAL Culturelle (Lactobacillus Rhamnosus Gg) 1 Each Cap.sprink 1 Cap PO BID 30 Days Bisacodyl 5 Mg Tablet.dr 10 Mg PO PRN DAILY PRN 30 Days Bisacodyl 10 Mg Supp.rect [address] PRN DAILY PRN 30 Days Fluticasone Propionate Nasal [place] (Fluticasone Propionate) 16 Gm [place].susp 2 [place] NS DAILY 30 Days Cymbalta (Duloxetine Hcl) 30 Mg Capsule.dr 30 Mg PO DAILY 30 Days Tylenol (Acetaminophen) 325 Mg Tablet 650 Mg PO PRN Q6HRS PRN 14 Days Oxycodone Hcl Immed.release (Oxycodone Hcl) 5 Mg Tablet 10 Mg PO Q4HRS 14 Days Enoxaparin Sodium 40 Mg/0.4 Ml Disp.syrin 40 Mg SQ Q24H 14 Days Cefdinir 300 Mg Capsule 300 Mg PO BID 7 Days Cetirizine Hcl 10 Mg Tablet 10 Mg PO DAILY 30 Days Klor-Con M20 (Potassium Chloride) 20 Meq Tab.er.prt 20 Meq PO TIDWMEALS 30 Days Metoprolol Succinate ( Xl ) (Metoprolol Succinate) 25 Mg Tab.er.24h 25 Mg PO DAILY 30 Days Furosemide 40 Mg Tablet 40 Mg PO DAILY 30 Days Vitamin D (Cholecalciferol (Vitamin D3)) 1,000 Unit Tablet 2,000 Unit PO DAILY 30 Days Aspirin Ec (Aspirin) 81 Mg Tablet.dr 81 Mg PO DAILYWBKFT 30 Days Reported Metformin Hcl 1,000 Mg Tablet 1,000 Mg PO BIDWMEALS Fish Oil 1,200 Mg Fish Oil (Fish Oil/Dha/Epa) 1 Each Capsule 1 Each PO Tresiba Flextouch U-100 (Insulin Degludec) 100 Unit/1 Ml Insuln.pen 20 Units SUBCUT DAILY Ramipril 2.5 Mg Capsule 1 Cap PO DAILY Allopurinol 300 Mg Tablet 1 Tab PO HS Singulair Tablet (Montelukast Sodium) 10 Mg Tablet 1 Tab PO HS Gabapentin (Gabapentin) 300 Mg Capsule 1 Cap PO TID Vitals/I & O Vital Sign - Last 24 Hours 03/04/19 03/04/19 03/04/19 03/04/19 10:41 11:00 12:17 14:37 Temp 97.9 97.9 Pulse 96 Resp 18 B/P (MAP) 127/78 (94) Pulse Ox 95 O2 Delivery Room Air Room Air Room Air Room Air 03/04/19 03/04/19 03/04/19 03/04/19 15:00 19:00 20:30 21:20 Temp 97.8 98.2 97.8 98.2 Pulse 93 94 Resp 18 B/P (MAP) 108/64 (79) 124/48 (73) Pulse Ox 93 98 93 O2 Delivery Room Air Room Air Room Air Room Air 03/04/19 03/04/19 03/05/19 03/05/19 22:27 23:00 03:00 04:16 Temp 98.1 98.1 98.1 98.1 Pulse 82 84 Resp 16 18 B/P (MAP) 125/61 (82) 124/74 (91) Pulse Ox 93 93 O2 Delivery Room Air Room Air Room Air Room Air 03/05/19 03/05/19 03/05/19 03/05/19 07:15 07:52 07:53 08:00 Temp 98.4 98.4 Pulse 85 Resp 20 16 18 B/P (MAP) 130/58 (82) Pulse Ox 95 O2 Delivery Room Air Room Air Room Air Room Air 03/05/19 03/05/19 03/05/19 08:51 08:51 08:51 Pulse 85 85 B/P (MAP) 130/58 130/58 O2 Delivery Room Air Intake and Output 03/04/19 03/04/19 03/05/19 15:00 23:00 07:00 Output Total 800 ml 1075 ml 550 ml Balance -800 ml -1075 ml -550 ml TENNILLE HAYDEN MD Mar 05, 2019 09:49
--- NOTE | 2019-03-05 09:58 | SNU/HH DC ---
DISCHARGE ORDERS DISCHARGE INFORMATION: FINAL DIAGNOSIS Problems Medical Problems: (1) Anemia Status: Chronic (2) CKD (chronic kidney disease) Status: Chronic (3) Diabetes mellitus Status: Chronic (4) Diabetes mellitus with neuropathy Status: Chronic (5) GERD (gastroesophageal reflux disease) Status: Chronic (6) Gouty arthritis Status: Chronic (7) HLD (hyperlipidemia) Status: Chronic (8) HTN (hypertension) Status: Chronic (9) Intractable back pain Status: Acute (10) Left knee DJD Status: Chronic (11) Morbid obesity with BMI of 40.0-44.9, adult Status: Acute (12) Muscle spasm Status: Acute (13) Paresthesia Status: Acute (14) Right knee DJD Status: Chronic (15) Spinal stenosis at L4-L5 level Status: Acute CONDITION ON DISCHARGE: Stable POST DISCHARGE ORDERS: ACTIVITY ORDERS: Activity as tolerated (wi PT/OT), Other, see below WEIGHT BEARING STATUS: Other, see below BATHING ORDERS: Shower-keep dressing dry, No Tub Bath until see DIET AFTER DISCHARGE: ADA WOUND/INCISION CARE: Ice to area for comfort, Keep wound/cast CDI CHECKS AFTER DISCHARGE: CHECKS AFTER DISCHARGE: Check blood press - daily, Weigh Yourself Daily TREATMENT/EQUIPMENT ORDERS: ADAPTIVE EQUIPMENT NEEDED: None Physical Therapy For: Evalulation/Treatment Occupational Therapy For: Evaluation/Treatment DISCHARGE MEDICATIONS: Home Meds Active Scripts Linagliptin (TRADJENTA) 5 Mg Tablet, 5 MG PO DAILY for DM for 30 Days, #30 TAB Prov:GUILLE ALONZO MD 03/04/19 Insulin Lispro (HUMALOG) 100 Unit/1 Ml Insuln.pen, 0-8 UNITS SQ BIDBFRMEAL for DM, #1 EACH Prov:GUILLE ALONZO MD 03/04/19 Lactobacillus Rhamnosus Gg (CULTURELLE) 1 Each Cap.sprink, 1 CAP PO BID for antibiotic use for 30 Days, #60 CAP Prov:GUILLE ALONZO MD 03/04/19 Bisacodyl (BISACODYL) 5 Mg Tablet.dr, 10 MG PO PRN DAILY PRN for CONSTIPATION, 3RD CHOICE for 30 Days, #30 TAB.SR Prov:GUILLE ALONZO MD 03/04/19 Bisacodyl (BISACODYL) 10 Mg Supp.rect, 10 MG CA PRN DAILY PRN for CONSTIPATION for 30 Days, #10 SUPP.RECT Prov:GUILLE ALONZO MD 03/04/19 Fluticasone Propionate (FLUTICASONE PROPIONATE NASAL SPRAY) 16 Gm [place].susp, 2 SPRAY NS DAILY for rhinitis for 30 Days, #1 SPRAY Prov:GUILLE ALONZO MD 03/04/19 Duloxetine Hcl (CYMBALTA) 30 Mg Capsule.dr, 30 MG PO DAILY for depression and neuropathy for 30 Days, #30 CAP Prov:GUILLE ALONZO MD 03/04/19 Acetaminophen (TYLENOL) 325 Mg Tablet, 650 MG PO PRN Q6HRS PRN for MILD PAIN / TEMP for 14 Days, #60 TAB Prov:GUILLE ALONZO MD 03/04/19 Oxycodone Hcl (OXYCODONE HCL IMMED.RELEASE ) 5 Mg Tablet, 10 MG PO Q4HRS for lumbar radiculopathy for 14 Days, #168 TAB Prov:GUILLE ALONZO MD 03/04/19 Enoxaparin Sodium (ENOXAPARIN SODIUM) 40 Mg/0.4 Ml Disp.syrin, 40 MG SQ Q24H for DVT prophylaxis for 14 Days, DIS.SYR Prov:GUILLE ALONZO MD 03/04/19 Cefdinir (CEFDINIR) 300 Mg Capsule, 300 MG PO BID for UTI for 7 Days, #14 CAP Prov:GUILLE ALONZO MD 03/04/19 Cetirizine Hcl (CETIRIZINE HCL) 10 Mg Tablet, 10 MG PO DAILY for rhinitis for 30 Days, #30 TAB Prov:GUILLE ALONZO MD 03/04/19 Potassium Chloride (KLOR-CON M20) 20 Meq Tab.er.prt, 20 MEQ PO TIDWMEALS for 30 Days, #90 TAB.SR 1 Refill Prov:GUILLE ALONZO MD 07/27/17 Metoprolol Succinate (METOPROLOL SUCCINATE ( XL )) 25 Mg Tab.er.24h, 25 MG PO DAILY for 30 Days, #30 TAB.SR 5 Refills Prov:GUILLE ALONZO MD 07/27/17 Furosemide (FUROSEMIDE) 40 Mg Tablet, 40 MG PO DAILY for 30 Days, #30 TAB 5 Refills Prov:GUILLE ALONZO MD 07/27/17 Cholecalciferol (Vitamin D3) (VITAMIN D) 1,000 Unit Tablet, 2000 UNIT PO DAILY for 30 Days, #6 TAB Prov:GUILLE ALONZO MD 07/27/17 Aspirin (ASPIRIN EC) 81 Mg Tablet.dr, 81 MG PO DAILYWBKFT for 30 Days, #30 TAB.SR 5 Refills Prov:GUILLE ALONZO MD 07/27/17 Reported Medications Metformin Hcl (METFORMIN HCL) 1,000 Mg Tablet, 1000 MG PO BIDWMEALS for DM, TAB 02/26/19 Fish Oil/Dha/Epa (FISH OIL 1,200 MG FISH OIL) 1 Each Capsule, 1 EACH PO, CAP 01/03/18 Insulin Degludec (Tresiba Flextouch U-100) 100 Unit/1 Ml Insuln.pen, 20 UNITS FUENTES BCUT DAILY 07/24/17 Ramipril (RAMIPRIL) 2.5 Mg Capsule, 1 CAP PO DAILY, #30 CAP 5 Refills 04/25/14 Allopurinol (ALLOPURINOL) 300 Mg Tablet, 1 TAB PO HS, #30 TAB 5 Refills 04/25/14 Montelukast Sodium (SINGULAIR TABLET ) 10 Mg Tablet, 1 TAB PO HS, #90 TAB 1 Refill 04/25/14 Gabapentin (GABAPENTIN ) 300 Mg Capsule, 1 CAP PO TID, #90 CAP 5 Refills 04/25/14 Discontinued Reported Medications Tramadol Hcl (TRAMADOL HCL) 50 Mg Tablet, 1 TAB PO PRN Q6HRS, #30 TAB 04/25/14 Cholecalciferol (Vitamin D3) (VITAMIN D3) 1,000 Unit Tablet, 2 TAB PO DAILY, #30 TAB 5 Refills 01/03/18 Albuterol Sulfate (PROAIR HFA INHALER) 8.5 Gm Hfa.aer.ad, 2 PUFF INH PRN Q6HRS PRN for SHORTNESS OF BREATH, INHALER 0 Refills 01/03/18 Fluticasone Propionate (FLUTICASONE PROPIONATE NASAL SPRAY) 16 Gm [place].susp, 2 SPRAY NS DAILY, #1 INHALER 11 Refills 01/03/18 Simvastatin (SIMVASTATIN) 10 Mg Tablet, 1 TAB PO QHS, #30 TAB 5 Refills 12/07/17 Cetirizine Hcl (ZYRTEC) 10 Mg Tablet, 1 TAB PO DAILY, #30 TAB 2 Refills 12/07/17 Sitagliptin Phosphate (JANUVIA) 100 Mg Tablet, 1 TAB PO DAILY, #30 TAB 5 Refills 04/25/14 Glimepiride (GLIMEPIRIDE) 1 Mg Tablet, 0.5 TAB PO BID, #30 TAB 5 Refills 04/25/14 Cyclobenzaprine Hcl (CYCLOBENZAPRINE HCL) 10 Mg Tablet, 1 TAB PO QHS, #30 TAB 04/25/14 GUILLE ALONZO MD Mar 05, 2019 09:58
[2019-03-05] MEDS ORDERED: BISA-42 PO (10:02)
[2019-03-05] MEDS ORDERED: CYCL10TA2 PO (10:11)
--- NOTE | 2019-03-05 10:29 | PDOC3 ---
IM DISCHARGE SUMMARY Date of Admission Date of Admission Date of Admission: Feb 26, 2019 at 09:42 Date of Discharge Date of Discharge March 05, 2019 Primary Diagnosis Primary Diagnosis *E Coli UTI 1. Acute lumbar radiculopathy. 2. Intractable low back pain. 3. 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 4. Chronic systolic congestive heart failure, severe. 5. Gout. 6. Morbid obesity. 7. Hypertension. 8. Hyperlipidemia. 9. Gastroesophageal reflux disease. 10. Osteoarthritis of the knees. 11. Chronic sinusitis. 12. History of kidney stones. 13. Eczema. 14. Allergic rhinitis. 15. History of neck surgery. 16. History of dual-chamber AICD placed in 2018 and subsequently had revision of the right ventricular lead because of the fracture. 17. Herniated disc Disc T10-11 Consults Consults Carl Medina MD; Pawel Mckoy MD; Yeyo Mckoy MD; Fernandez Rodriguez MD Procedures Procedures 02/27/19:OPERATION PERFORMED: Right T10-T11 transfacet/transpedicular approach with removal of herniated thoracic disk and decompression of the spinal cord. The operation was done with multimodality monitoring including SSEP, motor-evoked potentials and we also used fluoroscopy, microscopic dissection. Labs Labs Laboratory Tests Test 03/04/19 11:29 03/04/19 16:59 03/04/19 20:44 03/05/19 03:55 Glucose (Fingerstick) 192 mg/dL (70-99) H 207 mg/dL (70-99) H 197 mg/dL (70-99) H White Blood Count 7.8 x10^3/uL (4.0-11.0) Red Blood Count 3.99 x10^6/uL (4.30-5.70) L Hemoglobin 12.5 g/dL (13.0-17.5) L Hematocrit 37.7 % (39.0-53.0) L Mean Corpuscular Volume 95 fL (79-100) Mean Corpuscular Hemoglobin 31 pg (25-35) Mean Corpuscular Hemoglobin Concent 33 g/dL (31-37) Red Cell Distribution Width 13.9 % (11.5-14.5) Platelet Count 203 x10^3/uL (140-400) Neutrophils (%) (Auto) 70 % (31-73) Lymphocytes (%) (Auto) 14 % (24-48) L Monocytes (%) (Auto) 11 % (0-9) H Eosinophils (%) (Auto) 4 % (0-3) H Basophils (%) (Auto) 0 % (0-3) Neutrophils # (Auto) 5.5 x10^3/uL (1.8-7.7) Lymphocytes # (Auto) 1.1 x10^3/uL (1.0-4.8) Monocytes # (Auto) 0.9 x10^3/uL (0.0-1.1) Eosinophils # (Auto) 0.3 x10^3/uL (0.0-0.7) Basophils # (Auto) 0.0 x10^3/uL (0.0-0.2) Sodium Level 138 mmol/L (136-145) Potassium Level 4.4 mmol/L (3.5-5.1) Chloride Level 103 mmol/L (98-107) Carbon Dioxide Level 25 mmol/L (21-32) Anion Gap 10 (6-14) Blood Urea Nitrogen 15 mg/dL (8-26) Creatinine 0.9 mg/dL (0.7-1.3) Estimated GFR (Cockcroft-Gault) 103.1 Glucose Level 154 mg/dL (70-99) H Calcium Level 8.8 mg/dL (8.5-10.1) Test 03/05/19 07:36 Glucose (Fingerstick) 155 mg/dL (70-99) H Laboratory Tests 03/05/19 03:55 Laboratory Tests 03/05/19 03:55 Brief hospital course Brief hospital course This is a 63-year-old male who has a history of chronic low back pain, has been getting much worse for last 1 month. The patient has not been able to walk and until yesterday, was trying to walk with the crutches, but his pain continued to get worse. He has had a lot of muscle spasms. He has had imaging studies of the low back and was to see Dr. Pawel Mckoy today for pain management and possibly steroid injection. He has been taking pain medications and muscle relaxers without any relief and the last few days, his pain has been excruciating and is not helping even with gabapentin and other medications. His pain became so bad that he could not even walk with the crutches. 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 Spasms are continuous and sometimes he gets a few spasms in a few seconds. He also felt like he had electric current going down his extremities. He could not walk. He was advised to go to the Emergency Room even though he had an appointment with Dr. Mckoy this morning. The patient could not get up, so he tried to crawl out of the bed and was trying to crawl and in the process, he fell and he hurt his left leg where he had laceration. His could not get him up, so Fire Department was called and he was brought to the Emergency Room by ambulance. In the Emergency Room, he remained in severe pain and continued to have lot of spasms. He was given IV morphine and IV hydrocortisone and IV orphenadrine and because of the severe intractable pain with inability for him to get up, the patient was admitted for further evaluation and management. For more details regarding the past history, family history, social history, surgical history and other details, please refer to History and Physical. 02/27/19:OPERATION PERFORMED: Right T10-T11 transfacet/transpedicular approach with removal of herniated thoracic disk and decompression of the spinal cord. The operation was done with multimodality monitoring including SSEP, motor-evoked potentials and we also used fluoroscopy, microscopic dissection. Lower extremity weakness is somewhat better. Still has lot of numbness and weakness. Added Flexeril for muscle spasms. Depression- start Cymbalta. IV Rocephin for uti. Urine culture shows Escherichia coli sensitive to Rocephin. IV Rocephin changed to cefdinir pt/ot. pain control. Constipation-added Dulcolax for better control. Diabetes mellitus type 2 with neuropathy controlled Recheck labs in a.m. Herniated disc T10 -11 - Clinically improving slowly. Will need to lot of rehabilitation. Condition treatment discussed with the patient and the his . He also has lumbar radiculopathy and it will need to be worked on later if it becomes symptomatic. Patient will be discharged to [facility] today. Medications Current Medications Medications (Trade) Dose Ordered Sig/Tavia Route PRN Reason Start Time Stop Time Status Last Admin Dose Admin Oxycodone HCl (Roxicodone) 10 mg PRN Q4HRS PRN PO pain 03/04/19 14:45 03/05/19 08:51 Cyclobenzaprine HCl (Flexeril) 10 mg PRN TID PRN PO MUSCLE SPASMS 03/05/19 02:45 03/05/19 02:43 Medications reviewed and reconciled for discharge. Allergy Allergies Coded Allergies Type Severity Reaction Last Updated Verified simvastatin Allergy Intermediate upper body weakness 02/26/19 Yes pseudoephedrine Adverse Reaction Intermediate "Gets high" 12/07/17 Yes tizanidine Adverse Reaction Intermediate 03/01/19 Yes Follow up in 5 days. DISPOSITION: Rehab hospital Comments Discharge Management - 35 minutes. For other details please refer to discharge instructions GUILLE ALONZO MD Mar 05, 2019 10:28
[2019-03-05 10:59] VITALS: BP 133/78
== END 2019-03-05 12:10 | DRG 519 ==
LOC: ER 06:52 → 4 NORTH 09:42
PROVIDERS: ADMIT Internal Medicine; ATTEND Internal Medicine
PROC: 0RB90ZZ Excision of Thoracic Vertebral Disc, Open Approach (ICD-10-PCS; principal; 2019-02-28)
PROC: 4A11X4G Monitoring of Peripheral Nervous Electrical Activity, Intraoperative, External Approach (ICD-10-PCS; 2019-02-28)
DX: M51.04 Intervertebral disc disorders with myelopathy, thoracic region (principal); G95.20 Unspecified cord compression; Z68.41 Body mass index [BMI] 40.0-44.9, adult; I42.9 Cardiomyopathy, unspecified; I13.0 Hypertensive heart and chronic kidney disease with heart failure and stage 1 through stage 4 chronic kidney disease, or unspecified chronic kidney disease; I50.42 Chronic combined systolic (congestive) and diastolic (congestive) heart failure; N39.0 Urinary tract infection, site not specified; M48.061 Spinal stenosis, lumbar region without neurogenic claudication; N18.9 Chronic kidney disease, unspecified; E11.22 Type 2 diabetes mellitus with diabetic chronic kidney disease; E66.01 Morbid (severe) obesity due to excess calories; B96.20 Unspecified Escherichia coli [E. coli] as the cause of diseases classified elsewhere; D64.9 Anemia, unspecified; E11.21 Type 2 diabetes mellitus with diabetic nephropathy; E11.42 Type 2 diabetes mellitus with diabetic polyneuropathy; E78.00 Pure hypercholesterolemia, unspecified; E78.5 Hyperlipidemia, unspecified; F32.9 Major depressive disorder, single episode, unspecified; G89.29 Other chronic pain; I25.10 Atherosclerotic heart disease of native coronary artery without angina pectoris; J45.909 Unspecified asthma, uncomplicated; K21.9 Gastro-esophageal reflux disease without esophagitis; K59.00 Constipation, unspecified; L30.9 Dermatitis, unspecified; M10.9 Gout, unspecified; M17.0 Bilateral primary osteoarthritis of knee; M48.04 Spinal stenosis, thoracic region; M51.24 Other intervertebral disc displacement, thoracic region; J32.9 Chronic sinusitis, unspecified; Z79.4 Long term (current) use of insulin; Z80.0 Family history of malignant neoplasm of digestive organs; Z82.49 Family history of ischemic heart disease and other diseases of the circulatory system; Z83.3 Family history of diabetes mellitus; Z87.442 Personal history of urinary calculi; Z90.49 Acquired absence of other specified parts of digestive tract; Z95.810 Presence of automatic (implantable) cardiac defibrillator; M51.14 Intervertebral disc disorders with radiculopathy, thoracic region
CPT/HCPCS: 36415; 72131; 72146; 72148; 76000; 80048; 80053; 80061; 81001; 82550; 82962; 83735; 85025; 85651; 87086; 87186; 88304; 88311; 94760; 96374; 96375; A7015; J0330; J0690; J0696; J1100; J1650; J1815; J1885; J2001; J2250; J2270; J2360; J2405; J2704; J2710; J2930; J3010; J3490; J7030; J7120; 97110; 97116; 97530; 97535; 99285-25; G0378

== ENCOUNTER → 2019-06-05 | Outpatient (CLI) | payer BC ==
[~2019-06-05] MED LIST changes: +ACET325T9 PO; +BISA-42 PO; +BISA10SU4 PR; +BISA5TAB4 PO; +CEFD300C PO; +CETI10TA16 PO; +DULO30CA2 PO; +ENOX40DI3 SQ; +GADOTERATE 5 MMOL/10ML VIAL. IVP ONE; +GADOTERATE 7.5 MMOL/15ML VIAL. IVP ONE; -GLIM1TAB2 PO; +GLIM1TAB3 PO; +INSU100I11 SQ; +LACT1CAP19 PO; +LINA5TAB PO; +METF10007 PO; +OXYC5TAB4 PO; +SIMV10TA15 PO; -SIMV10TA3 PO
[2019-06-05 13:23] LABS: CREATININE 1.1 mg/dL (0.7-1.3); GFR 81.8
[2019-06-05 14:50] VITALS: BP 150/101
[2019-06-05 15:00] VITALS: BP 150/71
[2019-06-05 15:10] VITALS: BP 150/77
[2019-06-05 15:30] VITALS: BP 118/75
[2019-06-05 15:40] VITALS: BP 122/75
[2019-06-05 15:55] VITALS: BP 126/84
--- NOTE | 2019-06-05 17:16 | RAD ---
MR thoracic spine with and without contrast 06/05/2019 INDICATION: Thoracic stenosis. COMPARISON: MR thoracic spine 02/27/2019. TECHNIQUE: Multiple, multisequence MR imaging of the thoracic spine was performed before and after administration of intravenous contrast. FINDINGS: Alignment of the thoracic spine is stable. 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 Marrow signal intensity is stable with exception of increased endplate edema identified at T10-T11. At T10-T11, there has been interval right hemilaminectomy with partial facetectomy. Enhancement most favors granulation tissue. There may be a small rim-enhancing fluid collection along the right lateral epidural space at this level measuring 2.1 x 1.0 x 1.0 cm. There is persistent apparent mass effect on the cord despite interval decompression. At T11-T12, there is a moderate to severe disc bulge with mild facet arthropathy resulting in severe spinal canal stenosis which persists. Edema is noted within the posterior subcutaneous soft tissues superficial to the T10-T12 vertebral levels. No suspicious thoracic or upper abdominal abnormalities visualized. IMPRESSION: 1. Interval postoperative changes are identified from right hemilaminectomy at T10-T11 with residual postoperative fluid collection in the right lateral epidural space resulting in persistent mass effect on the cord and minimal residual cord signal alteration. Sterility of the postoperative collection is not well assessed by imaging. Correlate with physical symptoms to exclude underlying abscess. No compressive epidural hematoma is visualized. 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 Electronically signed by: Soumya Flores MD (06/05/2019 5:13 PM) [id number]
== END | disposition home or self-care (01) ==
LOC: MRI 12:03
PROVIDERS: ATTEND Neurological Surgery
DX: M51.34 Other intervertebral disc degeneration, thoracic region (principal); M48.04 Spinal stenosis, thoracic region; Z98.890 Other specified postprocedural states
CPT/HCPCS: 36415; 72157; 82565; A9575

== ENCOUNTER → 2021-11-02 | Outpatient (CLI) | payer MEDICARE, BC ==
[2019-06-05 15:55] VITALS: BP 126/84
[~2021-11-02] MED LIST changes: -ASPI-612 PO; +ASPI-886 PO; -CETI10TA22 PO; +CETI10TA74 PO; +CYCL10TA19 PO; -CYCL10TA2 PO; -DOXY100C2 PO; +DOXY100C3 PO; -GADOTERATE 5 MMOL/10ML VIAL. IVP ONE; -GADOTERATE 7.5 MMOL/15ML VIAL. IVP ONE; -GLIM1TAB3 PO; +GLIM1TAB7 PO; +POTA-121 PO; -POTA20TA4 PO; -RAMI2.5C2 PO; +RAMI2.5C41 PO
[2021-11-02 14:43] LABS: CREATININE 1.2 mg/dL (0.7-1.3); GFR 73.3; POTASSIUM 3.8 mmol/L (3.5-5.1)
== END ==
LOC: LAB 13:43
PROVIDERS: ATTEND Internal Medicine Cardiovascular Disease
DX: I50.22 Chronic systolic (congestive) heart failure (principal)
CPT/HCPCS: 36415; 80048